=== PATIENT | female | born 1940 | race Caucasian/White ===

== ENCOUNTER → 2018-12-16 | Outpatient (CLI) | payer MEDICARE ==
[~2018-12-16] MED LIST: ACETAMINOPHEN325 M1 PO; ALBUTEROL0.63 MG/3; AMIODARONE HCL200 MG; ASPIRIN EC81 MG PO; BUMETANIDE1 MG PO; COUMADIN3 MG PO; DIGOXIN125 MCG PO; DOCUSATE SODIU100 MG PO; FLUOXETINE HCL40 MG PO; FOSAMAX70 MG; MELATONIN3 MG PO; PANTOPRAZOLE SO40 MG PO
--- NOTE | 2018-12-16 15:56 | Diagnostic Imaging Report ---
EXAMINATION: CHEST 2 VIEWS INDICATION: Shortness of breath COMPARISON: None FINDINGS: TUBES and LINES: Sternotomy wires and hardware overlie the midline thorax. LUNGS: The lung volumes are low. There is perihilar fullness and indistinctness of the pulmonary vasculature. And area of focal opacity at the left lung apex may represent overlying shadow from the sternocostal junction versus a pulmonary parenchymal lesion. PLEURA: Bilateral pleural effusions left greater than right no pneumothorax. HEART AND MEDIASTINUM: Cardiomegaly. Atherosclerotic calcifications of the thoracic aorta. BONES AND SOFT TISSUES: No acute fracture or dislocation. Surgical clips and skin joe overlie the right anterior chest wall. UPPER ABDOMEN: No free air under the diaphragm. IMPRESSION: Low lung volumes with pulmonary interstitial edema and bilateral left greater than right pleural effusions. More focal opacity at the left lung apex may represent a pulmonary nodule or overlapping shadow from sternocostal junction. RECOMMENDATIONS: Chest CT on a non-urgent basis can be considered for further evaluation of possible left apical nodule. Signed by: Arnie Zapata MD on 12/16/2018 3:52 PM
== END ==
LOC: RAD 14:48
PROVIDERS: ATTEND Internal Medicine Cardiovascular Disease
DX: R06.02 Shortness of breath (principal)
CPT/HCPCS: 71046

== ENCOUNTER 2018-12-18 20:30 | Inpatient (IN) | payer MEDICARE ==
[~2018-12-18] VITALS: Ht 152.4 cm; Wt 76.7 kg
--- OUTSIDE RECORDS SUMMARY | 2018-12-18 20:34 | XMS REPORT | Clinical Summary ---
Author Author [facility] Address Unknown Phone Unavailable Care Team Providers Care Cloth Measurer Name Role Phone Yoshi Carrasco MD PCP Allergies Comments Active Allergy Reactions Severity Noted Date Codeine Hives 08/26/2017 Penicillins 08/26/2017 Medications End Date Status Medication Sig Dispensed Refills Start Date Active PROAIR HFA 90 0 mcg/actuation inhaler 8 Active alendronate (FOSAMAX) 70 0 MG tablet 8 Active ELIQUIS 5 mg tablet 0 8 Active benzonatate (TESSALON) TK ONE C PO Q 0 100 MG capsule 8 H PRF CNC 8 Active CARTIA XT 120 mg 24 hr 0 capsule 8 Active doxycycline (VIBRA-TABS) 0 100 MG tablet 8 Active FLUoxetine (PROzac) 40 MG 0 capsule 8 Active HYDROcodone-acetaminophen 0 (NORCO) 5-325 mg per 8 tablet Active isosorbide mononitrate 0 (IMDUR) 60 MG 24 hr 8 tablet Active omeprazole (PriLOSEC) 40 0 MG capsule 8 Active ondansetron ODT 0 (ZOFRAN-ODT) 4 MG 8 disintegrating tablet Active ondansetron (ZOFRAN) 4 MG 0 tablet 8 Active simvastatin (ZOCOR) 20 MG 0 tablet 8 Active triamterene-hydrochloroth TK 1 C PO QD 0 iazid (DYAZIDE) 37.5-25 IN THE 8 mg per capsule MORNING Active Problems Problem Noted Date Closed head injury 08/24/2017 Encounters Care Team Description Date Type Specialty [place], Yoshi, MD Acute idiopathic gout of left foot (Primary Dx) 08/13/2018 Transcribe Access Orders Yoshi Carrasco MD Idiopathic gout of left foot, unspecified chronicity (Primary Dx) 08/13/2018 Transcribe Access Orders Meek Lutz MD Leg pain, anterior, left 08/08/2018 Hospital Radiology Encounter Meek Lutz MD Leg pain, anterior, left (Primary Dx) 08/08/2018 Transcribe Access Orders after 12/17/2017 Immunizations Name Dates Previously Given Next Due Tdap 08/24/2017 Social History Date Tobacco Use Types Packs/Day Years Used Never Smoker Smokeless Tobacco: Never Used Alcohol Use Drinks/Week oz/Week Comments No Sex Assigned at Date Recorded Not on file Industry Job Start Date Occupation Not on file Not on file Not on file Travel End Travel History Travel Start No recent travel history available. Last Filed Vital Signs Not on file Plan of Treatment Health Maintenance Due Date Last Done Comments COLONOSCOPY SCREENING 01/10/1992 SHINGLES VACCINES (#1) 01/10/1992 65+ PNEUMOCOCCAL VACCINE 2007 06/04/2009 (2 of 2 - PPSV23) INFLUENZA VACCINE 01/02/2019 04/04/2016 Procedures Comments Procedure Name Priority Date/Time Associated Diagnosis XR ANKLE 3+ VW LEFT Routine 08/13/2018 Idiopathic gout of left 12:03 PM CDT foot, unspecified chronicity XR FOOT 3+ VW LEFT Routine 08/13/2018 Idiopathic gout of left 12:02 PM CDT foot, unspecified chronicity US DUPLEX VENOUS LOWER STAT 08/08/2018 Leg pain, anterior, left EXTREMITY LEFT 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 IMPRESSION: There is no evidence of acute left ankle fracture or dislocation. Bones are diffusely demineralized. Circumferential soft tissue swelling around the ankle. Small joint effusion. Plantar fascial calcifications. Mild degenerative changes at the ankle joint. No evidence of erosions, periostitis or changes to suggest gout. The soft tissue swelling in combination with a joint effusion is nonspecific although can represent the manifestations of a crystalline arthropathy. Consider MRI. I personally reviewed the images and the resident's findings and agree with the final report. [id number] Procedure Note Interface, Radiology Results Incoming - 08/13/2018 2:14 PM CDT EXAMINATION: XR ANKLE 3 VW LEFT CLINICAL HISTORY: M10.072 Idiopathic gout left ankle and foot, m10.072 COMPARISON: None. IMPRESSION: There is no evidence of acute left ankle fracture or dislocation. Bones are diffusely demineralized. Circumferential soft tissue swelling around the ankle. Small joint effusion. Plantar fascial calcifications. Mild degenerative changes at the ankle joint. No evidence of erosions, periostitis or changes to suggest gout. The soft tissue swelling in combination with a joint effusion is nonspecific although can represent the manifestations of a crystalline arthropathy. Consider MRI. I personally reviewed the images and the resident's findings and agree with the final report. [id number] Performing Organization Address City/State/Zipcode Phone Number [facility] [phone] [place] [address] * XR Foot 3+ Vw Left (08/13/2018 12:02 PM CDT) Specimen Narrative Performed At EXAMINATION:XR FOOT 3VW LEFT [facility] CLINICAL HISTORY:M10.072 Idiopathic goutleft ankle and foot, m10.072 COMPARISON:None. IMPRESSION: 1.There is no evidence of acute left foot fracture or dislocation. There are no radiopaque foreign bodies.There are no focal bony erosions or periostitis. Osseous structures are demineralized. There is joint space narrowing and articular sclerosis at the TMT joint spaces. [facility]-[id number] Procedure Note Interface, Radiology Results - 08/13/2018 12:33 PM CDT EXAMINATION: XR FOOT 3 VW LEFT CLINICAL HISTORY: M10.072 Idiopathic gout left ankle and foot, m10.072 COMPARISON: None. IMPRESSION: 1. There is no evidence of acute left foot fracture or dislocation. There are no radiopaque foreign bodies. There are no focal bony erosions or periostitis. Osseous structures are demineralized. There is joint space narrowing and articular sclerosis at the TMT joint spaces. [facility]-[id number] Performing Organization Address City/State/Zipcode Phone Number [facility] [address] [place] [address] * Us duplex venous lower extremity (08/08/2018 5:41 PM FIELD MARKETING DIRECTOR) Specimen Narrative Performed At US DUPLEX [facility]EN[facility] CLINICAL INDICATION: M79.605 Pain in left leg, leg pain COMPARISON:None COMMENTS: Sonographic evaluation of the left lower extremity was performed utilizing compression sonography and color Doppler interrogation. Doppler evaluation of the contralateral right common femoral vein demonstrates normal flow on color and spectral Doppler imaging. The left common femoral vein, superficial and visualized profunda femoral veins and popliteal vein are normal in course and caliber and exhibit normal compressibility, flow variation and Doppler signal throughout. The visualized deep veins of the left calf are within normal limits with normal flow variation. No Garcia's cyst is identified. IMPRESSION: No evidence of left lower extremity deep venous thrombosis. *[id number] Procedure Note Interface, Radiology Results Incoming - 08/08/2018 5:48 PM FIELD MARKETING DIRECTOR US DUPLEX VENOUS LOWER EXTREMITY LEFT CLINICAL INDICATION: M79.605 Pain in left leg, leg pain COMPARISON: None COMMENTS: Sonographic evaluation of the left lower extremity was performed utilizing compression sonography and color Doppler interrogation. Doppler evaluation of the contralateral right common femoral vein demonstrates normal flow on color and spectral Doppler imaging. The left common femoral vein, superficial and visualized profunda femoral veins and popliteal vein are normal in course and caliber and exhibit normal compressibility, flow variation and Doppler signal throughout. The visualized deep veins of the left calf are within normal limits with normal flow variation. No Garcia's cyst is identified. IMPRESSION: No evidence of left lower extremity deep venous thrombosis. *[id number] Performing Organization Address City/State/Zipcode Phone Number [facility] [address] [place] [address] after 12/17/2017 Insurance Type Payer Benefit Subscriber ID Effective Phone Address Plan / Dates Group [facility] MEDICARE AARP xxxxxxxxx [id number] MEDICARE resent [facility] Advance Directives Patient has advance care planning documents on file. For more information, yohannes mai contact: Richard Carrero [phone] [facility] [place] [address]
--- OUTSIDE RECORDS SUMMARY | 2018-12-18 20:35 | XMS REPORT | Summary of Care ---
Author Author [facility] Organization [facility] Address Unknown Phone Unavailable Encounter NISH Burt(RYAN) [id number] Date(s): 11/15/18 - 12/01/18 [facility] [address] [employer] provided by [facility] [place] [address]- Discharge Disposition: Home or Self Care Attending Physician: Katelyn Austin MD Admitting Physician: Katelyn Austin MD Vital Signs 1 2 3 Most recent to oldest [Reference Range]: 152.4 cm (11/22/18 11:20 AM) 152.4 cm (11/22/18 7:49 AM) 152.4 cm (11/22/18 3:26 AM) Height 84.688 kg (11/28/18 5:40 AM) 88.9 kg (11/26/18 5:57 AM) 89 kg (11/25/18 4:59 AM) Current Weight 97.1 DegF (12/01/18 4:46 PM) 97.7 DegF (12/01/18 11:33 AM) 98.5 DegF (12/01/18 7:30 AM) Temperature Oral [96.4-99.1 DegF] 104/75 mmHg (12/01/18 2:29 PM) 110/56 mmHg (12/01/18 12:00 PM) 110/56 mmHg (12/01/18 11:33 AM) Blood Pressure [90-140/60-90 mmHg] 18 BRMIN (12/01/18 2:29 PM) 22 BRMIN *HI* (12/01/18 12:00 PM) 20 BRMIN (12/01/18 11:33 AM) Respiratory Rate [14-20 BRMIN] 72 bpm (11/15/18 5:18 PM) Peripheral Pulse Rate [60-100 bpm] 82.727 kg (11/16/18 1:55 AM) 79.545 kg (11/15/18 5:18 PM) Weight 35.62 m2 (11/16/18 1:55 AM) 34.25 m2 (11/15/18 5:18 PM) Body Mass Index Problem List Condition Effective Dates Status Health Status Informant A-fib(Confirmed) Active Shortness of breath Active on exertion(Confirmed) Acid Active reflux(Confirmed) Hyperlipidemia(Confi Active rmed) HTN Active (hypertension)(Confi rmed) Sleep Active apnea(Confirmed) Allergies, Adverse Reactions, Alerts Substance Reaction Severity Status penicillins Active codeine Active chlorhexidine topical Active NKDA Active Medications acetaminophen 1,000 mg, 100 mL, Route: IV, Drug form: INJ, ONCE, Dosing Weight 82.727, kg, Sta rt date: 11/22/18 13:21:00 CDT, Stop date: 11/22/18 13:21:00 CDT Notes: Infuse over 15 minutesDo not exceed 4gm/day of acetaminophen MEDICAT ION WASTE Product Size: 1000 mgProduct Wasted: ___ mg Start Date: 11/22/18 Stop Date: 11/22/18 Status: Completed acetaminophen 650 mg rectal suppository 650 mg, 2 tab, Route: PO, Drug form: TAB, Q6H, Dosing Weight 82.727, kg, PRN For Temp > 100.4 F, Start date: 11/22/18 2:33:00 CDT, Duration: 30 day, Stop date: 12/22/18 2:32:00 CDT Notes: Do not exceed 4 gm/day. (Same as: Tylenol) Start Date: 11/22/18 Stop Date: 12/01/18 Status: Discontinued acetaminophen-hydrocodone 325 mg-10 mg oral tablet 2 tab, Route: PO, Drug Form: TAB, Dosing Weight 82.727, kg, Q4H, PRN Pain Score 4-6, Start date: 11/21/18 1:02:00 CDT, Duration: 30 day, Stop date: 12/21/18 1:0 1:00 CDT Notes: Do not exceed 4gm/day of acetaminophen. (Same as: [place] 325/10) Start Date: 11/21/18 Stop Date: 11/24/18 Status: Discontinued acetaminophen-hydrocodone 325 mg-10 mg oral tablet 1 tab, Route: PO, Drug Form: TAB, Dosing Weight 82.727, kg, Q4H, PRN Pain Score 1-3, Start date: 11/21/18 1:02:00 CDT, Duration: 30 day, Stop date: 12/21/18 1:0 1:00 CDT Notes: Do not exceed 4gm/day of acetaminophen. (Same as: [place] 325/10) Start Date: 11/21/18 Stop Date: 11/24/18 Status: Discontinued acetaminophen-hydrocodone 325 mg-5 mg oral tablet 1 tab, Route: PO, Drug Form: TAB, Dosing Weight 82.727, kg, Q4H, PRN Pain Score 1-3, Start date: 11/21/18 13:47:00 CDT, Duration: 30 day, Stop date: 12/21/18 13 :46:00 CDT Notes: (Same as: [place] 325/5) Do not exceed 4gm/day of acetaminophen. Start Date: 11/21/18 Stop Date: 11/27/18 Status: Discontinued acetaminophen-hydrocodone 325 mg-5 mg oral tablet 2 tab, Route: PO, Drug Form: TAB, Dosing Weight 82.727, kg, Q4H, PRN Pain Score 4-6, Start date: 11/21/18 13:47:00 CDT, Duration: 30 day, Stop date: 12/21/18 13 :46:00 CDT Notes: Same as [place] 325-7.5mg Do not exceed 4gm/day of acetaminophen. Start Date: 11/21/18 Stop Date: 11/27/18 Status: Discontinued Al hydroxide/Mg hydroxide/simethicone 30 mL, Route: PO, Drug Form: SUSP, ONCE, Start date: 11/29/18 13:09:00 CDT, Stop date: 11/29/18 13:09:00 CDT, 0 Notes: (aluminum hydroxide-magnesium hyd-simethicone [id number]/5ml 30 ml ud S US) Start Date: 11/29/18 Stop Date: 11/29/18 Status: Completed alendronate 70 mg oral tablet 70 mg=1 tab, PO, Q7D, 0 Refill(s) Start Date: 11/16/18 Status: Ordered allopurinol 100 mg oral tablet 100 mg=1 tab, PO, TID, 0 Refill(s) Start Date: 11/16/18 Stop Date: 12/01/18 Status: Discontinued AMIODarone 200 mg, 1 tab, Route: PO, Drug form: TAB, BID, Dosing Weight 82.727, kg, Start d ate: 11/24/18 17:00:00 CDT, Duration: 30 day, Stop date: 12/24/18 9:00:00 CDT, 0 Notes: (Same as: Cordarone) Start Date: 11/24/18 Stop Date: 12/01/18 Status: Discontinued AMIODarone + Dextrose 5% in Water 100 mL 150 mg, 3 mL, Route: IVPB, ONCE, Dosing Weight 82.727, kg, Start date: 11/23/18 8:30:00 CDT, Stop date: 11/23/18 8:30:00 CDT Notes: Central administration only for concentrations > 2 mg/ml."Recommendation: Use an in-line filter during administration for continuous infusions to reduce the incidence of phlebitis"(Same as Codarone) MEDICATION WASTE Product Size: 150 mgProduct Wasted: ___ mg Start Date: 11/23/18 Stop Date: 11/23/18 Status: Completed AMIODarone 200 mg oral tablet 200 mg=1 tab, PO, BID, 0 Refill(s) Start Date: 12/01/18 Status: Ordered AMIODarone 900 mg in D5W 500 ml IV 900 mg + Dextrose 5% in Water IV 482 mL 900 mg, 18 mL, Rate: 1 mg/min for 6 hours, then reduce to 0.5 mg/min, Dosing Gabriele ght 82.727, kg, Route: IV, Total Volume: 500, Start Date: 11/23/18 8:30:00 CDT, Duration: 30 day, Stop date: 12/23/18 8:29:00 CDT, Replace Every: 24 hr Notes: Central administration only for concentration > 2 mg/ml. Use Glass Bottle or Non PVC Bag"Use 0.22 micron in-line filter" MEDICATION WASTE Product Size: 900 mgProduct Wasted: ___ mg Start Date: 11/23/18 Stop Date: 11/25/18 Status: Discontinued aspirin 325 mg tablet, enteric coated 325 mg, 1 tab, Route: PO, Drug form: ECTAB, Daily, Dosing Weight 82.727, kg, Sta rt date: 11/21/18 9:00:00 CDT, Duration: 30 day, Stop date: 12/20/18 9:00:00 CDT Notes: (Do Not Crush) Do not crush or chew. Start Date: 11/21/18 Stop Date: 11/21/18 Status: Canceled aspirin 81 mg tablet, chewable 81 mg=1 tab, PO, Daily, 0 Refill(s) Start Date: 12/01/18 Status: Ordered aspirin 81 mg tablet, chewable 81 mg, 1 tab, Route: PO, Drug form: CHEWTAB, Daily, Dosing Weight 82.727, kg, St art date: 11/21/18 9:00:00 CDT, Duration: 30 day, Stop date: 12/20/18 9:00:00 CD T Notes: Take with food. Start Date: 11/21/18 Stop Date: 12/01/18 Status: Discontinued atorvastatin 40 mg, 1 tab, Route: PO, Drug form: TAB, Bedtime, Dosing Weight 82.727, kg, Star t date: 11/21/18 21:00:00 CDT, Duration: 30 day, Stop date: 12/20/18 21:00:00 CD T Notes: (Same as: Lipitor) Start Date: 11/21/18 Stop Date: 11/21/18 Status: Canceled bisoprolol 5 mg, 1 tab, Route: PO, Drug form: TAB, BID, Dosing Weight 79.545, kg, Start shane e: 11/16/18 0:45:00 CDT, Duration: 30 day, Stop date: 12/15/18 17:00:00 CDT Notes: (Same As: Zebeta) Start Date: 11/16/18 Stop Date: 11/22/18 Status: Discontinued bisoprolol 5 mg oral tablet 5 mg=1 tab, PO, Q12H, 0 Refill(s) Start Date: 11/16/18 Stop Date: 12/01/18 Status: Discontinued bumetanide 2 mg, 8 mL, Route: IVP, Drug form: INJ, BID, Dosing Weight 82.727, kg, Start shane e: 11/25/18 11:00:00 CDT, Duration: 30 day, Stop date: 12/25/18 9:00:00 CDT Notes: (Same As: Bumex) Start Date: 11/25/18 Stop Date: 11/26/18 Status: Discontinued bumetanide 1 mg, 1 tab, Route: PO, Drug form: TAB, BID, Dosing Weight 82.727, kg, Start shane e: 11/26/18 17:00:00 CDT, Duration: 30 day, Stop date: 12/26/18 9:00:00 CDT Notes: (Same As: Bumex) Start Date: 11/26/18 Stop Date: 12/01/18 Status: Discontinued bumetanide 1 mg oral tablet 1 mg=1 tab, PO, BID, 0 Refill(s) Start Date: 12/01/18 Status: Ordered bumetanide 10 mg + 60 mL, Rate: Infuse as directed, Dosing Weight 82.727, kg, Route: IV, Total Volu me: 100 mL, Start Date: 11/22/18 12:09:00 CDT, Duration: 30 day, Stop date: 12/03 06/22 12:08:00 CDT, Replace Every: 24 hr Notes: (Same as: Bumex) Start Date: 11/22/18 Stop Date: 11/24/18 Status: Discontinued bumetanide 10 mg + 60 mL, Rate: Infuse as directed, Dosing Weight 82.727, kg, Route: IVPB, Total Vo lume: 100 mL, Start Date: 11/24/18 12:42:00 CDT, Duration: 30 day, Stop date: 12:41:00 CDT, Replace Every: 24 hr Notes: (Same as: Bumex) Start Date: 11/24/18 Stop Date: 11/25/18 Status: Discontinued Bumex 0.5 mg, Route: IV, ONCE, Dosing Weight 82.727, kg, Start date: 11/24/18 3:00:00 CDT, Stop date: 11/24/18 3:00:00 CDT, Start Date: 11/24/18 Stop Date: 11/24/18 Status: Discontinued Bumex 0.5 mg, 2 mL, Route: IVP, Drug form: INJ, Daily, Dosing Weight 82.727, kg, Start date: 11/24/18 9:00:00 CDT, Duration: 30 day, Stop date: 12/23/18 9:00:00 CDT Notes: (Same As: Bumex) Start Date: 11/24/18 Stop Date: 11/24/18 Status: Canceled Bumex 0.5 mg, 2 mL, Route: IVP, Drug form: INJ, ONCE, Dosing Weight 82.727, kg, Start date: 11/24/18 4:22:00 CDT, Stop date: 11/24/18 4:22:00 CDT Notes: (Same As: Bumex) Start Date: 11/24/18 Stop Date: 11/24/18 Status: Completed Bumex 1 mg, 4 mL, Route: IV, Drug form: INJ, TID, Dosing Weight 82.727, kg, Start date : 11/21/18 15:00:00 CDT, Duration: 30 day, Stop date: 12/21/18 13:00:00 CDT Notes: (Same As: Bumex) Start Date: 11/21/18 Stop Date: 11/22/18 Status: Discontinued calcium carbonate 500 mg (200 mg elemental calcium) oral tablet 500 mg, 1 tab, Route: PO, Drug form: CHEWTAB, PRN, Dosing Weight 82.727, kg, PRN Abnormal Lab Result, FOR ICU USE ONLY, Start date: 11/25/18 8:50:00 CDT, Durati on: 30 day, Stop date: 12/25/18 8:49:00 CDT Notes: (Same As: Tums)Calcium Carbonate 500 bu=487 mg elemental calcium Dose=_ mg calcium carbonate ( mg elemental calcium) Start Date: 11/25/18 Stop Date: 11/27/18 Status: Discontinued calcium carbonate 500 mg (200 mg elemental calcium) oral tablet 1,000 mg, 2 tab, Route: PO, Drug form: CHEWTAB, PRN, Dosing Weight 82.727, kg, P RN Abnormal Lab Result, FOR ICU USE ONLY, Start date: 11/25/18 8:50:00 CDT, Dura tion: 30 day, Stop date: 12/25/18 8:49:00 CDT Notes: (Same As: Tums)Calcium Carbonate 500 mj=172 mg elemental calcium Dose=_ mg calcium carbonate ( mg elemental calcium) Start Date: 11/25/18 Stop Date: 11/27/18 Status: Discontinued calcium chloride (ANES) Route: IV, Drug form: INJ, ONCE, Stop date: 11/20/18 19:24:00 CDT Start Date: 11/20/18 Stop Date: 11/20/18 Status: Completed calcium gluconate (ANES) Route: IV, Drug form: INJ, ONCE, Stop date: 11/21/18 0:47:00 CDT Start Date: 11/21/18 Stop Date: 11/21/18 Status: Completed calcium gluconate + Sodium Chloride 0.9% IV 50 mL 1 gm, 10 mL, Route: IVPB, PRN, Dosing Weight 82.727, kg, PRN Abnormal Lab Result , Start date: 11/25/18 8:50:00 CDT, Duration: 30 day, Stop date: 12/25/18 8:49:0 0 CDT, FOR ICU USE ONLY Notes: WASTE: F/P - Sink; E - Municipal Trash Bin Start Date: 11/25/18 Stop Date: 11/27/18 Status: Discontinued calcium gluconate + Sodium Chloride 0.9% IV 80 mL 3 gm, 30 mL, Route: IVPB, PRN, Dosing Weight 79.545, kg, PRN Abnormal Lab Result , For NON-ICU Patients Only., Start date: 11/15/18 23:14:00 CDT, Duration: 30 da y, Stop date: 12/15/18 23:13:00 CDT Notes: WASTE: F/P - Sink; E - Municipal Trash Bin Start Date: 11/15/18 Stop Date: 12/01/18 Status: Discontinued calcium gluconate + Sodium Chloride 0.9% IV 80 mL 2 gm, 20 mL, Route: IVPB, PRN, Dosing Weight 79.545, kg, PRN Abnormal Lab Result , For NON-ICU Patients Only., Start date: 11/15/18 23:14:00 CDT, Duration: 30 da y, Stop date: 12/15/18 23:13:00 CDT Notes: WASTE: F/P - Sink; E - Municipal Trash Bin Start Date: 11/15/18 Stop Date: 12/01/18 Status: Discontinued Cardene 40 mg in NS 200 mL (Titrate.) IV 40 mg 40 mg, 200 mL, Rate: Titrate, Start Dose: 5 mg/hr, Titration: increase or decrea se by 5 but no more than 15, Goal(s): MAP 70, Route: IV, Dosing Weight 82.727 kg , Total Volume: 200 mL, Start date: 11/21/18 1:02:00 CDT, Duration: 30 day, Stop date: 12/03... Notes: Same as: CardeneConcentration: (0.2 mg /1 ml ) Start Date: 11/21/18 Stop Date: 11/22/18 Status: Discontinued ceFAZolin (ANES) Route: IV, Drug form: INJ, ONCE, Stop date: 11/20/18 20:31:00 CDT Start Date: 11/20/18 Stop Date: 11/20/18 Status: Completed ceFAZolin (ANES) Route: IV, Drug form: INJ, ONCE, Stop date: 11/20/18 17:11:00 CDT Start Date: 11/20/18 Stop Date: 11/20/18 Status: Completed ceFAZolin (ANES) Route: IV, Drug form: INJ, ONCE, Stop date: 11/21/18 1:28:00 CDT Start Date: 11/21/18 Stop Date: 11/21/18 Status: Completed ceFAZolin (ANES) Route: IV, Drug form: INJ, ONCE, Stop date: 11/21/18 10:47:00 CDT Start Date: 11/21/18 Stop Date: 11/21/18 Status: Completed ceFAZolin (SCIP) 2 gm, 20 mL, Route: IVPB, Drug form: SOLN, Q8H, Dosing Weight 82.727, kg, Start date: 11/21/18 7:30:00 CDT, Duration: 3 doses or times, Stop date: 11/21/18 23:3 0:00 CDT, ABX Indication: Surgical Prophylaxis Notes: (Same as Ancef) Start Date: 11/21/18 Stop Date: 11/21/18 Status: Completed cefepime + sterile water 10 mL 1 gm, Route: IVPB, [id number], Dosing Weight 82.727, kg, (CrCl >/=60 ml/min), Start date: 11/22/18 13:00:00 CDT, Duration: 3 day, Stop date: 11/25/18 5:00:00 CDT, ABX Indication: Surgical Prophylaxis Notes: (Same As: Maxipime) MEDICATION WASTE Product Size: 1000 mgProduc t Wasted: ___ mg Start Date: 11/22/18 Stop Date: 11/25/18 Status: Completed chlorhexidine topical 0.12% liquid 15 mL, Route: Swab Mouth, Q12H, Drug form: LIQ, Start date: 11/21/18 9:00:00 CDT , Duration: 30 day, Stop date: 12/20/18 21:00:00 CDT Notes: (Same As: Peridex) Start Date: 11/21/18 Stop Date: 11/24/18 Status: Discontinued chlorhexidine topical 0.12% liquid 15 ml, Route: S&SPIT, Q12H, Drug form: LIQ, Start date: 11/21/18 21:00:00 CDT, Duration: 2 week, Stop date: 12/05/18 9:00:00 CDT Notes: (Same As: Peridex) Start Date: 11/21/18 Stop Date: 11/24/18 Status: Discontinued chlorhexidine topical 4% soap 1 appl, Route: BATHE, Q-M-W-F, Drug form: SOAP, Start date: 11/22/18 9:00:00 CDT , Duration: 30 day, Stop date: 12/20/18 9:00:00 CDT Notes: (Same As: Hibiclens) Start Date: 11/22/18 Stop Date: 11/30/18 Status: Discontinued Dextrose 50% Syringe 12.5 gm, 25 mL, Route: IVP, Drug Form: INJ, Dosing Weight 82.727, kg, PRN, PRN B lood Glucose Results, Start date: 11/25/18 8:08:00 CDT, Duration: 30 day, Stop d ate: 12/25/18 8:07:00 CDT Start Date: 11/25/18 Stop Date: 12/01/18 Status: Discontinued Dextrose 50% Syringe 25 gm, 50 mL, Route: IVP, Drug Form: INJ, Dosing Weight 82.727, kg, PRN, PRN Blo od Glucose Results, Start date: 11/25/18 8:08:00 CDT, Duration: 30 day, Stop shane e: 12/25/18 8:07:00 CDT Start Date: 11/25/18 Stop Date: 12/01/18 Status: Discontinued Dextrose 50% Syringe 12.5 gm, 25 mL, Route: IVP, Drug Form: INJ, Dosing Weight 82.727, kg, PRN, PRN B lood Glucose Results, Start date: 11/21/18 1:02:00 CDT, Duration: 30 day, Stop d ate: 12/21/18 1:01:00 CDT Start Date: 11/21/18 Stop Date: 11/25/18 Status: Discontinued Dextrose 50% Syringe 25 gm, 50 mL, Route: IVP, Drug Form: INJ, Dosing Weight 82.727, kg, PRN, PRN Blo od Glucose Results, Start date: 11/21/18 1:02:00 CDT, Duration: 30 day, Stop shane e: 12/21/18 1:01:00 CDT Start Date: 11/21/18 Stop Date: 11/25/18 Status: Discontinued Dextrose 50% Syringe 25 gm, 50 mL, Route: IVP, Drug Form: INJ, Dosing Weight 82.727, kg, PRN, PRN Blo od Glucose Results, Start date: 11/20/18 20:24:00 CDT, Duration: 3 hr, Stop date : 11/20/18 23:23:00 CDT Start Date: 11/20/18 Stop Date: 11/20/18 Status: Completed Dextrose 50% Syringe 12.5 gm, 25 mL, Route: IVP, Drug Form: INJ, Dosing Weight 82.727, kg, PRN, PRN B lood Glucose Results, Start date: 11/20/18 20:24:00 CDT, Duration: 3 hr, Stop da te: 11/20/18 23:23:00 CDT Start Date: 11/20/18 Stop Date: 11/20/18 Status: Completed Dextrose 50% Syringe 50 mL, Route: IVP, Dosing Weight 82.727, kg, PRN, PRN Blood Glucose Results, Sta rt date: 11/20/18 20:29:00 CDT, Duration: 30 day, Stop date: 12/20/18 20:28:00 C DT Start Date: 11/20/18 Stop Date: 11/20/18 Status: Discontinued Dextrose 50% Syringe 25 mL, Route: IVP, Dosing Weight 82.727, kg, PRN, PRN Blood Glucose Results, Sta rt date: 11/20/18 20:29:00 CDT, Duration: 30 day, Stop date: 12/20/18 20:28:00 C DT Start Date: 11/20/18 Stop Date: 11/20/18 Status: Discontinued digoxin 125 mcg (0.125 mg) oral tablet 0.125 mg, 1 tab, Route: PO, Drug form: TAB, Daily, Dosing Weight 82.727, kg, Sta rt date: 11/26/18 9:00:00 CDT, Duration: 30 day, Stop date: 12/25/18 9:00:00 CDT Notes: Take on an Empty Stomach (Same as: Lanoxin) Start Date: 11/26/18 Stop Date: 12/01/18 Status: Discontinued digoxin 125 mcg (0.125 mg) oral tablet 0.125 mg=1 tab, PO, Daily, 0 Refill(s) Start Date: 12/01/18 Status: Ordered digoxin 250 mcg (0.25 mg) oral tablet 0.25 mg, 1 tab, Route: PO, Drug form: TAB, ONCE, Dosing Weight 82.727, kg, Start date: 11/25/18 11:00:00 CDT, Stop date: 11/25/18 11:00:00 CDT Notes: Take on an Empty Stomach (Same as: Lanoxin) Start Date: 11/25/18 Stop Date: 11/25/18 Status: Completed diltiazem 12 hour extended release 120 mg, 1 cap, Route: PO, Drug form: ERCAP, Daily, Dosing Weight 79.545, kg, Sta rt date: 11/16/18 9:00:00 CDT, Duration: 30 day, Stop date: 12/15/18 9:00:00 CDT Notes: (Same as: Cardizem CD) Do Not Crush Before meals. Start Date: 11/16/18 Stop Date: 11/22/18 Status: Discontinued diltiazem 120 mg oral capsule, extended release 120 mg=1 cap, PO, Daily, 0 Refill(s) Start Date: 11/16/18 Stop Date: 12/01/18 Status: Discontinued docusate 100 mg, 1 cap, Route: PO, Drug form: CAP, BID, Dosing Weight 82.727, kg, Start d ate: 11/21/18 9:00:00 CDT, Duration: 30 day, Stop date: 12/20/18 17:00:00 CDT Notes: (Same as: Colace) (Do Not Crush) Start Date: 11/21/18 Stop Date: 12/01/18 Status: Discontinued docusate 100 mg, 1 cap, Route: PO, Drug form: CAP, BID, Dosing Weight 82.727, kg, PRN Con stipation, Start date: 11/21/18 13:22:00 CDT, Duration: 30 day, Stop date: 12/21 13:21:00 CDT Notes: (Same as: Colace) (Do Not Crush) Start Date: 11/21/18 Stop Date: 12/01/18 Status: Discontinued docusate sodium 100 mg oral capsule 100 mg=1 cap, PO, BID, 0 Refill(s) Start Date: 12/01/18 Status: Ordered Dulcolax Laxative 10 mg, 1 supp, Route: WV, Drug form: SUPP, ONCE, Dosing Weight 82.727, kg, Start date: 11/30/18 13:05:00 CDT, Stop date: 11/30/18 13:05:00 CDT, 0 Notes: (Same As: Dulcolax, [place]isco-Lax) Start Date: 11/30/18 Stop Date: 11/30/18 Status: Completed DuoNeb inhalation solution 3 mL, NEB, RQ6H, 0 Refill(s) Start Date: 12/01/18 Status: Ordered DuoNeb inhalation solution 3 ml, Route: NEB, Drug Form: SOLN, Dosing Weight 82.727, kg, PRN, PRN Respirator y Pathway, Start date: 11/21/18 2:45:00 CDT, Duration: 30 day, Stop date: 2:44:00 CDT Notes: (Same as: Duoneb) Start Date: 11/21/18 Stop Date: 11/25/18 Status: Discontinued DuoNeb inhalation solution 3 mL, Route: NEB, Drug Form: SOLN, Dosing Weight 82.727, kg, RQ6H, Start date: 0 11/22/18 8:58:00 CDT, Duration: 30 day, Stop date: 12/22/18 8:00:00 CDT Notes: (Same as: Duoneb) Start Date: 11/22/18 Stop Date: 12/01/18 Status: Discontinued Eliquis 5 mg, 1 tab, Route: PO, Drug form: TAB, Q12H, Dosing Weight 79.545, kg, Start da te: 11/16/18 9:00:00 CDT, Duration: 30 day, Stop date: 12/15/18 21:00:00 CDT Notes: Same as: Eliquis Start Date: 11/16/18 Stop Date: 11/22/18 Status: Discontinued Eliquis 5 mg oral tablet 5 mg, PO, Q12H, 0 Refill(s) Start Date: 11/16/18 Stop Date: 12/01/18 Status: Discontinued EPINEPHrine (ANES) 16 microgram Route: IV, Drug form: INJ, Start date: 11/20/18 22:37:00 CDT, Stop date: 9 23:37:00 CDT Start Date: 11/20/18 Stop Date: 11/20/18 Status: Completed EPINEPHrine (ANES) 16 microgram Route: IV, Drug form: INJ, Start date: 11/20/18 22:37:00 CDT, Stop date: 9 23:37:00 CDT Start Date: 11/20/18 Stop Date: 11/20/18 Status: Completed EPINEPHrine (ANES) 16 microgram Route: IV, Drug form: INJ, Start date: 11/20/18 22:37:00 CDT, Stop date: 9 23:37:00 CDT Start Date: 11/20/18 Stop Date: 11/20/18 Status: Completed EPINEPHrine (ANES) 16 microgram Route: IV, Drug form: INJ, Start date: 11/20/18 22:37:00 CDT, Stop date: 9 23:37:00 CDT Start Date: 11/20/18 Stop Date: 11/20/18 Status: Completed EPINEPHrine (ANES) 16 microgram Route: IV, Drug form: INJ, Start date: 11/20/18 22:37:00 CDT, Stop date: 9 23:37:00 CDT Start Date: 11/20/18 Stop Date: 11/20/18 Status: Completed EPINEPHrine 4 mg in NS 250 mL (Titrate.) IV 4 mg + Sodium Chloride 0.9% IV 246 m L 4 mg, 4 mL, Rate: ONCALL to OR 2, Start Dose: 0.01 microgram/kg/min, Titration: 0.01 microgram/kg/min every 2 min, Goal(s): MAP >=65 mmHg, Max Dose: 0.5 microgram/kg/min, Route: IV, Dosing Weight 82.727 kg, Total Volume: 250, Start date: 11/20/18 20:... Notes: (Same as: Adrenalin) Suremed - Injectable drug used as inhalation treatme nt. MEDICATION WASTE Product Size: 1 mgProduct Wasted: ___ mg Start Date: 11/20/18 Stop Date: 11/20/18 Status: Completed famotidine 20 mg, 1 tab, Route: PO, Drug form: TAB, Daily, Start date: 11/16/18 9:00:00 CDT , Duration: 30 day, Stop date: 12/15/18 9:00:00 CDT Notes: (Same as: Pepcid) Start Date: 11/16/18 Stop Date: 11/21/18 Status: Discontinued famotidine 20 mg, 1 tab, Route: PO, Drug form: TAB, BID, Start date: 11/30/18 9:00:00 CDT, Duration: 30 day, Stop date: 12/29/18 17:00:00 CDT, 0 Notes: (Same as: Pepcid) Start Date: 11/30/18 Stop Date: 11/30/18 Status: Discontinued fentaNYL 25 microgram, 0.5 mL, Route: IVP, Drug form: INJ, Q2H, Dosing Weight 82.727, kg, PRN Pain Score 7-10, Start date: 11/21/18 1:02:00 CDT, Duration: 30 day, Stop d ate: 12/21/18 1:01:00 CDT Notes: (Same as: Sublimaze) Preservative free. Start Date: 11/21/18 Stop Date: 11/30/18 Status: Discontinued fentaNYL (ANES) Route: IV, Drug form: INJ, ONCE, Stop date: 11/20/18 20:37:00 CDT Start Date: 11/20/18 Stop Date: 11/20/18 Status: Completed fentaNYL (ANES) Route: IV, Drug form: INJ, ONCE, Stop date: 11/20/18 17:06:00 CDT Start Date: 11/20/18 Stop Date: 11/20/18 Status: Completed fentaNYL (ANES) Route: IV, Drug form: INJ, ONCE, Stop date: 11/21/18 13:49:00 CDT Start Date: 11/21/18 Stop Date: 11/21/18 Status: Completed fentaNYL (ANES) Route: IV, Drug form: INJ, ONCE, Stop date: 11/21/18 0:05:00 CDT Start Date: 11/21/18 Stop Date: 11/21/18 Status: Completed fentaNYL (PF) 20 mcg/ml OFFICE AUDITOR (600 microgram /30 mL) 600 microgram 600 microgram, 30 mL, Route: IV, OFFICE AUDITOR Dose: 10 mcg, OFFICE AUDITOR Lockout: 10 minutes, Cont inuous Basal Rate: 0 mg, 4 Hour Limit (In MCG): 240, Drug Form: INJ, Continuous, Start date: 11/21/18 1:02:00 CDT, Duration: 30 day, Stop date: 12/21/18 1:01:00 CDT Notes: Concentration is 20 micrograms/ml Start Date: 11/21/18 Stop Date: 11/22/18 Status: Discontinued fentaNYL (PF) 20 mcg/ml OFFICE AUDITOR (600 microgram /30 mL) 600 microgram 600 microgram, 30 mL, Route: IV, OFFICE AUDITOR Dose: 10 mcg, OFFICE AUDITOR Lockout: 10 minutes, Cont inuous Basal Rate: 0 mg, 4 Hour Limit (In MCG): 240, Drug Form: INJ, Continuous, Start date: 11/21/18 13:47:00 CDT, Duration: 30 day, Stop date: 12/21/18 13:46: 00 CDT Notes: Concentration is 20 micrograms/ml Start Date: 11/21/18 Stop Date: 11/22/18 Status: Discontinued fentaNYL 1000 microgram in 20 mL NS (Titrate.) IV 1,000 microgram 1,000 microgram, 20 mL, Rate: Titrate, Start Dose: 50 microgram/hr, Titration: 2 5 microgram/hour every 15 minutes, Goal(s): MAP 70, Max Dose: 300 microgram/hr, Route: IV, Dosing Weight 82.727 kg, Total Volume: 20, Start date: 11/21/18 1:02: 00 CDT, Dur... Start Date: 11/21/18 Stop Date: 11/24/18 Status: Discontinued Ferrlecit + Sodium Chloride 0.9% IV 100 mL 125 mg, 10 mL, Route: IVPB, Daily, Dosing Weight 82.727, kg, Start date: 9 16:21:00 CDT, Duration: 8 doses or times, Stop date: 11/23/18 9:00:00 CDT Notes: (sodium ferric gluconate complex (elemental iron) 62.5 mg/5 ml INJ)"Limit ed stability. Use immediately after admixture"(Same as: Ferrlecit) MEDICAT ION WASTE Product Size: 62.5 mgProduct Wasted: ___ mg Start Date: 11/16/18 Stop Date: 11/23/18 Status: Completed FLUoxetine 40 mg, 2 cap, Route: PO, Drug form: CAP, Daily, Dosing Weight 79.545, kg, Start date: 11/16/18 9:00:00 CDT, Duration: 30 day, Stop date: 12/15/18 9:00:00 CDT Notes: (Same as: ProzacPeem) Start Date: 11/16/18 Stop Date: 12/01/18 Status: Discontinued GI cocktail (aluminum hydroxide/magnesium hydroxide/lidocaine/simethicone) 30 ml, Route: PO, Drug Form: SUSP, Dosing Weight 82.727, kg, ONCE, Routine, Star t date: 11/29/18 12:44:00 CDT, Stop date: 11/29/18 12:44:00 CDT Start Date: 11/29/18 Stop Date: 11/29/18 Status: Discontinued glucagon 1 mg, Route: IM, Drug form: PDR/INJ, PRN, Dosing Weight 82.727, kg, PRN Blood Gl ucose Results, Start date: 11/25/18 8:08:00 CDT, Duration: 30 day, Stop date: 8:07:00 CDT Start Date: 11/25/18 Stop Date: 12/01/18 Status: Discontinued GoLYTELY 4,000 ml, Route: PO, Drug Form: PDR/REC, Dosing Weight 82.727, kg, ONCE, Start d ate: 11/18/18 23:13:00 CDT, Stop date: 11/18/18 23:13:00 CDT Notes: (polyethylene glycol electrolyte solution 4 Liter bottle) (Same as: Gol ytely, Colyte) Start Date: 11/18/18 Stop Date: 11/19/18 Status: Completed Haldol 5 mg, 1 mL, Route: IM, Drug form: INJ, ONCE, Dosing Weight 82.727, kg, PRN Agita tion, Start date: 11/23/18 7:00:00 CDT Notes: (Same as: Haldol) Start Date: 11/23/18 Stop Date: 11/23/18 Status: Completed heparin (ANES) Route: IV, Drug form: INJ, ONCE, Stop date: 11/20/18 20:42:00 CDT Start Date: 11/20/18 Stop Date: 11/20/18 Status: Completed heparin (ANES) Route: IV, Drug form: INJ, ONCE, Stop date: 11/20/18 17:32:00 CDT Start Date: 11/20/18 Stop Date: 11/20/18 Status: Completed heparin 25,000 unit [14 unit/kg/hr] + Premix Diluent Sodium Chloride 0.45% 500 m L 500 mL, Rate: 16.88 ml/hr, Infuse over: 29.6 hr, Route: IV, Dosing Weight 60.3 k g, Total Volume: 500, Start date: 11/18/18 8:46:00 CDT, Duration: 30 day, Stop d ate: 12/18/18 8:45:00 CDT, 1.62, m2 Start Date: 11/18/18 Stop Date: 11/21/18 Status: Discontinued heparin additive 25,000 unit [14 unit/kg/hr] + Premix Diluent Dextrose 5% 500 mL 500 mL, Rate: 23.16 ml/hr, Infuse over: 21.6 hr, Route: IV, Dosing Weight 82.727 kg, Total Volume: 500 mL, Start date: 11/18/18 8:40:00 CDT, Duration: 30 day, S top date: 12/18/18 8:39:00 CDT, 1.91, m2 Start Date: 11/18/18 Stop Date: 11/18/18 Status: Discontinued heparin additive 25,000 unit [14 unit/kg/hr] + Premix Diluent Sodium Chloride 0. 45% 500 mL 500 mL, Rate: 16.91 ml/hr, Infuse over: 29.6 hr, Route: IV, Dosing Weight 60.39 kg, Total Volume: 500 mL, Start date: 11/26/18 10:54:00 CDT, Duration: 30 day, S top date: 12/26/18 10:53:00 CDT, 1.62, m2 Notes: Total Concentration=50 unit/ ml Total fxnaxm=448 mlSend Med Request 2 ho urs prior to next bag Start Date: 11/26/18 Stop Date: 11/30/18 Status: Discontinued heparin additive 25,000 unit [400 unit/hr] + Premix Diluent Sodium Chloride 0.45 % 500 mL 500 mL, Rate: 8 ml/hr, Infuse over: 62.5 hr, Route: IV, Dosing Weight 82.727 kg, Total Volume: 500 mL, Start date: 11/25/18 10:07:00 CDT, Duration: 30 day, Stop date: 12/25/18 10:06:00 CDT, 1.91, m2 Notes: Total Concentration=50 unit/ ml Total nzjoge=170 mlSend Med Request 2 ho urs prior to next bag Start Date: 11/25/18 Stop Date: 11/26/18 Status: Discontinued hydrochlorothiazide-triamterene 25 mg-37.5 mg oral capsule 1 cap, PO, Daily, 0 Refill(s) Start Date: 11/16/18 Stop Date: 12/01/18 Status: Discontinued hydrochlorothiazide-triamterene 25 mg-37.5 mg oral tablet 1 tab, Route: PO, Drug Form: TAB, Dosing Weight 79.545, kg, Daily, Start date: 0 11/16/18 9:00:00 CDT, Duration: 30 day, Stop date: 12/15/18 9:00:00 CDT Notes: (triamterene-hydrochlorothiazide 37.5-25 mg TAB)(Same As: Maxzide-25) Start Date: 11/16/18 Stop Date: 11/22/18 Status: Discontinued Insulin regular 6 unit, 0.06 mL, Route: SUB-Q, Drug form: SOLN, TID-Before Meals, Dosing Weight 82.727, kg, PRN Blood Glucose Results, Start date: 11/25/18 8:08:00 CDT, Duratio n: 30 day, Stop date: 12/25/18 8:07:00 CDT Notes: (Same as: Humulin R) Roll in palms of hands gently; Do not shake vigorous ly. WASTE: F/P - Black; E - Municipal Trash BinStable [facility] temperature Expires in days from Date Start Date: 11/25/18 Stop Date: 12/01/18 Status: Discontinued Insulin regular 2 unit, 0.02 mL, Route: SUB-Q, Drug form: SOLN, TID-Before Meals, Dosing Weight 82.727, kg, PRN Blood Glucose Results, Start date: 11/25/18 8:08:00 CDT, Duratio n: 30 day, Stop date: 12/25/18 8:07:00 CDT Notes: (Same as: Humulin R) Roll in palms of hands gently; Do not shake vigorous ly. WASTE: F/P - Black; E - Municipal Tr[facility]Stable [facility] temperature Expires in days from Date Start Date: 11/25/18 Stop Date: 12/01/18 Status: Discontinued Insulin regular 4 unit, 0.04 mL, Route: SUB-Q, Drug form: SOLN, TID-Before Meals, Dosing Weight 82.727, kg, PRN Blood Glucose Results, Start date: 11/25/18 8:08:00 CDT, Duratio n: 30 day, Stop date: 12/25/18 8:07:00 CDT Notes: (Same as: Humulin R) Roll in palms of hands gently; Do not shake vigorous ly. WASTE: F/P - Black; E - Municipal Trash BinStable for [facility] days at [facility] Expires in days from Date Start Date: 11/25/18 Stop Date: 12/01/18 Status: Discontinued Insulin regular 10 unit, 0.1 mL, Route: SUB-Q, Drug form: SOLN, TID-Before Meals, Dosing Weight 82.727, kg, PRN Blood Glucose Results, Start date: 11/25/18 8:08:00 CDT, Duratio n: 30 day, Stop date: 12/25/18 8:07:00 CDT Notes: (Same as: Humulin R) Roll in palms of hands gently; Do not shake vigorous ly. WASTE: F/P - Black; E - Municipal Trash BinStable for 31 days at [facility] Expires in days from Date Start Date: 11/25/18 Stop Date: 12/01/18 Status: Discontinued Insulin regular 8 unit, 0.08 mL, Route: SUB-Q, Drug form: SOLN, TID-Before Meals, Dosing Weight 82.727, kg, PRN Blood Glucose Results, Start date: 11/25/18 8:08:00 CDT, Duratio n: 30 day, Stop date: 12/25/18 8:07:00 CDT Notes: (Same as: Humulin R) Roll in palms of hands gently; Do not shake vigorous ly. WASTE: F/P - Black; E - Municipal Trash BinStable for 31 days at r [facility] temperature Expires in days from Date Start Date: 11/25/18 Stop Date: 12/01/18 Status: Discontinued Insulin regular (ANES) 1 unit Route: IV, Drug form: INJ, Start date: 11/20/18 22:28:00 CDT, Stop date: 9 23:28:00 CDT Start Date: 11/20/18 Stop Date: 11/20/18 Status: Completed Insulin regular (ANES) 1 unit Route: IV, Drug form: INJ, Start date: 11/20/18 22:28:00 CDT, Stop date: 9 23:28:00 CDT Start Date: 11/20/18 Stop Date: 11/20/18 Status: Completed Insulin regular (ANES) 1 unit Route: IV, Drug form: INJ, Start date: 11/20/18 22:28:00 CDT, Stop date: 9 23:28:00 CDT Start Date: 11/20/18 Stop Date: 11/20/18 Status: Completed Insulin regular (ANES) 1 unit Route: IV, Drug form: INJ, Start date: 11/20/18 22:28:00 CDT, Stop date: 9 23:28:00 CDT Start Date: 11/20/18 Stop Date: 11/20/18 Status: Completed Insulin regular (ANES) 1 unit Route: IV, Drug form: INJ, Start date: 11/20/18 22:28:00 CDT, Stop date: 9 23:28:00 CDT Start Date: 11/20/18 Stop Date: 11/20/18 Status: Completed Insulin regular 100 unit + 99 mL, Rate: Start Insulin Drip, Dosing Weight 82.727, kg, Route: IVPB, Total Vo lume: 100, Start Date: 11/21/18 1:02:00 CDT, Duration: 30 day, Stop date: 1:01:00 CDT, Replace Every: 24 hr Notes: Final Concentration 1unit/1mlWASTE: F/P - Black; E - Municipal Trash Bin Start Date: 11/21/18 Stop Date: 11/25/18 Status: Discontinued Insulin regular 100 unit + 99 mL, 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, Dosing Weight 82.727, kg, Route: IVPB, Total Volum e: 100, Start Date: 11/20/18 20:24:00 CDT, Duration: 3 hr, Stop date: 11/20/18 2 3:23:00 CDT, Replace Every: 24 hr Notes: Final Concentration 1unit/1mlWASTE: F/P - Black; E - Municipal Trash Bin Start Date: 11/20/18 Stop Date: 11/20/18 Status: Completed Isolyte S PH 7.4 (ANES) 1000 mL Route: IV, Total Volume: 1,000, Start date: 11/21/18 9:49:00 CDT, Stop date: 10:49:00 CDT Start Date: 11/21/18 Stop Date: 11/21/18 Status: Completed lactulose 10 g/15 mL oral syrup 20 gm, 30 ml, Route: PO, Drug form: SYRP, Q6H, Dosing Weight 82.727, kg, PRN Con stipation, Start date: 11/26/18 17:15:00 CDT, Duration: 30 day, Stop date: 12/26 17:14:00 CDT, 0 Notes: (Same as:Chronulac) Start Date: 11/26/18 Stop Date: 12/01/18 Status: Discontinued lidocaine (ANES) Route: IV, Drug form: INJ, ONCE, Stop date: 11/20/18 17:06:00 CDT Start Date: 11/20/18 Stop Date: 11/20/18 Status: Completed lidocaine 1% 5 mL, Route: INTRADERM, Dosing Weight 82.727, kg, ONCALL, For PICC line insertio n., Start date: 11/26/18 14:00:00 CDT, Duration: 30 day, Stop date: 12/26/18 13: 59:00 CDT Start Date: 11/26/18 Stop Date: 11/26/18 Status: Completed magnesium oxide 800 mg, 2 tab, Route: PO, Drug form: TAB, PRN, Dosing Weight 82.727, kg, PRN Abn ormal Lab Result, FOR ICU USE ONLY, Start date: 11/25/18 8:50:00 CDT, Duration: 30 day, Stop date: 12/25/18 8:49:00 CDT Notes: (Same as: Mag-Ox 400)Magnesium oxide [id number] elemental magnesiumDose= ____mg magnesium oxide (___mg elemental magnesium) Start Date: 11/25/18 Stop Date: 11/27/18 Status: Discontinued magnesium oxide 800 mg, 2 tab, Route: PO, Drug form: TAB, PRN, Dosing Weight 79.545, kg, PRN Abn ormal Lab Result, For NON-ICU Patients Only., Start date: 11/15/18 23:14:00 CDT, Duration: 30 day, Stop date: 12/15/18 23:13:00 CDT Notes: (Same as: Mag-Ox 400)Magnesium oxide [id number] elemental magnesiumDose= ____mg magnesium oxide (___mg elemental magnesium) Start Date: 11/15/18 Stop Date: 12/01/18 Status: Discontinued magnesium sulfate 2 gm, 50 mL, Route: IVPB, Drug form: INJ, PRN, Dosing Weight 82.727, kg, PRN Abn ormal Lab Result, Start date: 11/25/18 8:50:00 CDT, Duration: 30 day, Stop date: 12/25/18 8:49:00 CDT, FOR ICU USE ONLY Notes: WASTE: F/P - Sink; E - Municipal Trash Bin Start Date: 11/25/18 Stop Date: 11/27/18 Status: Discontinued magnesium sulfate 2 gm, 50 mL, Route: IVPB, Drug form: INJ, PRN, Dosing Weight 79.545, kg, PRN Abn ormal Lab Result, For NON-ICU Patients Only., Start date: 11/15/18 23:14:00 CDT, Duration: 30 day, Stop date: 12/15/18 23:13:00 CDT Notes: WASTE: F/P - Sink; E - Municipal Trash Bin Start Date: 11/15/18 Stop Date: 12/01/18 Status: Discontinued magnesium sulfate 1 gm, 100 mL, Route: IVPB, Drug form: INJ, PRN, Dosing Weight 79.545, kg, PRN Ab normal Lab Result, For NON-ICU Patients Only., Start date: 11/15/18 23:14:00 CDT , Duration: 30 day, Stop date: 12/15/18 23:13:00 CDT Notes: WASTE: F/P - Sink; E - Municipal Trash Bin Start Date: 11/15/18 Stop Date: 12/01/18 Status: Discontinued magnesium sulfate (ANES) Route: IV, Drug form: INJ, ONCE, Stop date: 11/21/18 1:28:00 CDT Start Date: 11/21/18 Stop Date: 11/21/18 Status: Deleted magnesium sulfate (ANES) Route: IV, Drug form: INJ, ONCE, Stop date: 11/20/18 23:27:00 CDT Start Date: 11/20/18 Stop Date: 11/20/18 Status: Completed melatonin 3 mg oral tablet 3 mg, 1 tab, Route: PO, Drug Form: TAB, Dosing Weight 82.727, kg, Bedtime, Start date: 11/27/18 21:00:00 CDT, Duration: 30 day, Stop date: 12/26/18 21:00:00 CDT, 0 Notes: (Same as: Melatonin) Start Date: 11/27/18 Stop Date: 12/01/18 Status: Discontinued midazolam (ANES) Route: IV, Drug form: SOLN, ONCE, Stop date: 11/20/18 20:31:00 CDT Start Date: 11/20/18 Stop Date: 11/20/18 Status: Deleted Milk of Magnesia 30 ml, Route: PO, Drug Form: SUSP, Dosing Weight 82.727, kg, Q6H, Start date: 18:00:00 CDT, Duration: 30 day, Stop date: 12/26/18 12:00:00 CDT, 0 Notes: (Same as: Milk of Magnesia, MOM) Start Date: 11/26/18 Stop Date: 11/27/18 Status: Discontinued mineral oil 30 ml, Route: PO, Drug Form: LIQ, Dosing Weight 82.727, kg, Q6H, PRN Constipatio n, Start date: 11/26/18 17:15:00 CDT, Duration: 30 day, Stop date: 12/26/18 17:1 4:00 CDT, 0 Start Date: 11/26/18 Stop Date: 11/27/18 Status: Discontinued MiraLax 17 gm, 1 pkt, Route: PO, Drug form: PWDR, Daily, Dosing Weight 82.727, kg, Start date: 11/21/18 9:00:00 CDT, Duration: 30 day, Stop date: 12/20/18 9:00:00 CDT Notes: Dissolve in 8 oz of water or juice.(Same as: Miralax) Start Date: 11/21/18 Stop Date: 12/01/18 Status: Discontinued mupirocin topical 2% ointment 1 appl, Route: NASAL, BID, Drug form: OINT, Start date: 11/21/18 9:00:00 CDT, Du ration: 5 day, Stop date: 11/25/18 17:00:00 CDT Start Date: 11/21/18 Stop Date: 11/25/18 Status: Completed naloxone 0.04 mg, 0.1 mL, Route: IVP, Drug form: INJ, Q2MIN, Dosing Weight 82.727, kg, W[place] N Narcotic Reversal, Start date: 11/21/18 1:02:00 CDT, Duration: 30 day, Stop da te: 12/21/18 1:01:00 CDT Notes: Same as Narcan Start Date: 11/21/18 Stop Date: 12/01/18 Status: Discontinued naloxone 0.04 mg, 0.1 mL, Route: IVP, Drug form: INJ, Q2MIN, Dosing Weight 82.727, kg, W[place] N Narcotic Reversal, Start date: 11/21/18 13:47:00 CDT, Duration: 30 day, Stop d ate: 12/21/18 13:46:00 CDT Notes: Same as Narcan Start Date: 11/21/18 Stop Date: 11/25/18 Status: Discontinued nitroglycerin 0.4 mg, 1 tab, Route: SL, Drug form: TAB, Q5Min, Dosing Weight 82.727, kg, PRN C hest Pain, Start date: 11/21/18 13:22:00 CDT, Duration: 30 day, Stop date: 12/21 13:21:00 CDT Notes: (Same as:Nitroquick, Nitrostat)"Do Not Crush" Sublingual tablet Start Date: 11/21/18 Stop Date: 12/01/18 Status: Discontinued norepinephrine (ANES) Route: IV, Drug form: INJ, ONCE, Stop date: 11/21/18 11:17:00 CDT Start Date: 11/21/18 Stop Date: 11/21/18 Status: Completed norepinephrine 8 mg in 250 mL (Titrate.) IV 8 mg + Sodium Chloride 0.9% IV 242 m L 8 mg, 8 mL, 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 Notes: Not for direct administration - DILUTE. Protect from light. (Same as:Levo phed). Administer by either central venous catheter or peripherally-inserted tashia tral catheter (PICC) line. Start Date: 11/20/18 Stop Date: 11/20/18 Status: Completed ocular lubricant 1 appl, Route: BOTH EYES, Q6H, Drug form: OINT, Start date: 11/21/18 6:00:00 CDT , Duration: 30 day, Stop date: 12/21/18 0:00:00 CDT Notes: (Same as: Lacri-Lube, Puralube, Duratears Naturale, Artificial Tears, and Tears Again ) Start Date: 11/21/18 Stop Date: 11/24/18 Status: Discontinued Ofirmev 1,000 mg, 100 mL, Route: IV, Drug form: INJ, ONCE, Dosing Weight 82.727, kg, for > or=50 kg, Start date: 11/23/18 5:15:00 CDT, Stop date: 11/23/18 5:15:00 CDT Notes: Infuse over 15 minutesDo not exceed 4gm/day of acetaminophen MEDICAT ION WASTE Product Size: 1000 mgProduct Wasted: ___ mg Start Date: 11/23/18 Stop Date: 11/23/18 Status: Completed omeprazole 40 mg, Route: PO, Daily, Dosing Weight 79.545, kg, Start date: 11/16/18 9:00:00 CDT, Duration: 30 day, Stop date: 12/15/18 9:00:00 CDT Start Date: 11/16/18 Stop Date: 11/16/18 Status: Discontinued Omnipaque 350mg/ml 145 mL, Route: IVP, Drug Form: SOLN, Dosing Weight 82.727, kg, ONCALL, STAT, Sta rt date: 11/18/18 14:06:00 CDT, Duration: 1 doses or times, Dose=2.2ml/kg, Max [id number] -- "To be infused by Radiology Staff ONLY" Start Date: 11/18/18 Stop Date: 11/18/18 Status: Completed ondansetron 4 mg, 2 mL, Route: IVP, Drug form: INJ, Q8H, Dosing Weight 82.727, kg, PRN Nause a, Start date: 11/19/18 18:43:00 CDT, Duration: 30 day, Stop date: 12/19/18 18:4 2:00 CDT Notes: (Same as: Grazyna) MEDICATION WASTE Product Size: 4 mgProduct Was ketan: ___ mg Start Date: 11/19/18 Stop Date: 12/01/18 Status: Discontinued ondansetron 4 mg oral tablet 4 mg=1 tab, PO, Q8H, PRN Nausea, 0 Refill(s) Start Date: 11/16/18 Status: Ordered pantoprazole 40 mg, Route: IVP, Drug form: INJ, Daily, Dosing Weight 82.727, kg, Patient is N PO, Start date: 11/21/18 9:00:00 CDT, Duration: 30 day, Stop date: 12/20/18 9:00 :00 CDT Notes: For IV push reconstitute with 10 ml 0.9% sodium chloride and push over 2 minutes. (Same as: Protonix) Start Date: 11/21/18 Stop Date: 11/25/18 Status: Discontinued pantoprazole 40 mg, 1 tab, Route: PO, Drug form: ECTAB, Daily, Dosing Weight 82.727, kg, Star t date: 11/21/18 9:00:00 CDT, Duration: 30 day, Stop date: 12/20/18 9:00:00 CDT Notes: Tablet should not be chewed or crushed.(Same as: Protonix) Start Date: 11/21/18 Stop Date: 11/21/18 Status: Canceled pantoprazole 40 mg oral enteric coated tablet 40 mg=1 tab, PO, BID, 0 Refill(s) Start Date: 12/01/18 Status: Ordered PlasmaLyte A PH-7.4 (ANES) 1000 mL Route: IV, Total Volume: 1,000, Start date: 11/20/18 15:45:00 CDT, Stop date: 16:45:00 CDT Start Date: 11/20/18 Stop Date: 11/20/18 Status: Completed PlasmaLyte A PH-7.4 (ANES) 1000 mL Route: IV, Total Volume: 1,000, Start date: 11/20/18 19:27:00 CDT, Stop date: 20:27:00 CDT Start Date: 11/20/18 Stop Date: 11/20/18 Status: Completed potassium chloride 20 mEq, 100 mL, Route: IVPB, Drug form: INJ, ONCE, Dosing Weight 82.727, kg, Sta rt date: 11/22/18 5:04:00 CDT, Stop date: 11/22/18 5:04:00 CDT, Central Line* Notes: (Same as: KCL) Infuse no faster than 10 mEq/hr if given peripherally. Start Date: 11/22/18 Stop Date: 11/22/18 Status: Completed potassium chloride 20 mEq, 15 mL, Route: NJ, Drug form: LIQ, PRN, Dosing Weight 82.727, kg, PRN Abn ormal Lab Result, Start date: 11/25/18 8:50:00 CDT, Duration: 30 day, Stop date: 12/25/18 8:49:00 CDT, FOR ICU USE ONLY Notes: (Same as: Potassium Chloride) Start Date: 11/25/18 Stop Date: 11/27/18 Status: Discontinued potassium chloride 20 mEq, 100 mL, Route: IVPB, Drug form: INJ, PRN, Dosing Weight 82.727, kg, PRN Abnormal Lab Result, Via central line, Start date: 11/25/18 8:50:00 CDT, Duratio n: 30 day, Stop date: 12/25/18 8:49:00 CDT, FOR ICU USE ONLY Notes: (Same as: KCL) Infuse no faster than 10 mEq/hr if given peripherally. Start Date: 11/25/18 Stop Date: 11/27/18 Status: Discontinued potassium chloride 20 mEq, 1 tab, Route: PO, Drug form: ERTAB, PRN, Dosing Weight 82.727, kg, PRN A bnormal Lab Result, Start date: 11/25/18 8:50:00 CDT, Duration: 30 day, Stop shane e: 12/25/18 8:49:00 CDT, FOR ICU USE ONLY Notes: (Same as: K-Dur 20)"Do Not Crush" Give with food and full glass of water For patients unable to swallow tablet, dissolve in one half glass of water. Allo w about 2 minutes for the tablets to disintegrate. Stir before giving to prepare slurry and administer.Please exclude Patients with feeding tube less than 14 [place] (Dobhoff, J-tube etc) and pediatric and patients. Start Date: 11/25/18 Stop Date: 11/27/18 Status: Discontinued potassium chloride 10 mEq, 50 mL, Route: IVPB, Drug form: INJ, PRN, Dosing Weight 82.727, kg, PRN A bnormal Lab Result, Via peripheral line, Start date: 11/25/18 8:50:00 CDT, Durat ion: 30 day, Stop date: 12/25/18 8:49:00 CDT, FOR ICU USE ONLY Notes: (Same as: KCL) Infuse over 2 hours. Start Date: 11/25/18 Stop Date: 11/27/18 Status: Discontinued potassium chloride 20 mEq, 15 mL, Route: PO, Drug form: LIQ, ONCE, Dosing Weight 82.727, kg, Start date: 11/25/18 10:12:00 CDT, Stop date: 11/25/18 10:12:00 CDT Notes: (Same as: Potassium Chloride) Start Date: 11/25/18 Stop Date: 11/25/18 Status: Completed potassium chloride 20 mEq, 100 mL, Route: IVPB, Drug form: INJ, ONCE, Dosing Weight 82.727, kg, Sta rt date: 11/21/18 16:50:00 CDT, Stop date: 11/21/18 16:50:00 CDT, Central Ebon[place] e Notes: (Same as: KCL) Infuse no faster than 10 mEq/hr if given peripherally. Start Date: 11/21/18 Stop Date: 11/21/18 Status: Completed potassium chloride 10 mEq, 50 mL, Route: IVPB, Drug form: INJ, PRN, Dosing Weight 79.545, kg, PRN A bnormal Lab Result, For NON-ICU Patients Only, Start date: 11/15/18 23:14:00 CDT , Duration: 30 day, Stop date: 12/15/18 23:13:00 CDT Notes: (Same as: KCL) Infuse over 2 hours. Start Date: 11/15/18 Stop Date: 12/01/18 Status: Discontinued potassium chloride 20 mEq, 15 mL, Route: NJ, Drug form: LIQ, PRN, Dosing Weight 79.545, kg, PRN Abn ormal Lab Result, For NON-ICU Patients Only, Start date: 11/15/18 23:14:00 CDT, Duration: 30 day, Stop date: 12/15/18 23:13:00 CDT Notes: (Same as: Potassium Chloride) Start Date: 11/15/18 Stop Date: 12/01/18 Status: Discontinued potassium chloride 20 mEq, 1 tab, Route: PO, Drug form: ERTAB, PRN, Dosing Weight 79.545, kg, PRN A bnormal Lab Result, For NON-ICU Patients Only, Start date: 11/15/18 23:14:00 CDT , Duration: 30 day, Stop date: 12/15/18 23:13:00 CDT Notes: (Same as: K-Dur 20)"Do Not Crush" Give with food and full glass of water For patients unable to swallow tablet, dissolve in one half glass of water. Allo w about 2 minutes for the tablets to disintegrate. Stir before giving to prepare slurry and administer.Please exclude Patients with feeding tube less than 14 [place] (Dobhoff, J-tube etc) and pediatric and patients. Start Date: 11/15/18 Stop Date: 12/01/18 Status: Discontinued potassium chloride (ANES) 0.2 mEq Route: IV, Drug form: INJ, Start date: 11/20/18 23:44:00 CDT, Stop date: 9 0:44:00 CDT Start Date: 11/20/18 Stop Date: 11/21/18 Status: Completed potassium chloride (ANES) 0.2 mEq Route: IV, Drug form: INJ, Start date: 11/20/18 23:44:00 CDT, Stop date: 9 0:44:00 CDT Start Date: 11/20/18 Stop Date: 11/21/18 Status: Completed potassium chloride (ANES) 0.2 mEq Route: IV, Drug form: INJ, Start date: 11/20/18 23:44:00 CDT, Stop date: 9 0:44:00 CDT Start Date: 11/20/18 Stop Date: 11/21/18 Status: Completed potassium chloride (ANES) 0.2 mEq Route: IV, Drug form: INJ, Start date: 11/20/18 23:44:00 CDT, Stop date: 9 0:44:00 CDT Start Date: 11/20/18 Stop Date: 11/21/18 Status: Completed potassium chloride (ANES) 0.2 mEq Route: IV, Drug form: INJ, Start date: 11/20/18 23:44:00 CDT, Stop date: 9 0:44:00 CDT Start Date: 11/20/18 Stop Date: 11/21/18 Status: Completed potassium chloride (ANES) 0.2 mEq Route: IV, Drug form: INJ, Start date: 11/20/18 23:44:00 CDT, Stop date: 9 0:44:00 CDT Start Date: 11/20/18 Stop Date: 11/21/18 Status: Completed potassium chloride (ANES) 0.2 mEq Route: IV, Drug form: INJ, Start date: 11/20/18 23:44:00 CDT, Stop date: 9 0:44:00 CDT Start Date: 11/20/18 Stop Date: 11/21/18 Status: Completed potassium phosphate + Sodium Chloride 0.9% IV 250 mL 15 mmol, 5 mL, Route: IVPB, PRN, Dosing Weight 82.727, kg, PRN Abnormal Lab Resu lt, Start date: 11/25/18 8:50:00 CDT, Duration: 30 day, Stop date: 12/25/18 8:49 :00 CDT, FOR ICU USE ONLY Notes: (Same as: K Phosphate.)Do not infuse phosphorous concurrently in the same line as TPN or IVF that contains calcium. For double lumen central lines, phosp horous may be infused in a separate lumen from TPN. 1 mMol phoshate has 1.47 mE q potassium Infuse over 4 hours Start Date: 11/25/18 Stop Date: 11/27/18 Status: Discontinued potassium phosphate + Sodium Chloride 0.9% IV 250 mL 30 mmol, 10 mL, Route: IVPB, PRN, Dosing Weight 82.727, kg, PRN Abnormal Lab Res ult, Start date: 11/25/18 8:50:00 CDT, Duration: 30 day, Stop date: 12/25/18 8:4 9:00 CDT, FOR ICU USE ONLY Notes: (Same as: K Phosphate.)Do not infuse phosphorous concurrently in the same line as TPN or IVF that contains calcium. For double lumen central lines, phosp horous may be infused in a separate lumen from TPN. 1 mMol phoshate has 1.47 mE q potassium Infuse over 4 hours Start Date: 11/25/18 Stop Date: 11/27/18 Status: Discontinued potassium phosphate + Sodium Chloride 0.9% IV 250 mL 45 mmol, 15 mL, Route: IVPB, PRN, Dosing Weight 82.727, kg, PRN Abnormal Lab Res ult, Start date: 11/25/18 8:50:00 CDT, Duration: 30 day, Stop date: 12/25/18 8:4 9:00 CDT, FOR ICU USE ONLY Notes: (Same as: K Phosphate.)Do not infuse phosphorous concurrently in the same line as TPN or IVF that contains calcium. For double lumen central lines, phosp horous may be infused in a separate lumen from TPN. 1 mMol phoshate has 1.47 mE q potassium Infuse over 4 hours Start Date: 11/25/18 Stop Date: 11/27/18 Status: Discontinued potassium phosphate + Sodium Chloride 0.9% IV 250 mL 30 mmol, 10 mL, Route: IVPB, PRN, Dosing Weight 79.545, kg, PRN Abnormal Lab Res ult, For NON-ICU Patients Only., Start date: 11/15/18 23:14:00 CDT, Duration: 30 day, Stop date: 12/15/18 23:13:00 CDT Notes: (Same as: K Phosphate.)Do not infuse phosphorous concurrently in the same line as TPN or IVF that contains calcium. For double lumen central lines, phosp horous may be infused in a separate lumen from TPN. 1 mMol phoshate has 1.47 mE q potassium Infuse over 4 hours Start Date: 11/15/18 Stop Date: 12/01/18 Status: Discontinued potassium phosphate + Sodium Chloride 0.9% IV 250 mL 15 mmol, 5 mL, Route: IVPB, PRN, Dosing Weight 79.545, kg, PRN Abnormal Lab Resu lt, For NON-ICU Patients Only., Start date: 11/15/18 23:14:00 CDT, Duration: 30 day, Stop date: 12/15/18 23:13:00 CDT Notes: (Same as: K Phosphate.)Do not infuse phosphorous concurrently in the same line as TPN or IVF that contains calcium. For double lumen central lines, phosp horous may be infused in a separate lumen from TPN. 1 mMol phoshate has 1.47 mE q potassium Infuse over 4 hours Start Date: 11/15/18 Stop Date: 12/01/18 Status: Discontinued potassium phosphate-sodium phosphate 250 mg-280 mg-160 mg oral powder for recons titution 2 pkt, Route: PO, Drug Form: PDR/REC, Dosing Weight 82.727, kg, PRN, PRN Abnorma l Lab Result, FOR ICU USE ONLY, Start date: 11/25/18 8:50:00 CDT, Duration: 30 d ay, Stop date: 12/25/18 8:49:00 CDT Notes: (Same as: Phos-NaK) Each 1.5 gm pkt has 250mg phosphorous. Mix w/2.5oz w ater and stir. Start Date: 11/25/18 Stop Date: 11/27/18 Status: Discontinued potassium phosphate-sodium phosphate 250 mg-280 mg-160 mg oral powder for recons titution 2 pkt, Route: PO, Drug Form: PDR/REC, Dosing Weight 79.545, kg, PRN, PRN Abnorma l Lab Result, For NON-ICU Patients Only, Start date: 11/15/18 23:14:00 CDT, Dura tion: 30 day, Stop date: 12/15/18 23:13:00 CDT Notes: (Same as: Phos-NaK) Each 1.5 gm pkt has 250mg phosphorous. Mix w/2.5oz w ater and stir. Start Date: 11/15/18 Stop Date: 12/01/18 Status: Discontinued propofol (ANES) Route: IV, Drug form: INJ, ONCE, Stop date: 11/20/18 17:11:00 CDT Start Date: 11/20/18 Stop Date: 11/20/18 Status: Completed propofol (ANES) Route: IV, Drug form: INJ, ONCE, Stop date: 11/21/18 1:28:00 CDT Start Date: 11/21/18 Stop Date: 11/21/18 Status: Completed protamine (ANES) 10 mg Route: IV, Drug form: INJ, Start date: 11/20/18 23:23:00 CDT, Stop date: 9 0:23:00 CDT Start Date: 11/20/18 Stop Date: 11/21/18 Status: Completed protamine (ANES) 10 mg Route: IV, Drug form: INJ, Start date: 11/20/18 23:23:00 CDT, Stop date: 9 0:23:00 CDT Start Date: 11/20/18 Stop Date: 11/21/18 Status: Completed protamine (ANES) 10 mg Route: IV, Drug form: INJ, Start date: 11/20/18 23:23:00 CDT, Stop date: 9 0:23:00 CDT Start Date: 11/20/18 Stop Date: 11/21/18 Status: Completed protamine (ANES) 10 mg Route: IV, Drug form: INJ, Start date: 11/20/18 23:23:00 CDT, Stop date: 9 0:23:00 CDT Start Date: 11/20/18 Stop Date: 11/21/18 Status: Completed protamine (ANES) 10 mg Route: IV, Drug form: INJ, Start date: 11/20/18 23:23:00 CDT, Stop date: 9 0:23:00 CDT Start Date: 11/20/18 Stop Date: 11/21/18 Status: Completed protamine (ANES) 10 mg Route: IV, Drug form: INJ, Start date: 11/20/18 23:23:00 CDT, Stop date: 9 0:23:00 CDT Start Date: 11/20/18 Stop Date: 11/21/18 Status: Completed protamine (ANES) 10 mg Route: IV, Drug form: INJ, Start date: 11/20/18 23:23:00 CDT, Stop date: 9 0:23:00 CDT Start Date: 11/20/18 Stop Date: 11/21/18 Status: Completed Protonix 40 mg, 1 tab, Route: PO, Drug form: ECTAB, BID, Dosing Weight 82.727, kg, Start date: 11/29/18 10:05:00 CDT, Duration: 30 day, Stop date: 12/29/18 9:00:00 CDT, 0 Notes: Tablet should not be chewed or crushed.(Same as: Protonix) Start Date: 11/29/18 Stop Date: 12/01/18 Status: Discontinued Protonix 40 mg, 1 tab, Route: PO, Drug form: ECTAB, Daily, Start date: 11/16/18 9:00:00 C DT, Duration: 30 day, Stop date: 12/15/18 9:00:00 CDT Notes: Tablet should not be chewed or crushed.(Same as: Protonix) Start Date: 11/16/18 Stop Date: 11/21/18 Status: Discontinued ranitidine 150 mg oral tablet 150 mg, 1 tab, Route: PO, Drug form: TAB, BID, Dosing Weight 82.727, kg, Start d ate: 11/30/18 9:00:00 CDT, Duration: 30 day, Stop date: 12/29/18 17:00:00 CDT Start Date: 11/30/18 Stop Date: 11/29/18 Status: Discontinued ranitidine 150 mg oral tablet 150 mg, 1 tab, Route: PO, Drug form: TAB, BID, Dosing Weight 79.545, kg, Start d ate: 11/16/18 9:00:00 CDT, Duration: 30 day, Stop date: 12/15/18 17:00:00 CDT Start Date: 11/16/18 Stop Date: 11/16/18 Status: Discontinued rocuronium (ANES) Route: IV, Drug form: INJ, ONCE, Stop date: 11/20/18 17:06:00 CDT Start Date: 11/20/18 Stop Date: 11/20/18 Status: Completed rocuronium (ANES) Route: IV, Drug form: INJ, ONCE, Stop date: 11/21/18 10:32:00 CDT Start Date: 11/21/18 Stop Date: 11/21/18 Status: Completed Saline Flush 0.9% 10 mL, Route: IVP, Drug Form: INJ, Dosing Weight 82.727, kg, Q8H, Start date: 16:00:00 CDT, Duration: 30 day, Stop date: 12/26/18 8:00:00 CDT Notes: (Same as: BD Posiflush) Start Date: 11/26/18 Stop Date: 12/01/18 Status: Discontinued Saline Flush 0.9% 10 mL, Route: IVP, Drug Form: INJ, Dosing Weight 82.727, kg, PRN, PRN Line Flush , Start date: 11/26/18 13:19:00 CDT, Duration: 30 day, Stop date: 12/26/18 13:18 :00 CDT Notes: (Same as: BD Posiflush) Start Date: 11/26/18 Stop Date: 12/01/18 Status: Discontinued senna 8.6 mg oral tablet 8.6 mg, 1 tab, Route: PO, Drug Form: TAB, Dosing Weight 82.727, kg, BID, Start d ate: 11/29/18 17:00:00 CDT, Duration: 30 day, Stop date: 12/29/18 9:00:00 CDT, 0 Notes: (Same as: Senokot) Start Date: 11/29/18 Stop Date: 12/01/18 Status: Discontinued simvastatin 20 mg, 1 tab, Route: PO, Drug form: TAB, Bedtime, Dosing Weight 79.545, kg, Star t date: 11/15/18 23:58:00 CDT, Duration: 30 day, Stop date: 12/15/18 21:00:00 CD T Notes: (Same as: Zocor) Start Date: 11/15/18 Stop Date: 11/21/18 Status: Discontinued simvastatin 20 mg oral tablet 20 mg=1 tab, PO, Bedtime, 0 Refill(s) Start Date: 11/16/18 Stop Date: 12/01/18 Status: Discontinued sodium bicarbonate (ANES) 1 mEq Route: IV, Drug form: INJ, Start date: 11/20/18 18:53:00 CDT, Stop date: 9 19:53:00 CDT Start Date: 11/20/18 Stop Date: 11/20/18 Status: Completed sodium bicarbonate 8.4% 50 mEq, 50 ml, Route: IVP, Drug Form: INJ, Dosing Weight 82.727, kg, ONCE, Start date: 11/21/18 2:45:00 CDT, Stop date: 11/21/18 2:45:00 CDT Notes: (sodium bicarb 8.4% (1 mEq/ml) 50 ml VL) Start Date: 11/21/18 Stop Date: 11/21/18 Status: Completed Sodium Chloride 0.9% (titrate) 250 mL 250 mL, Rate: To prime line and flush remaining blood products., Dosing Weight 8 2.727, kg, Route: IV, Total Volume: 250, Start Date: 11/20/18 19:27:00 CDT, Dura tion: 30 day, Stop date: 12/20/18 19:26:00 CDT, Replace Every: 24 hr Start Date: 11/20/18 Stop Date: 11/30/18 Status: Discontinued Sodium Chloride 0.9% (titrate) 250 mL 250 mL, Rate: To prime line and flush remaining blood products., Dosing Weight 8 2.727, kg, Route: IV, Total Volume: 250, Start Date: 11/19/18 8:01:00 CDT, Durat ion: 30 day, Stop date: 12/19/18 8:00:00 CDT, Replace Every: 24 hr Start Date: 11/19/18 Stop Date: 11/30/18 Status: Discontinued Sodium Chloride 0.9% (titrate) 99 mL + Insulin regular 100 unit 99 mL, Rate: Start Insulin Drip, Dosing Weight 82.727, kg, Route: IVPB, Total Vo lume: 99, Start Date: 11/20/18 20:29:00 CDT, Duration: 30 day, Stop date: 20:28:00 CDT, Replace Every: 24 hr Start Date: 11/20/18 Stop Date: 11/20/18 Status: Discontinued Sodium Chloride 0.9% IV (ANES) 500 mL + tranexamic acid (ANES) 1000 mg Route: IV, Drug form: INJ, Start date: 11/20/18 20:00:00 CDT, Stop date: 9 21:00:00 CDT Start Date: 11/20/18 Stop Date: 11/20/18 Status: Completed Sodium Chloride 0.9% IV (ANES) 500 mL + tranexamic acid (ANES) 1000 mg Route: IV, Drug form: INJ, Start date: 11/20/18 20:00:00 CDT, Stop date: 9 21:00:00 CDT Start Date: 11/20/18 Stop Date: 11/20/18 Status: Completed Sodium Chloride 0.9% IV (ANES) 500 mL + tranexamic acid (ANES) 1000 mg Route: IV, Drug form: INJ, Start date: 11/20/18 20:00:00 CDT, Stop date: 9 21:00:00 CDT Start Date: 11/20/18 Stop Date: 11/20/18 Status: Completed Sodium Chloride 0.9% IV (ANES) 500 mL + tranexamic acid (ANES) 1000 mg Route: IV, Drug form: INJ, Start date: 11/20/18 20:00:00 CDT, Stop date: 9 21:00:00 CDT Start Date: 11/20/18 Stop Date: 11/20/18 Status: Completed Sodium Chloride 0.9% IV (ANES) 500 mL + tranexamic acid (ANES) 1000 mg Route: IV, Drug form: INJ, Start date: 11/20/18 20:00:00 CDT, Stop date: 9 21:00:00 CDT Start Date: 11/20/18 Stop Date: 11/20/18 Status: Completed sodium phosphate + Sodium Chloride 0.9% IV 250 mL 45 mmol, 15 mL, Route: IVPB, PRN, Dosing Weight 82.727, kg, PRN Abnormal Lab Res ult, Start date: 11/25/18 8:50:00 CDT, Duration: 30 day, Stop date: 12/25/18 8:4 9:00 CDT, FOR ICU USE ONLY Notes: Infuse over 4 hour. Do not infuse phosphorous concurrently in the same li ne as TPN or IVF that contains calcium. For double lumen central lines, phosphor ous may be infused in a separate lumen from TPN. Start Date: 11/25/18 Stop Date: 11/27/18 Status: Discontinued sodium phosphate + Sodium Chloride 0.9% IV 250 mL 15 mmol, 5 mL, Route: IVPB, PRN, Dosing Weight 82.727, kg, PRN Abnormal Lab Resu lt, Start date: 11/25/18 8:50:00 CDT, Duration: 30 day, Stop date: 12/25/18 8:49 :00 CDT, FOR ICU USE ONLY Notes: Infuse over 4 hour. Do not infuse phosphorous concurrently in the same li ne as TPN or IVF that contains calcium. For double lumen central lines, phosphor ous may be infused in a separate lumen from TPN. Start Date: 11/25/18 Stop Date: 11/27/18 Status: Discontinued sodium phosphate + Sodium Chloride 0.9% IV 250 mL 30 mmol, 10 mL, Route: IVPB, PRN, Dosing Weight 82.727, kg, PRN Abnormal Lab Res ult, Start date: 11/25/18 8:50:00 CDT, Duration: 30 day, Stop date: 12/25/18 8:4 9:00 CDT, FOR ICU USE ONLY Notes: Infuse over 4 hour. Do not infuse phosphorous concurrently in the same li ne as TPN or IVF that contains calcium. For double lumen central lines, phosphor ous may be infused in a separate lumen from TPN. Start Date: 11/25/18 Stop Date: 11/27/18 Status: Discontinued sodium phosphate + Sodium Chloride 0.9% IV 250 mL 30 mmol, 10 mL, Route: IVPB, PRN, Dosing Weight 79.545, kg, PRN Abnormal Lab Res ult, For NON-ICU Patients Only., Start date: 11/15/18 23:14:00 CDT, Duration: 30 day, Stop date: 12/15/18 23:13:00 CDT Notes: Infuse over 4 hour. Do not infuse phosphorous concurrently in the same li ne as TPN or IVF that contains calcium. For double lumen central lines, phosphor ous may be infused in a separate lumen from TPN. Start Date: 11/15/18 Stop Date: 12/01/18 Status: Discontinued sodium phosphate + Sodium Chloride 0.9% IV 250 mL 15 mmol, 5 mL, Route: IVPB, PRN, Dosing Weight 79.545, kg, PRN Abnormal Lab Resu lt, For NON-ICU Patients Only., Start date: 11/15/18 23:14:00 CDT, Duration: 30 day, Stop date: 12/15/18 23:13:00 CDT Notes: Infuse over 4 hour. Do not infuse phosphorous concurrently in the same li ne as TPN or IVF that contains calcium. For double lumen central lines, phosphor ous may be infused in a separate lumen from TPN. Start Date: 11/15/18 Stop Date: 12/01/18 Status: Discontinued tramadol 50 mg, 1 tab, Route: PO, Drug form: TAB, ONCE, Dosing Weight 82.727, kg, Start d ate: 11/30/18 20:11:00 CDT, Stop date: 11/30/18 20:11:00 CDT, 0 Notes: Not to exceed 400mg/day. (Same As: Ultram) Start Date: 11/30/18 Stop Date: 11/30/18 Status: Completed tramadol 50 mg oral tablet 50 mg=1 tab, PO, Q4H, PRN Pain, X 10 day, # 60 tab, 0 Refill(s), other Start Date: 12/01/18 Stop Date: 12/11/18 Status: Ordered tranexamic acid (ANES) Route: IV, Drug form: INJ, ONCE, Stop date: 11/21/18 0:21:00 CDT Start Date: 11/21/18 Stop Date: 11/21/18 Status: Completed vancomycin 1,000 mg, Route: IVPB, Drug form: INJ, [id number], Dosing Weight 82.727, kg, Start date: 11/22/18 13:00:00 CDT, Duration: 3 day, Stop date: 11/25/18 1:00:00 CDT, A BX Indication: Surgical Prophylaxis Notes: TIME CRITICAL MEDICATION(Same As: Vancocin)Infusion rate< 1000 mg: infuse over 1 [id number] - 1500 mg: infuse over 1.5 [id number] - 2000 mg: infuse over 2 hours> 2001 mg: infuse over 2.5 hoursFor adult patients only: Round to nearest 250 mg per Medical Staff approval MEDICATION WASTE Product Size: 1000 mgProduct Wasted: ___ mg Start Date: 11/22/18 Stop Date: 11/25/18 Status: Completed vancomycin (ANES) 1000 mg Route: IV, Drug form: INJ, Start date: 11/21/18 10:00:00 CDT, Stop date: 9 11:00:00 CDT Start Date: 11/21/18 Stop Date: 11/21/18 Status: Completed vancomycin (SCIP) 1 gm, Route: IVPB, Drug form: INJ, Q12H, Dosing Weight 82.727, kg, Time Critical Medication, Start date: 11/21/18 10:00:00 CDT, Duration: 2 doses or times, Stop date: 11/21/18 22:00:00 CDT, ABX Indication: Surgical Prophylaxis Notes: TIME CRITICAL MEDICATION(Same As: Vancocin)Infusion rate< 1000 mg: infuse over 1 [id number] - 1500 mg: infuse over 1.5 [id number] - 2000 mg: infuse over 2 hours> 2001 mg: infuse over 2.5 hoursFor adult patients only: Round to nearest 250 mg per Medical Staff approval MEDICATION WASTE Product Size: 1000 mgProduct Wasted: ___ mg Start Date: 11/21/18 Stop Date: 11/21/18 Status: Completed warfarin 3 mg, 1 tab, Route: PO, Drug form: TAB, Q5PM, Dosing Weight 82.727, kg, Start da te: 11/27/18 17:00:00 CDT, Duration: 1 doses or times, Stop date: 11/27/18 17:00 :00 CDT, 0 Notes: Nurse to ensure documentation of patient education per anticoagulation po licy.Avoid large intake of vitamin-K containing foods diet.(Same As: Coumadin)WA HOLGER: F/P - P Waste Black; E - P Waste Black Start Date: 11/27/18 Stop Date: 11/27/18 Status: Completed warfarin 5 mg, 1 tab, Route: PO, Drug form: TAB, Q5PM, Dosing Weight 82.727, kg, Start da te: 11/29/18 17:00:00 CDT, Duration: 1 doses or times, Stop date: 11/29/18 17:00 :00 CDT, 0 Notes: Nurse to ensure documentation of patient education per anticoagulation po licy.Avoid large intake of vitamin-K containing foods diet.WASTE: F/P - P Waste Black; E - P Waste Black(Same As: Coumadin) Start Date: 11/29/18 Stop Date: 11/29/18 Status: Completed warfarin 1 mg, 1 tab, Route: PO, Drug form: TAB, Q5PM, Dosing Weight 82.727, kg, Start da te: 12/01/18 17:00:00 CDT, Duration: 1 doses or times, Stop date: 12/01/18 17:00 :00 CDT, 0 Notes: Nurse to ensure documentation of patient education per anticoagulation po licy.Avoid large intake of vitamin-K containing foods diet.(Same As: Coumadin)WA HOLGER: F/P - P Waste Black; E - P Waste Black Start Date: 12/01/18 Stop Date: 12/01/18 Status: Pending Complete warfarin 2 mg, 1 tab, Route: PO, Drug form: TAB, Q5PM, Dosing Weight 82.727, kg, Start da te: 11/30/18 17:00:00 CDT, Duration: 1 doses or times, Stop date: 11/30/18 17:00 :00 CDT, 0 Notes: Nurse to ensure documentation of patient education per anticoagulation po licy.Avoid large intake of vitamin-K containing foods diet.(Same As: Coumadin)WA HOLGER: F/P - P Waste Black; E - P Waste Black Start Date: 11/30/18 Stop Date: 11/30/18 Status: Completed warfarin 5 mg, 1 tab, Route: PO, Drug form: TAB, Q5PM, Dosing Weight 82.727, kg, Start da te: 11/28/18 17:00:00 CDT, Duration: 1 doses or times, Stop date: 11/28/18 17:00 :00 CDT, 0 Notes: Nurse to ensure documentation of patient education per anticoagulation po licy.Avoid large intake of vitamin-K containing foods diet.WASTE: F/P - P Waste Black; E - P Waste Black(Same As: Coumadin) Start Date: 11/28/18 Stop Date: 11/28/18 Status: Completed warfarin 2.5 mg oral tablet 2.5 mg, PO, Daily, # 30 tab, 0 Refill(s), other Start Date: 12/01/18 Status: Ordered warfarin 3 mg oral tablet 3 mg=1 tab, PO, Daily, # 90 tab, 0 Refill(s), other Start Date: 12/01/18 Stop Date: 12/01/18 Status: Discontinued Xylocaine Viscous 2% mucous membrane solution 15 mL, Route: PO, ONCE, Drug form: SOLN, Start date: 11/29/18 13:09:00 CDT, Stop date: 11/29/18 13:09:00 CDT, 0 Notes: (Same as: Xylocaine) Start Date: 11/29/18 Stop Date: 11/29/18 Status: Completed Results 1 2 3 Most recent to oldest [Reference Range]: 1.01 ng/mL *HI* (11/22/18 1:30 PM) Procalcitonin Lvl [0.00-0.10 ng/mL] 4.1 K/CMM (12/01/18 12:36 AM) 4.2 K/CMM (11/29/18 2:09 PM) 3.0 K/CMM (11/29/18 4:57 AM) Neutrophils # [1.5-8.1 K/CMM] 0.3 K/CMM *LOW* (12/01/18 12:36 AM) 0.4 K/CMM *LOW* (11/30/18 6:05 AM) 0.3 K/CMM *LOW* (11/29/18 2:09 PM) Lymphocytes # [1.0-5.5 K/CMM] 0.4 K/CMM (12/01/18 12:36 AM) 0.3 K/CMM (11/30/18 6:05 AM) 0.4 K/CMM (11/29/18 2:09 PM) Monocytes # [0.0-0.8 K/CMM] 0.1 K/CMM (11/30/18 6:05 AM) 0.1 K/CMM (11/29/18 2:09 PM) 0.1 K/CMM (11/29/18 4:57 AM) Eosinophils # [0.0-0.5 K/CMM] 1-3 per HPF (11/25/18 4:26 PM) Schistocyte [None Seen] 152 pg/mL *HI* (11/16/18 12:15 AM) BNP [<=100 pg/mL] Normal (11/25/18 4:26 PM) Normal (11/21/18 2:06 PM) Normal (11/21/18 5:47 AM) Plt Morph [Normal] 1.9 mg/dL *HI* (11/21/18 5:47 AM) 1.2 mg/dL *HI* (11/21/18 1:19 AM) Bili Indirect [0.0-1.0 mg/dL] 57 mL/min/1.73m2 1 *NA* (12/01/18 12:36 AM) 51 mL/min/1.73m2 2 *NA* (11/30/18 6:05 AM) 59 mL/min/1.73m2 3 *NA* (11/29/18 4:57 AM) eGFR Product available (11/20/18 6:47 PM) Product available (11/20/18 6:47 PM) Product available (11/19/18 8:01 AM) FFP product Modification Required (11/20/18 6:47 PM) Cryo product Product available (11/20/18 6:47 PM) Platelet product Product available (11/21/18 7:45 AM) Product available (11/20/18 6:47 PM) Product available (11/20/18 6:47 PM) RBC product O POS *Unknown* (11/25/18 6:22 AM) O POS *Unknown* (11/19/18 10:38 PM) ABO/Rh 18 % (11/28/18 8:56 AM) 6 % *LOW* (11/16/18 5:26 AM) % Satur Fe [12-57 %] 0.7 (11/26/18 5:04 AM) 0.7 (11/25/18 6:22 AM) 0.7 (11/24/18 5:42 PM) A/G Ratio [0.7-1.6] Negative (11/25/18 6:22 AM) Negative (11/19/18 10:38 PM) Antibody Scrn 2.2 g/dL *LOW* (11/26/18 5:04 AM) 2.1 g/dL *LOW* (11/25/18 6:22 AM) 2.2 g/dL *LOW* (11/24/18 5:42 PM) Albumin Lvl [3.5-5.0 g/dL] 136 unit/L (11/26/18 5:04 AM) 104 unit/L (11/25/18 6:22 AM) 96 unit/L (11/24/18 5:42 PM) Alk Phos [39-136 unit/L] 29 unit/L (11/26/18 5:04 AM) 10 unit/L (11/25/18 6:22 AM) 24 unit/L (11/24/18 5:42 PM) ALT [0-65 unit/L] 11.9 mEq/L (12/01/18 12:36 AM) 8.1 mEq/L *LOW* (11/30/18 6:05 AM) 10.8 mEq/L (11/29/18 4:57 AM) AGAP [10.0-20.0 mEq/L] 1+ *ABN* (12/01/18 12:36 AM) 1+ *ABN* (11/30/18 6:05 AM) 1+ *ABN* (11/29/18 2:09 PM) Anisocyte [None Seen] 50 unit/L *HI* (11/26/18 5:04 AM) 55 unit/L *HI* (11/25/18 6:22 AM) 63 unit/L *HI* (11/24/18 5:42 PM) AST [0-37 unit/L] 28 *HI* (11/26/18 5:04 AM) 27 *HI* (11/25/18 6:22 AM) 26 *HI* (11/24/18 5:42 PM) B/C Ratio [6-25] 0.4 % (12/01/18 12:36 AM) 0.3 % (11/29/18 2:09 PM) 0.4 % (11/29/18 4:57 AM) Basophils [0.0-1.0 %] 15 mg/dL (12/01/18 12:36 AM) 18 mg/dL (11/30/18 6:05 AM) 22 mg/dL (11/29/18 4:57 AM) BUN [7-22 mg/dL] 10.2 mg/dL (12/01/18 12:36 AM) 10.6 mg/dL *HI* (11/30/18 6:05 AM) 10.6 mg/dL *HI* (11/29/18 4:57 AM) Calcium Lvl [8.5-10.5 mg/dL] 2.60 *LOW* (11/16/18 12:15 AM) CHD Risk [3.90-5.80] 151 mg/dL (11/16/18 12:15 AM) Chol [<=199 mg/dL] 96 mEq/L (12/01/18 12:36 AM) 98 mEq/L (11/30/18 6:05 AM) 95 mEq/L (11/29/18 4:57 AM) Chloride Lvl [95-109 mEq/L] 32 mEq/L (12/01/18 12:36 AM) 33 mEq/L *HI* (11/30/18 6:05 AM) 33 mEq/L *HI* (11/29/18 4:57 AM) CO2 [24-32 mEq/L] 0.96 mg/dL (12/01/18 12:36 AM) 1.06 mg/dL (11/30/18 6:05 AM) 0.95 mg/dL (11/29/18 4:57 AM) Creatinine Lvl [0.50-1.40 mg/dL] 0.5 mg/dL *HI* (11/21/18 5:47 AM) 0.2 mg/dL (11/21/18 1:19 AM) Bili Direct [0.0-0.3 mg/dL] 1.99 ug/mL FEU *NA* (11/26/18 5:04 AM) 3.07 ug/mL FEU *NA* (11/25/18 6:22 AM) 2.13 ug/mL FEU *NA* (11/24/18 5:42 PM) D-Dimer 1.2 ng/mL (11/30/18 6:05 AM) Digoxin Lvl [0.8-2.0 ng/mL] 0.9 % (12/01/18 12:36 AM) 1.5 % (11/30/18 6:05 AM) 1.1 % (11/29/18 2:09 PM) Eosinophils [0.0-4.0 %] 1020 ng/mL *HI* (11/28/18 8:56 AM) 9 ng/mL (11/16/18 5:26 AM) Ferritin Lvl [5-204 ng/mL] 595 mg/dL *HI* (11/26/18 5:04 AM) 546 mg/dL *HI* (11/25/18 6:22 AM) 548 mg/dL *HI* (11/24/18 5:42 PM) Fibrinogen Lvl [230-510 mg/dL] 17.2 ng/mL (11/28/18 8:56 AM) Folate Lvl [>=3.0 ng/mL] 3.2 g/dL (11/26/18 5:04 AM) 3.2 g/dL (11/25/18 6:22 AM) 3.2 g/dL (11/24/18 5:42 PM) Globulin [2.7-4.2 g/dL] 93 mg/dL (12/01/18 12:36 AM) 87 mg/dL (11/30/18 6:05 AM) 83 mg/dL (11/29/18 4:57 AM) Glucose Lvl [70-99 mg/dL] 24.8 % *LOW* (12/01/18 12:36 AM) 26.5 % *LOW* (11/30/18 6:05 AM) 27.0 % *LOW* (11/29/18 2:09 PM) Hct [36.0-48.0 %] 58 mg/dL *LOW* (11/16/18 12:15 AM) HDL [>=61 mg/dL] 8.3 g/dL *LOW* (12/01/18 12:36 AM) 8.6 g/dL *LOW* (11/30/18 6:05 AM) 9.0 g/dL *LOW* (11/29/18 2:09 PM) Hgb [12.0-16.0 g/dL] 5.2 % (11/16/18 12:15 AM) Hgb A1C [<=5.6 %] 1+ (11/21/18 2:06 PM) 1+ (11/21/18 1:19 AM) Hypochrom [None Seen] 2.64 *HI* (12/01/18 12:36 AM) 2.64 *HI* (12/01/18 12:36 AM) 2.11 *HI* (11/30/18 6:05 AM) INR [0.85-1.17] 38 ug/dl (11/28/18 8:56 AM) 24 ug/dl *LOW* (11/16/18 5:26 AM) Iron [30-160 ug/dl] 3.9 mEq/L (12/01/18 12:36 AM) 4.1 mEq/L (11/30/18 6:05 AM) 3.8 mEq/L (11/29/18 4:57 AM) Potassium Lvl [3.5-5.1 mEq/L] 1.4 mMol/L (11/22/18 1:30 PM) 1.3 mMol/L (11/22/18 2:13 AM) 2.4 mMol/L *HI* (11/21/18 2:06 PM) Lactic Acid Lvl [0.5-2.2 mMol/L] 62 mg/dL (11/16/18 12:15 AM) LDL (Calculated) [<=99 mg/dL] 155 unit/L (11/16/18 12:15 AM) Lipase Lvl [73-393 unit/L] 5.9 % *LOW* (12/01/18 12:36 AM) 10.1 % *LOW* (11/30/18 6:05 AM) 6.5 % *LOW* (11/29/18 2:09 PM) Lymphocytes [20.0-40.0 %] 27.6 pg (12/01/18 12:36 AM) 27.0 pg (11/30/18 6:05 AM) 27.6 pg (11/29/18 2:09 PM) MCH [27.0-31.0 pg] 33.5 g/dL (12/01/18 12:36 AM) 32.4 g/dL (11/30/18 6:05 AM) 33.6 g/dL (11/29/18 2:09 PM) MCHC [32.0-36.0 g/dL] 82.3 fL (12/01/18 12:36 AM) 83.2 fL (11/30/18 6:05 AM) 82.2 fL (11/29/18 2:09 PM) MCV [80.0-98.0 fL] 1.9 mg/dL (12/01/18 12:36 AM) 1.8 mg/dL (11/30/18 6:05 AM) 2.0 mg/dL (11/29/18 4:57 AM) Magnesium Lvl [1.8-2.4 mg/dL] 1+ *ABN* (11/28/18 4:12 AM) 1+ *ABN* (11/27/18 12:55 AM) 1+ *ABN* (11/21/18 5:47 AM) Microcyte [None Seen] 7.4 % (12/01/18 12:36 AM) 8.8 % (11/30/18 6:05 AM) 8.0 % (11/29/18 2:09 PM) Monocytes [2.0-12.0 %] 7.3 fL *LOW* (12/01/18 12:36 AM) 7.9 fL (11/30/18 6:05 AM) 7.8 fL (11/29/18 2:09 PM) MPV [7.4-10.4 fL] 136 mEq/L (12/01/18 12:36 AM) 135 mEq/L (11/30/18 6:05 AM) 135 mEq/L (11/29/18 4:57 AM) Sodium Lvl [135-145 mEq/L] 2.7 mg/dL (12/01/18 12:36 AM) 2.7 mg/dL (11/29/18 4:57 AM) 2.4 mg/dL *LOW* (11/28/18 4:12 AM) Phosphorus [2.5-4.5 mg/dL] 189 K/CMM (12/01/18 12:36 AM) 163 K/CMM (11/30/18 6:05 AM) 198 K/CMM (11/29/18 2:09 PM) Platelet [133-450 K/CMM] Slight *NA* (11/21/18 2:06 PM) Slight *NA* (11/21/18 5:47 AM) Polychrom Moderate *ABN* (11/21/18 1:19 AM) Polychrom [None Seen] 85.4 % *HI* (12/01/18 12:36 AM) 79.3 % *HI* (11/30/18 6:05 AM) 84.1 % *HI* (11/29/18 2:09 PM) Segs [45.0-75.0 %] 5.4 g/dL *LOW* (11/26/18 5:04 AM) 5.3 g/dL *LOW* (11/25/18 6:22 AM) 5.4 g/dL *LOW* (11/24/18 5:42 PM) Total Protein [6.4-8.4 g/dL] 27.6 seconds *HI* (12/01/18 12:36 AM) 27.6 seconds *HI* (12/01/18 12:36 AM) 23.2 seconds *HI* (11/30/18 6:05 AM) PT [12.0-14.7 seconds] 244.0 pg/mL *HI* (11/29/18 2:09 PM) PTH Intact [18.4-80.1 pg/mL] 38.2 seconds *HI* (12/01/18 12:36 AM) 165.2 seconds 4 *CRIT* (11/30/18 6:05 AM) 89.8 seconds *HI* (11/29/18 10:51 PM) PTT [22.9-35.8 seconds] 3.01 M/CMM *LOW* (12/01/18 12:36 AM) 3.19 M/CMM *LOW* (11/30/18 6:05 AM) 3.28 M/CMM *LOW* (11/29/18 2:09 PM) RBC [4.20-5.40 M/CMM] 23.8 % *HI* (12/01/18 12:36 AM) 23.3 % *HI* (11/30/18 6:05 AM) 23.4 % *HI* (11/29/18 2:09 PM) RDW [11.5-14.5 %] 6.4 % *HI* (11/28/18 8:56 AM) Retic Auto [0.5-1.5 %] 0.9 mg/dL (11/26/18 5:04 AM) 1.0 mg/dL (11/25/18 6:22 AM) 0.8 mg/dL (11/24/18 5:42 PM) Bili Total [0.2-1.3 mg/dL] 213 ug/dl *LOW* (11/28/18 8:56 AM) 379 ug/dl (11/16/18 5:26 AM) TIBC [228-428 ug/dl] 156 mg/dL *HI* (11/16/18 12:15 AM) Trig [<=149 mg/dL] <0.02 ng/mL (11/15/18 5:26 PM) Troponin-I [0.00-0.40 ng/mL] 17.6 seconds (11/26/18 5:04 AM) 16.2 seconds (11/25/18 6:22 AM) 16.4 seconds (11/24/18 5:42 PM) Thrombin Time [15.0-21.2 seconds] Occasional /HPF *NA* (11/22/18 1:30 PM) UA Bacteria [None Seen /HPF] Negative *NA* (11/22/18 1:30 PM) UA Bili [Negative] Moderate *ABN* (11/22/18 1:30 PM) UA Blood [Negative] Rabia *ABN* (11/22/18 1:30 PM) UA Color [Yellow] Negative mg/dL *NA* (11/22/18 1:30 PM) UA Glucose [Negative mg/dL] 19 /LPF *HI* (11/22/18 1:30 PM) UA Hyal Cast [0-2 /LPF] Negative mg/dL *NA* (11/22/18 1:30 PM) UA Ketones [Negative mg/dL] Small *ABN* (11/22/18 1:30 PM) UA Leuk Est [Negative] Few /LPF *NA* (11/22/18 1:30 PM) UA Mucus [None Seen /LPF] Negative (11/22/18 1:30 PM) UA Nitrite [Negative] 5.0 (11/22/18 1:30 PM) UA pH [5.0-8.0] Negative mg/dL (11/22/18 1:30 PM) UA Protein [Negative mg/dL] 9 /HPF *HI* (11/22/18 1:30 PM) UA RBC [0-2 /HPF] 1.021 (11/22/18 1:30 PM) UA Spec Grav [<=1.030] Occasional /LPF *NA* (11/22/18 1:30 PM) UA Sq Epi [Few /LPF] Slight *ABN* (11/22/18 1:30 PM) UA Turbidity [Clear] <1.0 mg/dL (11/22/18 1:30 PM) UA Urobilinogen [0.1-1.0 mg/dL] 35 /HPF *HI* (11/22/18 1:30 PM) UA WBC [0-5 /HPF] 175 ug/dl (11/28/18 8:56 AM) 355 ug/dl (11/16/18 5:26 AM) UIBC [110-370 ug/dl] 1196 pg/mL (11/28/18 8:56 AM) Vitamin B12 Lvl [254-1320 pg/mL] 4.8 K/CMM (12/01/18 12:36 AM) 3.9 K/CMM (11/30/18 6:05 AM) 5.0 K/CMM (11/29/18 2:09 PM) WBC [3.7-10.4 K/CMM] 1.38 mMol/L *HI* (11/29/18 2:09 PM) 1.34 mMol/L *HI* (11/26/18 5:04 AM) 1.25 mMol/L (11/25/18 9:41 PM) Ca Ion WB [1.05-1.25 mMol/L] 1.39 mMol/L *HI* (11/29/18 2:09 PM) 1.34 mMol/L *HI* (11/26/18 5:04 AM) 1.29 mMol/L *HI* (11/25/18 9:41 PM) Ca Norm WB [1.05-1.25 mMol/L] Performed *NA* (11/22/18 1:30 PM) Micro? 258 seconds *NA* (11/20/18 7:00 PM) 283 seconds *NA* (11/20/18 6:29 PM) 238 seconds *NA* (11/20/18 6:18 PM) POC Activated Clotting Time 31 *NA* (11/16/18 12:15 AM) VLDL 1Result Comment: The eGFR is calculated using the CKD-EPI formula. In most young, healthy individuals the eGFR will be >90 mL/min/1.73m2. The eGFR declines with age. An eGFR of 60-89 may be normal in some populations, particularly the elderly, for whom the CKD-EPI formula has not been extensively validated. Use of the eGFR is not recommended in the following populations: Individuals with unstable creatinine concentrations, including patients and those with serious co-morbid conditions. Patients with extremes in muscle mass or diet. The data above are obtained from the National Kidney Disease Education Program ( NKDEP) which additionally recommends that when the eGFR is used in patients with extremes of body mass index for purposes of drug dosing, the eGFR should be mul tiplied by the estimated BMI. 2Result Comment: The eGFR is calculated using the CKD-EPI formula. In most young, healthy individuals the eGFR will be >90 mL/min/1.73m2. The eGFR declines with age. An eGFR of 60-89 may be normal in some populations, particularly the elderly, for whom the CKD-EPI formula has not been extensively validated. Use of the eGFR is not recommended in the following populations: Individuals with unstable creatinine concentrations, including patients and those with serious co-morbid conditions. Patients with extremes in muscle mass or diet. The data above are obtained from the National Kidney Disease Education Program ( NKDEP) which additionally recommends that when the eGFR is used in patients with extremes of body mass index for purposes of drug dosing, the eGFR should be mul tiplied by the estimated BMI. 3Result Comment: The eGFR is calculated using the CKD-EPI formula. In most young, healthy individuals the eGFR will be >90 mL/min/1.73m2. The eGFR declines with age. An eGFR of 60-89 may be normal in some populations, particularly the elderly, for whom the CKD-EPI formula has not been extensively validated. Use of the eGFR is not recommended in the following populations: Individuals with unstable creatinine concentrations, including patients and those with serious co-morbid conditions. Patients with extremes in muscle mass or diet. The data above are obtained from the National Kidney Disease Education Program ( NKDEP) which additionally recommends that when the eGFR is used in patients with extremes of body mass index for purposes of drug dosing, the eGFR should be mul tiplied by the estimated BMI. 4Result Comment: Critical Result(s) called to Shannan Kim at 11/30/2018 06:39 by ET. Read back OK. Microbiology Reports TEST: Culture: Urine STATUS: Auth (Verified) BODY SITE: SOURCE: Urine, Fatima COLLECTED DATE/TIME: 11/22/18 1:30 PM FINAL REPORT No Growth Immunizations No data available for this section Procedures Procedure Date Related Diagnosis Body Site Status Arthroplasty of knee Completed Cardiac catheterization Completed section Completed Cholecystectomy Completed Dilation and curettage Completed Hysterectomy Completed Operation Completed Operation1 Completed [address] [place] [address] Social History Social History Type Response Substance Abuse Use: None. Alcohol Past, Previous treatment: None. Smoking Status Former smoker; Type: Cigarettes; Exposure to Tobacco Smoke None; Cigarette Smoking Last 365 Days No; Reg Smoking Cessation Counseling No entered on: 11/16/18 Assessment and Plan Extracted from: Title: HF Surgery Author: Tracey Culp Date: 12/01/18 Impression and Plan 78 y/o WF with aortic stenosis, hypertension, hyperlipidemia, paroxysmal afib (on Eliquis, last dose 11/17/18), obstructive sleep apnea on CPAP, gout, former smoker (40 pack years, quit 30 years ago) and GERD s/p attempted subclavian TAVR procedure was complicated by subclavian dissection now S/P Emergent Salvage AVR: TAVR Susanne S3 explantation from left subclavian artery. AVR SJM Bioprosthetic Epic valve size 21mm implantation. AAR with hemiarch and proximal innominate artery replacement Hemashield Marcellus grafts size 28mm AAR and size 8mm Innominate artery. Deep Hypothermic Cardiac Arrest 15min with Selective Cerebral Antegrade Perfusion SCAP through Innominate artery. Chest temporary closed ( 1 sternal wire) 11/21/18 POD# 10 S/P Mediastinal exploration, washout, closure 11/21/18 POD# 10 Sternal precautions x 8 weeks Incision care: Keep incisions clean and dry, leave open to air Chest Tube Management: Chest tubes removed 11/24/18. Sutures to remain in place x 2 weeks TPW cut 11/25/18 - MRI contraindicated, discussed with patient Use surgical bra for support use KETAN hose Anticoagulated with Heparin for DVT and for bioprosthetic aortic valve which only needs anticoag x 3 months Dispo: Follow up in HF Surgery clinic 1 week after discharge for incision check and chest tube suture and staple removal. Best contact [phone], Jai (son) [phone]. Extracted from: Title: Hemotherapy Consult Author: Whitley Kaur MD Date: 11/21/18 Basic Information Source of history: Medical record, Medical Personnel. Present at bedside: Medical personnel. Referral source: Guido Ramos MD. History limitation: Clinical condition. Chief Complaint Perioperative bleeding History of Present Illness Mrs Hopper is a 78 female with significant PMH of mod to severe , HTN, HLD, pAFib on Eliquis, iron deficiency anemia and gout who presents for worsening SOB and evaluation for TAVR/SAVR. Par patient she had chronic RAMIRZE but feels ok at rest. Her baseline about a month ago involved being able to walk at least one block without stopping and one flight of stairs. She has progressively worsened since then and she states that has felt severely worse since Sunday. States she now has RAMIREZ with less than 1/2 block walking and cannot make it up a flight of stairs without taking a break. Denies CP, f/c/n/v, VANCE, palpitations, syncopal episodes, PND, orthopnea. She had TAVR today and complicated and emergently brought to OR for aortic arch repair and surgical AVR. Hemotherapy was called for perioperative bleeding and coagulopathy. Patient was transfused 6 RBCs during CPB. Review of Systems Unable to obtain: Due to clinical condition. Health Status Allergies: Allergies (4) ActiveReaction chlorhexidine topicalNone Documented codeineNone Documented NKDANone Documented penicillinsNone Documented Current medications: (Selected) Inpatient Medications Ordered FLUoxetine: 40 mg, 2 cap, PO, Daily Ferrlecit + Sodium Chloride 0.9% IV 100 mL: 125 mg, 10 mL, 110 ml/hr, IVPB, Daily Protonix: 40 mg, 1 tab, PO, Daily Sodium Chloride 0.9% (titrate) 250 mL: To prime line and flush remaining blood products., IV, Stop: 12/19/18 8:00:00 CDT Sodium Chloride 0.9% (titrate) 250 mL: To prime line and flush remaining blood products., IV, Stop: 12/20/18 19:26:00 CDT calcium gluconate + Sodium Chloride 0.9% IV 80 mL: 2 gm, 20 mL, 100 ml/hr, IVPB, PRN, PRN: Abnormal Lab Result calcium gluconate + Sodium Chloride 0.9% IV 80 mL: 3 gm, 30 mL, 110 ml/hr, IVPB, PRN, PRN: Abnormal Lab Result famotidine: 20 mg, 1 tab, PO, Daily heparin 25,000 unit [14 unit/kg/hr] + Premix Diluent Sodium Chloride 0.45% 500 mL: 16.88 ml/hr, IV, Stop: 12/18/18 8:45:00 CDT hydrochlorothiazide-triamterene 25 mg-37.5 mg oral tablet: 1 tab, PO, Daily magnesium oxide: 800 mg, 2 tab, PO, PRN, PRN: Abnormal Lab Result magnesium sulfate: 1 gm, 100 mL, 100 ml/hr, IVPB, PRN, PRN: Abnormal Lab Result magnesium sulfate: 2 gm, 50 mL, 25 ml/hr, IVPB, PRN, PRN: Abnormal Lab Result ondansetron: 4 mg, 2 mL, IVP, Q8H, PRN: Nausea potassium chloride: 10 mEq, 50 mL, 50 ml/hr, IVPB, PRN, PRN: Abnormal Lab Result potassium chloride: 20 mEq, 1 tab, PO, PRN, PRN: Abnormal Lab Result potassium chloride: 20 mEq, 15 mL, [place], PRN, PRN: Abnormal Lab Result potassium phosphate + Sodium Chloride 0.9% IV 250 mL: 15 mmol, 5 mL, 63.75 ml/hr, IVPB, PRN, PRN: Abnormal Lab Result potassium phosphate + Sodium Chloride 0.9% IV 250 mL: 30 mmol, 10 mL, 65 ml/hr, IVPB, PRN, PRN: Abnormal Lab Result potassium phosphate-sodium phosphate 250 mg-280 mg-160 mg oral powder for reconstitution: 2 pkt, PO, PRN, PRN: Abnormal Lab Result simvastatin: 20 mg, 1 tab, PO, Bedtime sodium phosphate + Sodium Chloride 0.9% IV 250 mL: 15 mmol, 5 mL, 63.75 ml/hr, IVPB, PRN, PRN: Abnormal Lab Result sodium phosphate + Sodium Chloride 0.9% IV 250 mL: 30 mmol, 10 mL, 65 ml/hr, IVPB, PRN, PRN: Abnormal Lab Result Suspended Eliquis: 5 mg, 1 tab, PO, Q12H bisoprolol: 5 mg, 1 tab, PO, BID diltiazem 12 hour extended release: 120 mg, 1 cap, PO, Daily Documented Medications Documented Eliquis 5 mg oral tablet: 5 mg, PO, Q12H, 0 Refill(s) alendronate 70 mg oral tablet: 70 mg, 1 tab, PO, Q7D, 0 Refill(s) allopurinol 100 mg oral tablet: 100 mg, 1 tab, PO, TID, 0 Refill(s) bisoprolol 5 mg oral tablet: 5 mg, 1 tab, PO, Q12H, 0 Refill(s) diltiazem 120 mg oral capsule, extended release: 120 mg, 1 cap, PO, Daily, 0 Refill(s) hydrochlorothiazide-triamterene 25 mg-37.5 mg oral capsule: 1 cap, PO, Daily, 0 Refill(s) ondansetron 4 mg oral tablet: 4 mg, 1 tab, PO, Q8H, PRN: Nausea, 0 Refill(s) simvastatin 20 mg oral tablet: 20 mg, 1 tab, PO, Bedtime, 0 Refill(s) Suspended FLUoxetine 40 mg oral capsule: 40 mg, 1 cap, PO, Daily, 30 cap, 0 Refill(s) Xarelto: PO, 0 Refill(s) bisoprolol 5 mg oral tablet: 5 mg, 1 tab, PO, BID, 90 tab, 0 Refill(s) diltiazem 120 mg oral tablet: 120 mg, 1 tab, PO, TID, 0 Refill(s) isosorbide dinitrate 40 mg oral tablet: 40 mg, 1 tab, PO, BID, 0 Refill(s) omeprazole: PO, Daily, 0 Refill(s) ranitidine 150 mg oral tablet: 150 mg, 1 tab, PO, BID, 0 Refill(s) simvastatin 10 mg oral tablet: 10 mg, 1 tab, PO, Bedtime, 30 tab, 0 Refill(s) triamterene: PO, BID, 0 Refill(s) Problem list: Active Problems (6) A-fib Acid reflux HTN (hypertension) Hyperlipidemia Shortness of breath on exertion Sleep apnea Histories Past Medical History: Active A-fib (65320816) Sleep apnea (075352917) Shortness of breath on exertion (194551540) HTN (hypertension) (8166811989) Acid reflux (514205165) Hyperlipidemia (63741659) Family History: Heart disease Father Heart attack Father Procedure history: Arthroplasty of knee (87277428). Cardiac catheterization (73563917). section (59853458). Dilation and curettage (21188287). Hysterectomy (206733038). Operation ([id number]). Comments: 07/16/2018 16:45 - Vanessa Hamilton RN TITANIUM JOCELYN-ORIF Operation (3066451891). Cholecystectomy (71735655). Social History Social & Psychosocial Habits Alcohol 07/16/2018 Use: Past Previous treatment: None Substance Abuse 07/16/2018 Use: None Tobacco 11/16/2018 Use: Former smoker Type: Cigarettes Exposure to Tobacco Smoke None Cigarette Smoking Last 365 Days No Reg Smoking Cessation Counseling No. Physical Examination VS/Measurements Vital Signs (last 24 hrs) Last Charted Temp Oral97.9 DegF (NOV 20 07:15) Heart Rate ApicalH 123bpm (NOV 20 16:00) SBPH 144mmHg (NOV 20 15:30) DBP62 mmHg (NOV 20 15:30) GwE962 % (NOV 20 15:30) General: Mild distress. HENT: No bleeding from ET tube. . Respiratory: Respirations are non-labored, Symmetrical chest wall expansion. Support: Ventilator. Cardiovascular: Normal rate, No edema. Integumentary: Dry, [place]. Neurologic: No focal deficits, Sedated. Review / Management Results review: Labs (Last four charted values) WBC H 17.1(CHANDLER 19)4.2(CHANDLER 19)4.0(CHANDLER 18)4.8(CHANDLER 17) Hgb L 8.3(CHANDLER 19)L 9.3(CHANDLER 19)L 8.6(CHANDLER 18)L 9.5(CHANDLER 17) Hct L 24.8(CHANDLER 19)L 29.9(CHANDLER 19)L 28.0(CHANDLER 18)L 30.8(CHANDLER 17) Plt 156(CHANDLER 19)220(CHANDLER 19)201(CHANDLER 18)232(CHANDLER 17) Na 137(CHANDLER 19)135(CHANDLER 18)139(CHANDLER 17)138(CHANDLER 16) K 4.4(CHANDLER 19)3.8(CHANDLER 18)4.3(CHANDLER 17)3.8(CHANDLER 16) CO2 25(CHANDLER 19)25(CHANDLER 18)26(CHANDLER 17)26(CHANDLER 16) Cl 105(CHANDLER 19)102(CHANDLER 18)105(CHANDLER 17)105(CHANDLER 16) Cr 0.74(CHANDLER 19)0.74(CHANDLER 18)0.90(CHANDLER 17)0.79(CHANDLER 16) BUN L 6(CHANDLER 19)9(CHANDLER 18)13(CHANDLER 17)13(CHANDLER 16) Glucose Random 88(CHANDLER 19)97(CHANDLER 18)90(CHANDLER 17)93(CHANDLER 16) Mg 1.9(CHANDLER 19)2.0(CHANDLER 18)1.9(CHANDLER 17)2.1(CHANDLER 16) Phos 3.2(CHANDLER 19)3.2(CHANDLER 18)2.9(CHANDLER 17)2.9(CHANDLER 16) Ca 10.3(CHANDLER 19)H 11.3(CHANDLER 18)H 10.8(CHANDLER 17)9.7(NOV 17) PT H 25.0(NOV 20)H 14.8(NOV 20)H 15.8(NOV 18)H 17.4(NOV 17) INR H 2.32(NOV 20)H 1.18(NOV 20)H 1.29(NOV 18)H 1.46(NOV 17) PTT H 42.3(NOV 20)H 55.7(NOV 20)H 37.9(NOV 19)34.8(NOV 18) Troponin <0.02(NOV 15). Laboratory Results Today's Lab Results : Laboratory 11/20/2018 23:39 INR 2.32 HI Thrombin Time 17.9 seconds Normal Fibrinogen Lvl 160 mg/dL LOW D-Dimer 2.85 ug/mL FEU NA PTT 42.3 seconds HI Radiology results Computed tomography, Reviewed radiologist's report Impression and Plan 78 female with significant PMH of mod to severe , HTN, HLD, pAFib on Eliquis, iron deficiency anemia and gout who presents for worsening SOB and evaluation for TAVR/SAVR. Par patient she had chronic RAMIREZ but feels ok at rest. Her baseline about a month ago involved being able to walk at least one block without stopping and one flight of stairs. She has progressively worsened since then and she states that has felt severely worse since Sunday. States she now has RAMIREZ with less than 1/2 block walking and cannot make it up a flight of stairs without taking a break. Denies CP, f/c/n/v, VANCE, palpitations, syncopal episodes, PND, orthopnea. She had TAVR today and complicated and emergently brought to OR for aortic arch repair and surgical AVR 1. Anemia: acute bleeding with underlying ERNESTINA. On IV Fe till 11/23. s/p 6 RBC. Close monitor chest tube output. 2. Coagulopathy: INR elevated to 2.3 after Protamine. Fibrinogen dropped to 160. 2' to coagulation factor deficiency/ hemodilution. Transfuse 2 FFP and 1 cryo. Monitor. 3. Platelet: Count at 156. s/p 2 Platelet. Monitor. 4. Afib: Home Eliquis Hold anticoagulation since immediate post op. Thank for the consult and will follow. Addendum no further blood products needed. to OR this AM for closure. no further acute bleeding. by monitor for acute bleeding. Earl Elliott MD on 11/21/2018 12:18 Extracted from: Title: F Cardiovascular Admission Author: Mal Guevara MD Date: 11/15/18 H&P * Impression and Plan Mrs Hopper is a 78F w/ PMH mod to severe , HTN, HLD, pAFib on OAC, gout who presents for worsening SOB and evaluation for TAVR/SAVR. #Moderate to Severe : Will need to repeat evaluation to see if parameters have worsened since July since pts sxs have worsened significantly. Pt currently comfortable at rest. -Repeat TTE -If TTE meets Severe criteria, will order TAVR CTA -If TTE does not meet criteria will determine if repeat LHC or DSE, etc is needed -Will need HF surgery evaluation for STS risk stratification, etc. -Consider advanced age and comorbidities as well as pt preference, likely TAVR if severe rather than SAVR -No need for diuretics at this time, continue to monitor -Continue antiHTN meds as below, control afterload -Considering starting ASA; already on eliquis however -Continue statin #AFib: in rate controlled AFib right now -Continue Eliquis 5mg BID -Continue diltiazem ER 120mg qday -Continue bisoprolol 5mg BID #HTN: -CCB, BB as above -Continue triamterene-HCTZ BID #Microcytic Anemia: Hgb 8.8, down from 11. Pt did not endorses and melena or BRBPR. Will order workup. 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
--- OUTSIDE RECORDS SUMMARY | 2018-12-18 20:35 | XMS REPORT | Summary of Care ---
Author Author [facility] Organization [facility] Address Unknown Phone Unavailable Encounter NISH Burt(RYAN) [id number] Date(s): 07/17/18 - 07/17/18 [facility] [address] [place] [address]- Discharge Disposition: Home or Self Care Attending Physician: Car Love DO Referring Physician: Car Love DO Vital Signs 1 2 3 Most recent to oldest [Reference Range]: 152.4 cm (07/17/18 8:00 AM) 152.4 cm (07/16/18 4:41 PM) Height 98.1 DegF (07/17/18 10:42 AM) 98.2 DegF (07/17/18 8:19 AM) 97.5 DegF (07/16/18 4:41 PM) Temperature Oral [96.4-99.1 DegF] 131/55 mmHg (07/17/18 3:00 PM) 131/58 mmHg (07/17/18 2:00 PM) 129/58 mmHg (07/17/18 1:30 PM) Blood Pressure [90-140/60-90 mmHg] 20 BRMIN (07/17/18 3:00 PM) 20 BRMIN (07/17/18 2:00 PM) 13 BRMIN *LOW* (07/17/18 1:30 PM) Respiratory Rate [14-20 BRMIN] 60 bpm (07/16/18 4:41 PM) Peripheral Pulse Rate [60-100 bpm] 81.818 kg (07/17/18 8:00 AM) 81.818 kg (07/16/18 4:41 PM) Weight 35.23 m2 (07/17/18 8:00 AM) 35.23 m2 (07/16/18 4:41 PM) Body Mass Index Problem List Condition Effective Dates Status Health Status Informant A-fib(Confirmed) Active Shortness of breath Active on exertion(Confirmed) Acid Active reflux(Confirmed) Hyperlipidemia(Confi Active rmed) HTN Active (hypertension)(Confi rmed) Sleep Active apnea(Confirmed) Allergies, Adverse Reactions, Alerts Substance Reaction Severity Status penicillins Active NKDA Active Medications bisoprolol 5 mg oral tablet 5 mg=1 tab, PO, Daily, # 90 tab, 0 Refill(s) Start Date: 07/16/18 Status: Ordered diltiazem 120 mg oral tablet 120 mg=1 tab, PO, TID, 0 Refill(s) Start Date: 07/16/18 Status: Ordered FLUoxetine 40 mg oral capsule 40 mg=1 cap, PO, Daily, # 30 cap, 0 Refill(s) Start Date: 07/16/18 Status: Ordered isosorbide dinitrate 40 mg oral tablet 40 mg=1 tab, PO, BID, 0 Refill(s) Start Date: 07/16/18 Status: Ordered morphine Sulfate 2 mg, 1 mL, Route: IVP, Drug form: SOLN, Q2H, Dosing Weight 81.818, kg, PRN Pain Score 4-6, Start date: 07/17/18 11:34:00 OBSTETRICS TECH, Duration: 30 day, Stop date: 08/02 10/20 11:33:00 CDT Start Date: 07/17/18 Stop Date: 07/17/18 Status: Discontinued morphine Sulfate 2 mg, Route: IVP, ONCE, Dosing Weight 81.818, kg, Start date: 07/17/18 11:32:00 OBSTETRICS TECH, Stop date: 07/17/18 11:32:00 OBSTETRICS TECH Start Date: 07/17/18 Stop Date: 07/17/18 Status: Completed nitroglycerin SL Tab 0.4 mg, 1 tab, Route: SL, Drug form: TAB, Q5Min, Dosing Weight 81.818, kg, PRN C hest Pain, Start date: 07/17/18 11:34:00 OBSTETRICS TECH, Duration: 3 doses or times, Stop d ate: Limited # of times Notes: (Same as:Nitroquick, Nitrostat)"Do Not Crush" Sublingual tablet Start Date: 07/17/18 Stop Date: 07/17/18 Status: Discontinued omeprazole PO, Daily, 0 Refill(s) Start Date: 07/16/18 Status: Ordered ranitidine 150 mg oral tablet 150 mg=1 tab, PO, BID, 0 Refill(s) Start Date: 07/16/18 Status: Ordered simvastatin 10 mg oral tablet 10 mg=1 tab, PO, Bedtime, # 30 tab, 0 Refill(s) Start Date: 07/16/18 Status: Ordered triamterene PO, BID, 0 Refill(s) Start Date: 07/16/18 Status: Ordered Xarelto PO, 0 Refill(s) Start Date: 07/16/18 Status: Ordered Results ELECTROLYTES Most recent to 1 oldest [Reference Range]: Sodium Lvl [135-145 138 mEq/L mEq/L] (07/16/18 5:01 PM) Potassium Lvl 3.9 mEq/L [3.5-5.1 mEq/L] (07/16/18 5:01 PM) Chloride Lvl [95-109 102 mEq/L mEq/L] (07/16/18 5:01 PM) CO2 [24-32 mEq/L] 26 mEq/L (07/16/18 5:01 PM) AGAP [10.0-20.0 13.9 mEq/L mEq/L] (07/16/18 5:01 PM) CHEM PANEL Most recent to 1 oldest [Reference Range]: Creatinine Lvl 0.99 mg/dL [0.50-1.40 mg/dL] (07/16/18 5:01 PM) eGFR 56 mL/min/1.73m2 1 *NA* (07/16/18 5:01 PM) BUN [7-22 mg/dL] 12 mg/dL (07/16/18 5:01 PM) B/C Ratio [6-25] 12 (07/16/18 5:01 PM) Glucose Lvl [70-99 93 mg/dL mg/dL] (07/16/18 5:01 PM) Total Protein 6.7 g/dL [6.4-8.4 g/dL] (07/16/18 5:01 PM) Albumin Lvl [3.5-5.0 3.6 g/dL g/dL] (07/16/18 5:01 PM) Globulin [2.7-4.2 3.1 g/dL g/dL] (07/16/18 5:01 PM) A/G Ratio [0.7-1.6] 1.2 (07/16/18 5:01 PM) Calcium Lvl 10.2 mg/dL [8.5-10.5 mg/dL] (07/16/18 5:01 PM) ALT [0-65 unit/L] 18 unit/L (07/16/18 5:01 PM) AST [0-37 unit/L] 21 unit/L (07/16/18 5:01 PM) Alk Phos [39-136 89 unit/L unit/L] (07/16/18 5:01 PM) Bili Total [0.2-1.3 0.5 mg/dL mg/dL] (07/16/18 5:01 PM) 1Result Comment: The eGFR is calculated using [...] be mul tiplied by the estimated BMI. HEMATOLOGY Most recent to 1 oldest [Reference Range]: WBC [3.7-10.4 K/CMM] 5.4 K/CMM (07/16/18 5:01 PM) RBC [4.20-5.40 5.02 M/CMM M/CMM] (07/16/18 5:01 PM) Hgb [12.0-16.0 g/dL] 11.0 g/dL *LOW* (07/16/18 5:01 PM) Hct [36.0-48.0 %] 34.5 % *LOW* (07/16/18 5:01 PM) MCV [80.0-98.0 fL] 68.6 fL *LOW* (07/16/18 5:01 PM) MCH [27.0-31.0 pg] 22.0 pg *LOW* (07/16/18 5:01 PM) MCHC [32.0-36.0 32.0 g/dL g/dL] (07/16/18 5:01 PM) RDW [11.5-14.5 %] 17.2 % *HI* (07/16/18 5:01 PM) MPV [7.4-10.4 fL] 7.4 fL (07/16/18 5:01 PM) Platelet [133-450 270 K/CMM K/CMM] (07/16/18 5:01 PM) Segs [45.0-75.0 %] 61.7 % (07/16/18 5:01 PM) Lymphocytes 27.0 % [20.0-40.0 %] (07/16/18 5:01 PM) Monocytes [2.0-12.0 8.7 % %] (07/16/18 5:01 PM) Eosinophils [0.0-4.0 2.3 % %] (07/16/18 5:01 PM) Basophils [0.0-1.0 0.3 % %] (07/16/18 5:01 PM) Neutrophils # 3.3 K/CMM [1.5-8.1 K/CMM] (07/16/18 5:01 PM) Lymphocytes # 1.4 K/CMM [1.0-5.5 K/CMM] (07/16/18 5:01 PM) Monocytes # [0.0-0.8 0.5 K/CMM K/CMM] (07/16/18 5:01 PM) Eosinophils # 0.1 K/CMM [0.0-0.5 K/CMM] (07/16/18 5:01 PM) Anisocyte [None 1+ Seen] *ABN* (07/16/18 5:01 PM) Hypochrom [None 1+ Seen] (07/16/18 5:01 PM) Microcyte [None 3+ Seen] *NA* (07/16/18 5:01 PM) Plt Morph Normal (07/16/18 5:01 PM) PT [12.0-14.7 14.6 seconds seconds] (07/16/18 5:01 PM) INR [0.85-1.17] 1.16 (07/16/18 5:01 PM) PTT [22.9-35.8 29.3 seconds seconds] (07/16/18 5:01 PM) Immunizations No data available for this section Procedures Procedure Date Related Diagnosis Body Site Status Arthroplasty of knee Completed Cardiac catheterization Completed section Completed Cholecystectomy Completed Dilation and curettage Completed Hysterectomy Completed Operation Completed Operation1 Completed 1TITANIUM JOCELNY-ORIF Social History Social History Type Response Substance Abuse Use: None. Alcohol Past, Previous treatment: None. Smoking Status Former smoker; Type: Cigarettes; Exposure to Tobacco Smoke None; Cigarette Smoking Last 365 Days No; Reg Smoking Cessation Counseling No entered on: 07/17/18 Assessment and Plan No data available for this section
--- OUTSIDE RECORDS SUMMARY | 2018-12-18 20:35 | XMS REPORT | Continuity of Care Document ---
Author Author [employer] Organization [employer] Address Unknown Phone Unavailable Care Team Providers Care Medical Education Manager Name Role Phone [employer] Unavailable Unavailable Problems Problem Status Onset Date Classification Date Reported Comments Source F/U TAVR/STERNOTOMY Active 12/17/2018 [facility] AORTIC STENOSIS Active 11/15/2018 [facility] CHEST PAIN/SHORTNESS OF BREATH Active 11/15/2018 [facility] LT Active 07/10/2018 [facility] A-fib Active Problem 12/03/2018 [facility] Shortness of breath on exertion Active Problem 12/03/2018 [facility] Acid reflux Active Problem 12/03/2018 [facility] Hyperlipidemia Active Problem 12/03/2018 [facility] HTN (Confirmed) Active Problem 12/03/2018 [facility] Sleep apnea Active Problem 12/03/2018 [facility] NONRHEUMATIC AORTIC (VALVE) STENOSIS Active [facility] Medications Medication Details Route Status Patient Instructions Ordering Provider Order Date Source Warfarin 1 mg, 1 tab, Route: PO, Drug form: TAB, Q5PM, Dosing Weight 82.727, kg, Start date: 12/01/18 17:00:00 CDT, Duration: 1 doses or times, Stop date: 12/01/18 17:00:00 CDT, 0Notes: Nurse to ensure documenta tion of patient education per anticoagulation policy. Avoid large intake of vitamin-K containing foods diet. (Same As: Coumadin) WASTE: F/P - P Waste Black; E - P Waste Black Inactive 12/01/2018 [facility] warfarin 2.5 mg oral tablet 2.5 mg, PO, Daily, # 30 tab, 0 Refill(s), other Active 12/01/2018 [facility] tramadol hydrochloride 50 MG Oral Tablet 50 mg=1 tab, PO, Q4H, PRN Pain, X 10 day, # 60 tab, 0 Refill(s), other Active 12/01/2018 [facility] warfarin 3 mg oral tablet 3 mg=1 tab, PO, Daily, # 90 tab, 0 Refill(s), other Inactive 12/01/2018 [facility] pantoprazole 40 mg oral enteric coated tablet 40 mg=1 tab, PO, BID, 0 Refill(s) Active 12/01/2018 [facility] Docusate Sodium 100 MG Oral Capsule 100 mg=1 cap, PO, BID, 0 Refill(s) Active 12/01/2018 [facility] Digoxin 0.125 MG Oral Tablet 0.125 mg=1 tab, PO, Daily, 0 Refill(s) Active 12/01/2018 [facility] bumetanide 1 mg oral tablet 1 mg=1 tab, PO, BID, 0 Refill(s) Active 12/01/2018 [facility] Aspirin 81 MG Chewable Tablet 81 mg=1 tab, PO, Daily, 0 Refill(s) Active 12/01/2018 [facility] AMIODarone 200 mg oral tablet 200 mg=1 tab, PO, BID, 0 Refill(s) Active 12/01/2018 [facility] Albuterol 0.833 MG/ML / Ipratropium Hob[place] 0.167 MG/ML Inhalant Solution [DuoNeb] 3 mL, [facility], RQ6H, 0 Refill(s) Active 12/01/2018 [facility] Tramadol 50 mg, 1 tab, Route: PO, Drug form: TAB, ONCE, Dosing Weight 82.727, kg, Start date: 11/30/18 20:11:00 CDT, Stop date: 11/30/18 20:11:00 CDT, 0Notes: Not to exceed 400mg/day. (Same As: Ultram) Inactive 12/01/2018 [facility] Warfarin 2 mg, 1 tab, Route: PO, Drug form: TAB, Q5PM, Dosing Weight 82.727, kg, Start date: 11/30/18 17:00:00 CDT, Duration: 1 doses or times, Stop date: 11/30/18 17:00:00 CDT, 0Notes: Nurse to ensure documenta tion of patient education per anticoagulation policy. Avoid large intake of vitamin-K containing foods diet. (Same As: Coumadin) WASTE: F/P - P Waste Black; E - P Waste Black Inactive 11/30/2018 [facility] Dulcolax Laxative 10 mg, 1 supp, Route: ID, Drug form: SUPP, ONCE, Dosing Weight 82.727, kg, Start date: 11/30/18 13:05:00 CDT, Stop date: 11/30/18 13:05:00 CDT, 0Notes: (Same As: Dulcolax, Bisco-Lax) Inactive 11/30/2018 [facility] Ranitidine 150 MG Oral Tablet 150 mg, 1 tab, Route: PO, Drug form: TAB, BID, Dosing Weight 82.727, kg, Start date: 11/30/18 9:00:00 CDT, Duration: 30 day, Stop date: 12/29/18 17:00:00 CDT No Longer Active 11/30/2018 [facility] famotidine 20 mg, 1 tab, Route: PO, Drug form: TAB, BID, Start date: 11/30/18 9:00:00 CDT, Duration: 30 day, Stop date: 12/29/18 17:00:00 CDT, 0Notes: (Same as: Pepcid) Inactive 11/30/2018 [facility] Warfarin 5 mg, 1 tab, Route: PO, Drug form: TAB, Q5PM, Dosing Weight 82.727, kg, Start date: 11/29/18 17:00:00 CDT, Duration: 1 doses or times, Stop date: 11/29/18 17:00:00 CDT, 0Notes: Nurse to ensure documenta tion of patient education per anticoagulation policy. Avoid large intake of vitamin-K containing foods diet. WASTE: F/P - P Waste Black; E - P Waste Black (Same As: Coumadin) Inactive 11/29/2018 [facility] sennosides, [facility] 8.6 MG Oral Tablet 8.6 mg, 1 tab, Route: PO, Drug Form: TAB, Dosing Weight 82.727, kg, BID, Start date: 11/29/18 17:00:00 CDT, Duration: 30 day, Stop date: 12/29/18 9:00:00 CDT, 0Notes: (Same as: Senokot) No Longer Active 11/29/2018 [facility] Xylocaine Viscous 2% mucous membrane solution 15 mL, Route: PO, ONCE, Drug form: SOLN, Start date: 11/29/18 13:09:00 CDT, Stop date: 11/29/18 13:09:00 CDT, 0Notes: (Same as: Xylocaine) Inactive 11/29/2018 [facility] Al hydroxide/Mg hydroxide/simethicone 30 mL, Route: PO, Drug Form: SUSP, ONCE, Start date: 11/29/18 13:09:00 CDT, Stop date: 11/29/18 13:09:00 CDT, 0Notes: (aluminum hydroxide-magnesium hyd-simethicone [id number]/5ml 30 ml ud INDY) Inactive 11/29/2018 [facility] GI cocktail (aluminum hydroxide/magnesium hydroxide/lidocaine/simethicone) 30 ml, Route: PO, Drug Form: SUSP, Dosing Weight 82.727, kg, ONCE, Routine, Start date: 11/29/18 12:44:00 CDT, Stop date: 11/29/18 12:44:00 CDT Inactive 11/29/2018 [facility] Protonix 40 mg, 1 tab, Route: PO, Drug form: ECTAB, BID, Dosing Weight 82.727, kg, Start date: 11/29/18 10:05:00 CDT, Duration: 30 day, Stop date: 12/29/18 9:00:00 CDT, 0Notes: Tablet should not be chewed or crushed. (Same as: Protonix) No Longer Active 11/29/2018 [facility] Warfarin 5 mg, 1 tab, Route: PO, Drug form: TAB, Q5PM, Dosing Weight 82.727, kg, Start date: 11/28/18 17:00:00 CDT, Duration: 1 doses or times, Stop date: 11/28/18 17:00:00 CDT, 0Notes: Nurse to ensure documenta tion of patient education per anticoagulation policy. Avoid large intake of vitamin-K containing foods diet. WASTE: F/P - P Waste Black; E - P Waste Black (Same As: Coumadin) Inactive 11/28/2018 [facility] Melatonin 3 MG Extended Release Tablet 3 mg, 1 tab, Route: PO, Drug Form: TAB, Dosing Weight 82.727, kg, Bedtime, Start date: 11/27/18 21:00:00 CDT, Duration: 30 day, Stop date: 12/26/18 21:00:00 CDT, 0Notes: (Same as: Melatonin) No Longer Active 11/28/2018 [facility] Warfarin 3 mg, 1 tab, Route: PO, Drug form: TAB, Q5PM, Dosing Weight 82.727, kg, Start date: 11/27/18 17:00:00 CDT, Duration: 1 doses or times, Stop date: 11/27/18 17:00:00 CDT, 0Notes: Nurse to ensure documenta tion of patient education per anticoagulation policy. Avoid large intake of vitamin-K containing foods diet. (Same As: Coumadin) WASTE: F/P - P Waste Black; E - P Waste Black Inactive 11/27/2018 [facility] Milk of Magnesia 30 ml, Route: PO, Drug Form: SUSP, Dosing Weight 82.727, kg, Q6H, Start date: 11/26/18 18:00:00 CDT, Duration: 30 day, Stop date: 12/26/18 12:00:00 CDT, 0Notes: (Same as: Milk of Magnesia, MOM) No Longer Active 11/26/2018 [facility] mineral oil 30 ml, Route: PO, Drug Form: LIQ, Dosing Weight 82.727, kg, Q6H, PRN Constipation, Start date: 11/26/18 17:15:00 CDT, Duration: 30 day, Stop date: 12/26/18 17:14:00 CDT, 0 No Longer Active 11/26/2018 [facility] Lactulose 667 MG/ML Oral Solution 20 gm, 30 ml, Route: PO, Drug form: SYRP, Q6H, Dosing Weight 82.727, kg, PRN Constipation, Start date: 11/26/18 17:15:00 CDT, Duration: 30 day, Stop date: 12/26/18 17:14:00 CDT, 0Notes: (Same as:Chronulac) No Longer Active 11/26/2018 [facility] Bumetanide 1 mg, 1 tab, Route: PO, Drug form: TAB, BID, Dosing Weight 82.727, kg, Start date: 11/26/18 17:00:00 CDT, Duration: 30 day, Stop date: 12/26/18 9:00:00 CDTNotes: (Same As: Bumex) No Longer Active 11/26/2018 [facility] Saline Flush 0.9% 10 mL, Route: IVP, Drug Form: INJ, Dosing Weight 82.727, kg, Q8H, Start date: 11/26/18 16:00:00 CDT, Duration: 30 day, Stop date: 12/26/18 8:00:00 CDTNotes: (Same as: BD Posiflush) No Longer Active 11/26/2018 [facility] Lidocaine Hydrochloride 10 MG/ML Injectable Solution 5 mL, Route: INTRADERM, Dosing Weight 82.727, kg, ONCALL, For PICC line insertion., Start date: 11/26/18 14:00:00 CDT, Duration: 30 day, Stop date: 12/26/18 13:59:00 CDT Inactive 11/26/2018 [facility] Saline Flush 0.9% 10 mL, Route: IVP, Drug Form: INJ, Dosing Weight 82.727, kg, PRN, PRN Line Flush, Start date: 11/26/18 13:19:00 CDT, Duration: 30 day, Stop date: 12/26/18 13:18:00 CDTNotes: (Same as: BD Posiflush) No Longer Active 11/26/2018 [facility] heparin additive 25,000 unit [14 unit/kg/hr] + Premix Diluent Sodium Chloride 0.45% 500 mL 500 mL, Rate: 16.91 ml/hr, Infuse over: 29.6 hr, Route: IV, Dosing Weight 60.39 kg, Total Volume: 500 mL, Start date: 11/26/18 10:54:00 CDT, Duration: 30 day, Stop date: 12/26/18 10:53:00 CDT, 1.62, [id number]: Total Concentration=50 unit/ ml Total fkcguz=573 ml Send Med Request 2 hours prior to next bag No Longer Active 11/26/2018 [facility] Digoxin 0.125 MG Oral Tablet 0.125 mg, 1 tab, Route: PO, Drug form: TAB, Daily, Dosing Weight 82.727, kg, Start date: 11/26/18 9:00:00 CDT, Duration: 30 day, Stop date: 12/25/18 9:00:00 CDTNotes: Take on an Empty Stomach (Same as: Lanoxin) No Longer Active 11/26/2018 [facility] Digoxin 0.25 MG Oral Tablet 0.25 mg, 1 tab, Route: PO, Drug form: TAB, ONCE, Dosing Weight 82.727, kg, Start date: 11/25/18 11:00:00 CDT, Stop date: 11/25/18 11:00:00 CDTNotes: Take on an Empty Stomach (Same as: Lanoxin) Inactive 11/25/2018 [facility] Bumetanide 2 mg, 8 mL, Route: IVP, Drug form: INJ, BID, Dosing Weight 82.727, kg, Start date: 11/25/18 11:00:00 CDT, Duration: 30 day, Stop date: 12/25/18 9:00:00 CDTNotes: (Same As: Bumex) No Longer Active 11/25/2018 [facility] Potassium Chloride 20 mEq, 15 mL, Route: PO, Drug form: LIQ, ONCE, Dosing Weight 82.727, kg, Start date: 11/25/18 10:12:00 CDT, Stop date: 11/25/18 10:12:00 CDTNotes: (Same as: Potassium Chloride) Inactive 11/25/2018 [facility] heparin additive 25,000 unit [400 unit/hr] + Premix Diluent Sodium Chloride 0.45% 500 mL 500 mL, Rate: 8 ml/hr, Infuse over: 62.5 hr, Route: IV, Dosing Weight 82.727 kg, Total Volume: 500 mL, Start date: 11/25/18 10:07:00 CDT, Duration: 30 day, Stop date: 12/25/18 10:06:00 CDT, 1.91, [id number]: Total Concentration=50 unit/ ml Total qpicuh=825 ml Send Med Request 2 hours prior to next bag No Longer Active 11/25/2018 [facility] Potassium Chloride 20 mEq, 15 mL, Route: NJ, Drug form: LIQ, PRN, Dosing Weight 82.727, kg, PRN Abnormal Lab Result, Start date: 11/25/18 8:50:00 CDT, Duration: 30 day, Stop date: 12/25/18 8:49:00 CDT, FOR ICU USE ONLYNotes: (Same as: Potassium Chloride) No Longer Active 11/25/2018 [facility] sodium phosphate 45 mmol, 15 mL, Route: IVPB, PRN, Dosing Weight 82.727, kg, PRN Abnormal Lab Result, Start date: 11/25/18 8:50:00 CDT, Duration: 30 day, Stop date: 12/25/18 8:49:00 CDT, FOR ICU USE ONLYNotes: Infuse over 4 hour. Do not infuse phosphorous concurrently in the same line as TPN or IVF that contains calcium. For double lumen central lines, phosphorous may be infused in a separate lumen from TPN. No Longer Active 11/25/2018 [facility] potassium phosphate 15 mmol, 5 mL, Route: IVPB, PRN, Dosing Weight 82.727, kg, PRN Abnormal Lab Result, Start date: 11/25/18 8:50:00 CDT, Duration: 30 day, Stop date: 12/25/18 8:49:00 CDT, FOR ICU USE ONLYNotes: (Same as: K Phosphate.) Do not infuse phosphorous concurrently in the same line as TPN or IVF that contains calcium. For double lumen central lines, phosphorous may be infused in a separate lumen from TPN. 1 mMol phoshate has 1.47 mEq potassium Infuse over 4 hours No Longer Active 11/25/2018 [facility] potassium phosphate-sodium phosphate 250 mg-280 mg-160 mg oral powder for reconstitution 2 pkt, Route: PO, Drug Form: PDR/REC, Dosing Weight 82.727, kg, PRN, PRN Abnormal Lab Result, FOR ICU USE ONLY, Start date: 11/25/18 8:50:00 CDT, Duration: 30 day, Stop date: 12/25/18 8:49:00 CDTNotes: (Same as: Phos-NaK) Each 1.5 gm pkt has 250mg phosphorous. Mix w/2.5oz water and stir. No Longer Active 11/25/2018 [facility] Magnesium Oxide 800 mg, 2 tab, Route: PO, Drug form: TAB, PRN, Dosing Weight 82.727, kg, PRN Abnormal Lab Result, FOR ICU USE ONLY, Start date: 11/25/18 8:50:00 CDT, Duration: 30 day, Stop date: 12/25/18 8:49:00 CDTNot es: (Same as: Mag-Ox 400) Magnesium oxide [id number] elemental magnesium Dose=____mg magnesium oxide (___mg elemental magnesium) No Longer Active 11/25/2018 [facility] Calcium Gluconate 1 gm, 10 mL, Route: IVPB, PRN, Dosing Weight 82.727, kg, PRN Abnormal Lab Result, Start date: 11/25/18 8:50:00 CDT, Duration: 30 day, Stop date: 12/25/18 8:49:00 CDT, FOR ICU USE ONLYNotes: WASTE: F/P - Sink; E - Municipal Trash Bin No Longer Active 11/25/2018 [facility] Magnesium Sulfate 2 gm, 50 mL, Route: IVPB, Drug form: INJ, PRN, Dosing Weight 82.727, kg, PRN Abnormal Lab Result, Start date: 11/25/18 8:50:00 CDT, Duration: 30 day, Stop date: 12/25/18 8:49:00 CDT, FOR ICU USE ONLYNotes: WASTE: F/P - Sink; E - Municipal Trash Bin No Longer Active 11/25/2018 [facility] Calcium Carbonate 500 MG Chewable Tablet 500 mg, 1 tab, Route: PO, Drug form: CHEWTAB, PRN, Dosing Weight 82.727, kg, PRN Abnormal Lab Result, FOR ICU USE ONLY, Start date: 11/25/18 8:50:00 CDT, Duration: 30 day, Stop date: 12/25/18 8:49:00 CDTNotes: (Same As: Tums) Calcium Carbonate 500 wz=710 mg elemental calcium Dose= mg calcium carbonate ( mg elemental calcium) No Longer Active 11/25/2018 [facility] Insulin regular 6 unit, 0.06 mL, Route: SUB-Q, Drug form: SOLN, TID-Before Meals, Dosing Weight 82.727, kg, PRN Blood Glucose Results, Start date: 11/25/18 8:08:00 CDT, Duration: 30 day, Stop date: 12/25/18 8:07:00 CDTNotes: (Same as: Humulin R) Roll in palms of hands gently; Do not shake vigorously. WASTE: F/P - Black; E - Municipal Trash Bin Stable for 31 days at room temperature Expires in days from Date No Longer Active 11/25/2018 [facility] Dextrose 50% Syringe 12.5 gm, 25 mL, Route: IVP, Drug Form: INJ, Dosing Weight 82.727, kg, PRN, PRN Blood Glucose Results, Start date: 11/25/18 8:08:00 CDT, Duration: 30 day, Stop date: 12/25/18 8:07:00 CDT No Longer Active 11/25/2018 [facility] Glucagon 1 mg, Route: IM, Drug form: PDR/INJ, PRN, Dosing Weight 82.727, kg, PRN Blood Glucose Results, Start date: 11/25/18 8:08:00 CDT, Duration: 30 day, Stop date: 12/25/18 8:07:00 CDT No Longer Active 11/25/2018 [facility] Amiodarone 200 mg, 1 tab, Route: PO, Drug form: TAB, BID, Dosing Weight 82.727, kg, Start date: 11/24/18 17:00:00 CDT, Duration: 30 day, Stop date: 12/24/18 9:00:00 CDT, 0Notes: (Same as: Cordarone) No Longer Active 11/24/2018 [facility] bumetanide 10 mg + 60 mL, Rate: Infuse as directed, Dosing Weight 82.727, kg, Route: IVPB, Total Volume: 100 mL, Start Date: 11/24/18 12:42:00 CDT, Duration: 30 day, Stop date: 12/24/18 12:41:00 CDT, Replace Every: 24 hrNotes: (Same as: Bumex) No Longer Active 11/24/2018 [facility] Bumex 0.5 mg, 2 mL, Route: IVP, Drug form: INJ, Daily, Dosing Weight 82.727, kg, Start date: 11/24/18 9:00:00 CDT, Duration: 30 day, Stop date: 12/23/18 9:00:00 CDTNotes: (Same As: Bumex) Inactive 11/24/2018 [facility] Bumex 0.5 mg, 2 mL, Route: IVP, Drug form: INJ, ONCE, Dosing Weight 82.727, kg, Start date: 11/24/18 4:22:00 CDT, Stop date: 11/24/18 4:22:00 CDTNotes: (Same As: Bumex) Inactive 11/24/2018 [facility] Bumex 0.5 mg, Route: IV, ONCE, Dosing Weight 82.727, kg, Start date: 11/24/18 3:00:00 CDT, Stop date: 11/24/18 3:00:00 CDT, Inactive 11/24/2018 [facility] AMIODarone 900 mg in D5W 500 ml IV 900 mg + Dextrose 5% in Water IV 482 mL 900 mg, 18 mL, Rate: 1 mg/min for 6 hours, then reduce to 0.5 mg/min, Dosing Weight 82.727, kg, Route: IV, Total Volume: 500, Start Date: 11/23/18 8:30:00 CDT, Duration: 30 day, Stop date: 12/23/18 8:29:00 CDT, Replace Every: 24 hrNotes: Central administration only for concentration > 2 mg/ml. Use Glass Bottle or Non PVC Bag "Use 0.22 micron in-line filter" MEDICATION WASTE Product Size: 900 mg Product Wasted: ___ mg No Longer Active 11/23/2018 [facility] Amiodarone 150 mg, 3 mL, Route: IVPB, ONCE, Dosing Weight 82.727, kg, Start date: 11/23/18 8:30:00 CDT, Stop date: 11/23/18 8:30:00 CDTNotes: Central administration only for concentrations > 2 mg/ml. "Recommendation: Use an in-line filter during administration for continuous infusions to reduce the incidence of phlebitis" (Same as Codarone) MEDICATION WASTE Product Size: 150 mg Product Wasted: ___ mg Inactive 11/23/2018 [facility] Haldol 5 mg, 1 mL, Route: IM, Drug form: INJ, ONCE, Dosing Weight 82.727, kg, PRN Agitation, Start date: 11/23/18 7:00:00 CDTNotes: (Same as: Haldol) Inactive 11/23/2018 [facility] Ofirmev 1,000 mg, 100 mL, Route: IV, Drug form: INJ, ONCE, Dosing Weight 82.727, kg, for > or=50 kg, Start date: 11/23/18 5:15:00 CDT, Stop date: 11/23/18 5:15:00 CDTNotes: Infuse over 15 minutes Do not exceed 4gm/day of acetaminophen MEDICATION WASTE Product Size: 1000 mg Product Wasted: ___ mg Inactive 11/23/2018 [facility] Acetaminophen 1,000 mg, 100 mL, Route: IV, Drug form: INJ, ONCE, Dosing Weight 82.727, kg, Start date: 11/22/18 13:21:00 CDT, Stop date: 11/22/18 13:21:00 CDTNotes: Infuse over 15 minutes Do not exceed 4gm/day of ac etaminophen MEDICATION WASTE Product Size: 1000 mg Product Wasted: ___ mg Inactive 11/22/2018 [facility] cefepime 1 gm, Route: IVPB, [id number], Dosing Weight 82.727, kg, (CrCl >/=60 ml/min), Start date: 11/22/18 13:00:00 CDT, Duration: 3 day, Stop date: 11/25/18 5:00:00 CDT, ABX Indication: Surgical ProphylaxisNotes: (Same As: Maxipime) MEDICATION WASTE Product Size: 1000 mg Product Wasted: ___ mg No Longer Active 11/22/2018 [facility] Vancomycin 1,000 mg, Route: IVPB, Drug form: INJ, [id number], Dosing Weight 82.727, kg, Start date: 11/22/18 13:00:00 CDT, Duration: 3 day, Stop date: 11/25/18 1:00:00 CDT, ABX Indication: Surgical ProphylaxisNotes: TIME CRITICAL MEDICATION (Same As: Vancocin) Infusion rate 2001 mg: infuse over 2.5 hours For adult patients only: Round to nearest 250 mg per Medical Staff approval MEDICATION WASTE Product Size: 1000 mg Product Wasted: ___ mg No Longer Active 11/22/2018 [facility] bumetanide 10 mg + 60 mL, Rate: Infuse as directed, Dosing Weight 82.727, kg, Route: IV, Total Volume: 100 mL, Start Date: 11/22/18 12:09:00 CDT, Duration: 30 day, Stop date: 12/22/18 12:08:00 CDT, Replace Every: 24 hrNotes: (Same as: Bumex) No Longer Active 11/22/2018 [facility] chlorhexidine gluconate 40 MG/ML Medicated Liquid Soap 1 appl, Route: Rajesh RANGEL--W-, Drug form: SOAP, Start date: 11/22/18 9:00:00 CDT, Duration: 30 day, Stop date: 12/20/18 9:00:00 CDTNotes: (Same As: Hibiclens) No Longer Active 11/22/2018 [facility] Albuterol 0.833 MG/ML / Ipratropium [place] 0.167 MG/ML Inhalant Solution [DuoNeb] 3 mL, Route: NEB, Drug Form: SOLN, Dosing Weight 82.727, kg, RQ6H, Start date: 11/22/18 8:58:00 CDT, Duration: 30 day, Stop date: 12/22/18 8:00:00 CDTNotes: (Same as: Duoneb) No Longer Active 11/22/2018 [facility] Potassium Chloride 20 mEq, 100 mL, Route: IVPB, Drug form: INJ, ONCE, Dosing Weight 82.727, kg, Start date: 11/22/18 5:04:00 CDT, Stop date: 11/22/18 5:04:00 CDT, Central LineNotes: (Same as: KCL) Infuse no faster than 10 mEq/hr if given peripherally. Inactive 11/22/2018 [facility] Acetaminophen 650 MG Rectal Suppository 650 mg, 2 tab, Route: PO, Drug form: TAB, Q6H, Dosing Weight 82.727, kg, PRN For Temp > 100.4 F, Start date: 11/22/18 2:33:00 CDT, Duration: 30 day, Stop date: 12/22/18 2:32:00 CDTNotes: Do not exceed 4 gm/day. (Same as: Tylenol) No Longer Active 11/22/2018 [facility] atorvastatin 40 mg, 1 tab, Route: PO, Drug form: TAB, Bedtime, Dosing Weight 82.727, kg, Start date: 11/21/18 21:00:00 CDT, Duration: 30 day, Stop date: 12/20/18 21:00:00 CDTNotes: (Same as: Lipitor) Inactive 11/22/2018 [facility] chlorhexidine gluconate 1.2 MG/ML Mouthwash 15 ml, Route: S&SPIT, Q12H, Drug form: LIQ, Start date: 11/21/18 21:00:00 CDT, Duration: 2 week, Stop date: 12/05/18 9:00:00 CDTNotes: (Same As: Peridex) No Longer Active 11/22/2018 [facility] Potassium Chloride 20 mEq, 100 mL, Route: IVPB, Drug form: INJ, ONCE, Dosing Weight 82.727, kg, Start date: 11/21/18 16:50:00 CDT, Stop date: 11/21/18 16:50:00 CDT, Central LineNotes: (Same as: KCL) Infuse no faster than 10 mEq/hr if given peripherally. Inactive 11/21/2018 [facility] Bumex 1 mg, 4 mL, Route: IV, Drug form: INJ, TID, Dosing Weight 82.727, kg, Start date: 11/21/18 15:00:00 CDT, Duration: 30 day, Stop date: 12/21/18 13:00:00 CDTNotes: (Same As: Bumex) No Longer Active 11/21/2018 [facility] fentaNYL (ANES) Route: IV, Drug form: INJ, ONCE, Stop date: 11/21/18 13:49:00 CDT Inactive 11/21/2018 [facility] Naloxone 0.04 mg, 0.1 mL, Route: IVP, Drug form: INJ, Q2MIN, Dosing Weight 82.727, kg, PRN Narcotic Reversal, Start date: 11/21/18 13:47:00 CDT, Duration: 30 day, Stop date: 12/21/18 13:46:00 CDTNotes: Same as Narcan No Longer Active 11/21/2018 [facility] Fentanyl 600 microgram, 30 mL, Route: IV, [employer] Dose: 10 mcg, [employer] Lockout: 10 minutes, Continuous Basal Rate: 0 mg, 4 Hour Limit (In MCG): 240, Drug Form: INJ, Continuous, Start date: 11/21/18 13:47:00 CDT, Durati on: 30 day, Stop date: 12/21/18 13:46:00 CDTNotes: Concentration is 20 micrograms/ml No Longer Active 11/21/2018 [facility] Acetaminophen 325 MG / Hydrocodone Bitartrate 5 MG Oral Tablet 1 tab, Route: PO, Drug Form: TAB, Dosing Weight 82.727, kg, Q4H, PRN Pain Score 1-3, Start date: 11/21/18 13:47:00 CDT, Duration: 30 day, Stop date: 12/21/18 13:46:00 CDTNotes: (Same as: [place] 325/5) Do not exceed 4gm/day of acetaminophen. No Longer Active 11/21/2018 [facility] Docusate 100 mg, 1 cap, Route: PO, Drug form: CAP, BID, Dosing Weight 82.727, kg, PRN Constipation, Start date: 11/21/18 13:22:00 CDT, Duration: 30 day, Stop date: 12/21/18 13:21:00 CDTNotes: (Same as: Colace) (Do Not Crush) No Longer Active 11/21/2018 [facility] Nitroglycerin 0.4 mg, 1 tab, Route: SL, Drug form: TAB, Q5Min, Dosing Weight 82.727, kg, PRN Chest Pain, Start date: 11/21/18 13:22:00 CDT, Duration: 30 day, Stop date: 12/21/18 13:21:00 CDTNotes: (Same as:Nitroqu ick, Nitrostat) "Do Not Crush" Sublingual tablet No Longer Active 11/21/2018 [facility] norepinephrine (ANES) Route: IV, Drug form: INJ, ONCE, Stop date: 11/21/18 11:17:00 CDT Inactive 11/21/2018 [facility] ceFAZolin (ANES) Route: IV, Drug form: INJ, ONCE, Stop date: 11/21/18 10:47:00 CDT Inactive 11/21/2018 [facility] rocuronium (ANES) Route: IV, Drug form: INJ, ONCE, Stop date: 11/21/18 10:32:00 CDT Inactive 11/21/2018 [facility] vancomycin (ANES) 1000 mg Route: IV, Drug form: INJ, Start date: 11/21/18 10:00:00 CDT, Stop date: 11/21/18 11:00:00 CDT Inactive 11/21/2018 [facility] Vancomycin 1 gm, Route: IVPB, Drug form: INJ, Q12H, Dosing Weight 82.727, kg, Time Critical Medication, Start date: 11/21/18 10:00:00 CDT, Duration: 2 doses or times, Stop date: 11/21/18 22:00:00 CDT, ABX Indication: Surgical ProphylaxisNotes: TIME CRITICAL MEDICATION (Same As: Vancocin) Infusion rate 2001 mg: infuse over 2.5 hours For adult patients only: Round to nearest 250 mg per Medical Staff approval MEDICATION WASTE Product Size: 1000 mg Product Wasted: ___ mg Inactive 11/21/2018 [facility] Isolyte S PH 7.4 (ANES) 1000 mL Route: IV, Total Volume: 1,000, Start date: 11/21/18 9:49:00 CDT, Stop date: 11/21/18 10:49:00 CDT Inactive 11/21/2018 [facility] pantoprazole 40 mg, Route: IVP, Drug form: INJ, Daily, Dosing Weight 82.727, kg, Patient is NPO, Start date: 11/21/18 9:00:00 CDT, Duration: 30 day, Stop date: 12/20/18 9:00:00 CDTNotes: For IV push reconstitute with 10 ml 0.9% sodium chloride and push over 2 minutes. (Same as: Protonix) No Longer Active 11/21/2018 [facility] chlorhexidine gluconate 1.2 MG/ML Mouthwash 15 mL, Route: Swab Mouth, Q12H, Drug form: LIQ, Start date: 11/21/18 9:00:00 CDT, Duration: 30 day, Stop date: 12/20/18 21:00:00 CDTNotes: (Same As: Peridex) No Longer Active 11/21/2018 [facility] Mupirocin 0.02 MG/MG Topical Ointment 1 appl, Route: NASAL, BID, Drug form: OINT, Start date: 11/21/18 9:00:00 CDT, Duration: 5 day, Stop date: 11/25/18 17:00:00 CDT No Longer Active 11/21/2018 [facility] Miralax 17 gm, 1 pkt, Route: PO, Drug form: PWDR, Daily, Dosing Weight 82.727, kg, Start date: 11/21/18 9:00:00 CDT, Duration: 30 day, Stop date: 12/20/18 9:00:00 CDTNotes: Dissolve in 8 oz of water or juice. (Same as: Miralax) No Longer Active 11/21/2018 [facility] Docusate 100 mg, 1 cap, Route: PO, Drug form: CAP, BID, Dosing Weight 82.727, kg, Start date: 11/21/18 9:00:00 CDT, Duration: 30 day, Stop date: 12/20/18 17:00:00 CDTNotes: (Same as: Colace) (Do Not Crush) No Longer Active 11/21/2018 [facility] Aspirin 325 MG Enteric Coated Tablet 325 mg, 1 tab, Route: PO, Drug form: ECTAB, Daily, Dosing Weight 82.727, kg, Start date: 11/21/18 9:00:00 CDT, Duration: 30 day, Stop date: 12/20/18 9:00:00 CDTNotes: (Do Not Crush) Do not crush or chew. Inactive 11/21/2018 [facility] Aspirin 81 MG Chewable Tablet 81 mg, 1 tab, Route: PO, Drug form: CHEWTAB, Daily, Dosing Weight 82.727, kg, Start date: 11/21/18 9:00:00 CDT, Duration: 30 day, Stop date: 12/20/18 9:00:00 CDTNotes: Take with food. No Longer Active 11/21/2018 [facility] Cefazolin 2 gm, 20 mL, Route: IVPB, Drug form: SOLN, Q8H, Dosing Weight 82.727, kg, Start date: 11/21/18 7:30:00 CDT, Duration: 3 doses or times, Stop date: 11/21/18 23:30:00 CDT, ABX Indication: Surgical Prop hylaxisNotes: (Same as Ancef) Inactive 11/21/2018 [facility] ocular lubricant 1 appl, Route: BOTH EYES, Q6H, Drug form: OINT, Start date: 11/21/18 6:00:00 CDT, Duration: 30 day, Stop date: 12/21/18 0:00:00 CDTNotes: (Same as: Lacri-Lube, Puralube, Duratears Naturale, Artificial Tears, and Tears Again ) No Longer Active 11/21/2018 [facility] sodium bicarbonate 8.4% 50 mEq, 50 ml, Route: IVP, Drug Form: INJ, Dosing Weight 82.727, kg, ONCE, Start date: 11/21/18 2:45:00 CDT, Stop date: 11/21/18 2:45:00 CDTNotes: (sodium bicarb 8.4% (1 mEq/ml) 50 ml VL) Inactive 11/21/2018 [facility] Albuterol 0.833 MG/ML / Ipratropium [place] 0.167 MG/ML Inhalant Solution [DuoNeb] 3 ml, Route: NEB, Drug Form: SOLN, Dosing Weight 82.727, kg, PRN, PRN Respiratory Pathway, Start date: 11/21/18 2:45:00 CDT, Duration: 30 day, Stop date: 12/21/18 2:44:00 CDTNotes: (Same as: Duoneb) No Longer Active 11/21/2018 [facility] magnesium sulfate (ANES) Route: IV, Drug form: INJ, ONCE, Stop date: 11/21/18 1:28:00 CDT Inactive 11/21/2018 [facility] ceFAZolin (ANES) Route: IV, Drug form: INJ, ONCE, Stop date: 11/21/18 1:28:00 CDT Inactive 11/21/2018 [facility] propofol (ANES) Route: IV, Drug form: INJ, ONCE, Stop date: 11/21/18 1:28:00 CDT Inactive 11/21/2018 [facility] Fentanyl 600 microgram, 30 mL, Route: IV, CLEAN RICE BROKER Dose: 10 mcg, CLEAN RICE BROKER Lockout: 10 minutes, Continuous Basal Rate: 0 mg, 4 Hour Limit (In MCG): 240, Drug Form: INJ, Continuous, Start date: 11/21/18 1:02:00 CDT, Duratio n: 30 day, Stop date: 12/21/18 1:01:00 CDTNotes: Concentration is 20 micrograms/ml No Longer Active 11/21/2018 [facility] Naloxone 0.04 mg, 0.1 mL, Route: IVP, Drug form: INJ, Q2MIN, Dosing Weight 82.727, kg, PRN Narcotic Reversal, Start date: 11/21/18 1:02:00 CDT, Duration: 30 day, Stop date: 12/21/18 1:01:00 CDTNotes: Same as Narcan No Longer Active 11/21/2018 [facility] Dextrose 50% Syringe 12.5 gm, 25 mL, Route: IVP, Drug Form: INJ, Dosing Weight 82.727, kg, PRN, PRN Blood Glucose Results, Start date: 11/21/18 1:02:00 CDT, Duration: 30 day, Stop date: 12/21/18 1:01:00 CDT No Longer Active 11/21/2018 [facility] Insulin regular 100 unit + 99 mL, Rate: Start Insulin Drip, Dosing Weight 82.727, kg, Route: IVPB, Total Volume: 100, Start Date: 11/21/18 1:02:00 CDT, Duration: 30 day, Stop date: 12/21/18 1:01:00 CDT, Replace Every: 24 hrNotes: Final Concentration 1unit/1ml WASTE: F/P - Black; E - [place] Trash Bin No Longer Active 11/21/2018 [facility] Acetaminophen 325 MG / Hydrocodone Bitartrate 10 MG Oral Tablet 2 tab, Route: PO, Drug Form: TAB, Dosing Weight 82.727, kg, Q4H, PRN Pain Score 4-6, Start date: 11/21/18 1:02:00 CDT, Duration: 30 day, Stop date: 12/21/18 1:01:00 CDTNotes: Do not exceed 4gm/day of acetaminophen. (Same as: [place] 325/10) No Longer Active 11/21/2018 [facility] Cardene 40 mg in NS 200 mL (Titrate.) IV 40 mg 40 mg, 200 mL, Rate: Titrate, Start Dose: 5 mg/hr, Titration: increase or decrease by 5 but no more than 15, Goal(s): MAP 70, Route: IV, Dosing Weight 82.727 kg, Total Volume: 200 mL, Start date: 11/21/18 1:02:00 CDT, Duration: 30 day, Stop date: 12/03...Notes: Same as: Cardene Concentration: (0.2 mg /1 ml ) No Longer Active 11/21/2018 [facility] calcium gluconate (ANES) Route: IV, Drug form: INJ, ONCE, Stop date: 11/21/18 0:47:00 CDT Inactive 11/21/2018 [facility] tranexamic acid (ANES) Route: IV, Drug form: INJ, ONCE, Stop date: 11/21/18 0:21:00 CDT Inactive 11/21/2018 [facility] fentaNYL (ANES) Route: IV, Drug form: INJ, ONCE, Stop date: 11/21/18 0:05:00 CDT Inactive 11/21/2018 [facility] potassium chloride (ANES) 0.2 mEq Route: IV, Drug form: INJ, Start date: 11/20/18 23:44:00 CDT, Stop date: 11/21/18 0:44:00 CDT No Longer Active 11/21/2018 [facility] magnesium sulfate (ANES) Route: IV, Drug form: INJ, ONCE, Stop date: 11/20/18 23:27:00 CDT Inactive 11/21/2018 [facility] protamine (ANES) 10 mg Route: IV, Drug form: INJ, Start date: 11/20/18 23:23:00 CDT, Stop date: 11/21/18 0:23:00 CDT No Longer Active 11/21/2018 [facility] EPINEPHrine (ANES) 16 microgram Route: IV, Drug form: INJ, Start date: 11/20/18 22:37:00 CDT, Stop date: 11/20/18 23:37:00 CDT Inactive 11/21/2018 [facility] Insulin regular (ANES) 1 unit Route: IV, Drug form: INJ, Start date: 11/20/18 22:28:00 CDT, Stop date: 11/20/18 23:28:00 CDT Inactive 11/21/2018 [facility] heparin (ANES) Route: IV, Drug form: INJ, ONCE, Stop date: 11/20/18 20:42:00 CDT Inactive 11/21/2018 [facility] fentaNYL (ANES) Route: IV, Drug form: INJ, ONCE, Stop date: 11/20/18 20:37:00 CDT Inactive 11/21/2018 [facility] ceFAZolin (ANES) Route: IV, Drug form: INJ, ONCE, Stop date: 11/20/18 20:31:00 CDT Inactive 11/21/2018 [facility] midazolam (ANES) Route: IV, Drug form: SOLN, ONCE, Stop date: 11/20/18 20:31:00 CDT Inactive 11/21/2018 [facility] Sodium Chloride 0.9% (titrate) 99 mL + Insulin regular 100 unit 99 mL, Rate: Start Insulin Drip, Dosing Weight 82.727, kg, Route: IVPB, Total Volume: 99, Start Date: 11/20/18 20:29:00 CDT, Duration: 30 day, Stop date: 12/20/18 20:28:00 CDT, Replace Every: 24 hr Inactive 11/21/2018 [facility] Dextrose 50% Syringe 50 mL, Route: IVP, Dosing Weight 82.727, kg, PRN, PRN Blood Glucose Results, Start date: 11/20/18 20:29:00 CDT, Duration: 30 day, Stop date: 12/20/18 20:28:00 CDT Inactive 11/21/2018 [facility] Dextrose 50% Syringe 25 gm, 50 mL, Route: IVP, Drug Form: INJ, Dosing Weight 82.727, kg, PRN, PRN Blood Glucose Results, Start date: 11/20/18 20:24:00 CDT, Duration: 3 hr, Stop date: 11/20/18 23:23:00 CDT Inactive 11/21/2018 [facility] Insulin regular 100 unit + 99 mL, Rate: protective officer to OR 2, Dosing Weight 82.727, kg, Route: IVPB, Total Volume: 100, Start Date: 11/20/18 20:24:00 CDT, Duration: 3 hr, Stop date: 11/20/18 23:23:00 CDT, Replace Every: 24 hrNotes: Final Concentration 1unit/1ml WASTE: F/P - Black; E - Municipal Trash Bin Inactive 11/21/2018 [facility] Epinephrine 4 mg, 4 mL, Rate: ONCALL to OR 2, Start Dose: 0.01 microgram/kg/min, Titration: 0.01 microgram/kg/min every 2 min, Goal(s): MAP >=65 mmHg, Max Dose: 0.5 microgram/kg/min, Route: IV, Dosing Weight 82.727 kg, Total Volume: 250, Start date: 11/20/18 20:...Notes: (Same as: Adrenalin) Suremed - Injectable drug used as inhalation treatment. MEDICATION WASTE Product Size: 1 mg Product Wasted: ___ mg Inactive 11/21/2018 [facility] Norepinephrine 8 mg, 8 mL, Rate: protective officer to OR 2, Start Dose: 0.05 microgram/kg/min, Titration: 0.05 microgram/kg/min every 2 - 5 minutes, Goal(s): MAP >=65 mmHg, Max Dose: 1 microgram/kg/min, Route: IV, Dosing Weight 82.727 kg, Total Volume: 250, Start date: 11/20...Notes: Not for direct administration - DILUTE. Protect from light. (Same as:Levophed). Administer by either central venous catheter or peripherally-inserted central catheter (PICC) line. Inactive 11/21/2018 [facility] Sodium Chloride 0.9% IV (ANES) 500 mL + tranexamic acid (ANES) 1000 mg Route: IV, Drug form: INJ, Start date: 11/20/18 20:00:00 CDT, Stop date: 11/20/18 21:00:00 CDT Inactive 11/21/2018 [facility] Sodium Chloride 0.9% (titrate) 250 mL 250 mL, Rate: To prime line and flush remaining blood products., Dosing Weight 82.727, kg, Route: IV, Total Volume: 250, Start Date: 11/20/18 19:27:00 CDT, Duration: 30 day, Stop date: 12/20/18 19:26:00 CDT, Replace Every: 24 hr No Longer Active 11/21/2018 [facility] PlasmaLyte A PH-7.4 (ANES) 1000 mL Route: IV, Total Volume: 1,000, Start date: 11/20/18 19:27:00 CDT, Stop date: 11/20/18 20:27:00 CDT Inactive 11/21/2018 [facility] calcium chloride (ANES) Route: IV, Drug form: INJ, ONCE, Stop date: 11/20/18 19:24:00 CDT Inactive 11/21/2018 [facility] sodium bicarbonate (ANES) 1 mEq Route: IV, Drug form: INJ, Start date: 11/20/18 18:53:00 CDT, Stop date: 11/20/18 19:53:00 CDT Inactive 11/20/2018 [facility] heparin (ANES) Route: IV, Drug form: INJ, ONCE, Stop date: 11/20/18 17:32:00 CDT Inactive 11/20/2018 [facility] propofol (ANES) Route: IV, Drug form: INJ, ONCE, Stop date: 11/20/18 17:11:00 CDT Inactive 11/20/2018 [facility] ceFAZolin (ANES) Route: IV, Drug form: INJ, ONCE, Stop date: 11/20/18 17:11:00 CDT Inactive 11/20/2018 [facility] rocuronium (ANES) Route: IV, Drug form: INJ, ONCE, Stop date: 11/20/18 17:06:00 CDT Inactive 11/20/2018 [facility] lidocaine (ANES) Route: IV, Drug form: INJ, ONCE, Stop date: 11/20/18 17:06:00 CDT Inactive 11/20/2018 [facility] fentaNYL (ANES) Route: IV, Drug form: INJ, ONCE, Stop date: 11/20/18 17:06:00 CDT Inactive 11/20/2018 [facility] PlasmaLyte A PH-7.4 (ANES) 1000 mL Route: IV, Total Volume: 1,000, Start date: 11/20/18 15:45:00 CDT, Stop date: 11/20/18 16:45:00 CDT Inactive 11/20/2018 [facility] Ondansetron 4 mg, 2 mL, Route: IVP, Drug form: INJ, Q8H, Dosing Weight 82.727, kg, PRN Nausea, Start date: 11/19/18 18:43:00 CDT, Duration: 30 day, Stop date: 12/19/18 18:42:00 CDTNotes: (Same as: Grazyna) MEDICATION WASTE Product Size: 4 mg Product Wasted: ___ mg No Longer Active 11/19/2018 [facility] Sodium Chloride 0.9% (titrate) 250 mL 250 mL, Rate: To prime line and flush remaining blood products., Dosing Weight 82.727, kg, Route: IV, Total Volume: 250, Start Date: 11/19/18 8:01:00 CDT, Duration: 30 day, Stop date: 12/19/18 8:00:00 CDT, Replace Every: 24 hr No Longer Active 11/19/2018 [facility] Golytely 4,000 ml, Route: PO, Drug Form: PDR/REC, Dosing Weight 82.727, kg, ONCE, Start date: 11/18/18 23:13:00 CDT, Stop date: 11/18/18 23:13:00 CDTNotes: (polyethylene glycol electrolyte solution 4 Liter bottle) (Same as: Golytely, Colyte) No Longer Active 11/19/2018 [facility] Iohexol 145 mL, Route: IVP, Drug Form: SOLN, Dosing Weight 82.727, kg, ONCALL, STAT, Start date: 11/18/18 14:06:00 CDT, Duration: 1 doses or times, Dose=2.2ml/kg, Max [id number] -- "To be infused by Radiology Staff ONLY" Inactive 11/18/2018 [facility] heparin 25,000 unit [14 unit/kg/hr] + Premix Diluent Sodium Chloride 0.45% 500 mL 500 mL, Rate: 16.88 ml/hr, Infuse over: 29.6 hr, Route: IV, Dosing Weight 60.3 kg, Total Volume: 500, Start date: 11/18/18 8:46:00 CDT, Duration: 30 day, Stop date: 12/18/18 8:45:00 CDT, 1.62, m2 No Longer Active 11/18/2018 [facility] heparin additive 25,000 unit [14 unit/kg/hr] + Premix Diluent Dextrose 5% 500 mL 500 mL, Rate: 23.16 ml/hr, Infuse over: 21.6 hr, Route: IV, Dosing Weight 82.727 kg, Total Volume: 500 mL, Start date: 11/18/18 8:40:00 CDT, Duration: 30 day, Stop date: 12/18/18 8:39:00 CDT, 1.91, m2 Inactive 11/18/2018 [facility] Ferrlecit 125 mg, 10 mL, Route: IVPB, Daily, Dosing Weight 82.727, kg, Start date: 11/16/18 16:21:00 CDT, Duration: 8 doses or times, Stop date: 11/23/18 9:00:00 CDTNotes: (sodium ferric gluconate complex (elemental iron) 62.5 mg/5 ml INJ) "Limited stability. Use immediately after admixture" (Same as: Ferrlecit) MEDICATION WASTE Product Size: 62.5 mg Product Wasted: ___ mg No Longer Active 11/16/2018 [facility] famotidine 20 mg, 1 tab, Route: PO, Drug form: TAB, Daily, Start date: 11/16/18 9:00:00 CDT, Duration: 30 day, Stop date: 12/15/18 9:00:00 CDTNotes: (Same as: Pepcid) No Longer Active 11/16/2018 [facility] diltiazem 12 hour extended release 120 mg, 1 cap, Route: PO, Drug form: ERCAP, Daily, Dosing Weight 79.545, kg, Start date: 11/16/18 9:00:00 CDT, Duration: 30 day, Stop date: 12/15/18 9:00:00 CDTNotes: (Same as: Cardizem CD) Do Not Crush Before meals. No Longer Active 11/16/2018 [facility] Protonix 40 mg, 1 tab, Route: PO, Drug form: ECTAB, Daily, Start date: 11/16/18 9:00:00 CDT, Duration: 30 day, Stop date: 12/15/18 9:00:00 CDTNotes: Tablet should not be chewed or crushed. (Same as: Protonix) No Longer Active 11/16/2018 [facility] Hydrochlorothiazide 25 MG / Triamterene 37.5 MG Oral Capsule 1 tab, Route: PO, Drug Form: TAB, Dosing Weight 79.545, kg, Daily, Start date: 11/16/18 9:00:00 CDT, Duration: 30 day, Stop date: 12/15/18 9:00:00 CDTNotes: (triamterene-hydrochlorothiazide 37.5-25 mg TAB) (Same As: Maxzide-25) No Longer Active 11/16/2018 [facility] Eliquis 5 mg, 1 tab, Route: PO, Drug form: TAB, Q12H, Dosing Weight 79.545, kg, Start date: 11/16/18 9:00:00 CDT, Duration: 30 day, Stop date: 12/15/18 21:00:00 CDTNotes: Same as: Eliquis No Longer Active 11/16/2018 [facility] Ranitidine 150 MG Oral Tablet 150 mg, 1 tab, Route: PO, Drug form: TAB, BID, Dosing Weight 79.545, kg, Start date: 11/16/18 9:00:00 CDT, Duration: 30 day, Stop date: 12/15/18 17:00:00 CDT Inactive 11/16/2018 [facility] Fluoxetine 40 mg, 2 cap, Route: PO, Drug form: CAP, Daily, Dosing Weight 79.545, kg, Start date: 11/16/18 9:00:00 CDT, Duration: 30 day, Stop date: 12/15/18 9:00:00 CDTNotes: (Same as: Zhane Carrenoafesarita) No Longer Active 11/16/2018 [facility] Omeprazole 40 mg, Route: PO, Daily, Dosing Weight 79.545, kg, Start date: 11/16/18 9:00:00 CDT, Duration: 30 day, Stop date: 12/15/18 9:00:00 CDT Inactive 11/16/2018 [facility] Alendronic acid 70 MG Oral Tablet 70 mg=1 tab, PO, Q7D, 0 Refill(s) Active 11/16/2018 [facility] allopurinol 100 mg oral tablet 100 mg=1 tab, PO, TID, 0 Refill(s) No Longer Active 11/16/2018 [facility] bisoprolol 5 mg oral tablet 5 mg=1 tab, PO, Q12H, 0 Refill(s) No Longer Active 11/16/2018 [facility] apixaban 5 MG Oral Tablet [Eliquis] 5 mg, PO, Q12H, 0 Refill(s) No Longer Active 11/16/2018 [facility] simvastatin 20 mg oral tablet 20 mg=1 tab, PO, Bedtime, 0 Refill(s) No Longer Active 11/16/2018 [facility] diltiazem 120 mg oral capsule, extended release 120 mg=1 cap, PO, Daily, 0 Refill(s) No Longer Active 11/16/2018 [facility] Hydrochlorothiazide 25 MG / Triamterene 37.5 MG Oral Capsule 1 cap, PO, Daily, 0 Refill(s) No Longer Active 11/16/2018 [facility] ondansetron 4 mg oral tablet 4 mg=1 tab, PO, Q8H, PRN Nausea, 0 Refill(s) Active 11/16/2018 [facility] Bisoprolol 5 mg, 1 tab, Route: PO, Drug form: TAB, BID, Dosing Weight 79.545, kg, Start date: 11/16/18 0:45:00 CDT, Duration: 30 day, Stop date: 12/15/18 17:00:00 CDTNotes: (Same As: Zebeta) No Longer Active 11/16/2018 [facility] Simvastatin 20 mg, 1 tab, Route: PO, Drug form: TAB, Bedtime, Dosing Weight 79.545, kg, Start date: 11/15/18 23:58:00 CDT, Duration: 30 day, Stop date: 12/15/18 21:00:00 CDTNotes: (Same as: Zocor) No Longer Active 11/16/2018 [facility] Calcium Gluconate 3 gm, 30 mL, Route: IVPB, PRN, Dosing Weight 79.545, kg, PRN Abnormal Lab Result, For NON-ICU Patients Only., Start date: 11/15/18 23:14:00 CDT, Duration: 30 day, Stop date: 12/15/18 23:13:00 CDTNotes: WASTE: F/P - Sink; E - Municipal Trash Bin No Longer Active 11/16/2018 [facility] Magnesium Sulfate 2 gm, 50 mL, Route: IVPB, Drug form: INJ, PRN, Dosing Weight 79.545, kg, PRN Abnormal Lab Result, For NON-ICU Patients Only., Start date: 11/15/18 23:14:00 CDT, Duration: 30 day, Stop date: 12/15/18 23:13:00 CDTNotes: WASTE: F/P - Sink; E - Municipal Trash Bin No Longer Active 11/16/2018 [facility] sodium phosphate 30 mmol, 10 mL, Route: IVPB, PRN, Dosing Weight 79.545, kg, PRN Abnormal Lab Result, For NON-ICU Patients Only., Start date: 11/15/18 23:14:00 CDT, Duration: 30 day, Stop date: 12/15/18 23:13:00 CDTN otes: Infuse over 4 hour. Do not infuse phosphorous concurrently in the same line as TPN or IVF that contains calcium. For double lumen central lines, phosphorous may be infused in a separate lumen from TPN. No Longer Active 11/16/2018 [facility] potassium phosphate 30 mmol, 10 mL, Route: IVPB, PRN, Dosing Weight 79.545, kg, PRN Abnormal Lab Result, For NON-ICU Patients Only., Start date: 11/15/18 23:14:00 CDT, Duration: 30 day, Stop date: 12/15/18 23:13:00 CDTN otes: (Same as: K Phosphate.) Do not infuse phosphorous concurrently in the same line as TPN or IVF that contains calcium. For double lumen central lines, phosphorous may be infused in a separate lumen from TPN. 1 mMol phoshate has 1.47 mEq potassium Infuse over 4 hours No Longer Active 11/16/2018 [facility] Potassium Chloride 10 mEq, 50 mL, Route: IVPB, Drug form: INJ, PRN, Dosing Weight 79.545, kg, PRN Abnormal Lab Result, For NON-ICU Patients Only, Start date: 11/15/18 23:14:00 CDT, Duration: 30 day, Stop date: 12/15/18 23:13:00 CDTNotes: (Same as: KCL) Infuse over 2 hours. No Longer Active 11/16/2018 [facility] potassium phosphate-sodium phosphate 250 mg-280 mg-160 mg oral powder for reconstitution 2 pkt, Route: PO, Drug Form: PDR/REC, Dosing Weight 79.545, kg, PRN, PRN Abnormal Lab Result, For NON-ICU Patients Only, Start date: 11/15/18 23:14:00 CDT, Duration: 30 day, Stop date: 12/15/18 23:13:00 CDTNotes: (Same as: Phos-NaK) Each 1.5 gm pkt has 250mg phosphorous. Mix w/2.5oz water and stir. No Longer Active 11/16/2018 [facility] Magnesium Oxide 800 mg, 2 tab, Route: PO, Drug form: TAB, PRN, Dosing Weight 79.545, kg, PRN Abnormal Lab Result, For NON-ICU Patients Only., Start date: 11/15/18 23:14:00 CDT, Duration: 30 day, Stop date: 12/15/18 23:13:00 CDTNotes: (Same as: Mag-Ox 400) Magnesium oxide [id number] elemental magnesium Dose=____mg magnesium oxide (___mg elemental magnesium) No Longer Active 11/16/2018 [facility] Nitroglycerin 0.4 mg, 1 tab, Route: SL, Drug form: TAB, Q5Min, Dosing Weight 81.818, kg, PRN Chest Pain, Start date: 07/17/18 11:34:00 SAFETY COMPANION, Duration: 3 doses or times, Stop date: Limited # of timesNotes: (Same as: Nitroquick, Nitrostat) "Do Not Crush" Sublingual tablet Inactive 07/17/2018 [facility] Morphine 2 mg, 1 mL, Route: IVP, Drug form: SOLN, Q2H, Dosing Weight 81.818, kg, PRN Pain Score 4-6, Start date: 07/17/18 11:34:00 SAFETY COMPANION, Duration: 30 day, Stop date: 08/16/18 11:33:00 CDT Inactive 07/17/2018 [facility] Morphine 2 mg, Route: IVP, ONCE, Dosing Weight 81.818, kg, Start date: 07/17/18 11:32:00 SAFETY COMPANION, Stop date: 07/17/18 11:32:00 SAFETY COMPANION Inactive 07/17/2018 [facility] FLUoxetine 40 mg oral capsule 40 mg=1 cap, PO, Daily, # 30 cap, 0 Refill(s) Active 07/16/2018 [facility] Triamterene PO, BID, 0 Refill(s) Active 07/16/2018 [facility] diltiazem 120 mg oral tablet 120 mg=1 tab, PO, TID, 0 Refill(s) Active 07/16/2018 [facility] Xarelto PO, 0 Refill(s) Active 07/16/2018 [facility] Omeprazole PO, Daily, 0 Refill(s) Active 07/16/2018 [facility] isosorbide dinitrate 40 mg oral tablet 40 mg=1 tab, PO, BID, 0 Refill(s) Active 07/16/2018 [facility] bisoprolol 5 mg oral tablet 5 mg=1 tab, PO, Daily, # 90 tab, 0 Refill(s) Active 07/16/2018 [facility] Ranitidine 150 MG Oral Tablet 150 mg=1 tab, PO, BID, 0 Refill(s) Active 07/16/2018 [facility] simvastatin 10 mg oral tablet 10 mg=1 tab, PO, Bedtime, # 30 tab, 0 Refill(s) Active 07/16/2018 [facility] Allergies, Adverse Reactions, Alerts Substance Category Reaction Severity Reaction type Status Date Reported Comments Source penicillins Assertion Drug allergy Active [facility] codeine Assertion Drug allergy Active [facility] chlorhexidine topical Assertion Drug allergy Active [facility] Immunizations No Data Provided for This Section Results Order Name Results Value Reference Range Date Interpretation Comments Source CHEM PANEL Phosphorus 2.7 2.5 - 4.5 12/01/2018 [facility] CHEM PANEL Magnesium Lvl 1.9 1.8 - 2.4 12/01/2018 [facility] CHEM PANEL Calcium Lvl 10.2 8.5 - 10.5 12/01/2018 [facility] CHEM PANEL CO2 32 24 - 32 12/01/2018 [facility] CHEM PANEL Chloride Lvl 96 95 - 109 12/01/2018 [facility] CHEM PANEL eGFR 57 12/01/2018 Result Comment: The eGFR is calculated using the [...] from the National Kidney Disease Education Program (NKDEP) which additionally recommends that when the eGFR is used in patients with extremes of body mass index for purposes of drug dosing, the eGFR should be multiplied by the estimated BMI. [facility] CHEM PANEL Potassium Lvl 3.9 3.5 - 5.1 12/01/2018 [facility] CHEM PANEL Sodium Lvl 136 135 - 145 12/01/2018 [facility] CHEM PANEL Creatinine Lvl 0.96 0.50 - 1.40 12/01/2018 [facility] CHEM PANEL BUN 15 7 - 22 12/01/2018 [facility] CHEM PANEL Glucose Lvl 93 70 - 99 12/01/2018 [facility] CHEM PANEL AGAP 11.9 10.0 - 20.0 12/01/2018 [facility] HEMATOLOGY INR 2.64 0.85 - 1.17 12/01/2018 [facility] HEMATOLOGY PT 27.6 12.0 - 14.7 12/01/2018 [facility] HEMATOLOGY PTT 38.2 22.9 - 35.8 12/01/2018 [facility] HEMATOLOGY PT 27.6 12.0 - 14.7 12/01/2018 [facility] HEMATOLOGY INR 2.64 0.85 - 1.17 12/01/2018 [facility] HEMATOLOGY MCHC 33.5 32.0 - 36.0 12/01/2018 [facility] HEMATOLOGY MCH 27.6 27.0 - 31.0 12/01/2018 [facility] HEMATOLOGY WBC 4.8 3.7 - 10.4 12/01/2018 [facility] HEMATOLOGY Platelet 189 133 - 450 12/01/2018 [facility] HEMATOLOGY RDW 23.8 11.5 - 14.5 12/01/2018 [facility] HEMATOLOGY MPV 7.3 7.4 - 10.4 12/01/2018 [facility] HEMATOLOGY MCV 82.3 80.0 - 98.0 12/01/2018 [facility] HEMATOLOGY RBC 3.01 4.20 - 5.40 12/01/2018 [facility] HEMATOLOGY Hgb 8.3 12.0 - 16.0 12/01/2018 [facility] HEMATOLOGY Hct 24.8 36.0 - 48.0 12/01/2018 [facility] HEMATOLOGY Lymphocytes # 0.3 1.0 - 5.5 12/01/2018 [facility] HEMATOLOGY Neutrophils # 4.1 1.5 - 8.1 12/01/2018 [facility] HEMATOLOGY Monocytes # 0.4 0.0 - 0.8 12/01/2018 [facility] HEMATOLOGY Basophils 0.4 0.0 - 1.0 12/01/2018 [facility] HEMATOLOGY Eosinophils 0.9 0.0 - 4.0 12/01/2018 [facility] HEMATOLOGY Lymphocytes 5.9 20.0 - 40.0 12/01/2018 [facility] HEMATOLOGY Segs 85.4 45.0 - 75.0 12/01/2018 [facility] HEMATOLOGY Monocytes 7.4 2.0 - 12.0 12/01/2018 [facility] HEMATOLOGY Anisocyte 1+ *ABN* (12/01/18 12:36 AM) None Seen 12/01/2018 [facility] CHEM PANEL Magnesium Lvl 1.8 1.8 - 2.4 11/30/2018 [facility] CHEM PANEL eGFR 51 11/30/2018 Result Comment: The eGFR is calculated using the [...] from the National Kidney Disease Education Program (NKDEP) which additionally recommends that when the eGFR is used in patients with extremes of body mass index for purposes of drug dosing, the eGFR should be multiplied by the estimated BMI. [facility] CHEM PANEL Potassium Lvl 4.1 3.5 - 5.1 11/30/2018 [facility] CHEM PANEL Chloride Lvl 98 95 - 109 11/30/2018 [facility] CHEM PANEL Calcium Lvl 10.6 8.5 - 10.5 11/30/2018 [facility] CHEM PANEL CO2 33 24 - 32 11/30/2018 [facility] CHEM PANEL Sodium Lvl 135 135 - 145 11/30/2018 [facility] CHEM PANEL Creatinine Lvl 1.06 0.50 - 1.40 11/30/2018 [facility] CHEM PANEL BUN 18 7 - 22 11/30/2018 [facility] CHEM PANEL Glucose Lvl 87 70 - 99 11/30/2018 [facility] CHEM PANEL AGAP 8.1 10.0 - 20.0 11/30/2018 [facility] HEMATOLOGY MCHC 32.4 32.0 - 36.0 11/30/2018 [facility] HEMATOLOGY MCH 27.0 27.0 - 31.0 11/30/2018 [facility] HEMATOLOGY MPV 7.9 7.4 - 10.4 11/30/2018 [facility] HEMATOLOGY Platelet 163 133 - 450 11/30/2018 [facility] HEMATOLOGY RDW 23.3 11.5 - 14.5 11/30/2018 [facility] HEMATOLOGY Hct 26.5 36.0 - 48.0 11/30/2018 [facility] HEMATOLOGY MCV 83.2 80.0 - 98.0 11/30/2018 [facility] HEMATOLOGY WBC 3.9 3.7 - 10.4 11/30/2018 [facility] HEMATOLOGY Hgb 8.6 12.0 - 16.0 11/30/2018 [facility] HEMATOLOGY RBC 3.19 4.20 - 5.40 11/30/2018 [facility] HEMATOLOGY PTT 165.2 22.9 - 35.8 11/30/2018 Result Comment: Critical Result(s) called to Shannan Kim at 11/30/2018 06:39 by ET. Read back OK. [facility] HEMATOLOGY INR 2.11 0.85 - 1.17 11/30/2018 [facility] HEMATOLOGY PT 23.2 12.0 - 14.7 11/30/2018 [facility] HEMATOLOGY Lymphocytes # 0.4 1.0 - 5.5 11/30/2018 [facility] HEMATOLOGY Eosinophils 1.5 0.0 - 4.0 11/30/2018 [facility] HEMATOLOGY Lymphocytes 10.1 20.0 - 40.0 11/30/2018 [facility] HEMATOLOGY Monocytes 8.8 2.0 - 12.0 11/30/2018 [facility] HEMATOLOGY Anisocyte 1+ *ABN* (11/30/18 6:05 AM) None Seen 11/30/2018 [facility] HEMATOLOGY Eosinophils # 0.1 0.0 - 0.5 11/30/2018 [facility] HEMATOLOGY Monocytes # 0.3 0.0 - 0.8 11/30/2018 [facility] HEMATOLOGY Segs 79.3 45.0 - 75.0 11/30/2018 [facility] TOXICOLOGY Digoxin Lvl 1.2 0.8 - 2.0 11/30/2018 [facility] HEMATOLOGY PTT 89.8 22.9 - 35.8 11/30/2018 [facility] HEMATOLOGY MPV 7.8 7.4 - 10.4 11/29/2018 [facility] HEMATOLOGY MCHC 33.6 32.0 - 36.0 11/29/2018 [facility] HEMATOLOGY RDW 23.4 11.5 - 14.5 11/29/2018 [facility] HEMATOLOGY Platelet 198 133 - 450 11/29/2018 [facility] HEMATOLOGY Hct 27.0 36.0 - 48.0 11/29/2018 [facility] HEMATOLOGY MCV 82.2 80.0 - 98.0 11/29/2018 [facility] HEMATOLOGY MCH 27.6 27.0 - 31.0 11/29/2018 [facility] HEMATOLOGY WBC 5.0 3.7 - 10.4 11/29/2018 [facility] HEMATOLOGY Hgb 9.0 12.0 - 16.0 11/29/2018 [facility] HEMATOLOGY RBC 3.28 4.20 - 5.40 11/29/2018 [facility] HEMATOLOGY Basophils 0.3 0.0 - 1.0 11/29/2018 [facility] HEMATOLOGY Neutrophils # 4.2 1.5 - 8.1 11/29/2018 [facility] HEMATOLOGY Lymphocytes # 0.3 1.0 - 5.5 11/29/2018 [facility] HEMATOLOGY Monocytes # 0.4 0.0 - 0.8 11/29/2018 [facility] HEMATOLOGY Eosinophils # 0.1 0.0 - 0.5 11/29/2018 [facility] HEMATOLOGY Anisocyte 1+ *ABN* (11/29/18 2:09 PM) None Seen 11/29/2018 [facility] HEMATOLOGY Eosinophils 1.1 0.0 - 4.0 11/29/2018 [facility] HEMATOLOGY Segs 84.1 45.0 - 75.0 11/29/2018 [facility] HEMATOLOGY Lymphocytes 6.5 20.0 - 40.0 11/29/2018 [facility] HEMATOLOGY Monocytes 8.0 2.0 - 12.0 11/29/2018 [facility] PARATHYROID PROFILE PTH Intact 244.0 18.4 - 80.1 11/29/2018 [facility] PARATHYROID PROFILE Ca Norm WB 1.39 1.05 - 1.25 11/29/2018 [facility] PARATHYROID PROFILE Ca Ion WB 1.38 1.05 - 1.25 11/29/2018 [facility] CHEM PANEL Phosphorus 2.7 2.5 - 4.5 11/29/2018 [facility] CHEM PANEL Magnesium Lvl 2.0 1.8 - 2.4 11/29/2018 [facility] ELECTROLYTES AGAP 10.8 10.0 - 20.0 11/29/2018 [facility] ELECTROLYTES eGFR 59 11/29/2018 Result Comment: The eGFR is calculated using the [...] from the National Kidney Disease Education Program (NKDEP) which additionally recommends that when the eGFR is used in patients with extremes of body mass index for purposes of drug dosing, the eGFR should be multiplied by the estimated BMI. [facility] ELECTROLYTES Potassium Lvl 3.8 3.5 - 5.1 11/29/2018 [facility] ELECTROLYTES Chloride Lvl 95 95 - 109 11/29/2018 [facility] ELECTROLYTES CO2 33 24 - 32 11/29/2018 [facility] ELECTROLYTES Calcium Lvl 10.6 8.5 - 10.5 11/29/2018 [facility] ELECTROLYTES Glucose Lvl 83 70 - 99 11/29/2018 [facility] ELECTROLYTES BUN 22 7 - 22 11/29/2018 [facility] ELECTROLYTES Creatinine Lvl 0.95 0.50 - 1.40 11/29/2018 [facility] ELECTROLYTES Sodium Lvl 135 135 - 145 11/29/2018 [facility] HEMATOLOGY Eosinophils # 0.1 0.0 - 0.5 11/29/2018 [facility] HEMATOLOGY Neutrophils # 3.0 1.5 - 8.1 11/29/2018 [facility] HEMATOLOGY Basophils 0.4 0.0 - 1.0 11/29/2018 [facility] ANEMIA STUDY Ferritin Lvl 1020 5 - 204 11/28/2018 [facility] ANEMIA STUDY Vitamin B12 Lvl 1196 254 - 1320 11/28/2018 [facility] ANEMIA STUDY Folate Lvl 17.2 >=3.0 ng/mL 11/28/2018 [facility] ANEMIA STUDY TIBC 213 228 - 428 11/28/2018 [facility] ANEMIA STUDY % Satur Fe 18 12 - 57 11/28/2018 [facility] ANEMIA STUDY UIBC 175 110 - 370 11/28/2018 [facility] ANEMIA STUDY Iron 38 30 - 160 11/28/2018 [facility] HEMATOLOGY Retic Auto 6.4 0.5 - 1.5 11/28/2018 [facility] CHEM PANEL Phosphorus 2.4 2.5 - 4.5 11/28/2018 [facility] HEMATOLOGY Microcyte 1+ *ABN* (11/28/18 4:12 AM) None Seen 11/28/2018 [facility] HEMATOLOGY Microcyte 1+ *ABN* (11/27/18 12:55 AM) None Seen 11/27/2018 [facility] CHEM PANEL AST 50 0 - 37 11/26/2018 [facility] CHEM PANEL Total Protein 5.4 6.4 - 8.4 11/26/2018 [facility] CHEM PANEL Albumin Lvl 2.2 3.5 - 5.0 11/26/2018 [facility] CHEM PANEL Bili Total 0.9 0.2 - 1.3 11/26/2018 [facility] CHEM PANEL Alk Phos 136 39 - 136 11/26/2018 [facility] CHEM PANEL ALT 29 0 - 65 11/26/2018 [facility] CHEM PANEL A/G Ratio 0.7 0.7 - 1.6 11/26/2018 [facility] CHEM PANEL Globulin 3.2 2.7 - 4.2 11/26/2018 [facility] CHEM PANEL B/C Ratio 28 6 - 25 11/26/2018 [facility] HEMATOLOGY Thrombin Time 17.6 15.0 - 21.2 11/26/2018 [facility] HEMATOLOGY Fibrinogen Lvl 595 230 - 510 11/26/2018 [facility] HEMATOLOGY D-Dimer 1.99 11/26/2018 [facility] PARATHYROID PROFILE Ca Norm WB 1.34 1.05 - 1.25 11/26/2018 [facility] PARATHYROID PROFILE Ca Ion WB 1.34 1.05 - 1.25 11/26/2018 [facility] PARATHYROID PROFILE Ca Norm WB 1.29 1.05 - 1.25 11/26/2018 [facility] PARATHYROID PROFILE Ca Ion WB 1.25 1.05 - 1.25 11/26/2018 [facility] HEMATOLOGY Schistocyte 1-3 per HPF (11/25/18 4:26 PM) None Seen 11/25/2018 [facility] HEMATOLOGY Plt Morph Normal (11/25/18 4:26 PM) Normal 11/25/2018 [facility] BLOOD BANK RESULTS ABO/Rh O POS 11/25/2018 [facility] BLOOD BANK RESULTS Antibody Scrn Negative (11/25/18 6:22 AM) 11/25/2018 [facility] CHEM PANEL Globulin 3.2 2.7 - 4.2 11/25/2018 [facility] CHEM PANEL A/G Ratio 0.7 0.7 - 1.6 11/25/2018 [facility] CHEM PANEL B/C Ratio 27 6 - 25 11/25/2018 [facility] CHEM PANEL Bili Total 1.0 0.2 - 1.3 11/25/2018 [facility] CHEM PANEL Alk Phos 104 39 - 136 11/25/2018 [facility] CHEM PANEL Albumin Lvl 2.1 3.5 - 5.0 11/25/2018 [facility] CHEM PANEL ALT 10 0 - 65 11/25/2018 [facility] CHEM PANEL Total Protein 5.3 6.4 - 8.4 11/25/2018 [facility] CHEM PANEL AST 55 0 - 37 11/25/2018 [facility] HEMATOLOGY Thrombin Time 16.2 15.0 - 21.2 11/25/2018 [facility] HEMATOLOGY D-Dimer 3.07 11/25/2018 [facility] HEMATOLOGY Fibrinogen Lvl 546 230 - 510 11/25/2018 [facility] CHEM PANEL Globulin 3.2 2.7 - 4.2 11/24/2018 [facility] CHEM PANEL A/G Ratio 0.7 0.7 - 1.6 11/24/2018 [facility] CHEM PANEL B/C Ratio 26 6 - 25 11/24/2018 [facility] CHEM PANEL AST 63 0 - 37 11/24/2018 [facility] CHEM PANEL ALT 24 0 - 65 11/24/2018 [facility] CHEM PANEL Total Protein 5.4 6.4 - 8.4 11/24/2018 [facility] CHEM PANEL Alk Phos 96 39 - 136 11/24/2018 [facility] CHEM PANEL Albumin Lvl 2.2 3.5 - 5.0 11/24/2018 [facility] CHEM PANEL Bili Total 0.8 0.2 - 1.3 11/24/2018 [facility] HEMATOLOGY Thrombin Time 16.4 15.0 - 21.2 11/24/2018 [facility] HEMATOLOGY Fibrinogen Lvl 548 230 - 510 11/24/2018 [facility] HEMATOLOGY D-Dimer 2.13 11/24/2018 [facility] CHEM PANEL Lactic Acid Lvl 1.4 0.5 - 2.2 11/22/2018 [facility] CHEM PANEL Procalcitonin Lvl 1.01 0.00 - 0.10 11/22/2018 [facility] URINE AND STOOL Micro? Performed *NA* (11/22/18 1:30 PM) 11/22/2018 [facility] URINE AND STOOL UA Nitrite Negative (11/22/18 1:30 PM) Negative 11/22/2018 [facility] URINE AND STOOL UA Urobilinogen <1.0 0.1 - 1.0 11/22/2018 [facility] URINE AND STOOL UA WBC 35 0 - 5 11/22/2018 [facility] URINE AND STOOL UA Sq Epi Occasional /LPF Few /LPF 11/22/2018 [facility] URINE AND STOOL UA Leuk Est Small *ABN* (11/22/18 1:30 PM) Negative 11/22/2018 [facility] URINE AND STOOL UA RBC 9 0 - 2 11/22/2018 [facility] URINE AND STOOL UA Mucus Few /LPF None Seen /LPF 11/22/2018 [facility] URINE AND STOOL UA Bacteria Occasional /HPF None Seen /HPF 11/22/2018 [facility] URINE AND STOOL UA Hyal Cast 19 0 - 2 11/22/2018 [facility] URINE AND STOOL UA Blood Moderate *ABN* (11/22/18 1:30 PM) Negative 11/22/2018 [facility] URINE AND STOOL UA Bili Negative *NA* (11/22/18 1:30 PM) Negative 11/22/2018 [facility] URINE AND STOOL UA Ketones Negative mg/dL Negative mg/dL 11/22/2018 [facility] URINE AND STOOL UA Color Rabia *ABN* (11/22/18 1:30 PM) Yellow 11/22/2018 [facility] URINE AND STOOL UA Glucose Negative mg/dL Negative mg/dL 11/22/2018 [facility] URINE AND STOOL UA Protein Negative mg/dL Negative mg/dL 11/22/2018 [facility] URINE AND STOOL UA pH 5.0 5.0 - 8.0 11/22/2018 [facility] URINE AND STOOL UA Turbidity Slight *ABN* (11/22/18 1:30 PM) Clear 11/22/2018 [facility] URINE AND STOOL UA Spec Grav 1.021 <=1.030 11/22/2018 [facility] Culture: Urine No Growth 11/22/2018 [facility] CHEM PANEL Lactic Acid Lvl 1.3 0.5 - 2.2 11/22/2018 [facility] CHEM PANEL Lactic Acid Lvl 2.4 0.5 - 2.2 11/21/2018 [facility] HEMATOLOGY Hypochrom 1+ (11/21/18 2:06 PM) None Seen 11/21/2018 [facility] HEMATOLOGY Polychrom Slight 11/21/2018 [facility] HEMATOLOGY Plt Morph Normal (11/21/18 2:06 PM) Normal 11/21/2018 [facility] BLOOD BANK RESULTS RBC product Product available (11/21/18 7:45 AM) 11/21/2018 [facility] CHEM PANEL Bili Indirect 1.9 0.0 - 1.0 11/21/2018 [facility] CHEM PANEL Bili Direct 0.5 0.0 - 0.3 11/21/2018 [facility] HEMATOLOGY Plt Morph Normal (11/21/18 5:47 AM) Normal 11/21/2018 [facility] HEMATOLOGY Polychrom Slight 11/21/2018 [facility] HEMATOLOGY Microcyte 1+ *ABN* (11/21/18 5:47 AM) None Seen 11/21/2018 [facility] CHEM PANEL Bili Direct 0.2 0.0 - 0.3 11/21/2018 [facility] CHEM PANEL Bili Indirect 1.2 0.0 - 1.0 11/21/2018 [facility] HEMATOLOGY Polychrom Moderate *ABN* (11/21/18 1:19 AM) None Seen 11/21/2018 [facility] HEMATOLOGY Hypochrom 1+ (11/21/18 1:19 AM) None Seen 11/21/2018 [facility] HEMATOLOGY POC Activated Clotting Time 258 11/21/2018 [facility] BLOOD BANK RESULTS RBC product Product available (11/20/18 6:47 PM) 11/20/2018 [facility] BLOOD BANK RESULTS Cryo product Modification Required (11/20/18 6:47 PM) 11/20/2018 [facility] BLOOD BANK RESULTS Platelet product Product available (11/20/18 6:47 PM) 11/20/2018 [facility] BLOOD BANK RESULTS FFP product Product available (11/20/18 6:47 PM) 11/20/2018 [facility] BLOOD BANK RESULTS RBC product Product available (11/20/18 6:47 PM) 11/20/2018 [facility] BLOOD BANK RESULTS FFP product Product available (11/20/18 6:47 PM) 11/20/2018 [facility] HEMATOLOGY POC Activated Clotting Time 283 11/20/2018 [facility] HEMATOLOGY POC Activated Clotting Time 238 11/20/2018 [facility] BLOOD BANK RESULTS Antibody Scrn Negative (11/19/18 10:38 PM) 11/20/2018 [facility] BLOOD BANK RESULTS ABO/Rh O POS 11/20/2018 [facility] BLOOD BANK RESULTS FFP product Product available (11/19/18 8:01 AM) 11/19/2018 [facility] ANEMIA STUDY Ferritin Lvl 9 5 - 204 11/16/2018 [facility] ANEMIA STUDY TIBC 379 228 - 428 11/16/2018 [facility] ANEMIA STUDY Iron 24 30 - 160 11/16/2018 [facility] ANEMIA STUDY UIBC 355 110 - 370 11/16/2018 [facility] ANEMIA STUDY % Satur Fe 6 12 - 57 11/16/2018 [facility] CARDIAC ENZYMES BNP 152 <=100 pg/mL 11/16/2018 [facility] CHEM PANEL Lipase Lvl 155 73 - 393 11/16/2018 [facility] LIPIDS CHD Risk 2.60 3.90 - 5.80 11/16/2018 [facility] LIPIDS VLDL 31 11/16/2018 [facility] LIPIDS HDL 58 >=61 mg/dL 11/16/2018 [facility] LIPIDS LDL (Calculated) 62 <=99 mg/dL 11/16/2018 [facility] LIPIDS Chol 151 <=199 mg/dL 11/16/2018 [facility] LIPIDS Trig 156 <=149 mg/dL 11/16/2018 [facility] SPECIAL CHEMISTRY Hgb A1C 5.2 <=5.6 % 11/16/2018 [facility] CARDIAC ENZYMES Troponin-I <0.02 0.00 - 0.40 11/15/2018 [facility] CHEM PANEL eGFR 56 07/16/2018 Result Comment: The eGFR is calculated using the [...] from the National Kidney Disease Education Program (NKDEP) which additionally recommends that when the eGFR is used in patients with extremes of body mass index for purposes of drug dosing, the eGFR should be multiplied by the estimated BMI. [facility] CHEM PANEL Glucose Lvl 93 70 - 99 07/16/2018 [facility] CHEM PANEL Sodium Lvl 138 135 - 145 07/16/2018 [facility] CHEM PANEL BUN 12 7 - 22 07/16/2018 [facility] CHEM PANEL Creatinine Lvl 0.99 0.50 - 1.40 07/16/2018 [facility] CHEM PANEL Calcium Lvl 10.2 8.5 - 10.5 07/16/2018 [facility] CHEM PANEL Albumin Lvl 3.6 3.5 - 5.0 07/16/2018 [facility] CHEM PANEL ALT 18 0 - 65 07/16/2018 [facility] CHEM PANEL Total Protein 6.7 6.4 - 8.4 07/16/2018 [facility] CHEM PANEL Potassium Lvl 3.9 3.5 - 5.1 07/16/2018 [facility] CHEM PANEL CO2 26 24 - 32 07/16/2018 [facility] CHEM PANEL Chloride Lvl 102 95 - 109 07/16/2018 [facility] CHEM PANEL Alk Phos 89 39 - 136 07/16/2018 [facility] CHEM PANEL AST 21 0 - 37 07/16/2018 [facility] CHEM PANEL Bili Total 0.5 0.2 - 1.3 07/16/2018 [facility] CHEM PANEL A/G Ratio 1.2 0.7 - 1.6 07/16/2018 [facility] CHEM PANEL AGAP 13.9 10.0 - 20.0 07/16/2018 [facility] CHEM PANEL Globulin 3.1 2.7 - 4.2 07/16/2018 [facility] CHEM PANEL B/C Ratio 12 6 - 25 07/16/2018 [facility] HEMATOLOGY Anisocyte 1+ *ABN* (07/16/18 5:01 PM) None Seen 07/16/2018 [facility] HEMATOLOGY Microcyte 3+ *NA* (07/16/18 5:01 PM) None Seen 07/16/2018 [facility] HEMATOLOGY Hypochrom 1+ (07/16/18 5:01 PM) None Seen 07/16/2018 [facility] HEMATOLOGY Plt Morph Normal (07/16/18 5:01 PM) 07/16/2018 [facility] HEMATOLOGY Lymphocytes 27.0 20.0 - 40.0 07/16/2018 [facility] HEMATOLOGY Lymphocytes # 1.4 1.0 - 5.5 07/16/2018 [facility] HEMATOLOGY Segs 61.7 45.0 - 75.0 07/16/2018 [facility] HEMATOLOGY Neutrophils # 3.3 1.5 - 8.1 07/16/2018 [facility] HEMATOLOGY Basophils 0.3 0.0 - 1.0 07/16/2018 [facility] HEMATOLOGY Eosinophils 2.3 0.0 - 4.0 07/16/2018 [facility] HEMATOLOGY Monocytes 8.7 2.0 - 12.0 07/16/2018 [facility] HEMATOLOGY Monocytes # 0.5 0.0 - 0.8 07/16/2018 [facility] HEMATOLOGY Eosinophils # 0.1 0.0 - 0.5 07/16/2018 [facility] HEMATOLOGY INR 1.16 0.85 - 1.17 07/16/2018 [facility] HEMATOLOGY PT 14.6 12.0 - 14.7 07/16/2018 [facility] HEMATOLOGY PTT 29.3 22.9 - 35.8 07/16/2018 [facility] MPV 7.4 7.4 - 10.4 07/16/2018 [facility] Platelet 270 133 - 450 07/16/2018 [facility] RDW 17.2 11.5 - 14.5 07/16/2018 [facility] MCHC 32.0 32.0 - 36.0 07/16/2018 [facility] WBC 5.4 3.7 - 10.4 07/16/2018 [facility] RBC 5.02 4.20 - 5.40 07/16/2018 [facility] MCH 22.0 27.0 - 31.0 07/16/2018 [facility] MCV 68.6 80.0 - 98.0 07/16/2018 [facility] Hct 34.5 36.0 - 48.0 07/16/2018 [facility] Hgb 11.0 12.0 - 16.0 07/16/2018 [facility] Pathology Reports No Data Provided for This Section Diagnostic Reports Report Value Date Source Chest 1view DX EXAM: XR CHEST 1 VIEW DATE: 12/01/2018 1508 hours INDICATION: - picc line placement COMPARISON: Most recent chest radiograph from 11/30/2018 0452 hours CTA chest, abdomen pelvis from 11/18/2018. TECHNIQUE: AP chest. FINDINGS: Lines, tubes and hardware: Left peripherally inserted central venous catheter with its distal tip projecting over the left brachiocephalic vein. Stable multiple mediastinal wires with postsurgical changes at the right axilla. Lungs and pleura: Persistent prominent bilateral reticular opacities and vascularity are identified. Persistent bilateral reticular opacities are identified with small bilateral pleural effusion. More conspicuous bilateral upper lung ill-defined focal opacities are identified. No pneumothorax is identified. Heart and mediastinum: The heart size is enlarged but unchanged. The mediastinal contours are unchanged. Bones, soft tissues: Unchanged. IMPRESSION: 1. Left PICC line with its distal tip projecting over the left brachycephalic vein. 2. Persistent bilateral interstitial pulmonary edema. 3. Persistent bilateral upper lung ill-defined focal opacities. Please refer to prior CT chest 11/16/2018. 12/01/2018 [facility] Chest US EXAM: US CHEST DATE: 11/30/2018 13:11 CDT INDICATION: - worsening pleural effusions on CXR ADDITIONAL INFORMATION: None. COMPARISON: None. TECHNIQUE: Multiplanar grayscale and color Doppler ultrasound of the chest. FINDINGS: Right pleural effusion equals 250 mL. Left-sided pleural effusion measures 318 mm. Other: None. IMPRESSION: 1. Pleural effusions as described above.. 11/30/2018 [facility] Chest 1view DX EXAM: XR CHEST 1 VIEW DATE: 11/30/2018 3:00 CDT INDICATION: - post sternotomy COMPARISON: 11/29/2018 TECHNIQUE: AP chest IMPRESSION: Stable left central venous catheter. Stable postoperative cardiomediastinal silhouette. Calcified aortic knob. Again seen is irregular left upper lobe nodule worrisome for bronchogenic carcinoma. There are bilateral pleural effusions with basilar atelectasis or consolidation. While evaluation is limited given semi-erect positioning, no distinct pneumothorax is identified. Unchanged skeletal structures. Post surgical changes in the right scapular region again seen. CONCLUSION: No significant change compared to the most recent radiograph. 11/30/2018 [facility] Brain wo contrast CT EXAM: CT BRAIN WITHOUT CONTRAST DATE: 11/30/2018 13:50 CDT INDICATION: - confusion/delirium/memory loss COMPARISON: none TECHNIQUE: Routine axial CT images of the brain were obtained. Reformatted images in the sagittal and coronal plane were included. IV contrast: None. DLP: 1190 mGy-cm FINDINGS: There are no signs of acute cortical infarct or parenchymal hemorrhage. Multiple areas of low attenuation in the periventricular and subcortical white matter, consistent with microvascular ischemic changes are identified. The ventricles and sulci are prominent as are result of volume loss. The paranasal sinuses, orbits and mastoids are unremarkable. A cystic lesion in the right maxilla, protruding into the right maxillary sinus is demonstrated, which may represent a residual odontogenic cyst. IMPRESSION: No acute infarct or parenchymal hemorrhage. Microvascular ischemic changes and volume loss. 11/29/2018 [facility] Chest 1view DX EXAM: XR CHEST 1 VIEW DATE: 11/29/2018 3:00 CDT INDICATION: post sternotomy - post sternotomy COMPARISON: 11/28/2018 TECHNIQUE: AP chest IMPRESSION: 1. Left upper extremity PICC is noted with tip projects over the mid SVC. 2. Again seen is irregular left upper lobe nodule worrisome for bronchogenic carcinoma 3. Trace bilateral pleural effusions with compression collapse of the related lung segments. Few other scattered subsegmental platelike atelectatic changes in both lungs. 4. Cardiomediastinal silhouette is upper limit of normal size. Aortic atherosclerotic disease. 5. While evaluation is limited given semi-erect positioning, no distinct pneumothorax is identified. 6. Osseous structures are stable. 11/29/2018 [facility] Chest 1view DX EXAM: XR CHEST 1 VIEW DATE: 11/28/2018 3:00 CDT INDICATION: - post sternotomy COMPARISON: TECHNIQUE: AP chest IMPRESSION: 1. Left upper extremity PICC is noted with tip projects over the mid SVC. 2. Again seen is irregular left upper lobe nodule worrisome for bronchogenic carcinoma 3. Trace bilateral pleural effusions with compression collapse of the related lung segments. Few other scattered subsegmental platelike atelectatic changes in both lungs. 4. Cardiomediastinal silhouette is upper limit of normal size. Aortic atherosclerotic disease. 5. While evaluation is limited given semi-erect positioning, no distinct pneumothorax is identified. 6. Osseous structures are stable. 11/28/2018 [facility] Chest 1view DX EXAM: XR CHEST 1 VIEW DATE: 11/27/2018 3:00 CDT INDICATION: - post sternotomy COMPARISON: 11/26/2018 TECHNIQUE: AP chest IMPRESSION: 1. Left upper extremity PICC is noted with tip projects over the mid SVC. 2. Again seen is irregular left upper lobe nodule worrisome for bronchogenic carcinoma 3. Trace bilateral pleural effusions with compression collapse of the related lung segments. Few other scattered subsegmental platelike atelectatic changes in both lungs. Otherwise, lungs are clear. 4. Cardiomediastinal silhouette is upper limit of normal size. Aortic atherosclerotic disease. 5. While evaluation is limited given semi-erect positioning, no distinct pneumothorax is identified. 6. Osseous structures are stable. 11/27/2018 [facility] Chest 1 v for Placement DX EXAM: XR CHEST 1 VIEW DATE: 11/26/2018 1419 hours INDICATION: Line Placement - Chest 1 view for line placement COMPARISON: Chest radiograph 11/26/2018 at 0314 hours TECHNIQUE: AP chest. FINDINGS: Lines, tubes and hardware: Interval placement of left upper extremity PICC with tip projecting over the atriocaval junction. Remaining hardware is unchanged. Lungs and pleura: Bilateral retrocardiac opacities. There is bilateral pleural effusions. No pneumothorax. Again seen is loculated nodule in the left upper lung zone, stable compared to previous study. Heart and mediastinum: The cardiomediastinal silhouette is enlarged. Vascular calcifications are present at the aorta. Pulmonary vascularity is normal. Upper: Abdomen: No abnormally dilated bowel loops are seen in the included portion of the upper abdomen. Bones: No acute abnormality. IMPRESSION: 1. Interval placement of left upper extremity PICC with tip projecting over the atriocaval junction. 2. Bilateral retrocardiac opacities likely combination of pleural effusion and atelectasis. Cannot exclude superimposed infection. 11/26/2018 [facility] Chest 1view DX EXAM: XR CHEST 1 VIEW DATE: 11/26/2018 3:00 CDT INDICATION: - post sternotomy. TECHNIQUE: Chest 1 view FINDINGS: Comparison is made to November 25. Cardiomediastinal silhouette and postoperative changes are stable. Left lower lobe subsegmental atelectasis. Mild patchy right basilar opacity could be due to atelectasis, infection or aspiration. There is an irregular nodule in the left apex medially measuring about 21 mm. Trace pleural effusions not excluded. IMPRESSION: 1. Irregular nodule in the left apex, worrisome for a primary bronchogenic carcinoma. Please reference the chest CT report from November 18. 2. Left lower lobe subsegmental atelectasis. 3. Mild hazy right basilar opacity could be due to atelectasis or consolidation. 11/26/2018 [facility] Chest 1view DX EXAM: XR CHEST 1 VIEW DATE: 11/25/2018 3:00 CDT INDICATION: - post sternotomy. TECHNIQUE: Chest 1 view FINDINGS: Comparison is made to November 24. Cardiomediastinal silhouette and postoperative changes are stable. There are small pleural effusions. Bibasilar subsegmental atelectasis. IMPRESSION: 1. Bibasilar subsegmental atelectasis. 2. Small bilateral pleural effusions. 11/25/2018 [facility] Chest 1view DX EXAM: XR CHEST 1 VIEW DATE: 11/24/2018 13:47 CDT INDICATION: - chest tube removal. TECHNIQUE: Chest 1 view FINDINGS: Comparison is made to November 24 at 3:03 AM. Mediastinal drain and chest tubes have been removed. Stable postoperative findings. Bibasilar platelike atelectasis. Tiny residual bilateral pleural effusions. IMPRESSION: Bibasilar platelike atelectasis with tiny pleural effusions. 11/24/2018 [facility] Chest 1view DX EXAM: XR CHEST 1 VIEW DATE: 11/24/2018 3:00 AM CDT INDICATION: - post sternotomy COMPARISON: TECHNIQUE: AP chest IMPRESSION: 1. Interval removal of the left IJV central venous line. Other tubes are stable in position. 2. Small bilateral pleural effusions with compression collapse of the related lung segments. Few other scattered subsegmental platelike atelectatic changes in both lungs. 3. Cardiomediastinal silhouette is upper limit of normal size. Aortic atherosclerotic disease. 4. While evaluation is limited given semi-erect positioning, no distinct pneumothorax is identified. 5. Osseous structures are stable. 11/24/2018 [facility] Chest 1view DX EXAM: XR CHEST 1 VIEW DATE: 11/23/2018 3:00 AM CDT INDICATION: - post sternotomy COMPARISON: 11/22/2018 TECHNIQUE: AP chest IMPRESSION: 1. Interval removal of the endotracheal tube. Other lines and tubes are stable compared to previous study. 2. Small bilateral pleural effusions with compression collapse of the related lung segments. Few other scattered subsegmental platelike atelectatic changes in both lungs. 3. Cardiomediastinal silhouette is upper limit of normal size. Aortic atherosclerotic disease. 4. While evaluation is limited given semi-erect positioning, no distinct pneumothorax is identified. 5. Osseous structures are stable. 11/23/2018 [facility] Chest 1view DX EXAM: XR CHEST 1 VIEW DATE: 11/22/2018 3:00 CDT INDICATION: - post sternotomy COMPARISON: 11/21/2018 TECHNIQUE: AP chest IMPRESSION: 1. Lines and tubes are stable compared to previous study. 2. Small bilateral pleural effusions with compression collapse of the related lung segments. Few other scattered subsegmental platelike atelectatic changes in both lungs. 3. Cardiomediastinal silhouette is upper limit of normal size. Aortic atherosclerotic disease. 4. While evaluation is limited given semi-erect positioning, no distinct pneumothorax is identified. 5. Osseous structures are stable. 11/22/2018 [facility] Chest 2 views DX EXAM: XR CHEST 1 VIEW EXAM: X-ray chest 2 views DATE: 11/21/2018 at 1351 and 1201 hours CDT INDICATION: Tube placement - post AVR+AAR COMPARISON: 11/21/2018 at 1:18 AM TECHNIQUE: AP chest IMPRESSION: 1. Status post closure of sternal wound with postsurgical changes. No evidence of unexpected surgical instruments or needles in the current field of view. 2. Interval placement of right basilar thoracostomy tube. Other lines and tubes are stable compared to previous study. Few scattered bilateral subsegmental platelike atelectatic changes. 3. Costophrenic sulci are sharp. 4. Cardiomediastinal silhouette is upper limit of normal size. Aortic atherosclerotic disease. 5. While evaluation is limited given semi-erect positioning, no distinct pneumothorax is identified. 11/21/2018 [facility] Chest 1 v for Placement DX EXAM: XR CHEST 1 VIEW EXAM: X-ray chest 2 views DATE: 11/21/2018 at 1351 and 1201 hours CDT INDICATION: Tube placement - post AVR+AAR COMPARISON: 11/21/2018 at 1:18 AM TECHNIQUE: AP chest IMPRESSION: 1. Status post closure of sternal wound with postsurgical changes. No evidence of unexpected surgical instruments or needles in the current field of view. 2. Interval placement of right basilar thoracostomy tube. Other lines and tubes are stable compared to previous study. Few scattered bilateral subsegmental platelike atelectatic changes. 3. Costophrenic sulci are sharp. 4. Cardiomediastinal silhouette is upper limit of normal size. Aortic atherosclerotic disease. 5. While evaluation is limited given semi-erect positioning, no distinct pneumothorax is identified. 11/21/2018 [facility] Chest 1 v for Placement DX EXAM: XR CHEST 1 VIEW DATE: 11/21/2018 1:02 CDT INDICATION: - On arrival COMPARISON: 11/15/2018 TECHNIQUE: AP chest. FINDINGS: There are postsurgical changes following median sternotomy. The cardiomediastinal silhouette is enlarged. There are atherosclerotic changes in the aorta. Median sternotomy wire is unremarkable. Tip of ET tube projects 2.2 cm above the yasmani. Left IJ catheter projects at the mid SVC. There are 2 mediastinal drains and 1 right chest tube in place. Postsurgical changes over the right scapula. No pneumothorax. Low lung volumes. Bibasilar opacities are likely atelectatic, though superimposed infectious/inflammatory etiology cannot be excluded. Mild right apical capping may represent pleural effusion or hematoma and should be followed. Platelike atelectasis in the right midlung and left lower lobe. IMPRESSION: 1. Post surgical changes following median sternotomy. Life support lines and tubes as described above. ET tube should be pull it back 1 cm. No pneumothorax. 2. Bibasilar opacities are likely atelectatic, although superimposed infectious/inflammatory etiology cannot be excluded. Low lung volumes. 3. Mild right apical cap may represent pleural effusion or hematoma and should be followed. 4. Platelike atelectasis in the right midlung and left lower lobe. 11/21/2018 [facility] Heart/coronary art TAVR CTA CARDIAC COMPUTED TOMOGRAPHY ANGIOGRAPHY DATE: November 18, 2018 INDICATION: Aortic stenosis. COMPARISON: none TECHNIQUE: After obtaining a preliminary physical therapy teacher image, contrast imaging was performed on a [employer] ONE JOSE LUIS, 320 detector rows - 640 slice, [employer] scanner. A dedicated, limited window, imaging protocol was used, with single breath hold, retrospective ECG gating, and automated arrhythmia rejection. A low osmolar contrast agent was used; 85 cc Omnipaque-350 IV contrast was delivered via a 18 gauge IV catheter, utilizing a power injector, at 5 cc/sec injection rate, and followed by 50 cc of normal saline bolus as a chaser. Collimated images were reformatted at 0.5 mm intervals, and sent to an offline independent workstation for interpretation, using: - 3D anatomic reconstructions: curved multiplanar reconstructions (MPR), maximum intensity projections (MIP), and multi-planar imaging. - 4D cineangiography reconstructions, for functional evaluation of cardiac valves and ventricular chambers. Effective radiation dose: 8.8 mSv. OVERALL STUDY QUALITY: Good. FINDINGS: Aortic valve: Trileaflet, with moderate calcification,and relatively symmetric involvement of all cusps. Aortic valve area: 1.05 sq cm. Coronary Arteries: This patient has a rightdominant system with the origin of the coronary arteries being normal. Left main: Normal caliber vessel, which bifurcates into the LAD and LCX arteries. The vessel contains atheroma at its ostium, as well as distally, resulting into intermediate grade stenoses. The distal atheroma extends into the ostium of the left anterior descending coronary artery. LAD: Normal caliber vessel, which gives rise to two diagonal branches. The vessel and its branches contain diffusely distributed calcified atheroma, none of them appearing to result into a flow-limiting stenosis. LCx: Normal caliber, nondominant vessel, which gives rise to one obtuse marginal branch. The the LCx is patent, relatively free of atheroma. The proximal segment of the obtuse marginal branch contains calcified atheroma, which does not result into a flow limiting stenosis. RCA: Normal caliber, dominant vessel, which give rise to one right ventricular marginal branch, and bifurcates into the PDA and ZEUS branches. There are diffusely distributed calcified atheroma throughout entire length of the vessel, predominantly in the ostium of the proximal segment where flow-limiting stenosis cannot be ruled out. Myocardium Appearance \\T\\ Function: Left ventricle is normal in size and systolic function, with concentric hypertrophy. Biatrial dilatation is noted. Ejection Fraction: >70% IMPRESSION: Aortic valve disease. Coronary artery disease, with possible flow-limiting stenosis of the ostium and proximal segment of the RCA. 11/16/2018 [facility] Chest/Abd/Pelvis TAVR CTA EXAM: VIR CT angiogram thorax abdomen and pelvis. TAVR protocol INDICATION: 78 years old Female with aortic stenosis TECHNIQUE: Following the administration of intravenous contrast, 3 mm slices from the thoracic inlet through the pubic symphysis were obtained in arterial phase. Images are reviewed on 3D workstation. COMPARISON: None FINDINGS: Vascular Measurements: Ascending aorta: 31 mm x 30 mm Aortic arch: 25 mm x 22 mm Mid-descending thoracic aorta: 24 mm x 22 mm Aorta at diaphragm: 21 mm x 19 mm Aorta at celiac axis: 19 mm x 17 mm Aorta at superior mesenteric artery: 18 mm x 16 mm Mid-infrarenal aorta: 15 mm x 13 mm Right common iliac artery: 8 mm x 8 mm Right external iliac artery: 4 mm x 5 mm Right common femoral artery: 6 mm x 5 mm Left common iliac artery: 7 mm x 9 mm Left external iliac artery: 5 mm x 6 mm Left common femoral artery: 5 mm x 5 mm Right subclavian artery: 7 mm x 7 mm Left subclavian artery: 5 mm x 6 mm Calcific scores: Ascending aorta: 2 Aortic arch: 3 Descending thoracic aorta: 2 Aorta at diaphragm: 2 Suprarenal abdominal aorta: 3 Infrarenal abdominal aorta: 3 0 :none 1 :punctate calcifications 2 : <50% of vessel circumference is confluent calcification 3 : >50% of vessel circumference is confluent calcification Other vascular findings: Three-vessel coronary artery calcifications, better characterized on same day CTA coronary. Aortic and mitral valve calcifications. Moderate to severe atherosclerotic calcification of the distal aorta, mesenteric arteries, and iliac arteries. Diminutive distal aorta and iliac arteries. No dissection or aneurysm. No vessel occlusion. 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 Pulmonary artery is enlarged, measuring up to 30 mm. Nonvascular findings: Left upper lobe solid pulmonary nodule measures 27 x 17 mm (9-36). Lesion is surrounded by interlobular septal thickening and satellite nodules. Lesion abuts the left lateral aortic wall, without definite mediastinal invasion. An additional mixed solid and groundglass right upper lobe nodule measures 26 mm x 21 mm (9-50), and abuts the pleura. Additional groundglass micronodules, for example in the left upper lobe (9-31) and right middle lobe (9-82, 9-84) are nonspecific. Bands of scarring versus atelectasis in the bilateral lower and left upper lobes. Mild upper lobe emphysema. Prominent mediastinal lymph nodes are nonenlarged by CT size criteria, but are suspicious in the setting of adjacent lesions, for example within the aortopulmonary window. No pericardial effusion. Heart is not enlarged. Subcentimeter hypodense thyroid nodules. Liver, pancreas, and spleen are unremarkable. Status post cholecystectomy. Bilateral, low-attenuation adrenal thickening without discrete lesion. 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 Urinary bladder is collapsed, and therefore difficult to evaluate. The uterus and adnexa are not well visualized, due to atrophy or prior surgical removal. Large bowel, small bowel, and stomach are unremarkable. Appendix is normal. Multilevel degenerative changes throughout the thoracolumbar spine, with severe spinal canal stenosis at L3-L4. Disc osteophyte complexes at multiple levels in the lower thoracic spine, most prominent at T12-S1, also cause multilevel spinal canal stenosis. IMPRESSION: 1. CTA performed for TAVR planning, with measurements as indicated above. Diminutive distal aorta and iliac arteries. Moderate to severe atherosclerotic calcification within the abdominopelvic vessels. 2. Left upper lobe solid pulmonary nodule measures up to 27 mm, and is suspicious for malignancy. An additional mixed solid and groundglass right upper lobe nodule measures up to 26 mm, also suspicious for malignancy. 3. No definite distant metastases. Prominent mediastinal lymph nodes are nonenlarged by CT size criteria, but are suspicious in the setting of adjacent lesions. Bilateral low-attenuation adrenal thickening may represent hyperplasia or adrenal adenoma, although adrenal metastasis are not entirely excluded. 4. Multilevel spinal canal stenosis, most severe at L3-L4. Findings were communicated to the ordering practitioner Barbara Godinez by Dr. Corrales at 1808 on 11/19/2018. 11/16/2018 [facility] Chest 2 views DX EXAM: XR CHEST 2 VIEWS DATE: 11/15/2018 17:24 CDT INDICATION: Chest pain COMPARISON: None. TECHNIQUE: PA and lateral chest radiographs. FINDINGS: Lines, tubes and hardware: None. Lungs and pleura: Low lung volumes result in bibasilar vascular crowding and bibasilar subsegmental atelectasis. A partially ill defined opacity at the left upper lobe measures roughly 2 x 1.8 cm and is incompletely characterized. No pleural effusion. No pneumothorax. Heart and mediastinum: The heart size is normal for technique. Vascular calcifications are present at the aorta. Bones: No acute abnormality. IMPRESSION: 1. Partially ill-defined opacity involving the left upper lung measures up to 2 cm and is incompletely characterized on radiograph. Consider nonemergent chest CT versus PET/CT or biopsy for further characterization. 2. Low lung volumes with vascular cardiomegaly/subsegmental atelectasis. UT SECTION: ER 11/15/2018 [facility] Consultation Notes No Data Provided for This Section Discharge Summaries No Data Provided for This Section History and Physicals No Data Provided for This Section Vital Signs Vital Sign Value Date Comments Source Temperature Oral (F) 97.1 F 12/01/2018 [facility] Systolic (mm Hg) 104 12/01/2018 [facility] Diastolic (mm Hg) 75 12/01/2018 [facility] Respitory Rate 18 12/01/2018 [facility] Respitory Rate 22 12/01/2018 [facility] Systolic (mm Hg) 110 12/01/2018 [facility] Diastolic (mm Hg) 56 12/01/2018 [facility] Temperature Oral (F) 97.7 F 12/01/2018 [facility] Respitory Rate 20 12/01/2018 [facility] Systolic (mm Hg) 110 12/01/2018 [facility] Diastolic (mm Hg) 56 12/01/2018 [facility] Temperature Oral (F) 98.5 F 12/01/2018 [facility] Height 152.4 cm 11/22/2018 [facility] Height 152.4 cm 11/22/2018 [facility] Height 152.4 cm 11/22/2018 [facility] BMI Calculated 35.62 11/16/2018 [facility] Weight 82.727 11/16/2018 [facility] BMI Calculated 34.25 11/15/2018 [facility] Weight 79.545 11/15/2018 [facility] Heart Rate 72 11/15/2018 [facility] Systolic (mm Hg) 131 07/17/2018 [facility] Diastolic (mm Hg) 55 07/17/2018 [facility] Resp[facility] Rate 20 07/17/2018 [facility] Respitory Rate 20 07/17/2018 [facility] Systolic (mm Hg) 131 07/17/2018 [facility] Diastolic (mm Hg) 58 07/17/2018 [facility] Respitory Rate 13 07/17/2018 [facility] Systolic (mm Hg) 129 07/17/2018 [facility] Diastolic (mm Hg) 58 07/17/2018 [facility] Temperature Oral (F) 98.1 F 07/17/2018 [facility] Temperature Oral (F) 98.2 F 07/17/2018 [facility] BMI Calculated 35.23 07/17/2018 [facility] Weight 81.818 07/17/2018 [facility] Height 152.4 cm 07/17/2018 [facility] Weight 81.818 07/16/2018 [facility] BMI Calculated 35.23 07/16/2018 [facility] Height 152.4 cm 07/16/2018 [facility] Temperature Oral (F) 97.5 F 07/16/2018 [facility] Heart Rate 60 07/16/2018 [facility] Encounters Location Location Details Encounter Type Encounter Number Reason For Visit Attending Provider ADM Date DC Date Status Source [facility] Bedded Outpatient [id number] Car Love 07/17/2018 07/17/2018 [facility] Inpatient [id number] Katelyn Austin 11/15/2018 12/01/2018 [facility] Procedures Procedure Code Date Perfomer Comments Source Arthroplasty of knee [id number] [facility] Cardiac catheterization [id number] [facility] section [id number] [facility] Cholecystectomy [id number] [facility] Dilation and curettage [id number] [facility] Hysterectomy [id number] [facility] Operation [id number] [facility] Operation<sup>1</sup> [id number] TITANIUM JOCELYN-ORIF [facility] Arthroplasty of knee 12894057 [facility] Cardiac catheterization [id number] [facility] section [id number] [facility] Cholecystectomy [id number] [facility] Dilation and curettage [id number] [facility] Hysterectomy [id number] [facility] Operation [id number] [facility] Operation<sup>1</sup> [id number] TITANIUM JOCELYN-ORIF [facility] Assessment and Plan Assessment and Plan Date Source Extracted from:Title: HF Surgery Author: Tracey Culp Date: 12/01/18 [...] hemiarch and proximal innominate artery replacement Hemashield [place] grafts size 28mm AAR and size 8mm [...] tube suture and staple removal. Best contact [phone], Jai (son) [phone]. Extracted from:Title: Hemotherapy Consult Author: Whitley Kaur MD Date: [...] clinical condition. Health Status Allergies: Allergies (4) Active Reaction chlorhexidine topical None Documented codeine None Documented NKDA None Documented penicillins None Documented Current medications: (Selected) Inpatient Medications Ordered [...] apnea Histories Past Medical History: Active A-fib (24238752) Sleep apnea (200982668) Shortness of breath on exertion (678305640) HTN (hypertension) (2472056106) Acid reflux (292457688) Hyperlipidemia (70414629) Family History: Heart disease Father Heart attack Father Procedure history: Arthroplasty of knee (12535920). Cardiac catheterization (78928161). section (15433111). Dilation and curettage (98239831). Hysterectomy (310391268). Operation (1736814984). Comments: 07/16/2018 16:45 - Vanessa Hamilton RN TITANIUM JOCELYN-ORIF Operation ([id number]). Cholecystectomy (32790372). Social History Social and Psychosocial Habits Alcohol 07/16/2018 Use: Past Previous treatment: None Substance Abuse 07/16/2018 Use: None Tobacco 11/16/2018 Use: Former smoker Type: Cigarettes Exposure to Tobacco Smoke None Cigarette Smoking Last 365 Days No Reg Smoking Cessation Counseling No. Physical Examination VS/Measurements Vital Signs (last 24 hrs) Last Charted Temp Oral 97.9 DegF (NOV 20 07:15) Heart Rate Apical H 123bpm (NOV 20 16:00) SBP H 144mmHg (NOV 20 15:30) DBP 62 mmHg (NOV 20 15:30) SpO2 95 % (NOV 20 15:30) General: Mild distress. HENT: No bleeding from ET tube. . Respiratory: Respirations are non-labored, Symmetrical chest wall expansion. Support: Ventilator. Cardiovascular: Normal rate, No edema. Integumentary: Dry, [place]. Neurologic: No focal deficits, Sedated. Review / Management Results review: Labs (Last four charted values) WBC H 17.1 (NOV 19) 4.2 (CHANDLER 19) 4.0 (CHANDLER 18) 4.8 (CHANDLER 17) Hgb L 8.3 (CHANDLER 19) L 9.3 (CHANDLER 19) L 8.6 (CHANDLER 18) L 9.5 (CHANDLER 17) Hct L 24.8 (CHANDLER 19) L 29.9 (CHANDLER 19) L 28.0 (CHANDLER 18) L 30.8 (CHANDLER 17) Plt 156 (CHANDLER 19) 220 (CHANDLER 19) 201 (CHANDLER 18) 232 (CHANDLER 17) Na 137 (CHANDLER 19) 135 (CHANDLER 18) 139 (CHANDLER 17) 138 (CHANDLER 16) K 4.4 (CHANDLER 19) 3.8 (CHANDLER 18) 4.3 (CHANDLER 17) 3.8 (CHANDLER 16) CO2 25 (CHANDLER 19) 25 (CHANDLER 18) 26 (CHANDLER 17) 26 (CHANDLER 16) Cl 105 (CHANDLER 19) 102 (CHANDLER 18) 105 (CHANDLER 17) 105 (CHANDLER 16) Cr 0.74 (CHANDLER 19) 0.74 (CHANDLER 18) 0.90 (CHANDLER 17) 0.79 (CHANDLER 16) BUN L 6 (CHANDLER 19) 9 (CHANDLER 18) 13 (CHANDLER 17) 13 (CHANDLER 16) Glucose Random 88 (CHANDLER 19) 97 (CHANDLER 18) 90 (CHANDLER 17) 93 (CHANDLER 16) Mg 1.9 (CHANDLER 19) 2.0 (CHANDLER 18) 1.9 (CHANDLER 17) 2.1 (CHANDLER 16) Phos 3.2 (NOV 19) 3.2 (CHANDLER 18) 2.9 (CHANDLER 17) 2.9 (CHANDLER 16) Ca 10.3 (NOV 19) H 11.3 (NOV 18) H 10.8 (NOV 17) 9.7 (CHANDLER 16) PT H 25.0 (NOV 19) H 14.8 (NOV 19) H 15.8 (NOV 17) H 17.4 (NOV 16) INR H 2.32 (NOV 19) H 1.18 (NOV 19) H 1.29 (NOV 17) H 1.46 (CHANDLER 16) PTT H 42.3 (NOV 19) H 55.7 (NOV 19) H 37.9 (NOV 18) 34.8 (CHANDLER 17) Troponin <0.02 (NOV 14) . Laboratory Results Today's Lab Results : Laboratory [...] for the consult and will follow. Addendum by Earl Elliott MD on 11/21/2018 12:18 no further blood products needed. to OR this AM for closure. no further acute bleeding. monitor for acute bleeding. Extracted from:Title: AHF Cardiovascular Admission H&P * Author: Mal Guevara MD Date: 11/15/18 Impression and Plan Mrs Hopper is a [...] Diet: HH PPx: Eliquis Dispo: pending AVR fanny Pt will be seen and staffed by F team in the AM Reese Lee MD [facility] Cardiovascular Medicine General [employer] Instructor, PGY-4 MSO #: [phone]; Pager #: [phone] 12/01/2018 [facility] Plan of Care No Data Provided for This Section Social History Social History Date Source Social History TypeResponse Substance Abuse Use: None. Alcohol Past, Previous treatment: None. Smoking Status Former smoker; Type: Cigarettes; Exposure to Tobacco Smoke None; Cigarette Smoking Last 365 Days No; Reg Smoking Cessation Counseling No entered on: 07/17/18 07/16/2018 [facility] Social History TypeResponse Substance Abuse Use: None. Alcohol Past, Previous treatment: None. Smoking Status Former smoker; Type: Cigarettes; Exposure to Tobacco Smoke None; Cigarette Smoking Last 365 Days No; Reg Smoking Cessation Counseling No entered on: 11/16/18 07/16/2018 [facility] Family History No Data Provided for This Section Advance Directives No Data Provided for This Section Functional Status No Data Provided for This Section
--- OUTSIDE RECORDS SUMMARY | 2018-12-18 20:35 | XMS REPORT ---
Author Author [facility] Address Unknown Phone Unavailable Care Team Providers Care Electrochemist Name Role Phone Mor ROBBINS Unavailable Unavailable Problems This patient has no known problems. Allergies, Adverse Reactions, Alerts This patient has no known allergies or adverse reactions. Medications This patient has no known medications. Encounters Start Date/Time End Date/Time Encounter Type Admission Type Attending [facility] Care Facility Care Department Encounter ID 2018-12-18 11:33:00 2018-12-18 11:33:00 Outpatient [facility] [id number] 2018-11-15 22:18:00 2018-11-15 16:50:00 Inpatient U [facility] [id number] Results Test Description Test Time Test Comments Text Results Atomic Results Result Comments CHEST 2 VIEWS 2018-12-16 15:45:00 [facility] [address] [place] [address] Patient Name: CHANTEL FORREST MR #: [id number] : 1940 Age/Sex: 78/F Req #: [id number] Adm Physician: Ordered by: MARIANNA ROBBINS DO Report #: [id number] Location: [facility] Room/Bed: Procedure: [id number] DX/CHEST 2 VIEWS Exam Date: 12/16/18 Exam Time: 1531 REPORT STATUS: Signed EXAMINATION: CHEST 2 VIEWS INDICATION: Shortness of breath COMPARISON: None FINDINGS: TUBES and LINES: Sternotomy wires and hardware overlie the midline thorax. LUNGS: The lung volumes are low. There is perihilar fullness and indistinctness of the pulmonary vasculature. And area of focal opacity at the left lung apex may represent overlying shadow from the sternocostal junction versus a pulmonary parenchymal lesion. PLEURA: Bilateral pleural effusions left greater than right no pneumothorax. HEART AND MEDIASTINUM: Cardiomegaly. Atherosclerotic calcifications of the thoracic aorta. BONES AND SOFT TISSUES: No acute fracture or dislocation. Surgical clips and skin joe overlie the right anterior chest wall. UPPER ABDOMEN: No free air under the diaphragm. IMPRESSION: Low lung volumes with pulmonary interstitial edema and bilateral left greater than right pleural effusions. More focal opacity at the left lung apex may represent a pulmonary nodule or overlapping shadow from sternocostal junction. RECOMMENDATIONS: Chest CT on a non-urgent basis can be considered for further evaluation of possible left apical nodule. Signed by: Margaux Holt MD on 12/16/2018 3:52 PM Dictated By: MARGAUX HOLT MD 1550 Transcribed By: CLIFFORD on 12/16/18 574 COPY TO: MARIANNA ROBBINS DO
--- NOTE | 2018-12-18 21:50 | NUR ---
[facility] WAS CALLED AND SPOKE WITH [facility]'S PAPERWORK,ETC
[2018-12-18 22:32] LABS: BASOPHILS % 0.2 % (0.0-1.0); EOSINOPHILS # (AUTO) 0.1 (0.0-0.4); HEMOGLOBIN 9.2 g/dL (12.0-16.0); LYMPHOCYTES # (AUTO) 0.6 (1.0-3.2); LYMPHOCYTES % 12.7 % (18.0-39.1); MEAN CORPUSCULAR HEMOGLOBIN 26.7 pg (28-32); MEAN CORPUSCULAR HGB CONC 31.7 g/dL (31-35); MEAN CORPUSCULAR VOLUME 84.3 fL (81-99); MONOCYTES # (AUTO) 0.4 (0.2-0.8); MONOCYTES % 8.9 % (4.4-11.3); NEUTROPHILS # (AUTO) 3.5 (2.1-6.9); NEUTROPHILS % 73.7 % (38.7-80.0); PLATELET COUNT 295 x10e3/uL (140-360); RED BLOOD COUNT 3.44 x10e6/uL (3.6-5.1); RED CELL DISTRIBUTION WIDTH 20.1 % (11.7-14.4)
[2018-12-18 22:44] LABS: INR 1.56; PROTHROMBIN TIME 19.3 seconds (11.9-14.5)
[2018-12-18 22:45] LABS: PARTIAL THROMBOPLASTIN TIME 39.7 seconds (23.8-35.5)
[2018-12-18 22:53] LABS: ALBUMIN 3.1 g/dL (3.5-5.0); ALBUMIN/GLOBULIN RATIO 0.9 (0.8-2.0); ANION GAP 19.6 mmol/L (8-16)
[2018-12-18 22:56] LABS: POTASSIUM 2.6 mmol/L (3.5-5.1)
[2018-12-18] MEDS ORDERED: POTASSIUM CHLORIDE 20MEQ/100ML 100 ML IV STA ×2 (23:01)
[2018-12-18] MEDS ORDERED: POTASSIUM CHLORIDE 20 MEQ TAB CR PO STA (23:01)
--- NOTE | 2018-12-18 23:03 | NUR ---
home [facility] list obtained [facility] fax
[2018-12-18] MEDS ORDERED: AMIODARONE HCL200 MG (23:08)
[2018-12-18] MEDS ORDERED: FLUOXETINE HCL40 MG PO (23:08)
[2018-12-18] MEDS ORDERED: WARFARIN SOD 1 MG TAB PO ONE (23:15)
[2018-12-18] MEDS ORDERED: BUMETANIDE1 MG PO (23:15)
[2018-12-18] MEDS ORDERED: DOCUSATE SODIU100 MG PO (23:15)
[2018-12-18] MEDS ORDERED: COUMADIN3 MG PO (23:15)
[2018-12-18] MEDS ORDERED: MELATONIN3 MG PO (23:15)
[2018-12-18] MEDS ORDERED: ASPIRIN EC81 MG PO (23:15)
[2018-12-18] MEDS ORDERED: ALBUTEROL0.63 MG/3 (23:15)
[2018-12-18] MEDS ORDERED: FOSAMAX70 MG (23:15)
[2018-12-18] MEDS ORDERED: DIGOXIN125 MCG PO (23:15)
[2018-12-18] MEDS ORDERED: ONDANSETRON HCL INJ 2MG/ML 2ML 2 MG/ML VIAL IV STA (23:33)
[2018-12-18] MEDS ORDERED: ACETAMINOPHEN325 M1 PO (23:54)
[2018-12-18] MEDS ORDERED: PANTOPRAZOLE SO40 MG PO (23:54)
[2018-12-19] VITALS (8 sets, daily range): BP systolic 96–129; BP diastolic 46–58
--- OUTSIDE RECORDS SUMMARY | 2018-12-19 00:13 | XMS REPORT | Clinical Summary ---
Author Author [facility] Address Unknown Phone Unavailable Care Team Providers Care Net Fisher Name Role Phone Yoshi Carrasco MD PCP [...] (Primary Dx) 08/08/2018 Transcribe Access Orders after 12/18/2017 Immunizations Name Dates Previously Given Next Due [...] pain, anterior, left EXTREMITY LEFT 5:41 PM SOCIAL WORK ADMINISTRATOR after 12/18/2017 Results * XR Ankle 3+ Vw Left [...] findings and agree with the final report. [facility]-[id number] Procedure Note Interface, Radiology Results Incoming - [...] findings and agree with the final report. 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 [facility]-[id number] Procedure Note Interface, Radiology Results - 08/13/2018 [...] articular sclerosis at the TMT joint spaces. [facility]-[id number] Performing Organization Address City/State/Zipcode Phone Number [facility] [address] [place] [address] * Us duplex venous lower extremity (08/08/2018 5:41 PM SOCIAL WORK ADMINISTRATOR) Specimen Narrative Performed At [facility] DUPLEX VENOUS LOWER [facility]REM[facility]ICAL IND[facility]: M79.605 Pain in [...] of left lower extremity deep venous thrombosis. *[facility]-[id number] Procedure Note Interface, Radiology Results Incoming - 08/08/2018 5:48 PM SOCIAL WORK ADMINISTRATOR US DUPLEX VENOUS LOWER EXTREMITY LEFT CLINICAL [...] of left lower extremity deep venous thrombosis. *[facility]-[id number] Performing Organization Address City/State/Zipcode Phone Number [facility] [address] [place] [address] after 12/18/2017 Insurance Type Payer Benefit Subscriber ID Effective Phone Address Plan / Dates Group [facility] MEDICARE AARP xxxxxxxxx 2016-P MEDICARE resent COMPLETE [facility] Advance Directives Patient has advance care planning documents on file. For more information, yohannes mai contact: Richard Carrero [address] [facility] [place] [address]
--- OUTSIDE RECORDS SUMMARY | 2018-12-19 00:14 | XMS REPORT | Continuity of Care Document ---
Author Author [facility] Organization [facility] Address Unknown Phone Unavailable Care Team Providers Care Professor Of Literacy Name Role Phone [facility] Unavailable Unavailable Problems Problem Status Onset Date Classification Date Reported Comments Source F/U TAVR/STERNOTOMY Active 12/17/2018 [facility] AORTIC STENOSIS Active 11/15/2018 [facility] CHEST PAIN/SHORTNESS OF BREATH Active 11/15/2018 [facility] LT Active 07/10/2018 [facility] A-fib Active Problem 12/03/2018 [facility] Shortness of breath on exertion Active Problem 12/03/2018 [facility] Acid reflux Active Problem 12/03/2018 [facility] Hyperlipidemia Active Problem 12/03/2018 [facility] HTN (Confirmed) Active Problem 12/03/2018 [facility] Sleep apnea Active Problem 12/03/2018 [facility] NONRHEUMATIC AORTIC (VALVE) STENOSIS Active [facility] Medications Medication Details Route Status Patient Instructions [...] E - P Waste Black Inactive 12/01/2018 [facility] warfarin 2.5 mg oral tablet 2.5 mg, PO, Daily, # 30 tab, 0 Refill(s), other Active 12/01/2018 [facility] tramadol hydrochloride 50 MG Oral Tablet 50 mg=1 tab, PO, Q4H, PRN Pain, X 10 day, # 60 tab, 0 Refill(s), other Active 12/01/2018 [facility] warfarin 3 mg oral tablet 3 mg=1 tab, PO, Daily, # 90 tab, 0 Refill(s), other Inactive 12/01/2018 [facility] pantoprazole 40 mg oral enteric coated tablet 40 mg=1 tab, PO, BID, 0 Refill(s) Active 12/01/2018 [facility] Docusate Sodium 100 MG Oral Capsule 100 mg=1 cap, PO, BID, 0 Refill(s) Active 12/01/2018 [facility] Digoxin 0.125 MG Oral Tablet 0.125 mg=1 tab, PO, Daily, 0 Refill(s) Active 12/01/2018 [facility] bumetanide 1 mg oral tablet 1 mg=1 tab, PO, BID, 0 Refill(s) Active 12/01/2018 [facility] Aspirin 81 MG Chewable Tablet 81 mg=1 tab, PO, Daily, 0 Refill(s) Active 12/01/2018 [facility] AMIODarone 200 mg oral tablet 200 mg=1 tab, PO, BID, 0 Refill(s) Active 12/01/2018 [facility] Albuterol 0.833 MG/ML / Ipratropium [place] 0.167 MG/ML Inhalant Solution [DuoNeb] 3 mL, [facility], RQ6H, 0 Refill(s) Active 12/01/2018 [facility] Tramadol 50 mg, 1 tab, Route: PO, Drug form: TAB, ONCE, Dosing Weight 82.727, kg, Start date: 11/30/18 20:11:00 CDT, Stop date: 11/30/18 20:11:00 CDT, 0Notes: Not to exceed 400mg/day. (Same As: Ultram) Inactive 12/01/2018 [facility] Warfarin 2 mg, 1 tab, Route: PO, [...] E - P Waste Black Inactive 11/30/2018 [facility] Dulcolax Laxative 10 mg, 1 supp, Route: MN, Drug form: SUPP, ONCE, Dosing Weight 82.727, kg, Start date: 11/30/18 13:05:00 CDT, Stop date: 11/30/18 13:05:00 CDT, 0Notes: (Same As: Dulcolax, Bisco-Lax) Inactive 11/30/2018 [facility] Ranitidine 150 MG Oral Tablet 150 mg, 1 tab, Route: PO, Drug form: TAB, BID, Dosing Weight 82.727, kg, Start date: 11/30/18 9:00:00 CDT, Duration: 30 day, Stop date: 12/29/18 17:00:00 CDT No Longer Active 11/30/2018 [facility] famotidine 20 mg, 1 tab, Route: PO, Drug form: TAB, BID, Start date: 11/30/18 9:00:00 CDT, Duration: 30 day, Stop date: 12/29/18 17:00:00 CDT, 0Notes: (Same as: Pepcid) Inactive 11/30/2018 [facility] Warfarin 5 mg, 1 tab, Route: PO, [...] Waste Black (Same As: Coumadin) Inactive 11/29/2018 [facility] sennosides, [facility] 8.6 MG Oral Tablet 8.6 mg, 1 tab, Route: PO, Drug Form: TAB, Dosing Weight 82.727, kg, BID, Start date: 11/29/18 17:00:00 CDT, Duration: 30 day, Stop date: 12/29/18 9:00:00 CDT, 0Notes: (Same as: Senokot) No Longer Active 11/29/2018 [facility] Xylocaine Viscous 2% mucous membrane solution 15 mL, Route: PO, ONCE, Drug form: SOLN, Start date: 11/29/18 13:09:00 CDT, Stop date: 11/29/18 13:09:00 CDT, 0Notes: (Same as: Xylocaine) Inactive 11/29/2018 [facility] Al hydroxide/Mg hydroxide/simethicone 30 mL, Route: PO, Drug Form: SUSP, ONCE, Start date: 11/29/18 13:09:00 CDT, Stop date: 11/29/18 13:09:00 CDT, 0Notes: (aluminum hydroxide-magnesium hyd-simethicone [phone]/5ml 30 ml ud INDY) Inactive 11/29/2018 [facility] GI cocktail (aluminum hydroxide/magnesium hydroxide/lidocaine/simethicone) 30 ml, Route: PO, Drug Form: SUSP, Dosing Weight 82.727, kg, ONCE, Routine, Start date: 11/29/18 12:44:00 CDT, Stop date: 11/29/18 12:44:00 CDT Inactive 11/29/2018 [facility] Protonix 40 mg, 1 tab, Route: PO, Drug form: ECTAB, BID, Dosing Weight 82.727, kg, Start date: 11/29/18 10:05:00 CDT, Duration: 30 day, Stop date: 12/29/18 9:00:00 CDT, 0Notes: Tablet should not be chewed or crushed. (Same as: Protonix) No Longer Active 11/29/2018 [facility] Warfarin 5 mg, 1 tab, Route: PO, [...] Waste Black (Same As: Coumadin) Inactive 11/28/2018 [facility] Melatonin 3 MG Extended Release Tablet 3 mg, 1 tab, Route: PO, Drug Form: TAB, Dosing Weight 82.727, kg, Bedtime, Start date: 11/27/18 21:00:00 CDT, Duration: 30 day, Stop date: 12/26/18 21:00:00 CDT, 0Notes: (Same as: Melatonin) No Longer Active 11/28/2018 [facility] Warfarin 3 mg, 1 tab, Route: PO, [...] E - P Waste Black Inactive 11/27/2018 [facility] Milk of Magnesia 30 ml, Route: PO, Drug Form: SUSP, Dosing Weight 82.727, kg, Q6H, Start date: 11/26/18 18:00:00 CDT, Duration: 30 day, Stop date: 12/26/18 12:00:00 CDT, 0Notes: (Same as: Milk of Magnesia, MOM) No Longer Active 11/26/2018 [facility] mineral oil 30 ml, Route: PO, Drug Form: LIQ, Dosing Weight 82.727, kg, Q6H, PRN Constipation, Start date: 11/26/18 17:15:00 CDT, Duration: 30 day, Stop date: 12/26/18 17:14:00 CDT, 0 No Longer Active 11/26/2018 [facility] Lactulose 667 MG/ML Oral Solution 20 gm, 30 ml, Route: PO, Drug form: SYRP, Q6H, Dosing Weight 82.727, kg, PRN Constipation, Start date: 11/26/18 17:15:00 CDT, Duration: 30 day, Stop date: 12/26/18 17:14:00 CDT, 0Notes: (Same as:Chronulac) No Longer Active 11/26/2018 [facility] Bumetanide 1 mg, 1 tab, Route: PO, Drug form: TAB, BID, Dosing Weight 82.727, kg, Start date: 11/26/18 17:00:00 CDT, Duration: 30 day, Stop date: 12/26/18 9:00:00 CDTNotes: (Same As: Bumex) No Longer Active 11/26/2018 [facility] Saline Flush 0.9% 10 mL, Route: IVP, Drug Form: INJ, Dosing Weight 82.727, kg, Q8H, Start date: 11/26/18 16:00:00 CDT, Duration: 30 day, Stop date: 12/26/18 8:00:00 CDTNotes: (Same as: BD Posiflush) No Longer Active 11/26/2018 [facility] Lidocaine Hydrochloride 10 MG/ML Injectable Solution 5 mL, Route: INTRADERM, Dosing Weight 82.727, kg, ONCALL, For PICC line insertion., Start date: 11/26/18 14:00:00 CDT, Duration: 30 day, Stop date: 12/26/18 13:59:00 CDT Inactive 11/26/2018 [facility] Saline Flush 0.9% 10 mL, Route: IVP, Drug Form: INJ, Dosing Weight 82.727, kg, PRN, PRN Line Flush, Start date: 11/26/18 13:19:00 CDT, Duration: 30 day, Stop date: 12/26/18 13:18:00 CDTNotes: (Same as: BD Posiflush) No Longer Active 11/26/2018 [facility] heparin additive 25,000 unit [14 unit/kg/hr] + Premix Diluent Sodium Chloride 0.45% 500 mL 500 mL, Rate: 16.91 ml/hr, Infuse over: 29.6 hr, Route: IV, Dosing Weight 60.39 kg, Total Volume: 500 mL, Start date: 11/26/18 10:54:00 CDT, Duration: 30 day, Stop date: 12/26/18 10:53:00 CDT, 1.62, j3Ljpow: Total Concentration=50 unit/ ml Total ywoxux=771 ml Send Med Request 2 hours prior to next bag No Longer Active 11/26/2018 [facility] Digoxin 0.125 MG Oral Tablet 0.125 mg, 1 tab, Route: PO, Drug form: TAB, Daily, Dosing Weight 82.727, kg, Start date: 11/26/18 9:00:00 CDT, Duration: 30 day, Stop date: 12/25/18 9:00:00 CDTNotes: Take on an Empty Stomach (Same as: Lanoxin) No Longer Active 11/26/2018 [facility] Digoxin 0.25 MG Oral Tablet 0.25 mg, 1 tab, Route: PO, Drug form: TAB, ONCE, Dosing Weight 82.727, kg, Start date: 11/25/18 11:00:00 CDT, Stop date: 11/25/18 11:00:00 CDTNotes: Take on an Empty Stomach (Same as: Lanoxin) Inactive 11/25/2018 [facility] Bumetanide 2 mg, 8 mL, Route: IVP, Drug form: INJ, BID, Dosing Weight 82.727, kg, Start date: 11/25/18 11:00:00 CDT, Duration: 30 day, Stop date: 12/25/18 9:00:00 CDTNotes: (Same As: Bumex) No Longer Active 11/25/2018 [facility] Potassium Chloride 20 mEq, 15 mL, Route: PO, Drug form: LIQ, ONCE, Dosing Weight 82.727, kg, Start date: 11/25/18 10:12:00 CDT, Stop date: 11/25/18 10:12:00 CDTNotes: (Same as: Potassium Chloride) Inactive 11/25/2018 [facility] heparin additive 25,000 unit [400 unit/hr] + Premix Diluent Sodium Chloride 0.45% 500 mL 500 mL, Rate: 8 ml/hr, Infuse over: 62.5 hr, Route: IV, Dosing Weight 82.727 kg, Total Volume: 500 mL, Start date: 11/25/18 10:07:00 CDT, Duration: 30 day, Stop date: 12/25/18 10:06:00 CDT, 1.91, [id number]: Total Concentration=50 unit/ ml Total tqoihn=428 ml Send Med Request 2 hours prior to next bag No Longer Active 11/25/2018 [facility] Potassium Chloride 20 mEq, 15 mL, Route: NJ, Drug form: LIQ, PRN, Dosing Weight 82.727, kg, PRN Abnormal Lab Result, Start date: 11/25/18 8:50:00 CDT, Duration: 30 day, Stop date: 12/25/18 8:49:00 CDT, FOR ICU USE ONLYNotes: (Same as: Potassium Chloride) No Longer Active 11/25/2018 [facility] sodium phosphate 45 mmol, 15 mL, Route: [...] lumen from TPN. No Longer Active 11/25/2018 [facility] potassium phosphate 15 mmol, 5 mL, Route: [...] over 4 hours No Longer Active 11/25/2018 [facility] potassium phosphate-sodium phosphate 250 mg-280 mg-160 mg oral powder for reconstitution 2 pkt, Route: PO, Drug Form: PDR/REC, Dosing Weight 82.727, kg, PRN, PRN Abnormal Lab Result, FOR ICU USE ONLY, Start date: 11/25/18 8:50:00 CDT, Duration: 30 day, Stop date: 12/25/18 8:49:00 CDTNotes: (Same as: Phos-NaK) Each 1.5 gm pkt has 250mg phosphorous. Mix w/2.5oz water and stir. No Longer Active 11/25/2018 [facility] Magnesium Oxide 800 mg, 2 tab, Route: PO, Drug form: TAB, PRN, Dosing Weight 82.727, kg, PRN Abnormal Lab Result, FOR ICU USE ONLY, Start date: 11/25/18 8:50:00 CDT, Duration: 30 day, Stop date: 12/25/18 8:49:00 CDTNot es: (Same as: Mag-Ox 400) Magnesium oxide 560mc=135wa elemental magnesium Dose=____mg magnesium oxide (___mg elemental magnesium) No Longer Active 11/25/2018 [facility] Calcium Gluconate 1 gm, 10 mL, Route: IVPB, PRN, Dosing Weight 82.727, kg, PRN Abnormal Lab Result, Start date: 11/25/18 8:50:00 CDT, Duration: 30 day, Stop date: 12/25/18 8:49:00 CDT, FOR ICU USE ONLYNotes: WASTE: F/P - Sink; E - Municipal Trash Bin No Longer Active 11/25/2018 [facility] Magnesium Sulfate 2 gm, 50 mL, Route: IVPB, Drug form: INJ, PRN, Dosing Weight 82.727, kg, PRN Abnormal Lab Result, Start date: 11/25/18 8:50:00 CDT, Duration: 30 day, Stop date: 12/25/18 8:49:00 CDT, FOR ICU USE ONLYNotes: WASTE: F/P - Sink; E - Municipal Trash Bin No Longer Active 11/25/2018 [facility] Calcium Carbonate 500 MG Chewable Tablet 500 mg, 1 tab, Route: PO, Drug form: CHEWTAB, PRN, Dosing Weight 82.727, kg, PRN Abnormal Lab Result, FOR ICU USE ONLY, Start date: 11/25/18 8:50:00 CDT, Duration: 30 day, Stop date: 12/25/18 8:49:00 CDTNotes: (Same As: Tums) Calcium Carbonate 500 sb=441 mg elemental calcium Dose= mg calcium carbonate ( mg elemental calcium) No Longer Active 11/25/2018 [facility] Insulin regular 6 unit, 0.06 mL, Route: [...] days from Date No Longer Active 11/25/2018 [facility] Dextrose 50% Syringe 12.5 gm, 25 mL, Route: IVP, Drug Form: INJ, Dosing Weight 82.727, kg, PRN, PRN Blood Glucose Results, Start date: 11/25/18 8:08:00 CDT, Duration: 30 day, Stop date: 12/25/18 8:07:00 CDT No Longer Active 11/25/2018 [facility] Glucagon 1 mg, Route: IM, Drug form: PDR/INJ, PRN, Dosing Weight 82.727, kg, PRN Blood Glucose Results, Start date: 11/25/18 8:08:00 CDT, Duration: 30 day, Stop date: 12/25/18 8:07:00 CDT No Longer Active 11/25/2018 [facility] Amiodarone 200 mg, 1 tab, Route: PO, Drug form: TAB, BID, Dosing Weight 82.727, kg, Start date: 11/24/18 17:00:00 CDT, Duration: 30 day, Stop date: 12/24/18 9:00:00 CDT, 0Notes: (Same as: Cordarone) No Longer Active 11/24/2018 [facility] bumetanide 10 mg + 60 mL, Rate: Infuse as directed, Dosing Weight 82.727, kg, Route: IVPB, Total Volume: 100 mL, Start Date: 11/24/18 12:42:00 CDT, Duration: 30 day, Stop date: 12/24/18 12:41:00 CDT, Replace Every: 24 hrNotes: (Same as: Bumex) No Longer Active 11/24/2018 [facility] Bumex 0.5 mg, 2 mL, Route: IVP, Drug form: INJ, Daily, Dosing Weight 82.727, kg, Start date: 11/24/18 9:00:00 CDT, Duration: 30 day, Stop date: 12/23/18 9:00:00 CDTNotes: (Same As: Bumex) Inactive 11/24/2018 [facility] Bumex 0.5 mg, 2 mL, Route: IVP, Drug form: INJ, ONCE, Dosing Weight 82.727, kg, Start date: 11/24/18 4:22:00 CDT, Stop date: 11/24/18 4:22:00 CDTNotes: (Same As: Bumex) Inactive 11/24/2018 [facility] Bumex 0.5 mg, Route: IV, ONCE, Dosing Weight 82.727, kg, Start date: 11/24/18 3:00:00 CDT, Stop date: 11/24/18 3:00:00 CDT, Inactive 11/24/2018 [facility] AMIODarone 900 mg in D5W 500 ml [...] Wasted: ___ mg No Longer Active 11/23/2018 [facility] Amiodarone 150 mg, 3 mL, Route: IVPB, ONCE, Dosing Weight 82.727, kg, Start date: 11/23/18 8:30:00 CDT, Stop date: 11/23/18 8:30:00 CDTNotes: Central administration only for concentrations > 2 mg/ml. "Recommendation: Use an in-line filter during administration for continuous infusions to reduce the incidence of phlebitis" (Same as Codarone) MEDICATION WASTE Product Size: 150 mg Product Wasted: ___ mg Inactive 11/23/2018 [facility] Haldol 5 mg, 1 mL, Route: IM, Drug form: INJ, ONCE, Dosing Weight 82.727, kg, PRN Agitation, Start date: 11/23/18 7:00:00 CDTNotes: (Same as: Haldol) Inactive 11/23/2018 [facility] Ofirmev 1,000 mg, 100 mL, Route: IV, Drug form: INJ, ONCE, Dosing Weight 82.727, kg, for > or=50 kg, Start date: 11/23/18 5:15:00 CDT, Stop date: 11/23/18 5:15:00 CDTNotes: Infuse over 15 minutes Do not exceed 4gm/day of acetaminophen MEDICATION WASTE Product Size: 1000 mg Product Wasted: ___ mg Inactive 11/23/2018 [facility] Acetaminophen 1,000 mg, 100 mL, Route: IV, Drug form: INJ, ONCE, Dosing Weight 82.727, kg, Start date: 11/22/18 13:21:00 CDT, Stop date: 11/22/18 13:21:00 CDTNotes: Infuse over 15 minutes Do not exceed 4gm/day of ac etaminophen MEDICATION WASTE Product Size: 1000 mg Product Wasted: ___ mg Inactive 11/22/2018 [facility] cefepime 1 gm, Route: IVPB, [id number], Dosing Weight 82.727, kg, (CrCl >/=60 ml/min), Start date: 11/22/18 13:00:00 CDT, Duration: 3 day, Stop date: 11/25/18 5:00:00 CDT, ABX Indication: Surgical ProphylaxisNotes: (Same As: Maxipime) MEDICATION WASTE Product Size: 1000 mg Product Wasted: ___ mg No Longer Active 11/22/2018 [facility] Vancomycin 1,000 mg, Route: IVPB, Drug form: INJ, [id number], Dosing Weight 82.727, kg, Start date: 11/22/18 13:00:00 CDT, Duration: 3 day, Stop date: 11/25/18 1:00:00 CDT, ABX Indication: Surgical ProphylaxisNotes: TIME CRITICAL MEDICATION (Same As: Vancocin) Infusion rate 2001 mg: infuse over 2.5 hours For adult patients only: Round to nearest 250 mg per Medical Staff approval MEDICATION WASTE Product Size: 1000 mg Product Wasted: ___ mg No Longer Active 11/22/2018 [facility] bumetanide 10 mg + 60 mL, Rate: Infuse as directed, Dosing Weight 82.727, kg, Route: IV, Total Volume: 100 mL, Start Date: 11/22/18 12:09:00 CDT, Duration: 30 day, Stop date: 12/22/18 12:08:00 CDT, Replace Every: 24 hrNotes: (Same as: Bumex) No Longer Active 11/22/2018 [facility] chlorhexidine gluconate 40 MG/ML Medicated Liquid Soap 1 appl, Route: aRjesh RANGEL--W-, Drug form: SOAP, Start date: 11/22/18 9:00:00 CDT, Duration: 30 day, Stop date: 12/20/18 9:00:00 CDTNotes: (Same As: Hibiclens) No Longer Active 11/22/2018 [facility] Albuterol 0.833 MG/ML / Ipratropium [place] 0.167 MG/ML Inhalant Solution [DuoNeb] 3 mL, Route: NEB, Drug Form: SOLN, Dosing Weight 82.727, kg, RQ6H, Start date: 11/22/18 8:58:00 CDT, Duration: 30 day, Stop date: 12/22/18 8:00:00 CDTNotes: (Same as: Duoneb) No Longer Active 11/22/2018 [facility] Potassium Chloride 20 mEq, 100 mL, Route: IVPB, Drug form: INJ, ONCE, Dosing Weight 82.727, kg, Start date: 11/22/18 5:04:00 CDT, Stop date: 11/22/18 5:04:00 CDT, Central LineNotes: (Same as: KCL) Infuse no faster than 10 mEq/hr if given peripherally. Inactive 11/22/2018 [facility] Acetaminophen 650 MG Rectal Suppository 650 mg, 2 tab, Route: PO, Drug form: TAB, Q6H, Dosing Weight 82.727, kg, PRN For Temp > 100.4 F, Start date: 11/22/18 2:33:00 CDT, Duration: 30 day, Stop date: 12/22/18 2:32:00 CDTNotes: Do not exceed 4 gm/day. (Same as: Tylenol) No Longer Active 11/22/2018 [facility] atorvastatin 40 mg, 1 tab, Route: PO, Drug form: TAB, Bedtime, Dosing Weight 82.727, kg, Start date: 11/21/18 21:00:00 CDT, Duration: 30 day, Stop date: 12/20/18 21:00:00 CDTNotes: (Same as: Lipitor) Inactive 11/22/2018 [facility] chlorhexidine gluconate 1.2 MG/ML Mouthwash 15 ml, Route: S&SPIT, Q12H, Drug form: LIQ, Start date: 11/21/18 21:00:00 CDT, Duration: 2 week, Stop date: 12/05/18 9:00:00 CDTNotes: (Same As: Peridex) No Longer Active 11/22/2018 [facility] Potassium Chloride 20 mEq, 100 mL, Route: IVPB, Drug form: INJ, ONCE, Dosing Weight 82.727, kg, Start date: 11/21/18 16:50:00 CDT, Stop date: 11/21/18 16:50:00 CDT, Central LineNotes: (Same as: KCL) Infuse no faster than 10 mEq/hr if given peripherally. Inactive 11/21/2018 [facility] Bumex 1 mg, 4 mL, Route: IV, Drug form: INJ, TID, Dosing Weight 82.727, kg, Start date: 11/21/18 15:00:00 CDT, Duration: 30 day, Stop date: 12/21/18 13:00:00 CDTNotes: (Same As: Bumex) No Longer Active 11/21/2018 [facility] fentaNYL (ANES) Route: IV, Drug form: INJ, ONCE, Stop date: 11/21/18 13:49:00 CDT Inactive 11/21/2018 [facility] Naloxone 0.04 mg, 0.1 mL, Route: IVP, Drug form: INJ, Q2MIN, Dosing Weight 82.727, kg, PRN Narcotic Reversal, Start date: 11/21/18 13:47:00 CDT, Duration: 30 day, Stop date: 12/21/18 13:46:00 CDTNotes: Same as Narcan No Longer Active 11/21/2018 [facility] Fentanyl 600 microgram, 30 mL, Route: IV, SEAM FELLER Dose: 10 mcg, SEAM FELLER Lockout: 10 minutes, Continuous Basal Rate: 0 mg, 4 Hour Limit (In MCG): 240, Drug Form: INJ, Continuous, Start date: 11/21/18 13:47:00 CDT, Durati on: 30 day, Stop date: 12/21/18 13:46:00 CDTNotes: Concentration is 20 micrograms/ml No Longer Active 11/21/2018 [facility] Acetaminophen 325 MG / Hydrocodone Bitartrate 5 MG Oral Tablet 1 tab, Route: PO, Drug Form: TAB, Dosing Weight 82.727, kg, Q4H, PRN Pain Score 1-3, Start date: 11/21/18 13:47:00 CDT, Duration: 30 day, Stop date: 12/21/18 13:46:00 CDTNotes: (Same as: [place] 325/5) Do not exceed 4gm/day of acetaminophen. No Longer Active 11/21/2018 [facility] Docusate 100 mg, 1 cap, Route: PO, Drug form: CAP, BID, Dosing Weight 82.727, kg, PRN Constipation, Start date: 11/21/18 13:22:00 CDT, Duration: 30 day, Stop date: 12/21/18 13:21:00 CDTNotes: (Same as: Colace) (Do Not Crush) No Longer Active 11/21/2018 [facility] Nitroglycerin 0.4 mg, 1 tab, Route: SL, Drug form: TAB, Q5Min, Dosing Weight 82.727, kg, PRN Chest Pain, Start date: 11/21/18 13:22:00 CDT, Duration: 30 day, Stop date: 12/21/18 13:21:00 CDTNotes: (Same as:Nitroqu ick, Nitrostat) "Do Not Crush" Sublingual tablet No Longer Active 11/21/2018 [facility] norepinephrine (ANES) Route: IV, Drug form: INJ, ONCE, Stop date: 11/21/18 11:17:00 CDT Inactive 11/21/2018 [facility] ceFAZolin (ANES) Route: IV, Drug form: INJ, ONCE, Stop date: 11/21/18 10:47:00 CDT Inactive 11/21/2018 [facility] rocuronium (ANES) Route: IV, Drug form: INJ, ONCE, Stop date: 11/21/18 10:32:00 CDT Inactive 11/21/2018 [facility] vancomycin (ANES) 1000 mg Route: IV, Drug form: INJ, Start date: 11/21/18 10:00:00 CDT, Stop date: 11/21/18 11:00:00 CDT Inactive 11/21/2018 [facility] Vancomycin 1 gm, Route: IVPB, Drug form: [...] mg Product Wasted: ___ mg Inactive 11/21/2018 [facility] Isolyte S PH 7.4 (ANES) 1000 mL Route: IV, Total Volume: 1,000, Start date: 11/21/18 9:49:00 CDT, Stop date: 11/21/18 10:49:00 CDT Inactive 11/21/2018 [facility] pantoprazole 40 mg, Route: IVP, Drug form: INJ, Daily, Dosing Weight 82.727, kg, Patient is NPO, Start date: 11/21/18 9:00:00 CDT, Duration: 30 day, Stop date: 12/20/18 9:00:00 CDTNotes: For IV push reconstitute with 10 ml 0.9% sodium chloride and push over 2 minutes. (Same as: Protonix) No Longer Active 11/21/2018 [facility] chlorhexidine gluconate 1.2 MG/ML Mouthwash 15 mL, Route: Swab Mouth, Q12H, Drug form: LIQ, Start date: 11/21/18 9:00:00 CDT, Duration: 30 day, Stop date: 12/20/18 21:00:00 CDTNotes: (Same As: Peridex) No Longer Active 11/21/2018 [facility] Mupirocin 0.02 MG/MG Topical Ointment 1 appl, Route: NASAL, BID, Drug form: OINT, Start date: 11/21/18 9:00:00 CDT, Duration: 5 day, Stop date: 11/25/18 17:00:00 CDT No Longer Active 11/21/2018 [facility] Miralax 17 gm, 1 pkt, Route: PO, Drug form: PWDR, Daily, Dosing Weight 82.727, kg, Start date: 11/21/18 9:00:00 CDT, Duration: 30 day, Stop date: 12/20/18 9:00:00 CDTNotes: Dissolve in 8 oz of water or juice. (Same as: Miralax) No Longer Active 11/21/2018 [facility] Docusate 100 mg, 1 cap, Route: PO, Drug form: CAP, BID, Dosing Weight 82.727, kg, Start date: 11/21/18 9:00:00 CDT, Duration: 30 day, Stop date: 12/20/18 17:00:00 CDTNotes: (Same as: Colace) (Do Not Crush) No Longer Active 11/21/2018 [facility] Aspirin 325 MG Enteric Coated Tablet 325 mg, 1 tab, Route: PO, Drug form: ECTAB, Daily, Dosing Weight 82.727, kg, Start date: 11/21/18 9:00:00 CDT, Duration: 30 day, Stop date: 12/20/18 9:00:00 CDTNotes: (Do Not Crush) Do not crush or chew. Inactive 11/21/2018 [facility] Aspirin 81 MG Chewable Tablet 81 mg, 1 tab, Route: PO, Drug form: CHEWTAB, Daily, Dosing Weight 82.727, kg, Start date: 11/21/18 9:00:00 CDT, Duration: 30 day, Stop date: 12/20/18 9:00:00 CDTNotes: Take with food. No Longer Active 11/21/2018 [facility] Cefazolin 2 gm, 20 mL, Route: IVPB, Drug form: SOLN, Q8H, Dosing Weight 82.727, kg, Start date: 11/21/18 7:30:00 CDT, Duration: 3 doses or times, Stop date: 11/21/18 23:30:00 CDT, ABX Indication: Surgical Prop hylaxisNotes: (Same as Ancef) Inactive 11/21/2018 [facility] ocular lubricant 1 appl, Route: BOTH EYES, Q6H, Drug form: OINT, Start date: 11/21/18 6:00:00 CDT, Duration: 30 day, Stop date: 12/21/18 0:00:00 CDTNotes: (Same as: Lacri-Lube, Puralube, Duratears Naturale, Artificial Tears, and Tears Again ) No Longer Active 11/21/2018 [facility] sodium bicarbonate 8.4% 50 mEq, 50 ml, Route: IVP, Drug Form: INJ, Dosing Weight 82.727, kg, ONCE, Start date: 11/21/18 2:45:00 CDT, Stop date: 11/21/18 2:45:00 CDTNotes: (sodium bicarb 8.4% (1 mEq/ml) 50 ml VL) Inactive 11/21/2018 [facility] Albuterol 0.833 MG/ML / Ipratropium [place] 0.167 MG/ML Inhalant Solution [DuoNeb] 3 ml, Route: NEB, Drug Form: SOLN, Dosing Weight 82.727, kg, PRN, PRN Respiratory Pathway, Start date: 11/21/18 2:45:00 CDT, Duration: 30 day, Stop date: 12/21/18 2:44:00 CDTNotes: (Same as: Duoneb) No Longer Active 11/21/2018 [facility] magnesium sulfate (ANES) Route: IV, Drug form: INJ, ONCE, Stop date: 11/21/18 1:28:00 CDT Inactive 11/21/2018 [facility] ceFAZolin (ANES) Route: IV, Drug form: INJ, ONCE, Stop date: 11/21/18 1:28:00 CDT Inactive 11/21/2018 [facility] propofol (ANES) Route: IV, Drug form: INJ, ONCE, Stop date: 11/21/18 1:28:00 CDT Inactive 11/21/2018 [facility] Fentanyl 600 microgram, 30 mL, Route: IV, SEAM FELLER Dose: 10 mcg, SEAM FELLER Lockout: 10 minutes, Continuous Basal Rate: 0 mg, 4 Hour Limit (In MCG): 240, Drug Form: INJ, Continuous, Start date: 11/21/18 1:02:00 CDT, Duratio n: 30 day, Stop date: 12/21/18 1:01:00 CDTNotes: Concentration is 20 micrograms/ml No Longer Active 11/21/2018 [facility] Naloxone 0.04 mg, 0.1 mL, Route: IVP, Drug form: INJ, Q2MIN, Dosing Weight 82.727, kg, PRN Narcotic Reversal, Start date: 11/21/18 1:02:00 CDT, Duration: 30 day, Stop date: 12/21/18 1:01:00 CDTNotes: Same as Narcan No Longer Active 11/21/2018 [facility] Dextrose 50% Syringe 12.5 gm, 25 mL, Route: IVP, Drug Form: INJ, Dosing Weight 82.727, kg, PRN, PRN Blood Glucose Results, Start date: 11/21/18 1:02:00 CDT, Duration: 30 day, Stop date: 12/21/18 1:01:00 CDT No Longer Active 11/21/2018 [facility] Insulin regular 100 unit + 99 mL, Rate: Start Insulin Drip, Dosing Weight 82.727, kg, Route: IVPB, Total Volume: 100, Start Date: 11/21/18 1:02:00 CDT, Duration: 30 day, Stop date: 12/21/18 1:01:00 CDT, Replace Every: 24 hrNotes: Final Concentration 1unit/1ml WASTE: F/P - Black; E - Conscious Box Trash Bin No Longer Active 11/21/2018 [facility] Acetaminophen 325 MG / Hydrocodone Bitartrate 10 MG Oral Tablet 2 tab, Route: PO, Drug Form: TAB, Dosing Weight 82.727, kg, Q4H, PRN Pain Score 4-6, Start date: 11/21/18 1:02:00 CDT, Duration: 30 day, Stop date: 12/21/18 1:01:00 CDTNotes: Do not exceed 4gm/day of acetaminophen. (Same as: [place] 325/10) No Longer Active 11/21/2018 [facility] Cardene 40 mg in NS 200 mL [...] /1 ml ) No Longer Active 11/21/2018 [facility] calcium gluconate (ANES) Route: IV, Drug form: INJ, ONCE, Stop date: 11/21/18 0:47:00 CDT Inactive 11/21/2018 [facility] tranexamic acid (ANES) Route: IV, Drug form: INJ, ONCE, Stop date: 11/21/18 0:21:00 CDT Inactive 11/21/2018 [facility] fentaNYL (ANES) Route: IV, Drug form: INJ, ONCE, Stop date: 11/21/18 0:05:00 CDT Inactive 11/21/2018 [facility] potassium chloride (ANES) 0.2 mEq Route: IV, Drug form: INJ, Start date: 11/20/18 23:44:00 CDT, Stop date: 11/21/18 0:44:00 CDT No Longer Active 11/21/2018 [facility] magnesium sulfate (ANES) Route: IV, Drug form: INJ, ONCE, Stop date: 11/20/18 23:27:00 CDT Inactive 11/21/2018 [facility] protamine (ANES) 10 mg Route: IV, Drug form: INJ, Start date: 11/20/18 23:23:00 CDT, Stop date: 11/21/18 0:23:00 CDT No Longer Active 11/21/2018 [facility] EPINEPHrine (ANES) 16 microgram Route: IV, Drug form: INJ, Start date: 11/20/18 22:37:00 CDT, Stop date: 11/20/18 23:37:00 CDT Inactive 11/21/2018 [facility] Insulin regular (ANES) 1 unit Route: IV, Drug form: INJ, Start date: 11/20/18 22:28:00 CDT, Stop date: 11/20/18 23:28:00 CDT Inactive 11/21/2018 [facility] heparin (ANES) Route: IV, Drug form: INJ, ONCE, Stop date: 11/20/18 20:42:00 CDT Inactive 11/21/2018 [facility] fentaNYL (ANES) Route: IV, Drug form: INJ, ONCE, Stop date: 11/20/18 20:37:00 CDT Inactive 11/21/2018 [facility] ceFAZolin (ANES) Route: IV, Drug form: INJ, ONCE, Stop date: 11/20/18 20:31:00 CDT Inactive 11/21/2018 [facility] midazolam (ANES) Route: IV, Drug form: SOLN, ONCE, Stop date: 11/20/18 20:31:00 CDT Inactive 11/21/2018 [facility] Sodium Chloride 0.9% (titrate) 99 mL + Insulin regular 100 unit 99 mL, Rate: Start Insulin Drip, Dosing Weight 82.727, kg, Route: IVPB, Total Volume: 99, Start Date: 11/20/18 20:29:00 CDT, Duration: 30 day, Stop date: 12/20/18 20:28:00 CDT, Replace Every: 24 hr Inactive 11/21/2018 [facility] Dextrose 50% Syringe 50 mL, Route: IVP, Dosing Weight 82.727, kg, PRN, PRN Blood Glucose Results, Start date: 11/20/18 20:29:00 CDT, Duration: 30 day, Stop date: 12/20/18 20:28:00 CDT Inactive 11/21/2018 [facility] Dextrose 50% Syringe 25 gm, 50 mL, Route: IVP, Drug Form: INJ, Dosing Weight 82.727, kg, PRN, PRN Blood Glucose Results, Start date: 11/20/18 20:24:00 CDT, Duration: 3 hr, Stop date: 11/20/18 23:23:00 CDT Inactive 11/21/2018 [facility] Insulin regular 100 unit + 99 mL, Rate: call center team leader to OR 2, Dosing Weight 82.727, kg, Route: IVPB, Total Volume: 100, Start Date: 11/20/18 20:24:00 CDT, Duration: 3 hr, Stop date: 11/20/18 23:23:00 CDT, Replace Every: 24 hrNotes: Final Concentration 1unit/1ml WASTE: F/P - Black; E - Municipal Trash Bin Inactive 11/21/2018 [facility] Epinephrine 4 mg, 4 mL, Rate: ONCALL [...] mg Product Wasted: ___ mg Inactive 11/21/2018 [facility] Norepinephrine 8 mg, 8 mL, Rate: call center team leader to OR 2, Start Dose: 0.05 microgram/kg/min, Titration: 0.05 microgram/kg/min every 2 - 5 minutes, Goal(s): MAP >=65 mmHg, Max Dose: 1 microgram/kg/min, Route: IV, Dosing Weight 82.727 kg, Total Volume: 250, Start date: 11/20...Notes: Not for direct administration - DILUTE. Protect from light. (Same as:Levophed). Administer by either central venous catheter or peripherally-inserted central catheter (PICC) line. Inactive 11/21/2018 [facility] Sodium Chloride 0.9% IV (ANES) 500 mL + tranexamic acid (ANES) 1000 mg Route: IV, Drug form: INJ, Start date: 11/20/18 20:00:00 CDT, Stop date: 11/20/18 21:00:00 CDT Inactive 11/21/2018 [facility] Sodium Chloride 0.9% (titrate) 250 mL 250 mL, Rate: To prime line and flush remaining blood products., Dosing Weight 82.727, kg, Route: IV, Total Volume: 250, Start Date: 11/20/18 19:27:00 CDT, Duration: 30 day, Stop date: 12/20/18 19:26:00 CDT, Replace Every: 24 hr No Longer Active 11/21/2018 [facility] PlasmaLyte A PH-7.4 (ANES) 1000 mL Route: IV, Total Volume: 1,000, Start date: 11/20/18 19:27:00 CDT, Stop date: 11/20/18 20:27:00 CDT Inactive 11/21/2018 [facility] calcium chloride (ANES) Route: IV, Drug form: INJ, ONCE, Stop date: 11/20/18 19:24:00 CDT Inactive 11/21/2018 [facility] sodium bicarbonate (ANES) 1 mEq Route: IV, Drug form: INJ, Start date: 11/20/18 18:53:00 CDT, Stop date: 11/20/18 19:53:00 CDT Inactive 11/20/2018 [facility] heparin (ANES) Route: IV, Drug form: INJ, ONCE, Stop date: 11/20/18 17:32:00 CDT Inactive 11/20/2018 [facility] propofol (ANES) Route: IV, Drug form: INJ, ONCE, Stop date: 11/20/18 17:11:00 CDT Inactive 11/20/2018 [facility] ceFAZolin (ANES) Route: IV, Drug form: INJ, ONCE, Stop date: 11/20/18 17:11:00 CDT Inactive 11/20/2018 [facility] rocuronium (ANES) Route: IV, Drug form: INJ, ONCE, Stop date: 11/20/18 17:06:00 CDT Inactive 11/20/2018 [facility] lidocaine (ANES) Route: IV, Drug form: INJ, ONCE, Stop date: 11/20/18 17:06:00 CDT Inactive 11/20/2018 [facility] fentaNYL (ANES) Route: IV, Drug form: INJ, ONCE, Stop date: 11/20/18 17:06:00 CDT Inactive 11/20/2018 [facility] PlasmaLyte A PH-7.4 (ANES) 1000 mL Route: IV, Total Volume: 1,000, Start date: 11/20/18 15:45:00 CDT, Stop date: 11/20/18 16:45:00 CDT Inactive 11/20/2018 [facility] Ondansetron 4 mg, 2 mL, Route: IVP, Drug form: INJ, Q8H, Dosing Weight 82.727, kg, PRN Nausea, Start date: 11/19/18 18:43:00 CDT, Duration: 30 day, Stop date: 12/19/18 18:42:00 CDTNotes: (Same as: Grazyna) MEDICATION WASTE Product Size: 4 mg Product Wasted: ___ mg No Longer Active 11/19/2018 [facility] Sodium Chloride 0.9% (titrate) 250 mL 250 mL, Rate: To prime line and flush remaining blood products., Dosing Weight 82.727, kg, Route: IV, Total Volume: 250, Start Date: 11/19/18 8:01:00 CDT, Duration: 30 day, Stop date: 12/19/18 8:00:00 CDT, Replace Every: 24 hr No Longer Active 11/19/2018 [facility] Golytely 4,000 ml, Route: PO, Drug Form: PDR/REC, Dosing Weight 82.727, kg, ONCE, Start date: 11/18/18 23:13:00 CDT, Stop date: 11/18/18 23:13:00 CDTNotes: (polyethylene glycol electrolyte solution 4 Liter bottle) (Same as: Golytely, Colyte) No Longer Active 11/19/2018 [facility] Iohexol 145 mL, Route: IVP, Drug Form: SOLN, Dosing Weight 82.727, kg, ONCALL, STAT, Start date: 11/18/18 14:06:00 CDT, Duration: 1 doses or times, Dose=2.2ml/kg, Max [id number] -- "To be infused by Radiology Staff ONLY" Inactive 11/18/2018 [facility] heparin 25,000 unit [14 unit/kg/hr] + Premix Diluent Sodium Chloride 0.45% 500 mL 500 mL, Rate: 16.88 ml/hr, Infuse over: 29.6 hr, Route: IV, Dosing Weight 60.3 kg, Total Volume: 500, Start date: 11/18/18 8:46:00 CDT, Duration: 30 day, Stop date: 12/18/18 8:45:00 CDT, 1.62, m2 No Longer Active 11/18/2018 [facility] heparin additive 25,000 unit [14 unit/kg/hr] + Premix Diluent Dextrose 5% 500 mL 500 mL, Rate: 23.16 ml/hr, Infuse over: 21.6 hr, Route: IV, Dosing Weight 82.727 kg, Total Volume: 500 mL, Start date: 11/18/18 8:40:00 CDT, Duration: 30 day, Stop date: 12/18/18 8:39:00 CDT, 1.91, m2 Inactive 11/18/2018 [facility] Ferrlecit 125 mg, 10 mL, Route: IVPB, Daily, Dosing Weight 82.727, kg, Start date: 11/16/18 16:21:00 CDT, Duration: 8 doses or times, Stop date: 11/23/18 9:00:00 CDTNotes: (sodium ferric gluconate complex (elemental iron) 62.5 mg/5 ml INJ) "Limited stability. Use immediately after admixture" (Same as: Ferrlecit) MEDICATION WASTE Product Size: 62.5 mg Product Wasted: ___ mg No Longer Active 11/16/2018 [facility] famotidine 20 mg, 1 tab, Route: PO, Drug form: TAB, Daily, Start date: 11/16/18 9:00:00 CDT, Duration: 30 day, Stop date: 12/15/18 9:00:00 CDTNotes: (Same as: Pepcid) No Longer Active 11/16/2018 [facility] diltiazem 12 hour extended release 120 mg, 1 cap, Route: PO, Drug form: ERCAP, Daily, Dosing Weight 79.545, kg, Start date: 11/16/18 9:00:00 CDT, Duration: 30 day, Stop date: 12/15/18 9:00:00 CDTNotes: (Same as: Cardizem CD) Do Not Crush Before meals. No Longer Active 11/16/2018 [facility] Protonix 40 mg, 1 tab, Route: PO, Drug form: ECTAB, Daily, Start date: 11/16/18 9:00:00 CDT, Duration: 30 day, Stop date: 12/15/18 9:00:00 CDTNotes: Tablet should not be chewed or crushed. (Same as: Protonix) No Longer Active 11/16/2018 [facility] Hydrochlorothiazide 25 MG / Triamterene 37.5 MG Oral Capsule 1 tab, Route: PO, Drug Form: TAB, Dosing Weight 79.545, kg, Daily, Start date: 11/16/18 9:00:00 CDT, Duration: 30 day, Stop date: 12/15/18 9:00:00 CDTNotes: (triamterene-hydrochlorothiazide 37.5-25 mg TAB) (Same As: Maxzide-25) No Longer Active 11/16/2018 [facility] Eliquis 5 mg, 1 tab, Route: PO, Drug form: TAB, Q12H, Dosing Weight 79.545, kg, Start date: 11/16/18 9:00:00 CDT, Duration: 30 day, Stop date: 12/15/18 21:00:00 CDTNotes: Same as: Eliquis No Longer Active 11/16/2018 [facility] Ranitidine 150 MG Oral Tablet 150 mg, 1 tab, Route: PO, Drug form: TAB, BID, Dosing Weight 79.545, kg, Start date: 11/16/18 9:00:00 CDT, Duration: 30 day, Stop date: 12/15/18 17:00:00 CDT Inactive 11/16/2018 [facility] Fluoxetine 40 mg, 2 cap, Route: PO, Drug form: CAP, Daily, Dosing Weight 79.545, kg, Start date: 11/16/18 9:00:00 CDT, Duration: 30 day, Stop date: 12/15/18 9:00:00 CDTNotes: (Same as: Zhane Carrenoafesarita) No Longer Active 11/16/2018 [facility] Omeprazole 40 mg, Route: PO, Daily, Dosing Weight 79.545, kg, Start date: 11/16/18 9:00:00 CDT, Duration: 30 day, Stop date: 12/15/18 9:00:00 CDT Inactive 11/16/2018 [facility] Alendronic acid 70 MG Oral Tablet 70 mg=1 tab, PO, Q7D, 0 Refill(s) Active 11/16/2018 [facility] allopurinol 100 mg oral tablet 100 mg=1 tab, PO, TID, 0 Refill(s) No Longer Active 11/16/2018 [facility] bisoprolol 5 mg oral tablet 5 mg=1 tab, PO, Q12H, 0 Refill(s) No Longer Active 11/16/2018 [facility] apixaban 5 MG Oral Tablet [Eliquis] 5 mg, PO, Q12H, 0 Refill(s) No Longer Active 11/16/2018 [facility] simvastatin 20 mg oral tablet 20 mg=1 tab, PO, Bedtime, 0 Refill(s) No Longer Active 11/16/2018 [facility] diltiazem 120 mg oral capsule, extended release 120 mg=1 cap, PO, Daily, 0 Refill(s) No Longer Active 11/16/2018 [facility] Hydrochlorothiazide 25 MG / Triamterene 37.5 MG Oral Capsule 1 cap, PO, Daily, 0 Refill(s) No Longer Active 11/16/2018 [facility] ondansetron 4 mg oral tablet 4 mg=1 tab, PO, Q8H, PRN Nausea, 0 Refill(s) Active 11/16/2018 [facility] Bisoprolol 5 mg, 1 tab, Route: PO, Drug form: TAB, BID, Dosing Weight 79.545, kg, Start date: 11/16/18 0:45:00 CDT, Duration: 30 day, Stop date: 12/15/18 17:00:00 CDTNotes: (Same As: Zebeta) No Longer Active 11/16/2018 [facility] Simvastatin 20 mg, 1 tab, Route: PO, Drug form: TAB, Bedtime, Dosing Weight 79.545, kg, Start date: 11/15/18 23:58:00 CDT, Duration: 30 day, Stop date: 12/15/18 21:00:00 CDTNotes: (Same as: Zocor) No Longer Active 11/16/2018 [facility] Calcium Gluconate 3 gm, 30 mL, Route: IVPB, PRN, Dosing Weight 79.545, kg, PRN Abnormal Lab Result, For NON-ICU Patients Only., Start date: 11/15/18 23:14:00 CDT, Duration: 30 day, Stop date: 12/15/18 23:13:00 CDTNotes: WASTE: F/P - Sink; E - Municipal Trash Bin No Longer Active 11/16/2018 [facility] Magnesium Sulfate 2 gm, 50 mL, Route: IVPB, Drug form: INJ, PRN, Dosing Weight 79.545, kg, PRN Abnormal Lab Result, For NON-ICU Patients Only., Start date: 11/15/18 23:14:00 CDT, Duration: 30 day, Stop date: 12/15/18 23:13:00 CDTNotes: WASTE: F/P - Sink; E - Municipal Trash Bin No Longer Active 11/16/2018 [facility] sodium phosphate 30 mmol, 10 mL, Route: [...] lumen from TPN. No Longer Active 11/16/2018 [facility] potassium phosphate 30 mmol, 10 mL, Route: [...] over 4 hours No Longer Active 11/16/2018 [facility] Potassium Chloride 10 mEq, 50 mL, Route: IVPB, Drug form: INJ, PRN, Dosing Weight 79.545, kg, PRN Abnormal Lab Result, For NON-ICU Patients Only, Start date: 11/15/18 23:14:00 CDT, Duration: 30 day, Stop date: 12/15/18 23:13:00 CDTNotes: (Same as: KCL) Infuse over 2 hours. No Longer Active 11/16/2018 [facility] potassium phosphate-sodium phosphate 250 mg-280 mg-160 mg oral powder for reconstitution 2 pkt, Route: PO, Drug Form: PDR/REC, Dosing Weight 79.545, kg, PRN, PRN Abnormal Lab Result, For NON-ICU Patients Only, Start date: 11/15/18 23:14:00 CDT, Duration: 30 day, Stop date: 12/15/18 23:13:00 CDTNotes: (Same as: Phos-NaK) Each 1.5 gm pkt has 250mg phosphorous. Mix w/2.5oz water and stir. No Longer Active 11/16/2018 [facility] Magnesium Oxide 800 mg, 2 tab, Route: PO, Drug form: TAB, PRN, Dosing Weight 79.545, kg, PRN Abnormal Lab Result, For NON-ICU Patients Only., Start date: 11/15/18 23:14:00 CDT, Duration: 30 day, Stop date: 12/15/18 23:13:00 CDTNotes: (Same as: Mag-Ox 400) Magnesium oxide [id number] elemental magnesium Dose=____mg magnesium oxide (___mg elemental magnesium) No Longer Active 11/16/2018 [facility] Nitroglycerin 0.4 mg, 1 tab, Route: SL, Drug form: TAB, Q5Min, Dosing Weight 81.818, kg, PRN Chest Pain, Start date: 07/17/18 11:34:00 MACHINE PAINT MIXER, Duration: 3 doses or times, Stop date: Limited # of timesNotes: (Same as: Nitroquick, Nitrostat) "Do Not Crush" Sublingual tablet Inactive 07/17/2018 [facility] Morphine 2 mg, 1 mL, Route: IVP, Drug form: SOLN, Q2H, Dosing Weight 81.818, kg, PRN Pain Score 4-6, Start date: 07/17/18 11:34:00 MACHINE PAINT MIXER, Duration: 30 day, Stop date: 08/16/18 11:33:00 CDT Inactive 07/17/2018 [facility] Morphine 2 mg, Route: IVP, ONCE, Dosing Weight 81.818, kg, Start date: 07/17/18 11:32:00 MACHINE PAINT MIXER, Stop date: 07/17/18 11:32:00 MACHINE PAINT MIXER Inactive 07/17/2018 [facility] FLUoxetine 40 mg oral capsule 40 mg=1 cap, PO, Daily, # 30 cap, 0 Refill(s) Active 07/16/2018 [facility] Triamterene PO, BID, 0 Refill(s) Active 07/16/2018 [facility] diltiazem 120 mg oral tablet 120 mg=1 tab, PO, TID, 0 Refill(s) Active 07/16/2018 [facility] Xarelto PO, 0 Refill(s) Active 07/16/2018 [facility] Omeprazole PO, Daily, 0 Refill(s) Active 07/16/2018 [facility] isosorbide dinitrate 40 mg oral tablet 40 mg=1 tab, PO, BID, 0 Refill(s) Active 07/16/2018 [facility] bisoprolol 5 mg oral tablet 5 mg=1 tab, PO, Daily, # 90 tab, 0 Refill(s) Active 07/16/2018 [facility] Ranitidine 150 MG Oral Tablet 150 mg=1 tab, PO, BID, 0 Refill(s) Active 07/16/2018 [facility] simvastatin 10 mg oral tablet 10 mg=1 tab, PO, Bedtime, # 30 tab, 0 Refill(s) Active 07/16/2018 [facility] Allergies, Adverse Reactions, Alerts Substance Category Reaction Severity Reaction type Status Date Reported Comments Source penicillins Assertion Drug allergy Active [facility] codeine Assertion Drug allergy Active [facility] chlorhexidine topical Assertion Drug allergy Active [facility] Immunizations No Data Provided for This Section Results Order Name Results Value Reference Range Date Interpretation Comments Source CHEM PANEL Phosphorus 2.7 2.5 - 4.5 12/01/2018 [facility] CHEM PANEL Magnesium Lvl 1.9 1.8 - 2.4 12/01/2018 [facility] CHEM PANEL Calcium Lvl 10.2 8.5 - 10.5 12/01/2018 [facility] CHEM PANEL CO2 32 24 - 32 12/01/2018 [facility] CHEM PANEL Chloride Lvl 96 95 - 109 12/01/2018 [facility] CHEM PANEL eGFR 57 12/01/2018 Result Comment: [...] should be multiplied by the estimated BMI. [facility] CHEM PANEL Potassium Lvl 3.9 3.5 - 5.1 12/01/2018 [facility] CHEM PANEL Sodium Lvl 136 135 - 145 12/01/2018 [facility] CHEM PANEL Creatinine Lvl 0.96 0.50 - 1.40 12/01/2018 [facility] CHEM PANEL BUN 15 7 - 22 12/01/2018 [facility] CHEM PANEL Glucose Lvl 93 70 - 99 12/01/2018 [facility] CHEM PANEL AGAP 11.9 10.0 - 20.0 12/01/2018 [facility] HEMATOLOGY INR 2.64 0.85 - 1.17 12/01/2018 [facility] HEMATOLOGY PT 27.6 12.0 - 14.7 12/01/2018 [facility] HEMATOLOGY PTT 38.2 22.9 - 35.8 12/01/2018 [facility] HEMATOLOGY PT 27.6 12.0 - 14.7 12/01/2018 [facility] HEMATOLOGY INR 2.64 0.85 - 1.17 12/01/2018 [facility] HEMATOLOGY MCHC 33.5 32.0 - 36.0 12/01/2018 [facility] HEMATOLOGY MCH 27.6 27.0 - 31.0 12/01/2018 [facility] HEMATOLOGY WBC 4.8 3.7 - 10.4 12/01/2018 [facility] HEMATOLOGY Platelet 189 133 - 450 12/01/2018 [facility] HEMATOLOGY RDW 23.8 11.5 - 14.5 12/01/2018 [facility] HEMATOLOGY MPV 7.3 7.4 - 10.4 12/01/2018 [facility] HEMATOLOGY MCV 82.3 80.0 - 98.0 12/01/2018 [facility] HEMATOLOGY RBC 3.01 4.20 - 5.40 12/01/2018 [facility] HEMATOLOGY Hgb 8.3 12.0 - 16.0 12/01/2018 [facility] HEMATOLOGY Hct 24.8 36.0 - 48.0 12/01/2018 [facility] HEMATOLOGY Lymphocytes # 0.3 1.0 - 5.5 12/01/2018 [facility] HEMATOLOGY Neutrophils # 4.1 1.5 - 8.1 12/01/2018 [facility] HEMATOLOGY Monocytes # 0.4 0.0 - 0.8 12/01/2018 [facility] HEMATOLOGY Basophils 0.4 0.0 - 1.0 12/01/2018 [facility] HEMATOLOGY Eosinophils 0.9 0.0 - 4.0 12/01/2018 [facility] HEMATOLOGY Lymphocytes 5.9 20.0 - 40.0 12/01/2018 [facility] HEMATOLOGY Segs 85.4 45.0 - 75.0 12/01/2018 [facility] HEMATOLOGY Monocytes 7.4 2.0 - 12.0 12/01/2018 [facility] HEMATOLOGY Anisocyte 1+ *ABN* (12/01/18 12:36 AM) None Seen 12/01/2018 [facility] CHEM PANEL Magnesium Lvl 1.8 1.8 - 2.4 11/30/2018 [facility] CHEM PANEL eGFR 51 11/30/2018 Result Comment: [...] should be multiplied by the estimated BMI. [facility] CHEM PANEL Potassium Lvl 4.1 3.5 - 5.1 11/30/2018 [facility] CHEM PANEL Chloride Lvl 98 95 - 109 11/30/2018 [facility] CHEM PANEL Calcium Lvl 10.6 8.5 - 10.5 11/30/2018 [facility] CHEM PANEL CO2 33 24 - 32 11/30/2018 [facility] CHEM PANEL Sodium Lvl 135 135 - 145 11/30/2018 [facility] CHEM PANEL Creatinine Lvl 1.06 0.50 - 1.40 11/30/2018 [facility] CHEM PANEL BUN 18 7 - 22 11/30/2018 [facility] CHEM PANEL Glucose Lvl 87 70 - 99 11/30/2018 [facility] CHEM PANEL AGAP 8.1 10.0 - 20.0 11/30/2018 [facility] HEMATOLOGY MCHC 32.4 32.0 - 36.0 11/30/2018 [facility] HEMATOLOGY MCH 27.0 27.0 - 31.0 11/30/2018 [facility] HEMATOLOGY MPV 7.9 7.4 - 10.4 11/30/2018 [facility] HEMATOLOGY Platelet 163 133 - 450 11/30/2018 [facility] HEMATOLOGY RDW 23.3 11.5 - 14.5 11/30/2018 [facility] HEMATOLOGY Hct 26.5 36.0 - 48.0 11/30/2018 [facility] HEMATOLOGY MCV 83.2 80.0 - 98.0 11/30/2018 [facility] HEMATOLOGY WBC 3.9 3.7 - 10.4 11/30/2018 [facility] HEMATOLOGY Hgb 8.6 12.0 - 16.0 11/30/2018 [facility] HEMATOLOGY RBC 3.19 4.20 - 5.40 11/30/2018 [facility] HEMATOLOGY PTT 165.2 22.9 - 35.8 11/30/2018 Result Comment: Critical Result(s) called to Shannan Kim at 11/30/2018 06:39 by ET. Read back [place]. [facility] HEMATOLOGY INR 2.11 0.85 - 1.17 11/30/2018 [facility] HEMATOLOGY PT 23.2 12.0 - 14.7 11/30/2018 [facility] HEMATOLOGY Lymphocytes # 0.4 1.0 - 5.5 11/30/2018 [facility] HEMATOLOGY Eosinophils 1.5 0.0 - 4.0 11/30/2018 [facility] HEMATOLOGY Lymphocytes 10.1 20.0 - 40.0 11/30/2018 [facility] HEMATOLOGY Monocytes 8.8 2.0 - 12.0 11/30/2018 [facility] HEMATOLOGY Anisocyte 1+ *ABN* (11/30/18 6:05 AM) None Seen 11/30/2018 [facility] HEMATOLOGY Eosinophils # 0.1 0.0 - 0.5 11/30/2018 [facility] HEMATOLOGY Monocytes # 0.3 0.0 - 0.8 11/30/2018 [facility] HEMATOLOGY Segs 79.3 45.0 - 75.0 11/30/2018 [facility] TOXICOLOGY Digoxin Lvl 1.2 0.8 - 2.0 11/30/2018 [facility] HEMATOLOGY PTT 89.8 22.9 - 35.8 11/30/2018 [facility] HEMATOLOGY MPV 7.8 7.4 - 10.4 11/29/2018 [facility] HEMATOLOGY MCHC 33.6 32.0 - 36.0 11/29/2018 [facility] HEMATOLOGY RDW 23.4 11.5 - 14.5 11/29/2018 [facility] HEMATOLOGY Platelet 198 133 - 450 11/29/2018 [facility] HEMATOLOGY Hct 27.0 36.0 - 48.0 11/29/2018 [facility] HEMATOLOGY MCV 82.2 80.0 - 98.0 11/29/2018 [facility] HEMATOLOGY MCH 27.6 27.0 - 31.0 11/29/2018 [facility] HEMATOLOGY WBC 5.0 3.7 - 10.4 11/29/2018 [facility] HEMATOLOGY Hgb 9.0 12.0 - 16.0 11/29/2018 [facility] HEMATOLOGY RBC 3.28 4.20 - 5.40 11/29/2018 [facility] HEMATOLOGY Basophils 0.3 0.0 - 1.0 11/29/2018 [facility] HEMATOLOGY Neutrophils # 4.2 1.5 - 8.1 11/29/2018 [facility] HEMATOLOGY Lymphocytes # 0.3 1.0 - 5.5 11/29/2018 [facility] HEMATOLOGY Monocytes # 0.4 0.0 - 0.8 11/29/2018 [facility] HEMATOLOGY Eosinophils # 0.1 0.0 - 0.5 11/29/2018 [facility] HEMATOLOGY Anisocyte 1+ *ABN* (11/29/18 2:09 PM) None Seen 11/29/2018 [facility] HEMATOLOGY Eosinophils 1.1 0.0 - 4.0 11/29/2018 [facility] HEMATOLOGY Segs 84.1 45.0 - 75.0 11/29/2018 [facility] HEMATOLOGY Lymphocytes 6.5 20.0 - 40.0 11/29/2018 [facility] HEMATOLOGY Monocytes 8.0 2.0 - 12.0 11/29/2018 [facility] PARATHYROID PROFILE PTH Intact 244.0 18.4 - 80.1 11/29/2018 [facility] PARATHYROID PROFILE Ca Norm WB 1.39 1.05 - 1.25 11/29/2018 [facility] PARATHYROID PROFILE Ca Ion WB 1.38 1.05 - 1.25 11/29/2018 [facility] CHEM PANEL Phosphorus 2.7 2.5 - 4.5 11/29/2018 [facility] CHEM PANEL Magnesium Lvl 2.0 1.8 - 2.4 11/29/2018 [facility] ELECTROLYTES AGAP 10.8 10.0 - 20.0 11/29/2018 [facility] ELECTROLYTES eGFR 59 11/29/2018 Result Comment: The [...] should be multiplied by the estimated BMI. [facility] ELECTROLYTES Potassium Lvl 3.8 3.5 - 5.1 11/29/2018 [facility] ELECTROLYTES Chloride Lvl 95 95 - 109 11/29/2018 [facility] ELECTROLYTES CO2 33 24 - 32 11/29/2018 [facility] ELECTROLYTES Calcium Lvl 10.6 8.5 - 10.5 11/29/2018 [facility] ELECTROLYTES Glucose Lvl 83 70 - 99 11/29/2018 [facility] ELECTROLYTES BUN 22 7 - 22 11/29/2018 [facility] ELECTROLYTES Creatinine Lvl 0.95 0.50 - 1.40 11/29/2018 [facility] ELECTROLYTES Sodium Lvl 135 135 - 145 11/29/2018 [facility] HEMATOLOGY Eosinophils # 0.1 0.0 - 0.5 11/29/2018 [facility] HEMATOLOGY Neutrophils # 3.0 1.5 - 8.1 11/29/2018 [facility] HEMATOLOGY Basophils 0.4 0.0 - 1.0 11/29/2018 [facility] ANEMIA STUDY Ferritin Lvl 1020 5 - 204 11/28/2018 [facility] ANEMIA STUDY Vitamin B12 Lvl 1196 254 - 1320 11/28/2018 [facility] ANEMIA STUDY Folate Lvl 17.2 >=3.0 ng/mL 11/28/2018 [facility] ANEMIA STUDY TIBC 213 228 - 428 11/28/2018 [facility] ANEMIA STUDY % Satur Fe 18 12 - 57 11/28/2018 [facility] ANEMIA STUDY UIBC 175 110 - 370 11/28/2018 [facility] ANEMIA STUDY Iron 38 30 - 160 11/28/2018 [facility] HEMATOLOGY Retic Auto 6.4 0.5 - 1.5 11/28/2018 [facility] CHEM PANEL Phosphorus 2.4 2.5 - 4.5 11/28/2018 [facility] HEMATOLOGY Microcyte 1+ *ABN* (11/28/18 4:12 AM) None Seen 11/28/2018 [facility] HEMATOLOGY Microcyte 1+ *ABN* (11/27/18 12:55 AM) None Seen 11/27/2018 [facility] CHEM PANEL AST 50 0 - 37 11/26/2018 [facility] CHEM PANEL Total Protein 5.4 6.4 - 8.4 11/26/2018 [facility] CHEM PANEL Albumin Lvl 2.2 3.5 - 5.0 11/26/2018 [facility] CHEM PANEL Bili Total 0.9 0.2 - 1.3 11/26/2018 [facility] CHEM PANEL Alk Phos 136 39 - 136 11/26/2018 [facility] CHEM PANEL ALT 29 0 - 65 11/26/2018 [facility] CHEM PANEL A/G Ratio 0.7 0.7 - 1.6 11/26/2018 [facility] CHEM PANEL Globulin 3.2 2.7 - 4.2 11/26/2018 [facility] CHEM PANEL B/C Ratio 28 6 - 25 11/26/2018 [facility] HEMATOLOGY Thrombin Time 17.6 15.0 - 21.2 11/26/2018 [facility] HEMATOLOGY Fibrinogen Lvl 595 230 - 510 11/26/2018 [facility] HEMATOLOGY D-Dimer 1.99 11/26/2018 [facility] PARATHYROID PROFILE Ca Norm WB 1.34 1.05 - 1.25 11/26/2018 [facility] PARATHYROID PROFILE Ca Ion WB 1.34 1.05 - 1.25 11/26/2018 [facility] PARATHYROID PROFILE Ca Norm WB 1.29 1.05 - 1.25 11/26/2018 [facility] PARATHYROID PROFILE Ca Ion WB 1.25 1.05 - 1.25 11/26/2018 [facility] HEMATOLOGY Schistocyte 1-3 per HPF (11/25/18 4:26 PM) None Seen 11/25/2018 [facility] HEMATOLOGY Plt Morph Normal (11/25/18 4:26 PM) Normal 11/25/2018 [facility] BLOOD BANK RESULTS ABO/Rh O POS 11/25/2018 [facility] BLOOD BANK RESULTS Antibody Scrn Negative (11/25/18 6:22 AM) 11/25/2018 [facility] CHEM PANEL Globulin 3.2 2.7 - 4.2 11/25/2018 [facility] CHEM PANEL A/G Ratio 0.7 0.7 - 1.6 11/25/2018 [facility] CHEM PANEL B/C Ratio 27 6 - 25 11/25/2018 [facility] CHEM PANEL Bili Total 1.0 0.2 - 1.3 11/25/2018 [facility] CHEM PANEL Alk Phos 104 39 - 136 11/25/2018 [facility] CHEM PANEL Albumin Lvl 2.1 3.5 - 5.0 11/25/2018 [facility] CHEM PANEL ALT 10 0 - 65 11/25/2018 [facility] CHEM PANEL Total Protein 5.3 6.4 - 8.4 11/25/2018 [facility] CHEM PANEL AST 55 0 - 37 11/25/2018 [facility] HEMATOLOGY Thrombin Time 16.2 15.0 - 21.2 11/25/2018 [facility] HEMATOLOGY D-Dimer 3.07 11/25/2018 [facility] HEMATOLOGY Fibrinogen Lvl 546 230 - 510 11/25/2018 [facility] CHEM PANEL Globulin 3.2 2.7 - 4.2 11/24/2018 [facility] CHEM PANEL A/G Ratio 0.7 0.7 - 1.6 11/24/2018 [facility] CHEM PANEL B/C Ratio 26 6 - 25 11/24/2018 [facility] CHEM PANEL AST 63 0 - 37 11/24/2018 [facility] CHEM PANEL ALT 24 0 - 65 11/24/2018 [facility] CHEM PANEL Total Protein 5.4 6.4 - 8.4 11/24/2018 [facility] CHEM PANEL Alk Phos 96 39 - 136 11/24/2018 [facility] CHEM PANEL Albumin Lvl 2.2 3.5 - 5.0 11/24/2018 [facility] CHEM PANEL Bili Total 0.8 0.2 - 1.3 11/24/2018 [facility] HEMATOLOGY Thrombin Time 16.4 15.0 - 21.2 11/24/2018 [facility] HEMATOLOGY Fibrinogen Lvl 548 230 - 510 11/24/2018 [facility] HEMATOLOGY D-Dimer 2.13 11/24/2018 [facility] CHEM PANEL Lactic Acid Lvl 1.4 0.5 - 2.2 11/22/2018 [facility] CHEM PANEL Procalcitonin Lvl 1.01 0.00 - 0.10 11/22/2018 [facility] URINE AND STOOL Micro? Performed *NA* (11/22/18 1:30 PM) 11/22/2018 [facility] URINE AND STOOL UA Nitrite Negative (11/22/18 1:30 PM) Negative 11/22/2018 [facility] URINE AND STOOL UA Urobilinogen <1.0 0.1 - 1.0 11/22/2018 [facility] URINE AND STOOL UA WBC 35 0 - 5 11/22/2018 [facility] URINE AND STOOL UA Sq Epi Occasional /LPF Few /LPF 11/22/2018 [facility] URINE AND STOOL UA Leuk Est Small *ABN* (11/22/18 1:30 PM) Negative 11/22/2018 [facility] URINE AND STOOL UA RBC 9 0 - 2 11/22/2018 [facility] URINE AND STOOL UA Mucus Few /LPF None Seen /LPF 11/22/2018 [facility] URINE AND STOOL UA Bacteria Occasional /HPF None Seen /HPF 11/22/2018 [facility] URINE AND STOOL UA Hyal Cast 19 0 - 2 11/22/2018 [facility] URINE AND STOOL UA Blood Moderate *ABN* (11/22/18 1:30 PM) Negative 11/22/2018 [facility] URINE AND STOOL UA Bili Negative *NA* (11/22/18 1:30 PM) Negative 11/22/2018 [facility] URINE AND STOOL UA Ketones Negative mg/dL Negative mg/dL 11/22/2018 [facility] URINE AND STOOL UA Color Rabia *ABN* (11/22/18 1:30 PM) Yellow 11/22/2018 [facility] URINE AND STOOL UA Glucose Negative mg/dL Negative mg/dL 11/22/2018 [facility] URINE AND STOOL UA Protein Negative mg/dL Negative mg/dL 11/22/2018 [facility] URINE AND STOOL UA pH 5.0 5.0 - 8.0 11/22/2018 [facility] URINE AND STOOL UA Turbidity Slight *ABN* (11/22/18 1:30 PM) Clear 11/22/2018 [facility] URINE AND STOOL UA Spec Grav 1.021 <=1.030 11/22/2018 [facility] Culture: Urine No Growth 11/22/2018 [facility] CHEM PANEL Lactic Acid Lvl 1.3 0.5 - 2.2 11/22/2018 [facility] CHEM PANEL Lactic Acid Lvl 2.4 0.5 - 2.2 11/21/2018 [facility] HEMATOLOGY Hypochrom 1+ (11/21/18 2:06 PM) None Seen 11/21/2018 [facility] HEMATOLOGY Polychrom Slight 11/21/2018 [facility] HEMATOLOGY Plt Morph Normal (11/21/18 2:06 PM) Normal 11/21/2018 [facility] BLOOD BANK RESULTS RBC product Product available (11/21/18 7:45 AM) 11/21/2018 [facility] CHEM PANEL Bili Indirect 1.9 0.0 - 1.0 11/21/2018 [facility] CHEM PANEL Bili Direct 0.5 0.0 - 0.3 11/21/2018 [facility] HEMATOLOGY Plt Morph Normal (11/21/18 5:47 AM) Normal 11/21/2018 [facility] HEMATOLOGY Polychrom Slight 11/21/2018 [facility] HEMATOLOGY Microcyte 1+ *ABN* (11/21/18 5:47 AM) None Seen 11/21/2018 [facility] CHEM PANEL Bili Direct 0.2 0.0 - 0.3 11/21/2018 [facility] CHEM PANEL Bili Indirect 1.2 0.0 - 1.0 11/21/2018 [facility] HEMATOLOGY Polychrom Moderate *ABN* (11/21/18 1:19 AM) None Seen 11/21/2018 [facility] HEMATOLOGY Hypochrom 1+ (11/21/18 1:19 AM) None Seen 11/21/2018 [facility] HEMATOLOGY POC Activated Clotting Time 258 11/21/2018 [facility] BLOOD BANK RESULTS RBC product Product available (11/20/18 6:47 PM) 11/20/2018 [facility] BLOOD BANK RESULTS Cryo product Modification Required (11/20/18 6:47 PM) 11/20/2018 [facility] BLOOD BANK RESULTS Platelet product Product available (11/20/18 6:47 PM) 11/20/2018 [facility] BLOOD BANK RESULTS FFP product Product available (11/20/18 6:47 PM) 11/20/2018 [facility] BLOOD BANK RESULTS RBC product Product available (11/20/18 6:47 PM) 11/20/2018 [facility] BLOOD BANK RESULTS FFP product Product available (11/20/18 6:47 PM) 11/20/2018 [facility] HEMATOLOGY POC Activated Clotting Time 283 11/20/2018 [facility] HEMATOLOGY POC Activated Clotting Time 238 11/20/2018 [facility] BLOOD BANK RESULTS Antibody Scrn Negative (11/19/18 10:38 PM) 11/20/2018 [facility] BLOOD BANK RESULTS ABO/Rh O POS 11/20/2018 [facility] BLOOD BANK RESULTS FFP product Product available (11/19/18 8:01 AM) 11/19/2018 [facility] ANEMIA STUDY Ferritin Lvl 9 5 - 204 11/16/2018 [facility] ANEMIA STUDY TIBC 379 228 - 428 11/16/2018 [facility] ANEMIA STUDY Iron 24 30 - 160 11/16/2018 [facility] ANEMIA STUDY UIBC 355 110 - 370 11/16/2018 [facility] ANEMIA STUDY % Satur Fe 6 12 - 57 11/16/2018 [facility] CARDIAC ENZYMES BNP 152 <=100 pg/mL 11/16/2018 [facility] CHEM PANEL Lipase Lvl 155 73 - 393 11/16/2018 [facility] LIPIDS CHD Risk 2.60 3.90 - 5.80 11/16/2018 [facility] LIPIDS VLDL 31 11/16/2018 [facility] LIPIDS HDL 58 >=61 mg/dL 11/16/2018 [facility] LIPIDS LDL (Calculated) 62 <=99 mg/dL 11/16/2018 [facility] LIPIDS Chol 151 <=199 mg/dL 11/16/2018 [facility] LIPIDS Trig 156 <=149 mg/dL 11/16/2018 [facility] SPECIAL CHEMISTRY Hgb A1C 5.2 <=5.6 % 11/16/2018 [facility] CARDIAC ENZYMES Troponin-I <0.02 0.00 - 0.40 11/15/2018 [facility] CHEM PANEL eGFR 56 07/16/2018 Result Comment: [...] should be multiplied by the estimated BMI. [facility] CHEM PANEL Glucose Lvl 93 70 - 99 07/16/2018 [facility] CHEM PANEL Sodium Lvl 138 135 - 145 07/16/2018 [facility] CHEM PANEL BUN 12 7 - 22 07/16/2018 [facility] CHEM PANEL Creatinine Lvl 0.99 0.50 - 1.40 07/16/2018 [facility] CHEM PANEL Calcium Lvl 10.2 8.5 - 10.5 07/16/2018 [facility] CHEM PANEL Albumin Lvl 3.6 3.5 - 5.0 07/16/2018 [facility] CHEM PANEL ALT 18 0 - 65 07/16/2018 [facility] CHEM PANEL Total Protein 6.7 6.4 - 8.4 07/16/2018 [facility] CHEM PANEL Potassium Lvl 3.9 3.5 - 5.1 07/16/2018 [facility] CHEM PANEL CO2 26 24 - 32 07/16/2018 [facility] CHEM PANEL Chloride Lvl 102 95 - 109 07/16/2018 [facility] CHEM PANEL Alk Phos 89 39 - 136 07/16/2018 [facility] CHEM PANEL AST 21 0 - 37 07/16/2018 [facility] CHEM PANEL Bili Total 0.5 0.2 - 1.3 07/16/2018 [facility] CHEM PANEL A/G Ratio 1.2 0.7 - 1.6 07/16/2018 [facility] CHEM PANEL AGAP 13.9 10.0 - 20.0 07/16/2018 [facility] CHEM PANEL Globulin 3.1 2.7 - 4.2 07/16/2018 [facility] CHEM PANEL B/C Ratio 12 6 - 25 07/16/2018 [facility] HEMATOLOGY Anisocyte 1+ *ABN* (07/16/18 5:01 PM) None Seen 07/16/2018 [facility] HEMATOLOGY Microcyte 3+ *NA* (07/16/18 5:01 PM) None Seen 07/16/2018 [facility] HEMATOLOGY Hypochrom 1+ (07/16/18 5:01 PM) None Seen 07/16/2018 [facility] HEMATOLOGY Plt Morph Normal (07/16/18 5:01 PM) 07/16/2018 [facility] HEMATOLOGY Lymphocytes 27.0 20.0 - 40.0 07/16/2018 [facility] HEMATOLOGY Lymphocytes # 1.4 1.0 - 5.5 07/16/2018 [facility] HEMATOLOGY Segs 61.7 45.0 - 75.0 07/16/2018 [facility] HEMATOLOGY Neutrophils # 3.3 1.5 - 8.1 07/16/2018 [facility] HEMATOLOGY Basophils 0.3 0.0 - 1.0 07/16/2018 [facility] HEMATOLOGY Eosinophils 2.3 0.0 - 4.0 07/16/2018 [facility] HEMATOLOGY Monocytes 8.7 2.0 - 12.0 07/16/2018 [facility] HEMATOLOGY Monocytes # 0.5 0.0 - 0.8 07/16/2018 [facility] HEMATOLOGY Eosinophils # 0.1 0.0 - 0.5 07/16/2018 [facility] HEMATOLOGY INR 1.16 0.85 - 1.17 07/16/2018 [facility] HEMATOLOGY PT 14.6 12.0 - 14.7 07/16/2018 [facility] HEMATOLOGY PTT 29.3 22.9 - 35.8 07/16/2018 [facility] MPV 7.4 7.4 - 10.4 07/16/2018 [facility] Platelet 270 133 - 450 07/16/2018 [facility] RDW 17.2 11.5 - 14.5 07/16/2018 [facility] MCHC 32.0 32.0 - 36.0 07/16/2018 [facility] WBC 5.4 3.7 - 10.4 07/16/2018 [facility] RBC 5.02 4.20 - 5.40 07/16/2018 [facility] MCH 22.0 27.0 - 31.0 07/16/2018 [facility] MCV 68.6 80.0 - 98.0 07/16/2018 [facility] Hct 34.5 36.0 - 48.0 07/16/2018 [facility] Hgb 11.0 12.0 - 16.0 07/16/2018 [facility] Pathology Reports No Data Provided for [...] refer to prior CT chest 11/16/2018. 12/01/2018 [facility] Chest US EXAM: US CHEST DATE: 11/30/2018 13:11 CDT INDICATION: - worsening pleural effusions on CXR ADDITIONAL INFORMATION: None. COMPARISON: None. TECHNIQUE: Multiplanar grayscale and color Doppler ultrasound of the chest. FINDINGS: Right pleural effusion equals 250 mL. Left-sided pleural effusion measures 318 mm. Other: None. IMPRESSION: 1. Pleural effusions as described above.. 11/30/2018 [facility] Chest 1view DX EXAM: XR CHEST 1 [...] compared to the most recent radiograph. 11/30/2018 [facility] Brain wo contrast CT EXAM: CT BRAIN [...] Microvascular ischemic changes and volume loss. 11/29/2018 [facility] Chest 1view DX EXAM: XR CHEST 1 [...] identified. 6. Osseous structures are stable. 11/29/2018 [facility] Chest 1view DX EXAM: XR CHEST 1 [...] identified. 6. Osseous structures are stable. 11/28/2018 [facility] Chest 1view DX EXAM: XR CHEST 1 [...] identified. 6. Osseous structures are stable. 11/27/2018 [facility] Chest 1 v for Placement DX EXAM: [...] and atelectasis. Cannot exclude superimposed infection. 11/26/2018 [facility] Chest 1view DX EXAM: XR CHEST 1 [...] be due to atelectasis or consolidation. 11/26/2018 [facility] Chest 1view DX EXAM: XR CHEST 1 VIEW DATE: 11/25/2018 3:00 CDT INDICATION: - post sternotomy. TECHNIQUE: Chest 1 view FINDINGS: Comparison is made to November 24. Cardiomediastinal silhouette and postoperative changes are stable. There are small pleural effusions. Bibasilar subsegmental atelectasis. IMPRESSION: 1. Bibasilar subsegmental atelectasis. 2. Small bilateral pleural effusions. 11/25/2018 [facility] Chest 1view DX EXAM: XR CHEST 1 VIEW DATE: 11/24/2018 13:47 CDT INDICATION: - chest tube removal. TECHNIQUE: Chest 1 view FINDINGS: Comparison is made to November 24 at 3:03 AM. Mediastinal drain and chest tubes have been removed. Stable postoperative findings. Bibasilar platelike atelectasis. Tiny residual bilateral pleural effusions. IMPRESSION: Bibasilar platelike atelectasis with tiny pleural effusions. 11/24/2018 [facility] Chest 1view DX EXAM: XR CHEST 1 [...] identified. 5. Osseous structures are stable. 11/24/2018 [facility] Chest 1view DX EXAM: XR CHEST 1 [...] identified. 5. Osseous structures are stable. 11/23/2018 [facility] Chest 1view DX EXAM: XR CHEST 1 [...] identified. 5. Osseous structures are stable. 11/22/2018 [facility] Chest 2 views DX EXAM: XR CHEST [...] positioning, no distinct pneumothorax is identified. 11/21/2018 [facility] Chest 1 v for Placement DX EXAM: [...] positioning, no distinct pneumothorax is identified. 11/21/2018 [facility] Chest 1 v for Placement DX EXAM: [...] right midlung and left lower lobe. 11/21/2018 [facility] Heart/coronary art TAVR CTA CARDIAC COMPUTED TOMOGRAPHY ANGIOGRAPHY DATE: November 18, 2018 INDICATION: Aortic stenosis. COMPARISON: none TECHNIQUE: After obtaining a preliminary high pressure operator image, contrast imaging was performed on a [employer], 320 detector rows - 640 slice, [place] Tomotherapy scanner. A dedicated, limited window, imaging protocol [...] and proximal segment of the RCA. 11/16/2018 [facility] Chest/Abd/Pelvis TAVR CTA EXAM: VIR CT angiogram [...] Dr. Corrales at [id number] on 11/19/2018. 11/16/2018 [facility] Chest 2 views DX EXAM: XR CHEST [...] vascular cardiomegaly/subsegmental atelectasis. [place] SECTION: ER 11/15/2018 [facility] Consultation Notes No Data Provided for This Section Discharge Summaries No Data Provided for This Section History and Physicals No Data Provided for This Section Vital Signs Vital Sign Value Date Comments Source Temperature Oral (F) 97.1 F 12/01/2018 [facility] Systolic (mm Hg) 104 12/01/2018 [facility] Diastolic (mm Hg) 75 12/01/2018 [facility] Respitory Rate 18 12/01/2018 [facility] Respitory Rate 22 12/01/2018 [facility] Systolic (mm Hg) 110 12/01/2018 [facility] Diastolic (mm Hg) 56 12/01/2018 [facility] Temperature Oral (F) 97.7 F 12/01/2018 [facility] Respitory Rate 20 12/01/2018 [facility] Systolic (mm Hg) 110 12/01/2018 [facility] Diastolic (mm Hg) 56 12/01/2018 [facility] Temperature Oral (F) 98.5 F 12/01/2018 [facility] Height 152.4 cm 11/22/2018 [facility] Height 152.4 cm 11/22/2018 [facility] Height 152.4 cm 11/22/2018 [facility] BMI Calculated 35.62 11/16/2018 [facility] Weight 82.727 11/16/2018 [facility] BMI Calculated 34.25 11/15/2018 [facility] Weight 79.545 11/15/2018 [facility] Heart Rate 72 11/15/2018 [facility] Systolic (mm Hg) 131 07/17/2018 [facility] Diastolic (mm Hg) 55 07/17/2018 [facility] Respitory Rate 20 07/17/2018 [facility] Respitory Rate 20 07/17/2018 [facility] Systolic (mm Hg) 131 07/17/2018 [facility] Diastolic (mm Hg) 58 07/17/2018 [facility] Respitory Rate 13 07/17/2018 [facility] Systolic (mm Hg) 129 07/17/2018 [facility] Diastolic (mm Hg) 58 07/17/2018 [facility] Temperature Oral (F) 98.1 F 07/17/2018 [facility] Temperature Oral (F) 98.2 F 07/17/2018 [facility] BMI Calculated 35.23 07/17/2018 [facility] Weight 81.818 07/17/2018 [facility] Height 152.4 cm 07/17/2018 [facility] Weight 81.818 07/16/2018 [facility] BMI Calculated 35.23 07/16/2018 [facility] Height 152.4 cm 07/16/2018 [facility] Temperature Oral (F) 97.5 F 07/16/2018 [facility] Heart Rate 60 07/16/2018 [facility] Encounters Location Location Details Encounter Type Encounter Number Reason For Visit Attending Provider ADM Date DC Date Status Source [facility] Bedded Outpatient [id number] Car Love 07/17/2018 07/17/2018 [facility] Inpatient [id number] Katelyn Austin 11/15/2018 12/01/2018 [facility] Procedures Procedure Code Date Perfomer Comments Source Arthroplasty of knee [id number] [facility] Cardiac catheterization [id number] [facility] section [id number] [facility] Cholecystectomy [id number] [facility] Dilation and curettage [id number] [facility] Hysterectomy [id number] [facility] Operation [id number] [facility] Operation<sup>1</sup> [id number] TITANIUM JOCELYN-ORIF [facility] Arthroplasty of knee [id number] [facility] Cardiac catheterization [id number] [facility] section [id number] [facility] Cholecystectomy [id number] [facility] Dilation and curettage [id number] [facility] Hysterectomy [id number] [facility] Operation [id number] [facility] Operation<sup>1</sup> [id number] TITANIUM JOCELYN-ORIF [facility] Assessment and Plan Assessment and Plan Date [...] hemiarch and proximal innominate artery replacement Hemashield [place] grafts size 28mm AAR and size 8mm [...] tube suture and staple removal. Best contact [phone], Jai (son) [phone]. Extracted from:Title: Hemotherapy Consult Author: Whitley Kaur [...] apnea Histories Past Medical History: Active A-fib (90731851) Sleep apnea (186585210) Shortness of breath on exertion (787359944) HTN (hypertension) (8383972711) Acid reflux (633650474) Hyperlipidemia (08081669) Family History: Heart disease Father Heart attack Father Procedure history: Arthroplasty of knee (76454650). Cardiac catheterization (50057959). section (80927014). Dilation and curettage (62735649). Hysterectomy (404396550). Operation ([id number]). Comments: 07/16/2018 16:45 - Vanessa Hamilton RN TITANIUM JOCELYN-ORIF Operation ([id number]). Cholecystectomy (03586097). Social History Social and Psychosocial Habits Alcohol [...] Cardiovascular: Normal rate, No edema. Integumentary: Dry, [place]. Neurologic: No focal deficits, Sedated. Review / [...] team in the AM Reese Lee MD [facility] Cardiovascular Medicine General Inspector Aligning, PGY-4 MSO #: [id number]; Pager #: [phone] 12/01/2018 [facility] Plan of Care No Data Provided for This Section Social History Social History Date Source Social History TypeResponse Substance Abuse Use: None. Alcohol Past, Previous treatment: None. Smoking Status Former smoker; Type: Cigarettes; Exposure to Tobacco Smoke None; Cigarette Smoking Last 365 Days No; Reg Smoking Cessation Counseling No entered on: 07/17/18 07/16/2018 [facility] Social History TypeResponse Substance Abuse Use: None. Alcohol Past, Previous treatment: None. Smoking Status Former smoker; Type: Cigarettes; Exposure to Tobacco Smoke None; Cigarette Smoking Last 365 Days No; Reg Smoking Cessation Counseling No entered on: 11/16/18 07/16/2018 [facility] Family History No Data Provided for This Section Advance Directives No Data Provided for This Section Functional Status No Data Provided for This Section
[2018-12-19] MEDS ORDERED: ONDANSETRON HCL INJ 2MG/ML 2ML 2 MG/ML VIAL IV PRN (00:15)
[2018-12-19] MEDS ORDERED: ACETAMINOPHEN 325 MG TAB PO PRN (00:30)
[2018-12-19] MEDS ORDERED: ALBUTEROL SULF 0.083% NEB SOLN 3 ML NEB NEB PRN (00:30)
--- NOTE | 2018-12-19 00:46 | NUR ---
Pt on unit at this time. Brought to room via stretcher. Pt resting comfortably in bed in no distress. Pt is A&Ox3 and 3L NC in place. Pt son is present at bedside at this time. Bed is in low locked position with call light in reach.
[2018-12-19] MEDS ORDERED: SODIUM CHLORIDE 0.9% 250ML 250 ML ONE (01:34)
--- NOTE | 2018-12-19 01:45 | NUR ---
Per pt son the patient has only been pivoted from bed to chair by PT at [facility]. Patients son is leaving at this time. The bed is in low locked position with bed alarm on and call light is in reach of patient. Pt educated to call for any assistance needed.
--- NOTE | 2018-12-19 03:01 | NUR ---
Pt resting in bed. Pt denies c/o pain. Pt repositioned to right side at this time. Call light is in reach. Will continue to monitor pt.
[2018-12-19] MEDS ORDERED: MAGNESIUM SULFATE 2GM/50ML 50 ML IV ONE ×2 (06:30→10:30)
--- NOTE | 2018-12-19 07:22 | NUR ---
Routine consult called this morning for Dr. Love.
[2018-12-19] MEDS: SUCRALFATE 1 GM TAB PO SCH ×3 (07:30→17:25)
--- NOTE | 2018-12-19 07:30 | NUR ---
Received patient this morning, a/ox3, in bed, call light within reach, no resp distress, no c/o pains, rounds completed and will monitor.
--- NOTE | 2018-12-19 08:06 | NUR ---
Consult to Dr. Love for recent CABG and has been called.
[2018-12-19] MEDS: PANTOPRAZOLE SOD 40 MG TABEC PO SCH (08:19)
[2018-12-19] MEDS: BUMETANIDE 1 MG TAB PO SCH ×2 (08:19→17:25)
[2018-12-19] MEDS: FLUOXETINE HCL 20 MG CAP PO SCH (08:19)
[2018-12-19] MEDS: ASPIRIN 81 MG ENTERIC COATED PO SCH (08:19)
[2018-12-19] MEDS: DIGOXIN 0.125 MG TAB PO SCH (08:19)
[2018-12-19] MEDS: AMIODARONE HCL 200 MG TAB PO SCH ×2 (08:19→17:25)
[2018-12-19] MEDS: DOCUSATE SODIUM 100 MG CAP PO SCH ×2 (08:19→17:25)
--- NOTE | 2018-12-19 11:55 | NUR ---
SPOKE WITH PATIENT WHOM STATES SHE WILL RETURN [facility] DISCHARGE, FAXING CLINICALS TO RETURN PT, COMPLETED RTF AND PUT AT NURSES STATION.
--- NOTE | 2018-12-19 14:25 | NUR ---
Nutrition Screen Note RD Recommendation for Physician: -Continue diet as ordered Plan of Care: RD following, monitoring for tolerance and adequacy Nutrition reason for involvement: Nutrition Risk Trigger MST Primary Diagnose(s): hypokalemia PMH: HTN Ht: 60in Wt: 169.25lb BMI: 33.1kg/m2 IBW: 100lb +/- 10% RD Assessment: (12/19) Chart reviewed. Labs and meds reviewed. 78yo F, who was admitted for hypokalemia. Visited pt in the room. Pt reported of appetite being not so good since her open heart surgery a month ago. No complains of nausea or vomiting. Pt denied any chewing or swallowing difficulty. Flatus present. UBW ~166lbs. Pt refused oral nutrition supplements and diet education. Discussed menu options with pt. Will continue to monitor and follow. Current Diet: cardiac diet Malnutrition Evaluation (12/19/2018) The patient does not meet criteria for a specified degree of malnutrition at this time. Will re-evaluate at follow-up as appropriate. Diet Education Needs Assessment: Diet education not indicated. Nutrition Care Level: low Signed: Mervat Rapp, MS, RD, LD
--- NOTE | 2018-12-19 16:00 | NUR ---
Patient with poor appetite, encouraged to get OOB to chair but refused, repositioned in bed Q2 hours. Continues on O2 3L NC, medicated with Zofran for nausea, will recheck electrolytes in AM. No c/o chest pains, no resp distress, call light within reach and will monitor.
[2018-12-19] MEDS: WARFARIN SOD 3 MG TAB PO SCH (17:25)
--- NOTE | 2018-12-19 19:02 | NUR ---
Patient stable, rounds by copyman and stated if patient's K+ and Mg+ are stable, it is ok to discharge patient from his perspective. Report given to on coming nurse and rounds completed.
--- NOTE | 2018-12-19 19:56 | NUR ---
Pt A&Ox3. Pt appears in no distress, she denies any pain. Pt diaper changed and repositioned in bed at this time. Pt educated to use call light for any assistance. Call light is within reach. Bed is in low locked position and bed alarm is on. Will continue to monitor.
[2018-12-19] MEDS: MELATONIN 3 MG TAB PO SCH (21:47)
[2018-12-20] VITALS (7 sets, daily range): BP systolic 104–125; BP diastolic 44–55
[2018-12-20 05:29] LABS: BASOPHILS % 0.3 % (0.0-1.0); EOSINOPHILS # (AUTO) 0.1 (0.0-0.4); EOSINOPHILS % 3.1 % (0.0-6.0); HEMOGLOBIN 8.3 g/dL (12.0-16.0); LYMPHOCYTES # (AUTO) 0.5 (1.0-3.2); MEAN CORPUSCULAR HEMOGLOBIN 26.5 pg (28-32); MEAN CORPUSCULAR HGB CONC 30.7 g/dL (31-35); MEAN CORPUSCULAR VOLUME 86.3 fL (81-99); MONOCYTES # (AUTO) 0.3 (0.2-0.8); NEUTROPHILS # (AUTO) 2.3 (2.1-6.9); NEUTROPHILS % 70.4 % (38.7-80.0); PLATELET COUNT 227 x10e3/uL (140-360); RED BLOOD COUNT 3.13 x10e6/uL (3.6-5.1); RED CELL DISTRIBUTION WIDTH 20.3 % (11.7-14.4)
[2018-12-20 05:41] LABS: INR 1.81; PROTHROMBIN TIME 21.6 seconds (11.9-14.5)
[2018-12-20 05:57] LABS: ALANINE AMINOTRANSFERASE 9 IU/L (0-55); ALBUMIN 2.8 g/dL (3.5-5.0); ALBUMIN/GLOBULIN RATIO 0.9 (0.8-2.0); ALKALINE PHOSPHATASE 141 IU/L (40-150); ANION GAP 15.9 mmol/L (8-16); BLOOD UREA NITROGEN 10 mg/dL (7-26); BUN/CREATININE RATIO 12 (6-25); CALCIUM 10.4 mg/dL (8.4-10.2); CARBON DIOXIDE 36 mmol/L (22-29); CHLORIDE 87 mmol/L (98-107); CREATININE, SERUM 0.84 mg/dL (0.57-1.11); EST GLOMERULAR FILTRATION RATE > 60 ML/MIN (60-); GLUCOSE 83 mg/dL (74-118); SODIUM 136 mmol/L (136-145)
[2018-12-20 05:59] LABS: POTASSIUM 2.9 mmol/L (3.5-5.1)
[2018-12-20 06:31] LABS: LYMPHOCYTES % (MANUAL) 13 % (19-48); MONOCYTES % (MANUAL) 8 % (3.4-9.0); NEUTROPHILS % (MANUAL) 79 % (40-74)
[2018-12-20 06:41] LABS: RBC MORPHOLOGY COMMENT NORMAL
[2018-12-20 06:42] LABS: PLATELET ESTIMATE ADEQUATE; PLATELET MORPHOLOGY COMMENT NORMAL
--- NOTE | 2018-12-20 07:20 | NUR ---
Bedside Report given to TANJA Betancourt. Pt resting comfortably in bed. Pt denies any pain at this time. Call light is in reach. Bed alarm is on and bed is in low locked position.
--- NOTE | 2018-12-20 07:41 | NUR ---
MET PATIENT WITH OFF-GOING RNNIDA, PATIENT DENIED PAIN, PATIENT SHOWS NO SIGNS OF DISTRESS.
[2018-12-20] MEDS ORDERED: POTASSIUM CHLORIDE 20 MEQ TAB CR PO ONE ×2 (08:00→12:00)
[2018-12-20] MEDS ORDERED: MAGNESIUM SULFATE 2GM/50ML 50 ML IV ONE (08:00)
[2018-12-20] MEDS: DIGOXIN 0.125 MG TAB PO SCH (09:27)
[2018-12-20] MEDS: DOCUSATE SODIUM 100 MG CAP PO SCH ×2 (09:28→18:05)
[2018-12-20] MEDS: SUCRALFATE 1 GM TAB PO SCH ×3 (09:28→18:05)
[2018-12-20] MEDS: BUMETANIDE 1 MG TAB PO SCH ×2 (09:28→18:05)
[2018-12-20] MEDS: PANTOPRAZOLE SOD 40 MG TABEC PO SCH (09:28)
[2018-12-20] MEDS: AMIODARONE HCL 200 MG TAB PO SCH (09:28)
[2018-12-20] MEDS: FLUOXETINE HCL 20 MG CAP PO SCH (09:28)
[2018-12-20] MEDS: ASPIRIN 81 MG ENTERIC COATED PO SCH (09:28)
--- NOTE | 2018-12-20 13:21 | NUR ---
TELEMETRY CALLED, REPORTED THAT PATIENT'S HEART RATE IS AT 54, AND HAS BEEN DOWN TO 41 BPM, SPOKE TO DR. MURRAY V., JOINTER MACHINE OPERATOR, HE CHECKED WITH TELEMETRY AND STATED THAT IT IS OKAY. Addendum: 12/20/18 at 1423 by Serafin Chinchilla RN THE JOINTER MACHINE OPERATOR NOTIFIED WAS Sabrina GAO NOT Renuka GAO
--- NOTE | 2018-12-20 15:02 | Progress Note ---
DATE: 12/20/2018 Cardiology Progress Note SUBJECTIVE: No major events overnight. Potassium remains low. OBJECTIVE: VITAL SIGNS: Temperature afebrile, blood pressure 125/72, respiratory rate 16, and saturating 98% on room air. GENERAL: Elderly female, in no acute distress, sleeping comfortably. CARDIOVASCULAR: Irregular rate and rhythm. A 2/6 systolic murmur at right upper sternal border. Well-healing sternal wound. LUNGS: Clear to auscultation bilaterally. ABDOMEN: Soft, nontender, and nondistended. NEURO AND PSYCH: Alert and oriented to person, place, and time. Normal affect. INPATIENT MEDICATIONS: Reviewed. LABORATORY DATA: Reviewed. TELEMETRY DATA: Reviewed, shows atrial fibrillation with slow ventricular response. Heart rate going down into the 45 range. No significant pauses. ASSESSMENT AND PLAN: 1. Aortic stenosis, status post aortic valve replacement recently. 2. Chronic atrial fibrillation, on Coumadin. 3. Severe hypokalemia. 4. Severe hypomagnesemia. 5. Somnolence. PLAN: We will stop digoxin and decrease amiodarone to 200 mg daily, as heart rates are running low. Continue cardiovascular medications otherwise. Replace potassium and magnesium per primary team. Thank you for this consult. We will continue to follow. MD RADHA Duffy/PEACE /[id number]
--- NOTE | 2018-12-20 15:37 | Consultation ---
DATE OF CONSULTATION: 12/19/2018 Cardiology Consult Note REASON FOR CONSULT: History of recent cardiac surgery, hypokalemia, shortness of breath. HISTORY OF PRESENT ILLNESS: The patient is a 78-year-old female, history of aortic stenosis, recently had aortic valve replacement at [facility]. She had a long complicated course, however, was recently discharged and was doing okay at a rehab facility. Her only complaint is that she is exceedingly weak and somnolent and feels tired all the time and falls asleep. Otherwise, she feels well, no chest pain, no shortness of breath. She yesterday went for a followup visit after her cardiac surgery and everything looked okay from a postsurgical standpoint; however, she was told to go back to the hospital because her INR was not therapeutic as well as her potassium was critically low. Since she has been in the hospital, she says she feels okay, feels weak and has not been eating well. PAST MEDICAL HISTORY: 1. Hypertension. 2. Hyperlipidemia. 3. History of aortic stenosis status post surgical aortic valve replacement recently. REVIEW OF SYSTEMS: As above, otherwise negative. OUTPATIENT MEDICATIONS: Please see medical record for list of outpatient medications. SOCIAL HISTORY: The patient does not smoke, drink, or abuse drugs. FAMILY HISTORY: Noncontributory. OBJECTIVE: VITAL SIGNS: Temperature afebrile, pulse 64, respiratory rate 16, blood pressure 125/52, and saturating 100% on room air. GENERAL: Elderly female, appears tired, sleepy, but in no acute distress. CARDIOVASCULAR: Regular rate and rhythm. A 2/6 systolic murmur at right upper sternal border. Sternotomy scar healing well. LUNGS: Clear to auscultation bilaterally. Decreased breath sounds at the bases. ABDOMEN: Soft, nontender, nondistended. NEURO and PSYCH: Alert and oriented to person, place, and time. Normal affect. INPATIENT MEDICATIONS: Reviewed. LABORATORY DATA: Reviewed. TELEMETRY DATA: Reviewed, shows atrial fibrillation with slow ventricular response. ASSESSMENT: 1. Aortic stenosis status post surgical aortic valve replacement with bioprosthetic valve recently. 2. Atrial fibrillation, chronic. 3. Severe hypokalemia. 4. Severe hypomagnesemia. PLAN: The patient is doing well from a cardiovascular standpoint. Replace potassium per primary team. Continue outpatient cardiovascular medications in the meantime, we will decrease her amiodarone to 200 mg daily and stop the digoxin given slow ventricular response. Coumadin dosing per pharmacy. Thank you for this consult. We will continue to follow. MD RADHA Duffy/PEACE /[id number]
[2018-12-20] MEDS: WARFARIN SOD 3 MG TAB PO SCH (18:05)
[2018-12-20] MEDS: MELATONIN 3 MG TAB PO SCH (23:05)
[2018-12-21] VITALS: BP 119/55
[2018-12-21 04:00] VITALS: BP 113/52
[2018-12-21 05:21] LABS: BASOPHILS % 0.3 % (0.0-1.0); EOSINOPHILS # (AUTO) 0.1 (0.0-0.4); EOSINOPHILS % 3.1 % (0.0-6.0); HEMATOCRIT 24.9 % (34.2-44.1); HEMOGLOBIN 7.6 g/dL (12.0-16.0); LYMPHOCYTES # (AUTO) 0.5 (1.0-3.2); LYMPHOCYTES % 15.1 % (18.0-39.1); MEAN CORPUSCULAR HEMOGLOBIN 26.5 pg (28-32); MEAN CORPUSCULAR HGB CONC 30.5 g/dL (31-35); MEAN CORPUSCULAR VOLUME 86.8 fL (81-99); MONOCYTES # (AUTO) 0.4 (0.2-0.8); MONOCYTES % 10.2 % (4.4-11.3); NEUTROPHILS # (AUTO) 2.5 (2.1-6.9); NEUTROPHILS % 70.2 % (38.7-80.0); PLATELET COUNT 216 x10e3/uL (140-360); RED BLOOD COUNT 2.87 x10e6/uL (3.6-5.1); RED CELL DISTRIBUTION WIDTH 20.8 % (11.7-14.4)
[2018-12-21 05:41] LABS: ALANINE AMINOTRANSFERASE 9 IU/L (0-55); ALBUMIN 2.5 g/dL (3.5-5.0); ALKALINE PHOSPHATASE 122 IU/L (40-150); ANION GAP 14.6 mmol/L (8-16); BLOOD UREA NITROGEN 10 mg/dL (7-26); BUN/CREATININE RATIO 12 (6-25); CARBON DIOXIDE 34 mmol/L (22-29); CHLORIDE 92 mmol/L (98-107); CREATININE, SERUM 0.84 mg/dL (0.57-1.11); EST GLOMERULAR FILTRATION RATE > 60 ML/MIN (60-); GLUCOSE 91 mg/dL (74-118); MAGNESIUM 1.5 MG/DL (1.3-2.1); POTASSIUM 3.6 mmol/L (3.5-5.1); SODIUM 137 mmol/L (136-145)
--- NOTE | 2018-12-21 06:59 | NUR ---
report given to day nurse. patient is resting comfortably in bed. bed is in lowest position and call figueredo is within reach.
[2018-12-21 07:45] VITALS: BP 137/54
[2018-12-21] MEDS: ASPIRIN 81 MG ENTERIC COATED PO SCH (08:30)
[2018-12-21] MEDS: PANTOPRAZOLE SOD 40 MG TABEC PO SCH (08:30)
[2018-12-21] MEDS: DOCUSATE SODIUM 100 MG CAP PO SCH ×2 (08:30→16:34)
[2018-12-21] MEDS: FLUOXETINE HCL 20 MG CAP PO SCH (08:30)
[2018-12-21] MEDS: SUCRALFATE 1 GM TAB PO SCH ×3 (08:30→16:30)
[2018-12-21] MEDS: AMIODARONE HCL 200 MG TAB PO SCH (08:30)
[2018-12-21] MEDS: BUMETANIDE 1 MG TAB PO SCH ×2 (08:30→16:34)
[2018-12-21] MEDS ORDERED: MAGNESIUM SULFATE 2GM/50ML 50 ML IV ONE (09:00)
[2018-12-21] MEDS ORDERED: POTASSIUM CHLORIDE 20 MEQ TAB CR PO ONE (09:00)
--- NOTE | 2018-12-21 10:35 | NUR ---
PT ACCEPTED TO [facility], CALL REPORT TO [phone] THEY WILL GIVE ROOM AND MD ASSIGNED WITH CALL. LET NURSE KNOW.
[2018-12-21 12:00] VITALS: BP 108/52
[2018-12-21 13:24] LABS: FERRITIN 789.78 ng/mL (4.63-204.00)
[2018-12-21] MEDS ORDERED: IRON SUCROSE 200 MG in SODIUM CHLORIDE 0.9% 100 ML 100 ML IV ONE (14:30)
--- NOTE | 2018-12-21 15:46 | NUR ---
SPOKE WITH [facility]NAGER [employer] DR ROGERS ABOUT PT AND CRITERIA OF LEVEL OF CARE, INFORMED HIM THAT PT WAS ACCEPTED TO [facility]. HELD THE PT DUE TO FAMILY BEING UPSET AND WANTING CONSULT FOR LOW IRON.
[2018-12-21] MEDS: DRONABINOL 2.5MG PO SCH (16:30)
[2018-12-21] MEDS: WARFARIN SOD 3 MG TAB PO SCH (16:34)
[2018-12-21 16:41] VITALS: BP 117/53
--- NOTE | 2018-12-21 16:48 | NUR ---
Repositioned patient, denies any pain, no distress noted, call light in reach
--- NOTE | 2018-12-21 17:50 | NUR ---
received report from marky in obs. pt is admitted for low potassium and hgb levels. aox3 on 3l o2 via nc, tele # 23 running a-fib, right forearm 22g saline locked. pt is AOx3 and has lower extremity weakness upon assessment. pt was brought to room 287 via wheelchair by the nurse. pt was transferred from wheelchair to the bed with maximum assist. no s/s of distress noted. call light within reach, side rails up, bed alarm activated
--- NOTE | 2018-12-21 18:14 | NUR ---
patient transferred to room 287, stable, no distress, all belongings took by patient
--- NOTE | 2018-12-21 19:38 | NUR ---
Received change of shift report from AM nurse. Walking rounds completed.
--- NOTE | 2018-12-21 19:47 | Progress Note ---
DATE: 12/21/2018 Initial Cardiology Progress Note SUBJECTIVE: No major events overnight. OBJECTIVE: VITAL SIGNS: Temperature afebrile, pulse 63, respiratory rate 16, blood pressure 117/53, saturating 99% on 3 L nasal cannula. GENERAL: Elderly white female, in no acute distress. CARDIOVASCULAR: Regular rate and rhythm. No murmurs, rubs, or gallops. 2/6 systolic murmur at right upper sternal border. Well-healing sternal wound. LUNGS: Clear to auscultation bilaterally. ABDOMEN: Soft, nontender, nondistended. NEURO AND PSYCH: Alert and oriented to person, place, and time. Normal affect. INPATIENT MEDICATIONS: Reviewed. LABORATORY DATA: Reviewed. TELEMETRY DATA: Reviewed, shows atrial fibrillation with slow ventricular response. ASSESSMENT AND PLAN: 1. Aortic stenosis, status post aortic valve replacement recently. 2. Chronic atrial fibrillation, on Coumadin. 3. Severe hypokalemia. 4. Severe hypomagnesemia. 5. Somnolence. PLAN: Digoxin stopped due to hypokalemia and bradycardia. The patient is feeling better now that potassium has been repleted and digoxin has been stopped. Heart rate is now improved. Continue all other cardiovascular medications. Thank you for this consult. We will continue to follow. MD RADHA Duffy/PEACE /[id number]
[2018-12-21 20:00] VITALS: BP 121/52
[2018-12-21] MEDS: MELATONIN 3 MG TAB PO SCH (20:16)
--- NOTE | 2018-12-21 21:26 | NUR ---
Patient in bed resting quitly at this time. Denies pain at this time. IV intact right FA. A-Fib on tele. Continue monitor.
[2018-12-22] VITALS (7 sets, daily range): BP systolic 111–136; BP diastolic 49–57
--- NOTE | 2018-12-22 04:00 | NUR ---
Patient repositioned in bed q 2hours and prn. Continue monitor.
[2018-12-22 06:21] LABS: BASOPHILS % 0.3 % (0.0-1.0); EOSINOPHILS # (AUTO) 0.1 (0.0-0.4); EOSINOPHILS % 2.3 % (0.0-6.0); HEMOGLOBIN 7.6 g/dL (12.0-16.0); LYMPHOCYTES # (AUTO) 0.6 (1.0-3.2); LYMPHOCYTES % 17.4 % (18.0-39.1); MEAN CORPUSCULAR HEMOGLOBIN 26.9 pg (28-32); MEAN CORPUSCULAR HGB CONC 30.4 g/dL (31-35); MEAN CORPUSCULAR VOLUME 88.3 fL (81-99); MONOCYTES # (AUTO) 0.4 (0.2-0.8); MONOCYTES % 12.2 % (4.4-11.3); NEUTROPHILS # (AUTO) 2.3 (2.1-6.9); NEUTROPHILS % 66.6 % (38.7-80.0); PLATELET COUNT 240 x10e3/uL (140-360); RED BLOOD COUNT 2.83 x10e6/uL (3.6-5.1); RED CELL DISTRIBUTION WIDTH 21.2 % (11.7-14.4)
[2018-12-22 06:38] LABS: ALANINE AMINOTRANSFERASE 9 IU/L (0-55); ALBUMIN 2.5 g/dL (3.5-5.0); ALBUMIN/GLOBULIN RATIO 0.9 (0.8-2.0); ALKALINE PHOSPHATASE 131 IU/L (40-150); ANION GAP 15.4 mmol/L (8-16); BLOOD UREA NITROGEN 9 mg/dL (7-26); BUN/CREATININE RATIO 11 (6-25); CALCIUM 10.6 mg/dL (8.4-10.2); CARBON DIOXIDE 35 mmol/L (22-29); CHLORIDE 92 mmol/L (98-107); CREATININE, SERUM 0.81 mg/dL (0.57-1.11); EST GLOMERULAR FILTRATION RATE > 60 ML/MIN (60-); GLUCOSE 85 mg/dL (74-118); MAGNESIUM 1.7 MG/DL (1.3-2.1); POTASSIUM 4.4 mmol/L (3.5-5.1); SODIUM 138 mmol/L (136-145)
[2018-12-22 06:40] LABS: INR 3.75; PROTHROMBIN TIME 37.9 seconds (11.9-14.5)
--- NOTE | 2018-12-22 07:00 | NUR ---
pt is alert and restless in bed, no s/s of distress. helped position patient for comfort. pt is more relaxed. call light within reach, side rails up.
[2018-12-22] MEDS: POTASSIUM CHLORIDE 10MEQ EA PO SCH (08:43)
[2018-12-22] MEDS: BUMETANIDE 1 MG TAB PO SCH ×2 (08:43→17:13)
[2018-12-22] MEDS: SUCRALFATE 1 GM TAB PO SCH ×3 (08:43→17:13)
[2018-12-22] MEDS: DOCUSATE SODIUM 100 MG CAP PO SCH ×2 (08:43→17:13)
[2018-12-22] MEDS: FLUOXETINE HCL 20 MG CAP PO SCH (08:43)
[2018-12-22] MEDS: AMIODARONE HCL 200 MG TAB PO SCH (08:43)
[2018-12-22] MEDS: ASPIRIN 81 MG ENTERIC COATED PO SCH (08:43)
[2018-12-22] MEDS: PANTOPRAZOLE SOD 40 MG TABEC PO SCH (08:43)
[2018-12-22] MEDS: MAGNESIUM OXIDE 400 MG TAB PO SCH (08:43)
[2018-12-22] MEDS: DRONABINOL 2.5MG PO SCH ×2 (08:43→17:13)
--- NOTE | 2018-12-22 12:21 | NUR ---
pt refused to wear foam heel protectors, education rendered and placed pillow under the pt's lower legs to elevate heels off mattress
[2018-12-22] MEDS: WARFARIN SOD 3 MG TAB PO SCH (17:13)
--- NOTE | 2018-12-22 19:26 | NUR ---
Received change of shift report from AM nurse. Walking rounds completed. Patient in bed rsting quitly at this time. No noted distress or discomfort.
[2018-12-22] MEDS: MELATONIN 3 MG TAB PO SCH (20:05)
[2018-12-23] VITALS (8 sets, daily range): BP systolic 115–131; BP diastolic 47–53
[2018-12-23 06:15] LABS: EOSINOPHILS # (AUTO) 0.1 (0.0-0.4); EOSINOPHILS % 1.7 % (0.0-6.0); HEMATOCRIT 25.4 % (34.2-44.1); HEMOGLOBIN 7.5 g/dL (12.0-16.0); LYMPHOCYTES # (AUTO) 0.7 (1.0-3.2); LYMPHOCYTES % 19.2 % (18.0-39.1); MEAN CORPUSCULAR HEMOGLOBIN 26.5 pg (28-32); MEAN CORPUSCULAR HGB CONC 29.5 g/dL (31-35); MEAN CORPUSCULAR VOLUME 89.8 fL (81-99); MONOCYTES # (AUTO) 0.4 (0.2-0.8); MONOCYTES % 11.9 % (4.4-11.3); NEUTROPHILS # (AUTO) 2.4 (2.1-6.9); NEUTROPHILS % 66.4 % (38.7-80.0); PLATELET COUNT 186 x10e3/uL (140-360); RED BLOOD COUNT 2.83 x10e6/uL (3.6-5.1); RED CELL DISTRIBUTION WIDTH 21.7 % (11.7-14.4)
[2018-12-23 06:41] LABS: ALANINE AMINOTRANSFERASE 10 IU/L (0-55); ALBUMIN 2.5 g/dL (3.5-5.0); ALKALINE PHOSPHATASE 123 IU/L (40-150); ANION GAP 13.4 mmol/L (8-16); BLOOD UREA NITROGEN 9 mg/dL (7-26); BUN/CREATININE RATIO 12 (6-25); CALCIUM 10.4 mg/dL (8.4-10.2); CARBON DIOXIDE 36 mmol/L (22-29); CHLORIDE 92 mmol/L (98-107); CREATININE, SERUM 0.77 mg/dL (0.57-1.11); EST GLOMERULAR FILTRATION RATE > 60 ML/MIN (60-); GLUCOSE 88 mg/dL (74-118); MAGNESIUM 1.4 MG/DL (1.3-2.1); POTASSIUM 4.4 mmol/L (3.5-5.1); SODIUM 137 mmol/L (136-145)
[2018-12-23 06:50] LABS: INR 4.28
--- NOTE | 2018-12-23 06:54 | NUR ---
RECEIVED PATIENT RESTING IN BED. NO ACUTE DISTRESS NOTED. DENIES PAIN OR DISCOMFORT AT THIS TIME. CALL LIGHT WITHIN REACH. BED IN THE LOWEST POSITION. BED ALARM ON.
[2018-12-23 07:00] LABS: PROTHROMBIN TIME 41.9 seconds (11.9-14.5)
--- NOTE | 2018-12-23 08:15 | NUR ---
BED BUMP APPLIED TO BED. HEEL PROTECTORS APPLIED.
[2018-12-23] MEDS: SUCRALFATE 1 GM TAB PO SCH ×3 (09:53→16:50)
[2018-12-23] MEDS: DRONABINOL 2.5MG PO SCH ×2 (09:54→16:50)
[2018-12-23] MEDS: ASPIRIN 81 MG ENTERIC COATED PO SCH (09:54)
[2018-12-23] MEDS: BUMETANIDE 1 MG TAB PO SCH ×2 (09:56→16:50)
[2018-12-23] MEDS: PANTOPRAZOLE SOD 40 MG TABEC PO SCH (09:56)
[2018-12-23] MEDS: DOCUSATE SODIUM 100 MG CAP PO SCH ×2 (09:56→16:50)
[2018-12-23] MEDS: AMIODARONE HCL 200 MG TAB PO SCH (09:57)
[2018-12-23] MEDS: FLUOXETINE HCL 20 MG CAP PO SCH (09:57)
[2018-12-23] MEDS: MAGNESIUM OXIDE 400 MG TAB PO SCH (09:57)
[2018-12-23] MEDS: POTASSIUM CHLORIDE 10MEQ EA PO SCH (09:58)
--- NOTE | 2018-12-23 13:31 | Consultation ---
DATE OF CONSULTATION: Gastroenterology Consultation REASON FOR CONSULTATION: Anemia. HISTORY OF PRESENT ILLNESS: Ms. Hopepr is a very pleasant 78-year-old woman with significant past medical history. She recently had a valve replaced. She also has atrial fibrillation. She is on anticoagulation and her INR is currently 4. There has been no overt bleeding, but she has had a steady decline in her hemoglobin. Hematology is also consulted. She has had some indigestion and acid reflux but no other GI symptoms. She had a normal brown stool today and was sent for occult blood. PAST MEDICAL HISTORY: 1. Aortic valve replacement. 2. Recent atrial fibrillation. 3. GERD. MEDICATIONS: Reviewed. Please see [facility] medication reconciliation form. ALLERGIES: REVIEWED. PLEASE SEE [facility] MEDICATION RECONCILIATION FORM. SOCIAL HISTORY: No current tobacco or illicit substance. FAMILY HISTORY: Reviewed, noncontributory. REVIEW OF SYSTEMS: Positive for fatigue, recent surgery, otherwise unremarkable. PHYSICAL EXAMINATION: GENERAL: Calm, alert, in no acute distress. HEENT: Pupils are equal, round, reactive to light. NECK: Supple. LUNGS: Clear. CARDIOVASCULAR: S1, S2. ABDOMEN: Soft, nontender, nondistended. Normal bowel sounds. EXTREMITIES: No clubbing or cyanosis. PSYCH: Calm, cooperative. HEME/ONC: No bruising or adenopathy. SKIN: She has healing surgical site on her chest. The electronic health records reviewed for laboratory and radiologic studies as well as history. ASSESSMENT: 1. Acute drop in hemoglobin without overt bleeding. 2. Anticoagulation with elevated INR. 3. Atrial fibrillation and recent valve repair. 4. Heartburn/gastroesophageal reflux disease. PLAN: At the current time, agree with hematologic evaluation and will follow up occult blood. Agree with trending hemoglobin. She may need upper endoscopy. We will plan on this when her INR is within a therapeutic range. Ideally, an INR of 1.5 or less, however, we will have to take into consideration risks and benefits. Thank you very much for asking me to see Ms. Hopper. Any questions or concerns, please do not hesitate to contact us. We will follow with you. Cindy Devlin MD RLS/MODL /[id number]
--- NOTE | 2018-12-23 20:00 | NUR ---
REPORT GIVEN TO ONCOMING NURSE, WALKING ROUNDS DONE. PATIENT IS RESTING IN BED, NO ACUTE DISTRESS NOTED. CALL LIGHT WITHIN REACH. BED IN THE LOWEST POSITION.
[2018-12-23] MEDS: MELATONIN 3 MG TAB PO SCH (21:42)
[2018-12-24] VITALS (8 sets, daily range): BP systolic 118–165; BP diastolic 54–70
[2018-12-24] MEDS ORDERED: MAGNESIUM SULFATE 2GM/50ML 50 ML IV ONE (04:30)
[2018-12-24 06:04] LABS: BASOPHILS % 0.3 % (0.0-1.0); EOSINOPHILS # (AUTO) 0.1 (0.0-0.4); EOSINOPHILS % 1.7 % (0.0-6.0); HEMOGLOBIN 7.8 g/dL (12.0-16.0); LYMPHOCYTES # (AUTO) 0.7 (1.0-3.2); MEAN CORPUSCULAR HEMOGLOBIN 26.6 pg (28-32); MEAN CORPUSCULAR VOLUME 88.7 fL (81-99); MONOCYTES # (AUTO) 0.5 (0.2-0.8); MONOCYTES % 12.8 % (4.4-11.3); NEUTROPHILS # (AUTO) 2.3 (2.1-6.9); NEUTROPHILS % 65.4 % (38.7-80.0); PLATELET COUNT 181 x10e3/uL (140-360); RED BLOOD COUNT 2.93 x10e6/uL (3.6-5.1); RED CELL DISTRIBUTION WIDTH 21.6 % (11.7-14.4)
[2018-12-24 06:23] LABS: INR 3.32; PROTHROMBIN TIME 34.5 seconds (11.9-14.5)
[2018-12-24 06:30] LABS: ALANINE AMINOTRANSFERASE 10 IU/L (0-55); ALBUMIN 2.6 g/dL (3.5-5.0); ALKALINE PHOSPHATASE 125 IU/L (40-150); ANION GAP 12.5 mmol/L (8-16); BLOOD UREA NITROGEN 8 mg/dL (7-26); BUN/CREATININE RATIO 11 (6-25); CALCIUM 10.7 mg/dL (8.4-10.2); CARBON DIOXIDE 37 mmol/L (22-29); CHLORIDE 90 mmol/L (98-107); CREATININE, SERUM 0.76 mg/dL (0.57-1.11); EST GLOMERULAR FILTRATION RATE > 60 ML/MIN (60-); GLUCOSE 93 mg/dL (74-118); MAGNESIUM 1.4 MG/DL (1.3-2.1); POTASSIUM 4.5 mmol/L (3.5-5.1); SODIUM 135 mmol/L (136-145)
--- NOTE | 2018-12-24 06:54 | NUR ---
RECEIVED PATIENT RESTING IN BED. RESPIRATIONS EVEN AND UNLABORED. NO ACUTE DISTRESS NOTED. NO S/S OF PAIN OR DISCOMFORT NOTED AT THIS TIME. CALL LIGHT WITHIN REACH. BED IN THE LOWEST POSITION.
[2018-12-24] MEDS: DRONABINOL 2.5MG PO SCH ×2 (08:30→16:52)
[2018-12-24] MEDS: SUCRALFATE 1 GM TAB PO SCH ×3 (08:30→16:52)
[2018-12-24] MEDS: DOCUSATE SODIUM 100 MG CAP PO SCH ×2 (08:59→16:52)
[2018-12-24] MEDS: ASPIRIN 81 MG ENTERIC COATED PO SCH (08:59)
[2018-12-24] MEDS: BUMETANIDE 1 MG TAB PO SCH ×2 (08:59→16:52)
[2018-12-24] MEDS: AMIODARONE HCL 200 MG TAB PO SCH (08:59)
[2018-12-24] MEDS: PANTOPRAZOLE SOD 40 MG TABEC PO SCH (09:00)
[2018-12-24] MEDS: POTASSIUM CHLORIDE 10MEQ EA PO SCH (09:00)
[2018-12-24] MEDS: FLUOXETINE HCL 20 MG CAP PO SCH (09:00)
[2018-12-24] MEDS: MAGNESIUM OXIDE 400 MG TAB PO SCH (09:00)
--- NOTE | 2018-12-24 13:12 | Progress Note ---
DATE: Cardiology Progress Note SUBJECTIVE: The patient is seen sitting at bedside. Reports increased lethargy and fatigue. Feels tired. OBJECTIVE: VITAL SIGNS: Temperature is 96.3, heart rate 69, respirations are 17, blood pressure is 118/66, and oxygen saturation 98% on 3 L nasal cannula. GENERAL: She is a chronically ill-appearing elderly woman, seated at bedside, in no apparent distress, appears tired. CARDIOVASCULAR: She has regular rate and rhythm. Mild systolic murmur at the right sternal border. LUNGS: Diminished breath sounds at the bases. ABDOMEN: Soft, nontender, and nondistended. EXTREMITIES: No edema. Diminished pulses. CARDIOVASCULAR MEDICATIONS: Reviewed. LABORATORY DATA: Reviewed. Hemoglobin 7.8, creatinine 0.76. Telemetry monitoring revealed atrial fibrillation with regular rate. IMPRESSION: 1. Aortic stenosis, status post aortic valve replacement. 2. Aortic repair. 3. Chronic atrial fibrillation. 4. History of hypokalemia. 5. History of hypomagnesemia. 6. Somnolence. 7. Anemia with positive occult blood. RECOMMENDATIONS: Continue current cardiovascular medications. Warfarin has been held due to supratherapeutic INR and GI bleed. Gastroenterology following. Plans for endoscopy noted. Continue to closely monitor electrolytes and replace T potassium greater than 4, magnesium greater than 2. Heart rates are controlled on amiodarone 200 mg daily. Continue aspirin. We will continue to follow along with you. Car Love DO BM/MODL /[id number]
--- NOTE | 2018-12-24 15:14 | NUR ---
CONSULT FOR DR WOODARD, NEED ORDER FOR [facility] BEFORE I CAN GET CHOICE FROM PT AND FAMILY, SPOKE WITH NURSE ABOUT THIS AND MD. WAITING ON ORDER AND WILL GAIN CHOICE AND FAX CLINICALS TO [facility].
--- NOTE | 2018-12-24 19:13 | NUR ---
REPORT GIVEN TO ONCOMING NURSE, WALKING ROUNDS DONE. PATIENT IS RESTING IN BED. NO ACUTE DISTRESS NOTED, NO S/S OF PAIN NOTED. CALL LIGHT WITHIN REACH. BED IN THE LOWEST POSITION.
--- NOTE | 2018-12-24 19:25 | NUR ---
PT IS RESTING IN BED. RESPIRATION IS EVEN AND UNLABORED, NO DISTRESS NOTED. BED IN THE LOWEST POSITION, LOCKED, AND CALL LIGHT WITHIN REACH. WILL CONTINUE TO MONITOR.
[2018-12-24] MEDS: MELATONIN 3 MG TAB PO SCH (22:33)
[2018-12-25] VITALS (8 sets, daily range): BP systolic 108–162; BP diastolic 48–66
[2018-12-25 05:32] LABS: EOSINOPHILS # (AUTO) 0.1 (0.0-0.4); EOSINOPHILS % 2.5 % (0.0-6.0); HEMATOCRIT 26.2 % (34.2-44.1); HEMOGLOBIN 7.9 g/dL (12.0-16.0); LYMPHOCYTES # (AUTO) 0.7 (1.0-3.2); LYMPHOCYTES % 19.3 % (18.0-39.1); MEAN CORPUSCULAR HEMOGLOBIN 26.6 pg (28-32); MEAN CORPUSCULAR HGB CONC 30.2 g/dL (31-35); MEAN CORPUSCULAR VOLUME 88.2 fL (81-99); MONOCYTES # (AUTO) 0.4 (0.2-0.8); MONOCYTES % 11.5 % (4.4-11.3); NEUTROPHILS # (AUTO) 2.4 (2.1-6.9); NEUTROPHILS % 66.1 % (38.7-80.0); PLATELET COUNT 205 x10e3/uL (140-360); RED BLOOD COUNT 2.97 x10e6/uL (3.6-5.1); RED CELL DISTRIBUTION WIDTH 21.8 % (11.7-14.4)
[2018-12-25 05:44] LABS: ALANINE AMINOTRANSFERASE 12 IU/L (0-55); ALBUMIN 2.6 g/dL (3.5-5.0); ALKALINE PHOSPHATASE 122 IU/L (40-150); ANION GAP 13.3 mmol/L (8-16); BLOOD UREA NITROGEN 9 mg/dL (7-26); BUN/CREATININE RATIO 12 (6-25); CALCIUM 10.6 mg/dL (8.4-10.2); CARBON DIOXIDE 36 mmol/L (22-29); CHLORIDE 89 mmol/L (98-107); CREATININE, SERUM 0.78 mg/dL (0.57-1.11); EST GLOMERULAR FILTRATION RATE > 60 ML/MIN (60-); GLUCOSE 99 mg/dL (74-118); MAGNESIUM 1.7 MG/DL (1.3-2.1); POTASSIUM 4.3 mmol/L (3.5-5.1); SODIUM 134 mmol/L (136-145)
[2018-12-25 06:49] LABS: INR 2.52; PROTHROMBIN TIME 27.9 seconds (11.9-14.5)
[2018-12-25 06:50] LABS: PARTIAL THROMBOPLASTIN TIME 59.3 seconds (23.8-35.5)
--- NOTE | 2018-12-25 07:00 | NUR ---
received am report from nurse, morning rounds done. pt is sleeping, no s/s of distress. call light is within reach
[2018-12-25] MEDS: DRONABINOL 2.5MG PO SCH ×2 (08:35→15:48)
[2018-12-25] MEDS: SUCRALFATE 1 GM TAB PO SCH ×3 (08:35→15:48)
--- NOTE | 2018-12-25 08:40 | NUR ---
pt is vomiting, hob elevated and bin provided for pt. administered ordered PRN zofran iv, will continue to monitor
[2018-12-25] MEDS: MAGNESIUM OXIDE 400 MG TAB PO SCH (08:48)
[2018-12-25] MEDS: AMIODARONE HCL 200 MG TAB PO SCH (08:48)
[2018-12-25] MEDS: DOCUSATE SODIUM 100 MG CAP PO SCH ×2 (08:48→17:16)
[2018-12-25] MEDS: ASPIRIN 81 MG ENTERIC COATED PO SCH (08:48)
[2018-12-25] MEDS: BUMETANIDE 1 MG TAB PO SCH ×2 (08:48→17:16)
[2018-12-25] MEDS: POTASSIUM CHLORIDE 10MEQ EA PO SCH (08:48)
[2018-12-25] MEDS: PANTOPRAZOLE SOD 40 MG TABEC PO SCH (08:49)
[2018-12-25] MEDS: FLUOXETINE HCL 20 MG CAP PO SCH (08:49)
--- NOTE | 2018-12-25 11:57 | Progress Note ---
DATE: Cardiology Progress Note SUBJECTIVE: The patient is feeling mildly lethargic, tired. No chest pain or shortness of breath. OBJECTIVE: VITAL SIGNS: Temperature is 97.4, heart rate is 76, respirations 18, blood pressure is 129/53, ox saturation 99% on 3 L nasal cannula. GENERAL: She is a chronically ill-appearing elderly woman, lying comfortably in bed. HEAD: Normocephalic, atraumatic. CARDIOVASCULAR: She is irregularly irregular. Normal rate. Mild systolic murmur at the right sternal border. LUNGS: Clear to auscultation. ABDOMEN: Soft, nontender, nondistended. EXTREMITIES: No edema. CARDIOVASCULAR MEDICATIONS: Reviewed, include amiodarone, Bumex, aspirin. LABORATORY DATA: Reviewed. Hemoglobin 7.9, creatinine 0.78. Telemetry monitoring revealed atrial fibrillation with controlled ventricular response. IMPRESSION: 1. History of aortic stenosis status post aortic valve replacement. 2. Aortic repair. 3. Chronic atrial fibrillation. 4. History of hypokalemia. 5. History of hypomagnesemia. 6. Lethargy and somnolence. 7. Anemia with positive occult blood. RECOMMENDATIONS: Continue current cardiovascular medications. Hold warfarin to allow the INR to return close to 1.5. Gastroenterology following. Correct all electrolytes. Continue amiodarone for rate reduction. DO YUNIOR Wolff/MODL /[id number]
--- NOTE | 2018-12-25 12:00 | NUR ---
pt complaining of nausea and stated she doesn't think she would be able to take 11:30 carafate tablet. provided pt with lemon gakona soda and saltine crackers.
--- NOTE | 2018-12-25 15:39 | NUR ---
Nutrition Follow-up Note RD Recommendation for Physician: - Continue diet as ordered - Pt is not interested in any oral nutrition supplements Plan of Care: RD following, monitoring for tolerance and adequacy Nutrition reason for involvement: Follow up Primary Diagnose(s): hypokalemia PMH: HTN Ht: 60in Wt: 169.25lb; 174.37lb BMI: 33.1kg/m2 IBW: 100lb +/- 10% RD Assessment: (12/25) Visited pt in the room. Pt complained of nausea and vomiting. Pt reported poor appetite and only took a bite of sandwich for lunch. Positive occult blood. Pt had colonoscopy scheduled for 12/27. Pt refused any nutrition intervention at this time. (12/19) Chart reviewed. Labs and meds reviewed. 78yo F, who was admitted for hypokalemia. Visited pt in the room. Pt reported of appetite being not so good since her open heart surgery a month ago. No complains of nausea or vomiting. Pt denied any chewing or swallowing difficulty. Flatus present. UBW ~166lbs. Pt refused oral nutrition supplements and diet education. Discussed menu options with pt. Will continue to monitor and follow. Current Diet: cardiac diet Malnutrition Evaluation (12/19/2018) The patient does not meet criteria for a specified degree of malnutrition at this time. Will re-evaluate at follow-up as appropriate. Diet Education Needs Assessment: Diet education not indicated. Nutrition Care Level: low Signed: Mervat Rapp, MS, RD, LD
--- NOTE | 2018-12-25 16:01 | NUR ---
PT SCHEDULED FOR EGD SUNDAY DUE TO DROPPING H/H ANTICOAGULANTS ON HOLD FOR EGD GUIAC POSITIVE STOOL SPOKE WITH JAYCEE AT [facility] TO RE-INITIATE AUTH FOR SNF
--- NOTE | 2018-12-25 16:23 | NUR ---
CM SPOKE TO PATIENT AT BEDSIDE REGARDING IMM LETTER. IMM LETTER GIVEN WITH EXPLANATION BASED ON ANTICIPATED DISCHARGE DATE. ORIGINAL SIGNED AND PLACED IN CHART; COPY OF ORIGINAL DOCUMENT GIVEN TO PATIENT AT BEDSIDE AND PLACED IN CARE TRANSITION FOLDER. CM CONTACT INFORMATION GIVEN TO PATIENT FOR ANY NEEDS OR CONCERNS. PATIENT WITH NO FURTHER QUESTIONS.
--- NOTE | 2018-12-25 19:05 | NUR ---
BS rounds completed with morning nurse. Pt alert to name. Lying in bed HOB 45 degrees. Denies pain at this time. Call figueredo within reach. Bed low and locked. Will continue to monitor.
[2018-12-25] MEDS: MELATONIN 3 MG TAB PO SCH (21:00)
--- NOTE | 2018-12-25 23:50 | Consultation ---
DATE OF CONSULTATION: 12/25/2018 I would like to thank Dr. Elliott for asking me see Ms. Hopper in consultation. REASON FOR CONSULTATION: 1. Status post aortic valve replacement. 2. Recent GI bleed. Workup in progress. 3. Hypertension. 4. Hyperlipidemia. HISTORY: A 78-year-old female, who approximately on November 20, 2018, underwent aortic valve replacement over at [facility], was transferred to a [facility] facility, was weak and somnolent. No chest pains. Went for followup evaluation with her cardiac surgeon. According to chart records, everything was okay except her INR was subtherapeutic and potassium was low. The patient underwent workup and was found to have low H and H, did have a drop in H and H, and she did have hypokalemia, has been seen by Dr. Alvarado in hematologic consultation. I have been asked to evaluate her for rehab needs. The patient tells me that over the skilled unit go by. PAST MEDICAL HISTORY: Hypertension, hyperlipidemia, aortic stenosis. SURGERIES: Include aortic valve stenosis, cholecystectomy, some type of kidney surgery. ALLERGIES: NO KNOWN DRUG ALLERGIES. HABITS: Nonsmoker, nondrinker. SOCIAL HISTORY: Lives in two [place] apartment on the 2nd floor, but there is no elevator access. Prior to admission, she was ambulatory without an assistive device supporting her. FAMILY HISTORY: Denies constitutional. REVIEW OF SYSTEMS: GENERAL: No fevers or chills. EYES: Denies. EARS: Denies. ORAL: Denies. NECK: Denies. CARDIAC: Denies. GI: Denies. Rest of review of systems is essentially negative. She says she is basically household ambulator. LABORATORY STUDIES: White cell count 3.57, hemoglobin 7.9, hematocrit 26.2, platelets of 205. Sodium is 134, potassium 4.3, BUN 9, creatinine is 0.78. IMAGING: Chest x-ray showed low lung volumes with pulmonary interstitial edema, bilateral left greater than right pleural effusions, more focal opacity left lung apex which may represent a pulmonary nodule or overlapping shadow from sternocostal junction. She had a hand x-ray the other day, which showed no acute fracture and some scapholunate ligamentous injury, age indeterminate. PHYSICAL EXAMINATION: GENERAL: The patient is awake and alert, in no apparent distress. Lying in bed. She is relatively oriented. EYES: Gaze conjugate. ORAL: Tongue is midline. NECK: Supple. HEART: Regular. LUNGS: Diminished breath sounds throughout. Sternum appears to be intact. EXTREMITIES: Functional range of motion . VITAL SIGNS: Temperature 96.8, respirations 17, heart rate 74, . Manual muscle testing: Shoulder flexion extension was not originally tested. Elbow flexion bilaterally in lower extremities. Ankle dorsiflexion, plantar flexion is 4 to 4 +0/5 strength bilaterally, but hip and knee flexion extension is 3+ to 4- 0/5 strength. Therapy has not been seen at this time, although there was an initial evaluation. Her potassium . She is scheduled for colonoscopy on Sunday according to staff. IMPRESSION: 1. Cardiac debility secondary to aortic valve replacement. 2. The patient with hypertension. 3. Possible GI bleed . 4. Hyperlipidemia. PLAN: I spoke with the patient at length. She states that she wants to do more therapy, but when I recommended inpatient rehab, she said she wants to go to the skilled unit. I explained that over the skilled unit, they do not use much therapy and she herself told me that she was doing a little bit inpatient rehab place, we would do 3 hours of therapy and mobilize more, but at this point, she is pretty insistent . We will follow along with you. Thank you once again for allowing me to participate in the care of this pleasant, but unfortunate patient. Alvin Galo DO RPL/MODL /[id number]
[2018-12-26] VITALS (8 sets, daily range): BP systolic 90–122; BP diastolic 42–52
[2018-12-26 05:40] LABS: BASOPHILS % 0.3 % (0.0-1.0); EOSINOPHILS # (AUTO) 0.1 (0.0-0.4); EOSINOPHILS % 2.3 % (0.0-6.0); HEMATOCRIT 25.6 % (34.2-44.1); HEMOGLOBIN 7.8 g/dL (12.0-16.0); LYMPHOCYTES # (AUTO) 0.8 (1.0-3.2); LYMPHOCYTES % 21.9 % (18.0-39.1); MEAN CORPUSCULAR HEMOGLOBIN 27.4 pg (28-32); MEAN CORPUSCULAR HGB CONC 30.5 g/dL (31-35); MEAN CORPUSCULAR VOLUME 89.8 fL (81-99); MONOCYTES # (AUTO) 0.5 (0.2-0.8); MONOCYTES % 14.4 % (4.4-11.3); NEUTROPHILS # (AUTO) 2.1 (2.1-6.9); NEUTROPHILS % 60.2 % (38.7-80.0); PLATELET COUNT 175 x10e3/uL (140-360); RED BLOOD COUNT 2.85 x10e6/uL (3.6-5.1); RED CELL DISTRIBUTION WIDTH 21.9 % (11.7-14.4)
[2018-12-26 05:52] LABS: INR 2.07
[2018-12-26 05:54] LABS: PARTIAL THROMBOPLASTIN TIME 50.1 seconds (23.8-35.5)
[2018-12-26 06:01] LABS: ALANINE AMINOTRANSFERASE 12 IU/L (0-55); ALBUMIN 2.5 g/dL (3.5-5.0); ALKALINE PHOSPHATASE 112 IU/L (40-150); ANION GAP 11.4 mmol/L (8-16); BLOOD UREA NITROGEN 8 mg/dL (7-26); BUN/CREATININE RATIO 9 (6-25); CALCIUM 10.5 mg/dL (8.4-10.2); CARBON DIOXIDE 37 mmol/L (22-29); CHLORIDE 92 mmol/L (98-107); CREATININE, SERUM 0.85 mg/dL (0.57-1.11); EST GLOMERULAR FILTRATION RATE > 60 ML/MIN (60-); GLUCOSE 104 mg/dL (74-118); MAGNESIUM 1.7 MG/DL (1.3-2.1); POTASSIUM 4.4 mmol/L (3.5-5.1); SODIUM 136 mmol/L (136-145)
--- NOTE | 2018-12-26 06:55 | NUR ---
Report given to morning nurse. Pt alert to name. Denies pain at this time. Family at bedside. No acute distress noted. Call figueredo within reach.
--- NOTE | 2018-12-26 07:00 | NUR ---
received am report from nurse, morning rounds done. pt is sleeping, no s/s of distress. call light within reach, side rails up.
[2018-12-26] MEDS: AMIODARONE HCL 200 MG TAB PO SCH (08:19)
[2018-12-26] MEDS: SUCRALFATE 1 GM TAB PO SCH ×3 (08:19→18:18)
[2018-12-26] MEDS: DRONABINOL 2.5MG PO SCH ×2 (08:19→18:18)
[2018-12-26] MEDS: DOCUSATE SODIUM 100 MG CAP PO SCH ×2 (08:19→18:18)
[2018-12-26] MEDS: ASPIRIN 81 MG ENTERIC COATED PO SCH (08:19)
[2018-12-26] MEDS: BUMETANIDE 1 MG TAB PO SCH ×2 (08:19→18:18)
[2018-12-26] MEDS: POTASSIUM CHLORIDE 10MEQ EA PO SCH (08:20)
[2018-12-26] MEDS: PANTOPRAZOLE SOD 40 MG TABEC PO SCH (08:20)
[2018-12-26] MEDS: FLUOXETINE HCL 20 MG CAP PO SCH (08:20)
[2018-12-26] MEDS: MAGNESIUM OXIDE 400 MG TAB PO SCH (08:20)
--- NOTE | 2018-12-26 10:53 | NUR ---
PT ACCEPTED TO [facility], ROOM [address] [facility]AR[facility]ARE. GAVE INFORMATION TO NURSE COMPLETED RTF AND PLACED IN PACKET AT NURSES STATION
[2018-12-26] MEDS ORDERED: SODIUM CHLORIDE 0.9% 1000ML 1,000 ML ONE (11:25)
--- NOTE | 2018-12-26 11:30 | NUR ---
THE TECH REPORTED BLOOD PRESSURE OF 90/42 AND 89/42. [address]AG[address] ROBBINS TO INFORM OF CHANGE
[2018-12-26] MEDS ORDERED: PHYTONADIONE 1 MG/0.5 ML AMP SQ NR (11:45)
--- NOTE | 2018-12-26 13:13 | NUR ---
CONSENT IS SIGNED FOR EGD ON 12/27/18. WENT OVER PROCEDURE WITH PT, ALL QUESTIONS/CONCERNS ADDRESSED.
--- NOTE | 2018-12-26 13:50 | NUR ---
PT DISCUSSED IN BARRIER ROUNDS; H AND H LOW, HGB IA 7.8 PT IS 24 AND INR IS 2.7, LET KNOW ABOUT ACCEPTANCE TO [facility] AND ROOM.
[2018-12-26] MEDS: MELATONIN 3 MG TAB PO SCH (22:00)
[2018-12-27 04:00] VITALS: BP 113/55
[2018-12-27 05:38] LABS: INR 1.75; PROTHROMBIN TIME 21.1 seconds (11.9-14.5)
[2018-12-27 05:39] LABS: PARTIAL THROMBOPLASTIN TIME 38.7 seconds (23.8-35.5)
[2018-12-27] MEDS: SUCRALFATE 1 GM TAB PO SCH ×5 (07:30→20:39)
[2018-12-27] MEDS: DRONABINOL 2.5MG PO SCH ×2 (07:30→17:55)
[2018-12-27 07:31] VITALS: BP 122/50
--- NOTE | 2018-12-27 07:39 | NUR ---
Hand off report received at pt's bedside from TANJA Ramsay. Pt is AAOx3, in no acute distress noted, resp even and unlabored. Pt educated on safety, instructed to use the call light for assistance, bed is in lowest position, locked, SR upx2 and all personal items are within reach. Pt is currently NPO since midnight for a scheduled EGD proc, she is educated on importance of not eating or drinking at this time. Pt verbalized understanding. Will continue to monitor.
[2018-12-27 08:43] VITALS: BP 122/50
[2018-12-27] MEDS: DOCUSATE SODIUM 100 MG CAP PO SCH ×2 (09:00→17:55)
[2018-12-27] MEDS: MAGNESIUM OXIDE 400 MG TAB PO SCH (09:00)
[2018-12-27] MEDS: AMIODARONE HCL 200 MG TAB PO SCH (09:00)
[2018-12-27] MEDS: POTASSIUM CHLORIDE 10MEQ EA PO SCH (09:00)
[2018-12-27] MEDS: FLUOXETINE HCL 20 MG CAP PO SCH (09:00)
[2018-12-27] MEDS: BUMETANIDE 1 MG TAB PO SCH ×2 (09:00→17:55)
[2018-12-27] MEDS: PANTOPRAZOLE SOD 40 MG TABEC PO SCH (09:00)
[2018-12-27] MEDS: ASPIRIN 81 MG ENTERIC COATED PO SCH (09:00)
[2018-12-27] MEDS ORDERED: SODIUM CHLORIDE 0.9% 250ML 250 ML ONE ×2 (11:14→15:07)
--- NOTE | 2018-12-27 11:15 | NUR ---
FFP transfusion initiated at this time. Pt is educated on indication and possible side effects of transfusion of FFP, and instructed to inform this nurse to report any symptoms of sob, itching, and pain. Pt verbalized understanding.
[2018-12-27 11:18] VITALS: BP 111/54
--- NOTE | 2018-12-27 11:55 | NUR ---
Pt en route to GI lab at this time, 1 unit of ffp currently infusing.
[2018-12-27] MEDS ORDERED: BENZOCAINE/TETRACAINE/BUTAMBEN AERO SPRAY 56 GM CAN ONE (12:20)
--- NOTE | 2018-12-27 13:49 | Progress Note ---
DATE: 12/27/[address] Alvarado, Hematology. SUBJECTIVE: The patient noted with INR 1.75 today, which continues to improve. No gross bleeding. The patient for EGD today and 2 units FFP ordered. They have the first unit running now. We will await EGD findings and then resumption of warfarin. The outpatient warfarin dose was already 1.5 mg per day, which somehow was subtherapeutic when the patient came to the hospital. Dr. Lipscomb is available for backup for any need right now. MD ELISHA Hong/PEACE /[id number]
--- NOTE | 2018-12-27 14:24 | NUR ---
POCKETED SPRING MACHINE OPERATOR informed nurse that they have attempted to offer patient shower and she has refused multiple times. She informed staff "I want to rest." Son continues to want to force patient to do things and son informed that we would try again in the evening.
--- NOTE | 2018-12-27 15:15 | NUR ---
Second unit of ffp initiated. Pt informed to call this nurse if she's experiencing symptoms of reaction. 1530: pt tolerated the first 15 minutes of infusion, she denies feeling short of breath, pain, and itching. Will continue to monitor monitor.
[2018-12-27 15:22] VITALS: BP 132/58
--- NOTE | 2018-12-27 18:36 | Progress Note ---
DATE: SUBJECTIVE: The patient underwent endoscopy today. Bleeding polyp was found. Feeling fatigued. Denies any chest pain or significant shortness of breath. OBJECTIVE: VITAL SIGNS: Temperature is 98.3, heart rate 76, respirations are 20, blood pressure is 111/54, and oxygen saturation 96% on 2 L nasal cannula. GENERAL: She is a chronically ill-appearing elderly woman, lying in bed. HEAD: Normocephalic, atraumatic. Mucous membranes are dry. CARDIOVASCULAR: Irregularly irregular with a right upper sternal border murmur. LUNGS: Diminished breath sounds at bases. ABDOMEN: Soft, nontender, nondistended. EXTREMITIES: Trace edema. CARDIOVASCULAR MEDICATIONS: Reviewed. LABORATORY DATA: Reviewed. Telemetry monitoring revealed atrial fibrillation with controlled ventricular response. IMPRESSION: 1. History of aortic stenosis, status post aortic valve replacement. 2. Aortic repair. 3. Chronic atrial fibrillation. 4. Lethargy and somnolence. 5. Malnutrition. 6. Anemia from gastrointestinal bleed. RECOMMENDATIONS: Continue current cardiovascular medications. We will restart anticoagulation when okay with Gastroenterology. Keep all electrolytes controlled. Continue low-dose amiodarone and diuretics. Continue to monitor closely on telemetry and daily labs. Car Love DO BM/MODL /[id number]
[2018-12-27] MEDS ORDERED: ETOMIDATE 2 MG/ML 10 ML INJ IV ONE (18:58)
--- NOTE | 2018-12-27 19:22 | Progress Note ---
DATE: SUBJECTIVE: This is a 78-year-old female, who comes in with bleeding. The patient had a transfusion of FFPs today. The patient also underwent an EGD today. The patient was supposed to be discharged today, but is getting FFP at this time. The patient has a history of anemia and history of atrial fibrillation and history of aortic valve replacement. Currently asymptomatic. No chest pain. No shortness of breath. MEDICATIONS: Include albuterol, Atrovent treatment, Bumex, docusate as needed, Marinol, fluoxetine, magnesium oxide, melatonin, Zofran as needed, pantoprazole, potassium, and Carafate. PHYSICAL EXAMINATION: VITAL SIGNS: Temperature is 97.4, pulse of 83, respirations of 20, blood pressure is 132/58, and pulse oximetry of 95% on 2 L of cannula. HEENT: Normocephalic and atraumatic. Pupils are reactive to light and accommodation. CVS: S1 and S2. Irregularly irregular. ABDOMEN: Nontender and nondistended. Chest wall with midline incision. EXTREMITIES: No clubbing. No cyanosis. No edema. The patient has heel protectors. LABORATORY VALUES: Today's hemoglobin is 7.8 and hematocrit 25.6. Chemistry shows sodium of 136, potassium is 4.4, BUN of 8, and creatinine 0.85. MICROBIOLOGY: None. IMAGING STUDIES: None. ASSESSMENT: 1. Acute gastrointestinal bleed and blood loss anemia. 2. History of prosthetic aortic valve replacement. 3. History of endoscopy. Awaiting results. PLAN: Continue with current medications. We will hold off on warfarin. The patient is getting FFPs for bleeding diathesis. Continue to monitor the patient and for atrial fibrillation, we will restart her Coumadin later date. Further recommendation and clinical course. Rate control for atrial fibrillation is achieved by amiodarone at this time. MD LIBERTAD Nj/MARTHAL /[id number]
--- NOTE | 2018-12-27 19:35 | NUR ---
Hand off report given to TANJA Maddox at pt's bedside. Pt is AAOx3, in no acute distress noted, resp even and unlabored. Pt instructed to use the call light for assistance, bed is in lowest position, locked, SR upx2 and all personal items are within reach. Pt verbalized understanding.
[2018-12-27 20:17] VITALS: BP 107/52
[2018-12-27] MEDS: MELATONIN 3 MG TAB PO SCH (20:39)
[2018-12-28] VITALS (8 sets, daily range): BP systolic 103–138; BP diastolic 45–58
[2018-12-28 06:00] LABS: BASOPHILS % 0.3 % (0.0-1.0); EOSINOPHILS # (AUTO) 0.1 (0.0-0.4); EOSINOPHILS % 1.9 % (0.0-6.0); HEMATOCRIT 24.4 % (34.2-44.1); HEMOGLOBIN 7.3 g/dL (12.0-16.0); LYMPHOCYTES # (AUTO) 0.6 (1.0-3.2); MEAN CORPUSCULAR HEMOGLOBIN 27.3 pg (28-32); MEAN CORPUSCULAR HGB CONC 29.9 g/dL (31-35); MEAN CORPUSCULAR VOLUME 91.4 fL (81-99); MONOCYTES # (AUTO) 0.3 (0.2-0.8); MONOCYTES % 10.3 % (4.4-11.3); NEUTROPHILS # (AUTO) 2.1 (2.1-6.9); NEUTROPHILS % 68.9 % (38.7-80.0); PLATELET COUNT 162 x10e3/uL (140-360); RED BLOOD COUNT 2.67 x10e6/uL (3.6-5.1); RED CELL DISTRIBUTION WIDTH 21.8 % (11.7-14.4)
[2018-12-28 06:32] LABS: INR 1.21; PROTHROMBIN TIME 15.9 seconds (11.9-14.5)
[2018-12-28 06:34] LABS: PARTIAL THROMBOPLASTIN TIME 40.7 seconds (23.8-35.5)
[2018-12-28 06:37] LABS: ANION GAP 13.4 mmol/L (8-16); BLOOD UREA NITROGEN 8 mg/dL (7-26); BUN/CREATININE RATIO 10 (6-25); CALCIUM 10.5 mg/dL (8.4-10.2); CARBON DIOXIDE 33 mmol/L (22-29); CHLORIDE 94 mmol/L (98-107); CREATININE, SERUM 0.79 mg/dL (0.57-1.11); EST GLOMERULAR FILTRATION RATE > 60 ML/MIN (60-); GLUCOSE 91 mg/dL (74-118); POTASSIUM 3.4 mmol/L (3.5-5.1); SODIUM 137 mmol/L (136-145)
--- NOTE | 2018-12-28 07:10 | NUR ---
Walking rounds and report received. Patient is awake and alertx3. Tele#23, AFIB@80. POC discussed. Patient instructed to call for assistance as needed and verbalized understanding. Call figueredo within reach and bed alarm on for safety.
[2018-12-28] MEDS ORDERED: POTASSIUM CHLORIDE 10MEQ EA PO ONE (07:30)
[2018-12-28] MEDS: SUCRALFATE 1 GM TAB PO SCH ×7 (07:30→21:35)
[2018-12-28 08:12] LABS: ANISOCYTOSIS SLIGHT; ELLIPTOCYTE, RBC SLIGHT; EOSINOPHILS % (MANUAL) 4 % (0-7); HYPOCHROMASIA SLIGHT; LYMPHOCYTES % (MANUAL) 18 % (19-48); MONOCYTES % (MANUAL) 9 % (3.4-9.0); NEUTROPHILS % (MANUAL) 69 % (40-74); PLATELET ESTIMATE ADEQUATE; PLATELET MORPHOLOGY COMMENT NORMAL; RBC MORPHOLOGY COMMENT ABNORMAL
--- NOTE | 2018-12-28 08:39 | Progress Note ---
DATE: SUBJECTIVE: The patient is status post endoscopy, doing good. No hematochezia. No hematemesis. No chest pain. No shortness of breath. No nausea, vomiting, or diarrhea. OBJECTIVE: VITAL SIGNS: Temperature is 98.5, pulse oximetry of 95%, blood pressure is 129/56, respirations 17, and pulse of 83. HEENT: Normocephalic, atraumatic. Pupils are reactive to light and accommodation. CVS: S1, S2. Irregular. Midline chest scar present. ABDOMEN: Nontender, nondistended. EXTREMITIES: No clubbing. No cyanosis. No edema either. The patient has a heel protector on both feet. LABORATORY VALUES: Today's hemoglobin is 7.3, stable holding, hematocrit of 24.4, platelet count was 162. Chemistries; potassium is low 3.4, sodium of 137, calcium of 10.5. Coags are normal at 1.21, status post 2 units of FFPs. ASSESSMENT: 1. History of gastrointestinal bleed. 2. Anemia of blood loss. 3. History of prosthetic aortic valve replacement. 4. Status post endoscopy with biopsy. PLAN: We will hold off warfarin. Continue monitoring her CBC. The patient is to be discharged back to the SNF she came in from. Further recommendation per clinical course. Possible discharge in 1 to 2 days depending on restarting warfarin and stability of her CBC. MD LIBERTAD Nj/MODL /[id number]
[2018-12-28] MEDS ORDERED: CHLORASEPTIC SPRAY 177 ML BTL MM PRN (09:15)
[2018-12-28] MEDS: DRONABINOL 2.5MG PO SCH (09:23)
[2018-12-28] MEDS: FLUOXETINE HCL 20 MG CAP PO SCH (09:23)
[2018-12-28] MEDS: ASPIRIN 81 MG ENTERIC COATED PO SCH (09:23)
[2018-12-28] MEDS: AMIODARONE HCL 200 MG TAB PO SCH (09:23)
[2018-12-28] MEDS: BUMETANIDE 1 MG TAB PO SCH ×2 (09:23→16:57)
[2018-12-28] MEDS: PANTOPRAZOLE SOD 40 MG TABEC PO SCH (09:23)
[2018-12-28] MEDS: POTASSIUM CHLORIDE 10MEQ EA PO SCH (09:23)
[2018-12-28] MEDS: MAGNESIUM OXIDE 400 MG TAB PO SCH (09:23)
[2018-12-28] MEDS: DOCUSATE SODIUM 100 MG CAP PO SCH ×2 (09:23→16:57)
[2018-12-28] MEDS: WARFARIN SOD 1 MG TAB PO SCH (16:57)
--- NOTE | 2018-12-28 19:00 | NUR ---
Walking rounds and report give. Call figueredo within reach.
--- NOTE | 2018-12-28 19:30 | NUR ---
Received patient from day nurse, patient is stable, introduced self to patient and patient denies any concerns.
[2018-12-28] MEDS: MELATONIN 3 MG TAB PO SCH (21:35)
[2018-12-29] VITALS (8 sets, daily range): BP systolic 105–157; BP diastolic 51–65
[2018-12-29 06:07] LABS: BASOPHILS % 0.3 % (0.0-1.0); EOSINOPHILS # (AUTO) 0.1 (0.0-0.4); EOSINOPHILS % 2.3 % (0.0-6.0); HEMATOCRIT 24.8 % (34.2-44.1); HEMOGLOBIN 7.5 g/dL (12.0-16.0); LYMPHOCYTES # (AUTO) 0.6 (1.0-3.2); LYMPHOCYTES % 20.6 % (18.0-39.1); MEAN CORPUSCULAR HEMOGLOBIN 27.4 pg (28-32); MEAN CORPUSCULAR HGB CONC 30.2 g/dL (31-35); MEAN CORPUSCULAR VOLUME 90.5 fL (81-99); MONOCYTES # (AUTO) 0.4 (0.2-0.8); MONOCYTES % 12.3 % (4.4-11.3); NEUTROPHILS # (AUTO) 1.9 (2.1-6.9); NEUTROPHILS % 64.2 % (38.7-80.0); PLATELET COUNT 149 x10e3/uL (140-360); RED BLOOD COUNT 2.74 x10e6/uL (3.6-5.1); RED CELL DISTRIBUTION WIDTH 21.5 % (11.7-14.4)
[2018-12-29 06:21] LABS: INR 1.17; PROTHROMBIN TIME 15.5 seconds (11.9-14.5)
[2018-12-29 06:27] LABS: ANION GAP 15.6 mmol/L (8-16); BLOOD UREA NITROGEN 9 mg/dL (7-26); BUN/CREATININE RATIO 12 (6-25); CALCIUM 10.3 mg/dL (8.4-10.2); CARBON DIOXIDE 31 mmol/L (22-29); CHLORIDE 93 mmol/L (98-107); CREATININE, SERUM 0.78 mg/dL (0.57-1.11); EST GLOMERULAR FILTRATION RATE > 60 ML/MIN (60-); GLUCOSE 92 mg/dL (74-118); POTASSIUM 3.6 mmol/L (3.5-5.1); SODIUM 136 mmol/L (136-145)
--- NOTE | 2018-12-29 07:13 | NUR ---
walking rounds done. Patient resting with eyes closed, appears comfortable. Tele #23, AFIB @80. Patient instructed to call for assistance as needed and verbalized understanding. Call figueredo within reach. Bed alarm on for safety.
--- NOTE | 2018-12-29 07:14 | NUR ---
Patient endorsed to next shift for continuity of care.
[2018-12-29] MEDS: PANTOPRAZOLE SOD 40 MG TABEC PO SCH (09:22)
[2018-12-29] MEDS: SUCRALFATE 1 GM TAB PO SCH ×4 (09:22→21:50)
[2018-12-29] MEDS: MAGNESIUM OXIDE 400 MG TAB PO SCH (09:22)
[2018-12-29] MEDS: BUMETANIDE 1 MG TAB PO SCH ×2 (09:22→17:04)
[2018-12-29] MEDS: ASPIRIN 81 MG ENTERIC COATED PO SCH (09:22)
[2018-12-29] MEDS: POTASSIUM CHLORIDE 10MEQ EA PO SCH (09:22)
[2018-12-29] MEDS: FLUOXETINE HCL 20 MG CAP PO SCH (09:22)
[2018-12-29] MEDS: AMIODARONE HCL 200 MG TAB PO SCH (09:22)
[2018-12-29] MEDS: DOCUSATE SODIUM 100 MG CAP PO SCH ×2 (09:22→17:04)
--- NOTE | 2018-12-29 09:33 | Progress Note ---
DATE: SUBJECTIVE: The patient is here from [facility] with a history of GI bleed. Currently, no hematochezia. No hematemesis. No chest pain. No shortness of breath. No nausea, vomiting, or diarrhea. OBJECTIVE: VITAL SIGNS: Temperature is 97.2, pulse of 80, respirations of 18, and blood pressure is 118/56. HEENT: Normocephalic, atraumatic. Pupils are reactive and accommodation. CVS: She is irregularly irregular with ejection systolic murmur. ABDOMEN: Nontender and nondistended. LABORATORY VALUES: White count is 3.01, hemoglobin of 7.5, and hematocrit of 24.8. Chemistries, sodium of 136, potassium of 3.6, BUN is 9, and creatinine is 0.78. ASSESSMENT: Acute GI bleed status post endoscopy, anemia of blood loss, history of prosthetic aortic valve replacement, status post endoscopy with biopsy. PLAN: Continue on warfarin right now. We will continue to monitor the patient. The patient's INR will be monitored on a daily basis. Further recommendation per clinical course. Can be discharged when INR is therapeutic. MD LIBERTAD Nj/MARTHAL /[id number]
--- NOTE | 2018-12-29 13:39 | Progress Note ---
DATE: Cardiology Progress Note SUBJECTIVE: The patient found sleeping comfortably. No events. OBJECTIVE: VITAL SIGNS: Temperature is 97.2, heart rate 80, respirations 18, blood pressure is 118/56, and oxygen saturation 98% on 2 L nasal cannula. GENERAL: Well-appearing elderly woman, lying comfortably in bed, in no apparent distress. CARDIOVASCULAR: Irregularly irregular. LUNGS: Clear to auscultation. ABDOMEN: Soft, nontender, and nondistended. EXTREMITIES: No edema. CARDIOVASCULAR MEDICATIONS: Reviewed. LABORATORY DATA: Reviewed. Hemoglobin 7.5. INR is 1.1. Telemetry monitoring revealed atrial fibrillation. IMPRESSION: 1. History of aortic stenosis, status post aortic valve replacement. 2. Aortic dissection, status post repair. 3. Chronic atrial fibrillation. 4. Lethargy and somnolence. 5. Malnutrition. 6. Anemia from gastrointestinal bleed. RECOMMENDATIONS: 1. Continue current cardiovascular medications and restart warfarin for therapeutic INR. 2. Keep all electrolytes controlled and continue monitor on telemetry. 3. Continue low-dose amiodarone, diuretics otherwise. Car Love DO BM/MODL /[id number]
[2018-12-29] MEDS: WARFARIN SOD 1 MG TAB PO SCH (17:04)
--- NOTE | 2018-12-29 19:01 | NUR ---
WALKING ROUND AND REPORT GIVEN. CALL BYRD WITHIN REACH.
--- NOTE | 2018-12-29 19:15 | NUR ---
Received patient from day nurse, patient is stable, alert and oriented, introduced self to patient and patient educated on how to use call light to call nurses for help, patient educated to call for help at all times to prevent falls, patient verbalized understanding, safety and fall precautions maintained as per hospital protocol: bed in lowest position and locked, needed items beside bed and call light placed close to patient, patient instructed to use it to call for help, patient is currently stable will continue to monitor.
[2018-12-29] MEDS: MELATONIN 3 MG TAB PO SCH (21:51)
[2018-12-30] VITALS (7 sets, daily range): BP systolic 113–178; BP diastolic 53–74
[2018-12-30 05:59] LABS: BASOPHILS % 0.3 % (0.0-1.0); EOSINOPHILS # (AUTO) 0.1 (0.0-0.4); EOSINOPHILS % 1.6 % (0.0-6.0); HEMATOCRIT 28.4 % (34.2-44.1); HEMOGLOBIN 8.6 g/dL (12.0-16.0); LYMPHOCYTES # (AUTO) 0.6 (1.0-3.2); LYMPHOCYTES % 19.9 % (18.0-39.1); MEAN CORPUSCULAR HEMOGLOBIN 27.3 pg (28-32); MEAN CORPUSCULAR HGB CONC 30.3 g/dL (31-35); MEAN CORPUSCULAR VOLUME 90.2 fL (81-99); MONOCYTES # (AUTO) 0.4 (0.2-0.8); MONOCYTES % 10.9 % (4.4-11.3); NEUTROPHILS # (AUTO) 2.2 (2.1-6.9); PLATELET COUNT 173 x10e3/uL (140-360); RED BLOOD COUNT 3.15 x10e6/uL (3.6-5.1); RED CELL DISTRIBUTION WIDTH 20.8 % (11.7-14.4)
[2018-12-30 06:13] LABS: INR 1.14; PROTHROMBIN TIME 15.2 seconds (11.9-14.5)
--- NOTE | 2018-12-30 07:12 | NUR ---
Patient endorsed to next shift for continuity of care.
[2018-12-30] MEDS: SUCRALFATE 1 GM TAB PO SCH ×4 (07:55→21:00)
[2018-12-30] MEDS: METHYLPREDNISOLONE SOD SUCC 40 MG/ML VIAL 1ML IV SCH ×2 (08:20→21:00)
[2018-12-30] MEDS: PANTOPRAZOLE SOD 40 MG TABEC PO SCH (08:21)
[2018-12-30] MEDS: MAGNESIUM OXIDE 400 MG TAB PO SCH (08:21)
[2018-12-30] MEDS: ASPIRIN 81 MG ENTERIC COATED PO SCH (08:21)
[2018-12-30] MEDS: AMIODARONE HCL 200 MG TAB PO SCH (08:21)
[2018-12-30] MEDS: FLUOXETINE HCL 20 MG CAP PO SCH (08:21)
[2018-12-30] MEDS: BUMETANIDE 1 MG TAB PO SCH ×2 (08:21→16:50)
[2018-12-30] MEDS: DOCUSATE SODIUM 100 MG CAP PO SCH ×2 (08:21→16:50)
[2018-12-30] MEDS: POTASSIUM CHLORIDE 10MEQ EA PO SCH (08:21)
--- NOTE | 2018-12-30 08:33 | NUR ---
patient resting in bed, repositioned her, not in any distress, denies any chest pain or SOB, Call light in reach
--- NOTE | 2018-12-30 13:24 | NUR ---
Notified Dr Alvarado that radiology they couldn't do CT Chest since the patient didnt get IV access, he said to reschedule to tomorrow
[2018-12-30] MEDS ORDERED: ONDANSETRON HCL 4 MG ORAL DISINTEGRATING TAB PO PRN (15:30)
--- NOTE | 2018-12-30 15:37 | NUR ---
CM SPOKE WITH DR REID REGARDING SNF AUTH AT [facility] DR ARECHIGA STATES PT AND FAMILY NOW WANT TO GO TO [facility] EXPLAINED TO DR ARECHIGA, PT AND FAMILY THAT PT WILL PROBABLY NOT BE APPROVED FOR [facility] DUE TO INABILITY TO TOLERATE 3 HRS INITIALLY PT TOLD DR WOODARD THAT SHE WANTS TO GO BACK TO [facility] HOWEVER TODAY PT AND FAMILY HAVE CHANGED THEIR MINDS AND WANT TO GO TO [facility] CHOICE LETTER SIGNED BY PT MOT INITIATED AND PLACED IN PACKET ON FRONT OF [place] [facility] FAXED TO [phone] CONFIRMATION REC'D
[2018-12-30] MEDS: WARFARIN SOD 1 MG TAB PO SCH (16:50)
--- NOTE | 2018-12-30 19:10 | NUR ---
Bedside report with morning nurse. Pt alert and orient to name. Lying in bed HOB 45 degrees. Denies pain at this time. Call light within reach. Will continue to monitor.
--- NOTE | 2018-12-30 19:31 | Progress Note ---
DATE: 12/30/2018 Cardiology Progress Note SUBJECTIVE: The patient denies chest pain or shortness of breath. OBJECTIVE: VITAL SIGNS: Temperature 97.7 degrees, pulse 99, respiratory rate 18, blood pressure 178/74, and oxygen saturation 97% on room air. GENERAL: Awake, alert, elderly woman, no acute distress. LUNGS: Clear to auscultation bilaterally. No wheezes or crackles. CARDIOVASCULAR: Normal rate. Irregularly irregular. Normal S1 and S2. ABDOMEN: Soft, nontender. EXTREMITIES: No edema. CARDIAC MEDICATIONS: 1. Amiodarone 200 mg p.o. daily. 2. Bumex 1 mg p.o. b.i.d. 3. Aspirin 81 mg p.o. daily. 4. Warfarin 1.5 mg p.o. daily. LABORATORY DATA: WBC 3.21, hemoglobin 8.6, hematocrit 28.4, platelets 173. Sodium 136, potassium 3.6, chloride 93, CO2 of 31, BUN 9, creatinine 0.78. INR 1.14. TELEMETRY: Atrial fibrillation. IMPRESSION: 1. History of aortic stenosis, status post aortic valve replacement. 2. Aortic dissection, status post repair. 3. Chronic atrial fibrillation. 4. Anemia secondary to gastrointestinal bleed. RECOMMENDATIONS: Warfarin has been restarted. Monitor INR closely. Continue current cardiac medications otherwise. Monitor on telemetry while admitted. Monitor and replete electrolytes. No further cardiac evaluation is indicated at this time. Thank you for this consult. We will continue to follow. Gely Singletary MD ABS/MODL /[id number]
--- NOTE | 2018-12-30 19:31 | Progress Note ---
DATE: 12/30/2018 SUBJECTIVE: Ms. Hopper was seen on rounds today. She has been seen by Dr. Alvarado. I spoke with Dr. Alvarado. Apparently, she has been notified that she had it looks like workup is in progress, but looks like she may have LABORATORY DATA: White cell count of 3.2, hemoglobin 8.6, hematocrit 28.4, platelets of 173. INR is 1.14. Alvin Galo DO RPL/MARTHAL /[id number]
[2018-12-30] MEDS: MELATONIN 3 MG TAB PO SCH (21:00)
[2018-12-31] VITALS (8 sets, daily range): BP systolic 102–135; BP diastolic 52–67
[2018-12-31] MEDS ORDERED: SODIUM CHLORIDE 0.9% 50ML 50 ML ONE ×2 (05:29→14:14)
[2018-12-31] MEDS ORDERED: IOPAMIDOL 370 MG/ML 200 ML INFUS..BTL INJ ONE ×2 (05:29→14:15)
[2018-12-31 06:39] LABS: INR 1.29; PROTHROMBIN TIME 16.7 seconds (11.9-14.5)
--- NOTE | 2018-12-31 06:40 | NUR ---
Pt alert and oriented. Lying in bed HOB 45 degrees. Denies pain at this time. Call figueredo within reach.
[2018-12-31] MEDS: SUCRALFATE 1 GM TAB PO SCH ×4 (07:55→20:49)
--- NOTE | 2018-12-31 08:31 | NUR ---
[facility] [phone] CONFIRMED SHE REC'D CLINICAL AND IS SUBMITTING IT TO [facility] TODAY
[2018-12-31] MEDS: MAGNESIUM OXIDE 400 MG TAB PO SCH (09:24)
[2018-12-31] MEDS: BUMETANIDE 1 MG TAB PO SCH ×2 (09:24→17:15)
[2018-12-31] MEDS: DOCUSATE SODIUM 100 MG CAP PO SCH ×2 (09:24→17:15)
[2018-12-31] MEDS: AMIODARONE HCL 200 MG TAB PO SCH (09:24)
[2018-12-31] MEDS: PANTOPRAZOLE SOD 40 MG TABEC PO SCH (09:24)
[2018-12-31] MEDS: FLUOXETINE HCL 20 MG CAP PO SCH (09:24)
[2018-12-31] MEDS: ASPIRIN 81 MG ENTERIC COATED PO SCH (09:24)
[2018-12-31] MEDS: POTASSIUM CHLORIDE 10MEQ EA PO SCH (09:24)
[2018-12-31] MEDS: METHYLPREDNISOLONE SOD SUCC 40 MG/ML VIAL 1ML IV SCH ×2 (09:24→20:49)
--- NOTE | 2018-12-31 09:28 | Diagnostic Imaging Report ---
EXAM: CT Chest WITH intravenous contrast 12/31/2018 9:00 AM INDICATION: Shortness of breath COMPARISON: Chest radiograph of 12/16/2018 TECHNIQUE: Chest was scanned utilizing a multidetector helical scanner from the lung apex through the level of the adrenal glands after administration of IV contrast. Coronal and sagittal reformations were obtained. Routine protocol was performed. IV CONTRAST: 100mL Isovue 370 RADIATION DOSE: Total DLP: 489.9 mGy*cm. Dose modulation, iterative reconstruction, and/or weight based adjustment of the mA/kV was utilized to reduce the radiation dose to as low as reasonably achievable. COMPLICATIONS: None FINDINGS: LINES/ TUBES: None. LUNGS AND AIRWAYS: The trachea and mainstem bronchi are patent. There is diffuse upper lobe predominant centrilobular emphysema. There is a spiculated left upper lobe nodule measuring up to 2.6 x 1.8 cm maximum dimension (series 3 image 25) which appears to arise slightly inferiorly from its largest dimension from the anterior segment left upper lobe bronchus. A separate left upper lobe 15 mm nodule (series 3 image 20) is situated along the posterior pleural surface. Right middle lobe predominantly groundglass 13 x 6 mm nodule (series 3 image 72). Bibasilar dependent subsegmental atelectasis. PLEURA: Moderate left greater than right bilateral pleural effusions. No pneumothorax. HEART AND MEDIASTINUM: There is a 7 mm cystic nodule at the inferior left thyroid lobe and a 3 mm cystic nodule at the inferior right thyroid lobe, both likely clinically insignificant. No supraclavicular lymphadenopathy. Enlarged pretracheal mediastinal lymph node measures 19 x 16 mm (series 2 image 40. Several other prominent mediastinal lymph node include a 12 x 9 mm left AP window node (series 2 image 37 and a 16 x 7 mm right pretracheal node (series 2 image 30). No axillary, subpectoral, or internal mammary lymphadenopathy. There is postoperative low-density mediastinal fluid tracking along the ascending aorta. The heart is mildly enlarged. No pericardial effusion. Atherosclerotic calcifications involve the coronary arteries. UPPER ABDOMEN: Limited contrast-enhanced images of the upper abdomen demonstrate bilateral adrenal nodules measuring 2.7 x 1.7 cm on the left (series 2 image 104) and 2.9 x 1.6 cm on the right (series 2 image 100). No abnormalities in the partially visualized liver, spleen, or pancreas. BONES: No acute osseous injury. Postsurgical changes of sternotomy with hardware in place. Degenerative changes of the visualized spine. Diffuse osteopenia. No suspicious lytic or blastic lesions. SOFT TISSUES: Unremarkable. IMPRESSION: Spiculated left upper lobe pulmonary nodule measures up to 2.6 x 1.8 cm and is highly suspicious for primary pulmonary malignancy. Separate lung lesions including a left upper lobe subpleural lesion and also a right middle lobe predominantly groundglass lesion are also concerning. Bilateral adrenal nodules concerning for metastatic involvement. Moderate bilateral left greater than right pleural effusions and associated bilateral lower lobe subsegmental atelectasis. Signed by: Arnie Zapata MD on 12/31/2018 9:25 AM
[2018-12-31] MEDS ORDERED: PAMIDRONATE DISODIUM 60 MG in SODIUM CHLORIDE 0.9% 500ML 500 ML IV ONE (09:30)
--- NOTE | 2018-12-31 11:44 | Progress Note ---
DATE: 12/31/2018 Cardiology Progress Note SUBJECTIVE: The patient denies chest pain or shortness of breath. OBJECTIVE: VITAL SIGNS: Temperature 96.7 degrees, pulse 80, respiratory rate 17, blood pressure 131/60, oxygen saturation 98% on room air. GENERAL: Awake, alert, in no acute distress. LUNGS: Clear to auscultation bilaterally. No wheezes or crackles. CARDIOVASCULAR: Normal rate, irregularly irregular. Normal S1, S2. ABDOMEN: Soft, nontender. EXTREMITIES: No edema. CARDIAC MEDICATIONS: Amiodarone 200 mg p.o. daily, Bumex 1 mg p.o. b.i.d., aspirin 81 mg p.o. daily, warfarin 3 mg p.o. daily. LABORATORY DATA: None today. TELEMETRY: Atrial fibrillation. IMPRESSION: 1. History of aortic stenosis status post bioprosthetic aortic valve replacement. 2. Aortic dissection, status post repair. 3. Chronic atrial fibrillation. 4. Anemia secondary to GI bleed. RECOMMENDATIONS: Warfarin has been restarted. INR is gradually climbing. Continue current cardiac medications. Monitor hemoglobin and hematocrit closely. Continue current cardiac medications. Monitor on telemetry while admitted. No further cardiac evaluation is indicated at this time. PT as tolerated. Thank you for this consult. We will continue to follow. Gely Singletary MD ABS/MODL /[id number]
[2018-12-31] MEDS ORDERED: WARFARIN SOD 1 MG TAB PO SCH (17:00)
--- NOTE | 2018-12-31 17:07 | Progress Note ---
DATE: 12/31/2018 SUBJECTIVE: Ms. Hopper was seen on rounds today. She is in bed. She is resting. She is tired. She is sad about her overall situation. She is aware that there was a lesion noted about two years ago in her chest. The last CT results show a spiculated left upper lobe nodule measuring 2.6 cm x 1.8 cm, which is highly suspicious for primary pulmonary malignancy. There are also some lung lesions of the left upper lobe and right middle lobe. Moderate bilateral left greater than right pleural effusion associated with bilateral lower lobe subsegmental atelectasis. OBJECTIVE: VITAL SIGNS: Temperature 97.1, respirations 17, heart rate 78, blood pressure 135/62. HEART: Regular. LUNGS: Breath sounds throughout on O2 via nasal cannula. ABDOMEN: Nondistended, nontender. Weak overall. Therapy rhodes, patient is just not able to do a whole lot given her situation. Most likely will be going to skilled as patient's functional mobility is limited. PLAN: Most likely will be going to skilled unit given the situation. We will need to see about her next level of care. I doubt going to inpatient rehab would help her much at this point, especially given her situation of the lung lesion and her overall weakened state. Alvin Galo DO RPL/MODL /[id number]
[2018-12-31] MEDS: MELATONIN 3 MG TAB PO SCH (22:39)
[2019-01-01] VITALS (7 sets, daily range): BP systolic 99–130; BP diastolic 49–57
[2019-01-01 06:38] LABS: HEMATOCRIT 26.2 % (34.2-44.1); LYMPHOCYTES # (AUTO) 0.5 (1.0-3.2); LYMPHOCYTES % 13.2 % (18.0-39.1); MEAN CORPUSCULAR HEMOGLOBIN 27.3 pg (28-32); MEAN CORPUSCULAR HGB CONC 30.5 g/dL (31-35); MEAN CORPUSCULAR VOLUME 89.4 fL (81-99); MONOCYTES # (AUTO) 0.2 (0.2-0.8); MONOCYTES % 4.9 % (4.4-11.3); NEUTROPHILS # (AUTO) 2.8 (2.1-6.9); NEUTROPHILS % 81.3 % (38.7-80.0); PLATELET COUNT 188 x10e3/uL (140-360); RED BLOOD COUNT 2.93 x10e6/uL (3.6-5.1); RED CELL DISTRIBUTION WIDTH 19.8 % (11.7-14.4)
[2019-01-01 06:52] LABS: INR 1.66; PROTHROMBIN TIME 20.2 seconds (11.9-14.5)
[2019-01-01 07:02] LABS: ALANINE AMINOTRANSFERASE 12 IU/L (0-55); ALBUMIN 2.8 g/dL (3.5-5.0); ALKALINE PHOSPHATASE 111 IU/L (40-150); ANION GAP 13.6 mmol/L (8-16); BLOOD UREA NITROGEN 13 mg/dL (7-26); BUN/CREATININE RATIO 16 (6-25); CALCIUM 10.2 mg/dL (8.4-10.2); CARBON DIOXIDE 32 mmol/L (22-29); CHLORIDE 94 mmol/L (98-107); CREATININE, SERUM 0.79 mg/dL (0.57-1.11); EST GLOMERULAR FILTRATION RATE > 60 ML/MIN (60-); GLUCOSE 127 mg/dL (74-118); MAGNESIUM 1.8 MG/DL (1.3-2.1); POTASSIUM 3.6 mmol/L (3.5-5.1); SODIUM 136 mmol/L (136-145)
--- NOTE | 2019-01-01 07:20 | NUR ---
PATIENT IS AWAKE, ALERT, AND IN STABLE CONDITION WITH NO S/S OF RESPIRATORY DISTRESS. PATIENT DENIES ANY PAIN. O2 AND TELEMETRY APPLIED. DIAPER APPLIED. BED ALARM ON. CALL LIGHT IS WITHIN REACH, PATIENT INSTRUCTED TO CALL FOR ASSISTANCE NEEDED.
[2019-01-01] MEDS: SUCRALFATE 1 GM TAB PO SCH ×4 (08:36→20:22)
[2019-01-01] MEDS: PANTOPRAZOLE SOD 40 MG TABEC PO SCH (08:40)
[2019-01-01] MEDS: FLUOXETINE HCL 20 MG CAP PO SCH (08:40)
[2019-01-01] MEDS: MAGNESIUM OXIDE 400 MG TAB PO SCH (08:40)
[2019-01-01] MEDS: POTASSIUM CHLORIDE 10MEQ EA PO SCH (08:41)
[2019-01-01] MEDS: ASPIRIN 81 MG ENTERIC COATED PO SCH (08:41)
[2019-01-01] MEDS: AMIODARONE HCL 200 MG TAB PO SCH (08:41)
[2019-01-01] MEDS: DOCUSATE SODIUM 100 MG CAP PO SCH ×2 (08:41→16:11)
[2019-01-01] MEDS: METHYLPREDNISOLONE SOD SUCC 40 MG/ML VIAL 1ML IV SCH ×2 (08:41→20:22)
[2019-01-01] MEDS: BUMETANIDE 1 MG TAB PO SCH ×2 (08:41→16:11)
--- NOTE | 2019-01-01 14:36 | NUR ---
ASSESSMENT: Spiritual distress Digital Media Producer referred by staff. Pt overwhelmed by illness. Pt states her "from the same thing" about a year ago. Pt states she had "open heart surgery" last month. Pt has children and grandchildren as support system. Pt identifies as Baptism and has been contacted by her motorcycle assembler in [place]. Intervention: Provided unhurried empathic listening. Facilitated storytelling. Facilitated identification of resources. Provided prayer. Outcome: Pt expressed appreciation for support. Will follow as able. DOLORES SCHNEIDER Digital Media Producer Spiritual Care Department O: [phone] Pager: [phone] ([phone] number calling from)
--- NOTE | 2019-01-01 14:47 | Consultation ---
DATE OF CONSULTATION: 12/30/2018 HISTORY OF PRESENT ILLNESS: Ketty Hopper is a 78-year-old white female, who referred to me for "low iron". The patient had presented with shortness of breath, weakness, subsequently was found to be anemic. Subsequently referred to me for evaluation of anemia. SOCIAL HISTORY: History of excessive smoking in the past. FAMILY HISTORY: Noncontributory. ALLERGIES: REPORTED TO CODEINE AND PENICILLIN. MEDICATIONS: At this time, 1. Albuterol. 2. Ondansetron. 3. Tylenol. 4. Aspirin. 5. Bumetanide. 6. Docusate. 7. Melatonin. 8. Protonix. 9. Fluoxetine. 10. Amiodarone. 11. Potassium chloride. 12. Magnesium oxide. 13. Carafate. 14. Coumadin. 15. Methylprednisolone. REVIEW OF SYSTEMS: HEENT: Normal. CARDIAC: History of aortic valve replacement, history of atrial fibrillation. RESPIRATORY: History of emphysema. GI: Normal. : Normal. MUSCULOSKELETAL: Normal. NEUROENDOCRINE: Essentially normal. PHYSICAL EXAMINATION: GENERAL: Moderately built female, very anemic, no palpable adenopathy. HEART: Irregularly, irregular. Midline scar surgery seen. RECTAL: Deferred. LUNGS: Dullness at both bases. ABDOMEN: Obese. RECTAL: Deferred. VAGINAL: Deferred. CENTRAL NERVOUS SYSTEM: Essentially normal. EXTREMITIES: Essentially normal. LABORATORY DATA: Lab investigations of interest, which has prompted this consultation shows a hemoglobin of 9.2, hematocrit 29, white count 4740, platelets are 295,000, MCV normal at 84.3, MCHC normal at 31.7. RDW is slightly high at 20.1. Chemistry has shown the patient's potassium to be very low at 2.6, calcium high at 11.0, total protein of 6.6, albumin very low at 3.1, alkaline phosphatase is very high at 159, bilirubin 1.4. The albumin later dropped down to 2.5. Serum iron low at 43, iron binding capacity low at 221, ferritin high at 789.78. Imaging showed the patient to have a left upper lobe nodule. A CAT scan of the chest was suggested by me, which showed a spiculated left upper lobe nodule, 2.6 x 1.8 cm separate lung lesion at the left upper lobe, 1.5 cm right middle lobe lesion, 13 x 6 mm, mediastinal lymph node 19 x 16 mm and 12 x 9 mm, right paratracheal lymph node 12 x 9 mm, bilateral renal metastases right 2.7 x 1.7 cm, left 2.9 x 1.6 mm. IMPRESSION: 1. Anemia of chronic disease. 2. Neutropenia. 3. Aortic valve replacement. 4. Atrial fibrillation. 5. History of GERD. 6. Hypokalemia. 7. Hypercalcemia. 8. Hypoproteinemia. 9. Hypoalbuminemia. 10. Hypomagnesemia of 0.9. 11. Acquired coagulopathy. 12. Bilateral pleural effusions. 13. Stage IV lung cancer until proven otherwise with mediastinal metastases, adrenal metastases, with a high CEA of 6.8. PLAN, COMMENTS, AND SUGGESTIONS: The patient has spoken to me to talk to Mr. Vergara the oldest son. I have spoken to him on the phone in the room of the patient with the nurse present. I have spoken to him all about the diagnosis since this is a stage IV and she has multiple comorbidities. I suggested the supportive care. I have to have the family decide that they want to proceed with that a biopsy of the lung, confirmation of the malignancy, a PET scan, and systemic chemotherapy depending on what the pathology will handle turner to be. I also expressed that if she was my family since this is far advanced and since she has multiple comorbidities, I would suggest the supportive care. However, I will leave it up to the family to decide. I also expressed that this is an inoperable and not a curable cancer. Evaluation is suggested. I will confine myself to Hematology-Oncology. I am awaiting the decision by the family. I still strongly suggest the supportive care. Of interest, sometime in November 2018, the patient had aortic valve replaced. The son does tell me that they did mention a mass in the left lung and a mass in the right lung. However, I was told that they were not concerned about it. He question me about that. My reply was I cannot speak for any other institution or a physician. I will speak for myself. These are the findings today and thus where I stand. Thank you very much for allowing me to participate in management of this patient. JeMD INGRID Hanson/MODL /[id number] cc: DO Car Boston DO Kent Schnell, MD Daniel H Darmadi, MD
[2019-01-01] MEDS: ENOXAPARIN INJ 80 MG/0.8 ML SYR SC SCH ×2 (15:26→20:22)
--- NOTE | 2019-01-01 15:48 | Consultation ---
DATE OF CONSULTATION: Pulmonary Consultation. Patient of Dr. Elliott, Dr. Shah, and Dr. Ramos. HISTORY OF PRESENT ILLNESS: she had a history of aortic stenosis. She had a complicated aortic valve replacement with torn aorta and open chest for 12 hours. Mass was noted in the chest at that time, but she was too frail for biopsy. She has a history of hypertension, hyperlipidemia, history of smoking a pack a day for approximately 14 years. Worked in the past in the [employer]. Born in [place]. ALLERGIES: ALLERGIC TO CODEINE AND PENICILLIN. HOME MEDICATIONS: Include, 1. Albuterol. 2. Fosamax. 3. Amiodarone. 4. Aspirin. 5. Bumex. 6. Digoxin. 7. Fluoxetine. 8. Melatonin. 9. Protonix. 10. Warfarin. PAST MEDICAL HISTORY: She has had kidney surgery. FAMILY HISTORY: Positive for coronary artery disease and valvular heart disease. She is able to climb two flights of stairs at her own pace even after surgery. She has a history of chronic atrial fibrillation. PHYSICAL EXAMINATION: VITAL SIGNS: Temperature 97, pulse 84, respirations 17, and blood pressure 123/57. HEAD: Normocephalic and atraumatic. NECK: Trachea midline. LUNGS: Diminished breath sounds at both bases. HEART: Irregular rhythm. ABDOMEN: Nontender. EXTREMITIES: Nonedematous. IMPRESSION: Metastatic lung cancer. Apparently her also had lung cancer. He declined therapy. She is undecided at this time, had to proceed, and will confer with her daughter family. We will hold Coumadin at this point, consider adrenal biopsy for diagnosis and staging. will attempt to find old records and scans Thank you for this kind referral. MD SANTANA Bravo/PEACE /[id number] MTDD
--- NOTE | 2019-01-01 16:35 | NUR ---
Nutrition Follow-up Note RD Recommendation for Physician: -Liberalize diet to regular (Diet restriction is not appropriate due to age, cancer and decreased PO intake) Plan of Care: RD following, monitoring for tolerance and adequacy Nutrition reason for involvement: Follow up Primary Diagnose(s): Metastatic lung cancer PMH: HTN Ht: 60in Wt: 169.25lb; 174.37lb; 169.05lb BMI: 33.1kg/m2 IBW: 100lb +/- 10% RD Assessment: (01/01) Visited pt in the room. Pt reported some improvement in her appetite. Pt stated I just dont like anything on the menu. During my assessment, pt was tearful as she was overwhelmed by newly diagnosed lung cancer. Pt stated that she just wanted to get the treatment she needs and go home. Provided empathic listening. Discussed case with Insights Strategist. (12/25) Visited pt in the room. Pt complained of nausea and vomiting. Pt reported poor appetite and only took a bite of sandwich for lunch. Positive occult blood. Pt had colonoscopy scheduled for 12/27. Pt refused any nutrition intervention at this time. (12/19) Chart reviewed. Labs and meds reviewed. 78yo F, who was admitted for hypokalemia. Visited pt in the room. Pt reported of appetite being not so good since her open heart surgery a month ago. No complains of nausea or vomiting. Pt denied any chewing or swallowing difficulty. Flatus present. UBW ~166lbs. Pt refused oral nutrition supplements and diet education. Discussed menu options with pt. Will continue to monitor and follow. Current Diet: cardiac diet Malnutrition Evaluation (12/19/2018) The patient does not meet criteria for a specified degree of malnutrition at this time. Will re-evaluate at follow-up as appropriate. Diet Education Needs Assessment: Diet education not indicated. Nutrition Care Level: low Signed: Mervat Rapp, MS, RD, LD
--- NOTE | 2019-01-01 19:09 | NUR ---
PATIENT RESTING IN BED- IN STABLE CONDITION WITH NO S/S OF RESPIRATORY DISTRESS. NO PAIN VOICED. O2 AND TELEMETRY APPLIED. IV FLUIDS INFUSING. BED ALARM ON. CALL LIGHT IS WITHIN REACH, PATIENT INSTRUCTED TO CALL FOR ASSISTANCE NEEDED. BEDSIDE REPORT GIVEN TO ONCOMING NURSE.
--- NOTE | 2019-01-01 20:13 | Progress Note ---
DATE: 01/01/2019 Cardiology Progress Note SUBJECTIVE: The patient denies chest pain or shortness of breath. She was told she has metastatic cancer today based on CT scan findings. OBJECTIVE: VITAL SIGNS: Temperature 97 degrees, pulse 86, respiratory rate 18, blood pressure 114/55, oxygen saturation 96% on room air. GENERAL: Awake, alert elderly woman, in no acute distress . LUNGS: Clear to auscultation bilaterally. No wheezes or crackles. CARDIOVASCULAR: Normal rate. Irregularly irregular. Normal S1, S2. ABDOMEN: Soft, nontender. EXTREMITIES: No edema. CARDIAC MEDICATIONS: Bumex 1 mg p.o. b.i.d., amiodarone 200 mg p.o. daily, aspirin 81 mg p.o. daily. LABORATORY DATA: WBC 3.49, hemoglobin 8, hematocrit 26.2, platelets 188. Sodium 136, potassium 3.6, chloride 94, CO2 of 32, BUN 13, creatinine 0.79. TELEMETRY: Atrial fibrillation. IMPRESSION: 1. History of aortic stenosis, status post bioprosthetic aortic valve replacement. 2. Aortic dissection, status post repair. 3. Metastatic cancer, presumed lung primary. 4. Chronic atrial fibrillation. 5. Anemia secondary to GI bleed. RECOMMENDATIONS: Given diagnosis of metastatic cancer, warfarin has been held for possible biopsies. Subcu Lovenox for now. Continue current cardiac medications otherwise. Monitor H and H closely. Continue patient on telemetry. No further cardiac evaluation is indicated at this time. PT as tolerated. Thank you for this consult. We will continue to follow. Gely Singletary MD ABS/MODL /[id number]
[2019-01-01] MEDS: MELATONIN 3 MG TAB PO SCH (20:22)
[2019-01-01] MEDS: HYDROCODONE/APAP 10MG-325MG TAB PO PRN (20:22)
[2019-01-02] VITALS (7 sets, daily range): BP systolic 83–136; BP diastolic 43–62
[2019-01-02] MEDS: HYDROCODONE/APAP 10MG-325MG TAB PO PRN ×2 (04:17→08:30)
[2019-01-02 06:10] LABS: INR 2.38; PROTHROMBIN TIME 26.7 seconds (11.9-14.5)
[2019-01-02] MEDS: POTASSIUM CHLORIDE 10MEQ EA PO SCH (08:30)
[2019-01-02] MEDS: DOCUSATE SODIUM 100 MG CAP PO SCH ×2 (08:30→17:15)
[2019-01-02] MEDS: METHYLPREDNISOLONE SOD SUCC 40 MG/ML VIAL 1ML IV SCH (08:30)
[2019-01-02] MEDS: PANTOPRAZOLE SOD 40 MG TABEC PO SCH (08:30)
[2019-01-02] MEDS: BUMETANIDE 1 MG TAB PO SCH ×2 (08:30→17:15)
[2019-01-02] MEDS: AMIODARONE HCL 200 MG TAB PO SCH (08:30)
[2019-01-02] MEDS: ENOXAPARIN INJ 80 MG/0.8 ML SYR SC SCH (08:30)
[2019-01-02] MEDS: FLUOXETINE HCL 20 MG CAP PO SCH (08:30)
[2019-01-02] MEDS: SUCRALFATE 1 GM TAB PO SCH ×3 (08:30→17:15)
[2019-01-02] MEDS: MAGNESIUM OXIDE 400 MG TAB PO SCH (08:30)
[2019-01-02] MEDS: ASPIRIN 81 MG ENTERIC COATED PO SCH (08:30)
--- NOTE | 2019-01-02 11:06 | NUR ---
ASSESSMENT: Spiritual concern Pt reflecting on importance of family and gnosticism. Pt states she has decided to forgo aggressive treatment and "enjoy the rest of my life." Pt states she is ready to go home and spend time with family and friends. Intervention: Provided unhurried pastoral presence and empathic listening. Facilitated storytelling and life review. Outcome: Pt expressed appreciation for support. Will continue to follow as able. DOLORES SCHNEIDER Rawhide Trimmer Spiritual Care Department O: [phone] Pager: [phone] ([phone] number calling from)
--- NOTE | 2019-01-02 12:09 | Progress Note ---
DATE: 01/02/2019 Cardiology Progress Note SUBJECTIVE: The patient denies chest pain. She is tearful today due to her recent diagnosis and does endorse shortness of breath in the setting of vomiting. SUBJECTIVE: VITAL SIGNS: Temperature 96.7 degrees, pulse 82, respiratory rate 18, blood pressure 136/62, oxygen saturation 96% on 2 L nasal cannula. GENERAL: Awake, alert, elderly woman, no acute distress, tearful. LUNGS: Clear to auscultation bilaterally. No wheezes or crackles. CARDIOVASCULAR: Normal rate. Irregularly irregular. Normal S1, S2. ABDOMEN: Soft, nontender. EXTREMITIES: No edema. CARDIAC MEDICATIONS: Enoxaparin 80 mg subcu q.12 hours, amiodarone 200 mg p.o. daily, Bumex 1 mg p.o. b.i.d., aspirin 81 mg p.o. daily. LABORATORY DATA: WBC 3.49, hemoglobin 8, hematocrit 26.2, platelets 188. Sodium 136, potassium 3.6, chloride 94, CO2 of 32, BUN 13, creatinine 0.79. TELEMETRY: Atrial fibrillation. IMPRESSION: 1. History of aortic stenosis status post bioprosthetic aortic valve replacement. 2. Aortic dissection status post repair. 3. Metastatic cancer, presumed lung primary. 4. Chronic atrial fibrillation. 5. Anemia secondary to gastrointestinal bleed. RECOMMENDATIONS: Given diagnosis of metastatic cancer warfarin has been held for possible biopsy. CVA prophylaxis with subcutaneous Lovenox for now. Continue current cardiac medications. Monitor hemoglobin and hematocrit closely. Continue to monitor patient on telemetry. No further cardiac evaluation is indicated at this time. PT as tolerated. Thank you for this consult. We will continue to follow. Gely Singletary MD ABS/MODL /[id number]
--- NOTE | 2019-01-02 16:16 | NUR ---
[facility] patient aware of change and to be transferred alert and oriented.
--- NOTE | 2019-01-02 16:20 | NUR ---
MARY SPOKE WITH PT AND SON VIC FORREST TODAY TO DISCUSS DC PLANS PT HAS LEARNED THAT SHE HAS STAGE [address] ZULETA SPOKE WITH PT AND SON VIC ON 12/31 RECOMMENDS PALLIATIVE CARE THERE IS NO CURATIVE TREATMENT PT DOES NOT WANT BIOPSIES OR FURTHER WORKUP FOR CANCER WANTS TO GET STRONGER WITH REHAB AND GO HOME TO ENJOY HER FAMILY PARTICIPATING WITH P.T. AND MOTIVATED REC'D MOT [facility] ACCEPTING MD ESSIE KOHLER ADMIN APPROVAL CALL REPORT TO [phone] PT AND SON NOTIFIED OF APPROVAL AND THEY ARE VERY PLEASED WITH THE OPPORTUNITY MOT INITIATED AND ON CHART NURSE YEFRI CALLING DR REID FOR DC ORDER
--- NOTE | 2019-01-02 17:49 | NUR ---
PATIENT ALERT AND ORIENTED, LEAVING FACILITY VIA AMBULANCE TO [facility] AT [facility] AT THIS TIME.
--- NOTE | 2019-01-06 10:24 | Discharge Summary ---
DISCHARGE DIAGNOSES: 1. Weakness. 2. Possible lung cancer, metastatic. 3. Status post recent aortic valve replacement. 4. Anemia. 5. GI bleed. 6. Gastric polyp. 7. Electrolyte imbalance. 8. Hypertension. HISTORY OF PRESENT ILLNESS AND HOSPITAL COURSE: The patient is a lady, who is brought over due to overall weakness in a shelter who is just status post recent aortic valve repair, where she was brought in and found to have electrolyte imbalances as well as anemia that continued to decrease. She had heme-positive stools. Her Coumadin was stopped. She was seen by GI, who did an EGD that found a gastric polyp. Post EGD, her hemoglobin actually improved. She was seen by Oncology. Electrolytes were replaced and she was doing well with therapy and then noted on an x-ray, she had a lung mass, which was looked up on a CT scan that showed evidence of strong possibility of lung cancer with metastatic changes to the adrenal glands, so she was seen by Dr. Marshall of Pulmonary, who had a long talk with the patient as well as the family and they are still debating about if they want to pursue this or not. In the meantime, the patient was seen by Dr. Galo at rehab and she was a good candidate for rehab, so she was then transferred over to inpatient rehab at [facility]. Please see hospital chart for full details. MD LESLIE Chapa/PEACE /[id number]
== END 2019-01-02 17:48 | DRG 394 ==
LOC: ER 20:30 → ERHOLD 12-19 00:07 → IMCU 12-19 00:37 → MED/SURG3 12-21 18:02 → OBSVTOIN 12-22 13:05
PROVIDERS: ADMIT Internal Medicine; ATTEND Internal Medicine
PROC: 0DB78ZX Excision of Stomach, Pylorus, Via Natural or Artificial Opening Endoscopic, Diagnostic (ICD-10-PCS; 2018-12-27)
PROC: 30233K1 Transfusion of Nonautologous Frozen Plasma into Peripheral Vein, Percutaneous Approach (ICD-10-PCS; 2018-12-27)
PROC: 0DB68ZZ Excision of Stomach, Via Natural or Artificial Opening Endoscopic (ICD-10-PCS; principal; 2018-12-27 12:00)
PROC: 0DB68ZX Excision of Stomach, Via Natural or Artificial Opening Endoscopic, Diagnostic (ICD-10-PCS; 2018-12-27 12:00)
DX: K31.7 Polyp of stomach and duodenum (principal); K92.2 Gastrointestinal hemorrhage, unspecified; C78.1 Secondary malignant neoplasm of mediastinum; C79.72 Secondary malignant neoplasm of left adrenal gland; C79.71 Secondary malignant neoplasm of right adrenal gland; C34.2 Malignant neoplasm of middle lobe, bronchus or lung; C34.12 Malignant neoplasm of upper lobe, left bronchus or lung; E46 Unspecified protein-calorie malnutrition; D68.9 Coagulation defect, unspecified; J90 Pleural effusion, not elsewhere classified; D50.0 Iron deficiency anemia secondary to blood loss (chronic); Z68.33 Body mass index [BMI] 33.0-33.9, adult; K21.9 Gastro-esophageal reflux disease without esophagitis; E83.42 Hypomagnesemia; I10 Essential (primary) hypertension; E87.6 Hypokalemia; I48.2 Chronic atrial fibrillation; Z79.01 Long term (current) use of anticoagulants; Z79.82 Long term (current) use of aspirin; Z95.2 Presence of prosthetic heart valve; E83.52 Hypercalcemia; E78.5 Hyperlipidemia, unspecified; D63.8 Anemia in other chronic diseases classified elsewhere; K44.9 Diaphragmatic hernia without obstruction or gangrene; K29.70 Gastritis, unspecified, without bleeding; E66.9 Obesity, unspecified; R00.1 Bradycardia, unspecified; D70.9 Neutropenia, unspecified; Z88.5 Allergy status to narcotic agent; Z88.0 Allergy status to penicillin
CPT/HCPCS: 36415; 43235; 43239; 71260; 80048; 80053; 82270; 82378; 82728; 83540; 83735; 83970; 84466; 85025; 85610; 85730; 86900; 88305; 88312; 93005; 97139; 99284; G0378; J1650; J1756; J2405; J2430; J2920; J3475; J3480; J7030; J7040; J7050; P9017; Q9967

== ENCOUNTER → 2019-02-14 | Outpatient (CLI) | payer MEDICARE ==
--- NOTE | 2019-02-14 14:19 | Diagnostic Imaging Report ---
Exam: PA and lateral chest radiograph Clinical history: Dyspnea, pulmonary edema Comparison: CT chest, December 31, 2018 Findings mild bilateral subpulmonic pleural effusion with associated atelectasis/consolidation are noted. Persistent cardiomegaly and mild bilateral pulmonary edema. A 2 cm left upper lobe pulmonary nodule is again noted. The regional osseous structures are unremarkable. Post median sternotomy changes are noted. Impression: 1. Cardiomegaly with bilateral pulmonary edema and small pleural effusions which may represent cardiac decompensation. 2. Left upper lobe pulmonary nodule. Signed by: Dr. Sunil Sampson MD on 02/14/2019 2:16 PM
== END ==
LOC: RAD 12:11
PROVIDERS: ATTEND Internal Medicine Cardiovascular Disease
DX: R06.00 Dyspnea, unspecified (principal); J81.1 Chronic pulmonary edema
CPT/HCPCS: 71046